=== PATIENT | female | born 1950 | race Two or more races ===

== ENCOUNTER → 2020-07-04 09:41 | Outpatient (BNVA) | payer MEDICARE, SELFPAY | PROVIDERS: PCP Internal Medicine; Referring Provider Internal Medicine; Visit Provider Internal Medicine | DX: J44.9 Chronic obstructive pulmonary disease, unspecified (principal); E66.9 Obesity, unspecified; Z68.41 Body mass index [BMI] 40.0-44.9, adult; Z71.3 Dietary counseling and surveillance; Z79.51 Long term (current) use of inhaled steroids | CPT/HCPCS: 99213 ==

== ENCOUNTER 2020-07-29 08:29 | Outpatient (REF) | payer MEDICARE, SELFPAY ==
--- NOTE | 2020-07-29 08:32 | CT_ITS ---
EXAMINATION: CT CHEST SCREENING CLINICAL INFORMATION: Lung cancer screening COMPARISON: Previous chest CT scans most recent June 2019 TECHNIQUE: Multidetector volumetric CT imaging of the chest is performed without contrast using low dose technique. Additional 2D coronal and sagittal reformatted images and axial 3D maximum intensity projection (MIP) images are generated on the CT workstation. This CT examination was performed using dose optimization techniques as appropriate, variously including the following: *Automated exposure control *Adjustment of mA and/or kV according to patient size (this includes techniques or standardized protocols for targeted exams where dose is matched to indication/reason for exam; i.e. extremities or head) *Use of iterative reconstruction technique DLP: 74 mGy-cm FINDINGS: LUNGS: There is evidence of mild emphysema. There are postsurgical changes to the left upper lobe. There is peripheral linear scarring or chronic subsegmental atelectasis in the posterior segment of the right upper lobe axial image 95 series 5 that is stable. There are increased peripheral interstitial markings seen in the right lung. There is an increasing peripheral parenchymal density seen in the right upper lobe near the minor fissure measuring 1 x 2 cm axial image 191 series 5. There is a stable abnormal parenchymal density in the posterior lateral right lower lobe near the diaphragm measuring 1 cm axial image 405 series 5. Again, on sagittal and coronal reconstructed images this may represent nodular appearance of atelectasis. No endobronchial or endotracheal lesion is seen. MEDIASTINUM: There is mild coronary artery calcification. The mediastinum is otherwise normal. PLEURA: There is no pleural effusion. No pleural mass or thickening. AXILLA: There is skin thickening of the right breast. No chest wall mass or enlarged axillary lymph nodes are seen. UPPER ABDOMEN: Unremarkable OSSEOUS STRUCTURES: There are degenerative changes of the spine. CT/CT lung screening IMPRESSION: Mild emphysema. Stable postsurgical changes to the left upper lobe. Increasing peripheral interstitial disease in the right lung. Increasing peripheral or subpleural density in the right upper lobe near the minor fissure measuring 1 x 2 cm. Stable peripheral or subpleural density in the posterior lateral basal segment of the right lower lobe near the diaphragm . ASSESSMENT: Lung-RADS category 3: Probably Benign RECOMMENDATION: [address] follow-up recommended.
== END 2020-07-29 08:30 | disposition home or self-care (01) ==
LOC: HO.CT 08:29
PROVIDERS: Visit Provider Surgery
DX: Z12.2 Encounter for screening for malignant neoplasm of respiratory organs (principal); F17.210 Nicotine dependence, cigarettes, uncomplicated
CPT/HCPCS: 71250

== ENCOUNTER → 2020-11-19 10:21 | Outpatient (BNVA) | payer MEDICARE, SELFPAY | PROVIDERS: PCP Internal Medicine; Visit Provider Internal Medicine | DX: E66.9 Obesity, unspecified (principal); J44.9 Chronic obstructive pulmonary disease, unspecified; J45.909 Unspecified asthma, uncomplicated; R91.1 Solitary pulmonary nodule; R09.02 Hypoxemia | CPT/HCPCS: 99212 ==

== ENCOUNTER 2020-12-19 14:53 | Outpatient (REF) | payer MEDICARE, SELFPAY ==
--- NOTE | ~2020-12-19 | MM_ITS ---
EXAMINATION: MM DIAGNOSTIC DIGITAL BREAST TOMOSYNTHESIS, BILATERAL CLINICAL INFORMATION: Follow up left breast density which had been biopsied. Status post right lumpectomy. COMPARISON: Mammography: 03/29/2020 and studies dating back to 06/07/2012. TECHNIQUE: Digital breast tomosynthesis is performed in both the craniocaudal and mediolateral oblique views along with computer-aided detection (CAD). Synthesized 2D images are generated from the tomosynthesis. Additional right exaggerated craniocaudal view performed. FINDINGS: There are scattered areas of fibroglandular density (ACR BI-RADS breast composition Category b). Patient is status post right breast lumpectomy with post surgical and post radiation change present. No new abnormal dominant mass or suspicious grouping of calcifications identified. Within the left breast, a clip is noted in the medial density which had been biopsied with benign pathology result. No new abnormal dominant mass identified. No suspicious grouping of microcalcifications. Results are provided to the patient at time of visit by the technologist. MM/MM tomosynthesis diagnostic BI IMPRESSION: There are no significant changes from prior study. ASSESSMENT: BI-RADS 2: Benign. RECOMMENDATION: Routine annual mammography screening due in 12 months. This patient's information was entered into a reminder system with a target due date for their next mammogram.
== END 2020-12-19 14:54 | disposition home or self-care (01) ==
LOC: HO.MAMMO 14:53
PROVIDERS: Visit Provider Surgery
DX: C50.911 Malignant neoplasm of unspecified site of right female breast (principal); R92.8 Other abnormal and inconclusive findings on diagnostic imaging of breast
CPT/HCPCS: 77062; 77066

== ENCOUNTER → 2021-02-19 10:16 | Outpatient (BNVA) | payer MEDICARE, SELFPAY | PROVIDERS: PCP Internal Medicine; Visit Provider Internal Medicine | DX: J44.9 Chronic obstructive pulmonary disease, unspecified (principal); R09.02 Hypoxemia; R91.1 Solitary pulmonary nodule; E66.01 Morbid (severe) obesity due to excess calories; Z68.41 Body mass index [BMI] 40.0-44.9, adult; Z79.899 Other long term (current) drug therapy; Z99.81 Dependence on supplemental oxygen; Z79.51 Long term (current) use of inhaled steroids; Z71.3 Dietary counseling and surveillance | CPT/HCPCS: 99212 ==

== ENCOUNTER 2021-02-20 10:56 | Outpatient (REF) | payer MEDICARE, SELFPAY ==
--- NOTE | ~2021-02-20 | CT_ITS ---
EXAMINATION: CT CHEST SCREENING CLINICAL INFORMATION: Six-month follow-up right upper lobe nodule. Lung cancer screening. COMPARISON: Previous chest CT scans most recent July 2020 TECHNIQUE: Multidetector volumetric CT imaging of the chest is performed without contrast using low dose technique. Additional 2D coronal and sagittal reformatted images and axial 3D maximum intensity projection (MIP) images are generated on the CT workstation. This CT examination was performed using dose optimization techniques as appropriate, variously including the following: *Automated exposure control *Adjustment of mA and/or kV according to patient size (this includes techniques or standardized protocols for targeted exams where dose is matched to indication/reason for exam; i.e. extremities or head) *Use of iterative reconstruction technique DLP: 84 mGy-cm FINDINGS: LUNGS: There is evidence of mild emphysema. There are postsurgical changes to the left upper lobe. There are increased peripheral interstitial markings seen in the right upper lobe. There is a denser more solid-appearing area in the peripheral or subpleural right upper lobe measuring 1 x 2 cm axial image 202 series 6. This is unchanged from July 2020 exam. There is increased peribronchial attenuation seen in the right upper lobe, right middle lobe and right lower lobe and some of bronchial wall thickening suggestive of airways disease. There is a 4 x 7 mm perivascular nodule in the posterior segment of the right upper lobe axial image 170 series 6. This is new from previous exam July and it is uncertain whether this could be related to airways disease. There is a peripheral or subpleural abnormal parenchymal density in the right lower lobe near the diaphragm this is increased in size measuring 1 x 2 cm axial image 389 series 6 compared to approximately 1 cm on July 2020 exam. Again, on sagittal and coronal images this appears to represent an area of subsegmental atelectasis. There is a new peripheral or subpleural nodule in the left lower lobe adjacent to the diaphragmatic pleural surface that measures 9 mm axial image 414 series 6. On sagittal and coronal reconstructed images this may represent an area of atelectasis as well. MEDIASTINUM: Mild coronary artery calcification. The pulmonary arteries are prominent, main pulmonary artery measuring 3.8 cm. PLEURA: There is no pleural effusion. No pleural mass or thickening. AXILLA: No lymphadenopathy. UPPER ABDOMEN: Unremarkable OSSEOUS STRUCTURES: There are degenerative changes of the spine. CT/CT lung screen follow up IMPRESSION: Stable appearance to the peripheral or subpleural parenchymal density in the right upper lobe. Increasing peribronchial attenuation and bronchial wall thickening throughout the right lung probably representing airways disease. New 5 x 7 mm posterior segment right upper lobe nodule. This may be related to airways disease. Stable peripheral or subpleural abnormal parenchymal density in the right lower lobe probably representing atelectasis. New similar-appearing peripheral or subpleural parenchymal density in the left lower lobe adjacent to the diaphragm which may also represent atelectasis. ASSESSMENT: Lung-RADS category 3: Probably Benign RECOMMENDATION: Six-month low-dose chest CT scan recommended.
== END 2021-02-20 10:57 | disposition home or self-care (01) ==
LOC: HO.CT 10:56
PROVIDERS: Visit Provider Surgery
DX: Z12.2 Encounter for screening for malignant neoplasm of respiratory organs (principal); Z87.891 Personal history of nicotine dependence
CPT/HCPCS: 71250

== ENCOUNTER → 2021-03-18 13:20 | Outpatient (BNVA) | payer MEDICARE, SELFPAY | PROVIDERS: PCP Internal Medicine; Visit Provider Internal Medicine | DX: Z13.89 Encounter for screening for other disorder (principal) | CPT/HCPCS: Q3014 ==

== ENCOUNTER 2021-06-11 10:47 | Outpatient (REF) | payer MEDICARE, SELFPAY ==
--- NOTE | ~2021-06-11 | CT_ITS ---
EXAMINATION: CT CHEST SCREENING CLINICAL INFORMATION: Former smoker, quit 5 years ago. 40 year smoking history. COMPARISON: Previous chest CT scans most recent February 2021 TECHNIQUE: Multidetector volumetric CT imaging of the chest is performed without contrast using low dose technique. Additional 2D coronal and sagittal reformatted images and axial 3D maximum intensity projection (MIP) images are generated on the CT workstation. This CT examination was performed using dose optimization techniques as appropriate, variously including the following: *Automated exposure control *Adjustment of mA and/or kV according to patient size (this includes techniques or standardized protocols for targeted exams where dose is matched to indication/reason for exam; i.e. extremities or head) *Use of iterative reconstruction technique DLP: 104 mGy-cm FINDINGS: LUNGS: There is evidence of mild emphysema. There are postsurgical changes following partial left upper lobe lobectomy. There are increased peripheral interstitial markings right greater than left again questionable for interstitial lung disease. There are scattered areas of bronchial wall thickening, increased peribronchial attenuation and bronchial soft tissue opacification suggestive of airways disease. This is greatest greater in the right lung compared to the left. There is focal bronchiectasis seen in the posterior segment of the right upper lobe bronchial wall thickening versus small peribronchial nodules for example axial image 175 series 5 that appears unchanged. There is a peripheral or subpleural parenchymal density measuring approximately 1 cm axial image 199 series 5 in the right upper lobe that appears unchanged. There is a 5 mm right middle lobe nodule adjacent to the major fissure axial image 282 series 5 that is new or increased. Areas of peripheral scarring or atelectasis in the left upper lobe anteriorly axial image 274 series 5 and inferiorly axial image 321 series 5 that are stable. The abnormal peripheral or subpleural parenchymal density in the right lower lobe measuring approximately 1 x 2 cm axial image 377 series 5 is stable. The previously identified 9 mm left lower lobe nodule along the diaphragmatic surface that was new on February 2021 exam is no longer seen. MEDIASTINUM: The heart does not appear enlarged. There is mild coronary artery calcification. There is no pericardial effusion. There are small mediastinal lymph nodes. No enlarged lymph nodes are seen. The pulmonary arteries are upper normal in size. Thoracic aorta is normal in caliber but tortuous. PLEURA: There is no pleural effusion. No pleural mass or thickening. AXILLA: No chest wall mass or enlarged axillary lymph nodes are seen. UPPER ABDOMEN: Unremarkable OSSEOUS STRUCTURES: There are degenerative changes of the spine. CT/CT lung screen follow up IMPRESSION: The previously identified 9 mm left lower lobe nodule adjacent to the diaphragmatic pleural surface that was new on February 2021 exam is no longer seen. There is a new peripheral or subpleural right middle lobe nodule adjacent to the major fissure axial image 278 series 5 that is new. This may represent a subpleural lymph node. Otherwise pulmonary nodules appear stable. There is evidence of mild emphysema, interstitial disease, right greater than left and airways disease also right greater than left. ASSESSMENT: Lung-RADS category 2: Benign RECOMMENDATION: Annual low-dose chest CT follow-up recommended.
== END 2021-06-11 10:48 | disposition home or self-care (01) ==
LOC: HO.CT 10:47
PROVIDERS: PCP Internal Medicine; Visit Provider Physician Assistant Medical
DX: Z12.2 Encounter for screening for malignant neoplasm of respiratory organs (principal); Z87.891 Personal history of nicotine dependence
CPT/HCPCS: 71250

== ENCOUNTER → 2021-06-20 10:42 | Outpatient (BNVA) | payer MEDICARE, SELFPAY | PROVIDERS: PCP Internal Medicine; Visit Provider Surgery | DX: J44.9 Chronic obstructive pulmonary disease, unspecified (principal); R91.8 Other nonspecific abnormal finding of lung field; Z79.899 Other long term (current) drug therapy; Z79.84 Long term (current) use of oral hypoglycemic drugs; Z87.891 Personal history of nicotine dependence | CPT/HCPCS: 99212 ==

== ENCOUNTER → 2021-06-23 10:37 | Outpatient (BNVA) | payer MEDICARE, SELFPAY | PROVIDERS: PCP Internal Medicine; Visit Provider Internal Medicine | DX: J44.9 Chronic obstructive pulmonary disease, unspecified (principal); J45.909 Unspecified asthma, uncomplicated; E66.01 Morbid (severe) obesity due to excess calories; R91.8 Other nonspecific abnormal finding of lung field; R09.02 Hypoxemia | CPT/HCPCS: 99212 ==

== ENCOUNTER 2021-06-26 10:58 | Outpatient (REF) | payer MEDICARE, SELFPAY ==
--- NOTE | ~2021-06-26 | MM_ITS ---
EXAMINATION: BONE DENSITOMETRY CLINICAL INDICATION: Menopause. COMPARISON: Previous BD dated 08/06/2016 and baseline BD dated 07/22/2010. TECHNIQUE: Using a [employer] DXA System (software version: 13.1) manufactured by [employer], dual-energy x-ray absorptiometry was performed of the lumbar spine and left hip. The images are of good technical quality. Summary results are attached. FINDINGS: AP SPINE L1-L4: Current: BMD 1.194 g/cm2, Z-score 0.6, T-score 0.1, normal, 3.1% increase from previous, 3.1% increase from baseline (<5% change is not significant). Prior: BMD 1.158 g/cm2. Baseline: BMD 1.158 g/cm2. LEFT FEMUR, NECK: Current: BMD 0.905 g/cm2, Z-score 0.0, T-score -1.0, normal. Prior: BMD 0.863 g/cm2. Baseline: BMD 0.886 g/cm2. LEFT FEMUR, TOTAL: Current: BMD 1.158 g/cm2, Z-score 1.8, T-score 1.2, normal, 5.9% increase from previous, 5.3% increase from baseline (<5% change is not significant). Prior: BMD 1.094 g/cm2. Baseline: BMD 1.100 g/cm2. IDENTIFIED RISK FACTORS: Low calcium intake, menopause. HISTORY OF FRACTURE: None listed. MEDICATIONS: Calcium supplements or multivitamin, vitamin D. MM/XR DEXA axial skeleton IMPRESSION: 1. DIAGNOSIS: Normal bone density based on the lowest T-score value of -1.0 in the femoral neck applying World Health Organization criteria. 2. 10-YEAR FRACTURE RISK PREDICTION, FRAX: Major osteoporotic fracture (clinical spine, forearm, hip or shoulder) 4.2%. Hip fracture 0.4%. 3. Treatment Recommendations: NOF guidelines recommend consideration for treatment in postmenopausal women and men age 50 and older presenting with the following: -A hip or vertebral (clinical or morphometric) fracture. -T-score less than or equal to -2.5 at the femoral neck or spine after appropriate evaluation to exclude secondary causes. -Low bone mass at the hip or spine and a 10-year fracture probability by FRAX of greater than or equal to 3% for hip fracture or greater than or equal to 20% for major osteoporotic fracture based on the [place] adapted WHO algorithm. 4. Other Recommendations: All treatment decisions require clinical judgment and consideration of individual patient factors, including patient preferences, comorbidities, previous drug use, risk factors not captured in the FRAX model (e.g. frailty, falls, vitamin D deficiency, increased bone turnover, interval significant decline in bone density) and possible under or overestimation of fracture risk by FRAX. FUTURE SCAN RECOMMENDATION: People with diagnosed cases of osteoporosis or at high risk for fracture should have regular bone mineral density tests. For patients eligible for Medicare, routine testing is allowed once every 2 years. The testing frequency can be increased to one year for patients who have rapidly progressing disease, those who are receiving or discontinuing medical therapy to restore bone mass, or have additional risk factors.
== END 2021-06-26 10:59 | disposition home or self-care (01) ==
LOC: HO.MAMMO 10:58
PROVIDERS: Visit Provider Internal Medicine
DX: Z13.820 Encounter for screening for osteoporosis (principal); Z78.0 Asymptomatic menopausal state
CPT/HCPCS: 77080

== ENCOUNTER → 2021-07-01 11:22 | Outpatient (BNVA) | payer OTHER, SELFPAY | PROVIDERS: PCP Internal Medicine; Referring Provider Internal Medicine; Visit Provider Surgery | DX: C50.911 Malignant neoplasm of unspecified site of right female breast (principal) | CPT/HCPCS: 99212 ==

== ENCOUNTER → 2021-12-04 11:14 | Outpatient (BNV) | payer OTHER, SELFPAY | PROVIDERS: Visit Provider Internal Medicine Medical Oncology | DX: Z85.3 Personal history of malignant neoplasm of breast (principal); R91.8 Other nonspecific abnormal finding of lung field; D75.1 Secondary polycythemia | CPT/HCPCS: 99213 ==

== ENCOUNTER 2021-12-15 12:51 | Outpatient (REF) | payer MEDICARE, SELFPAY ==
--- NOTE | ~2021-12-15 | CT_ITS ---
EXAMINATION: CT CHEST SCREENING CLINICAL INFORMATION: History of nicotine dependence COMPARISON: None. TECHNIQUE: Multidetector volumetric CT imaging of the chest is performed without contrast using low dose technique. Additional 2D coronal and sagittal reformatted images and axial 3D maximum intensity projection (MIP) images are generated on the CT workstation. This CT examination was performed using dose optimization techniques as appropriate, variously including the following: *Automated exposure control *Adjustment of mA and/or kV according to patient size (this includes techniques or standardized protocols for targeted exams where dose is matched to indication/reason for exam; i.e. extremities or head) *Use of iterative reconstruction technique DLP: 77 mGy-cm FINDINGS: LUNGS: There is mild emphysema with patchy ground-glass attenuation seen peripherally based in right upper lobe and posterior segments. Postsurgical changes following left upper lobe resection are noted. There is a patchy subpleural ground-glass attenuation changes with atelectasis in the right lower lobe. Mild peribronchial thickening bilateral lower lobe with soft tissue adjacent attenuation is stable. Bilateral lower lobe bronchiectasis is not well appreciated on this exam. Previously seen soft tissue nodule right middle lobe adjacent to fissure is not well appreciated on the present exam. Minimal subpleural basilar atelectasis in the lingula, axial image 290/6, is stable. Subpleural based patchy parenchymal opacity at right CP angle, image 388/6, is stable. There are no new findings. MEDIASTINUM: The thyroid lobes are symmetric and normal. The central trachea and the bronchi are widely patent. There are small shotty lymph nodes in the mediastinum. Heart size and the great vessels are normal caliber. There are coronary artery calcifications present. PLEURA: There is no pleural effusion. No pleural mass or thickening. AXILLA: No lymphadenopathy. UPPER ABDOMEN: Visualized liver, spleen, pancreas and bilateral adrenal glands are unremarkable. OSSEOUS STRUCTURES: No lytic or sclerotic process seen. CT/CT lung screen follow up IMPRESSION: 1. Mild emphysema with postsurgical changes, left upper lobe, following lobectomy. There is patchy parenchymal subpleural opacities, right upper lobe lateral segment, right lower lobe CP angle. Mild atelectatic changes in the lingula. 2. Nodule in the right middle lobe adjacent to confluence of the fissure is not visualized. No change in the peribronchial wall thickening and mild peribronchial attenuation. Bronchiectasis is not well appreciated on this exam. ASSESSMENT: Lung-RADS category 2: Benign RECOMMENDATION: Low-dose annual CT chest exam
== END 2021-12-15 12:52 | disposition home or self-care (01) ==
LOC: HO.CT 12:51
PROVIDERS: Visit Provider Physician Assistant Medical
DX: Z87.891 Personal history of nicotine dependence (principal)
CPT/HCPCS: 71250

== ENCOUNTER 2021-12-22 09:55 | Outpatient (REF) | payer OTHER, SELFPAY ==
--- NOTE | ~2021-12-22 | MM_ITS ---
EXAMINATION: MM SCREENING DIGITAL BREAST TOMOSYNTHESIS, BILATERAL CLINICAL INFORMATION: Screening. Asymptomatic. Prior right lumpectomy for breast cancer, 2009. COMPARISON: Mammography: 12/19/2020, 03/29/2020, 03/21/2020, 09/19/2019; CT chest 12/15/2021, 06/11/2021, 02/20/2021, and 07/29/2020. TECHNIQUE: Digital breast tomosynthesis is performed in both the craniocaudal and mediolateral oblique views along with computer-aided detection (CAD). Synthesized 2D images are generated from the tomosynthesis. Additional exaggerated right CC view is provided. FINDINGS: There are scattered areas of fibroglandular density (ACR BI-RADS breast composition Category b). There are post therapy changes on the right with reduced breast size and smooth skin thickening. There is no interval mass or architectural abnormality or coarsening of the stromal markings. No abnormal calcifications. The axilla is unremarkable. Left breast has biopsy clip marker posterior medial 9:00 position. Adjacent small nodular density is decreased in size. The remainder of the left breast shows no interval mass or architectural abnormality or abnormal calcifications. The axilla is unremarkable. Skin contours are smooth. MM/MM tomosynthesis screening BI IMPRESSION: No mammographic evidence of malignancy. ASSESSMENT: BI-RADS 2: Benign RECOMMENDATION: Routine annual mammography screening. This patient's information was entered into a reminder system with a target due date for their next mammogram.
== END 2021-12-22 09:56 | disposition home or self-care (01) ==
LOC: HO.MAMMO 09:55
PROVIDERS: PCP Internal Medicine; Visit Provider Internal Medicine
DX: Z12.31 Encounter for screening mammogram for malignant neoplasm of breast (principal); Z85.3 Personal history of malignant neoplasm of breast; J44.9 Chronic obstructive pulmonary disease, unspecified; E66.01 Morbid (severe) obesity due to excess calories; Z68.41 Body mass index [BMI] 40.0-44.9, adult; R09.02 Hypoxemia; R91.8 Other nonspecific abnormal finding of lung field; Z79.899 Other long term (current) drug therapy
CPT/HCPCS: 77063; 77067; 99212

== ENCOUNTER → 2021-12-26 10:03 | Outpatient (BNVA) | payer OTHER, SELFPAY | PROVIDERS: PCP Internal Medicine; Visit Provider Surgery | DX: R91.1 Solitary pulmonary nodule (principal); Z87.891 Personal history of nicotine dependence | CPT/HCPCS: 99212 ==

== ENCOUNTER → 2022-07-02 10:52 | Outpatient (BNVA) | payer MEDICARE, SELFPAY | PROVIDERS: PCP Internal Medicine; Visit Provider Surgery | DX: C50.911 Malignant neoplasm of unspecified site of right female breast (principal) | CPT/HCPCS: 99212 ==

== ENCOUNTER → 2022-07-06 10:52 | Outpatient (BNVA) | payer OTHER, SELFPAY | PROVIDERS: PCP Internal Medicine; Visit Provider Internal Medicine | DX: J44.9 Chronic obstructive pulmonary disease, unspecified (principal); R09.02 Hypoxemia; E66.01 Morbid (severe) obesity due to excess calories; R91.8 Other nonspecific abnormal finding of lung field; Z99.81 Dependence on supplemental oxygen | CPT/HCPCS: 99212 ==

== ENCOUNTER → 2022-12-31 10:49 | Outpatient (BNVA) | payer OTHER, SELFPAY | PROVIDERS: PCP General Practice; Visit Provider Internal Medicine | DX: J44.9 Chronic obstructive pulmonary disease, unspecified (principal); R09.02 Hypoxemia; E66.01 Morbid (severe) obesity due to excess calories; R91.1 Solitary pulmonary nodule; Z87.891 Personal history of nicotine dependence; Z68.41 Body mass index [BMI] 40.0-44.9, adult; Z99.81 Dependence on supplemental oxygen | CPT/HCPCS: 94618; 99212 ==

== ENCOUNTER 2023-01-07 11:42 | Outpatient (REF) | payer OTHER, SELFPAY ==
--- NOTE | ~2023-01-07 | MM_ITS ---
EXAMINATION: MM SCREENING DIGITAL BREAST TOMOSYNTHESIS, BILATERAL CLINICAL INFORMATION: Screening. Asymptomatic. Status post right breast lumpectomy and radiation therapy. COMPARISON: Mammography: December 22, 2021 and studies dating back to August 06, 2016 TECHNIQUE: Digital breast tomosynthesis is performed in both the craniocaudal and mediolateral oblique views along with computer-aided detection (CAD). Synthesized 2D images are generated from the tomosynthesis. FINDINGS: There are scattered areas of fibroglandular density (ACR BI-RADS breast composition Category b). There is postsurgical and postradiation change seen involving the right breast. There is a stable appearance of the left breast with no new abnormal dominant mass or suspicious grouping of microcalcifications identified. MM/MM tomosynthesis screening BI IMPRESSION: No significant changes from prior exam. ASSESSMENT: BI-RADS 2: Benign RECOMMENDATION: Routine annual mammography screening. This patient's information was entered into a reminder system with a target due date for their next mammogram.
== END 2023-01-07 11:43 | disposition home or self-care (01) ==
LOC: HO.MAMMO 11:42
PROVIDERS: PCP General Practice; Visit Provider General Practice
DX: Z12.31 Encounter for screening mammogram for malignant neoplasm of breast (principal)
CPT/HCPCS: 77063; 77067

== ENCOUNTER 2023-02-02 12:51 | Outpatient (REF) | payer OTHER, SELFPAY ==
--- NOTE | ~2023-02-02 | CT_ITS ---
EXAMINATION: CT CHEST SCREENING CLINICAL INFORMATION: Personal history of nicotine dependence. COMPARISON: CT chest 12/19/2021 TECHNIQUE: Multidetector volumetric CT imaging of the chest is performed without contrast using low dose technique. Additional 2D coronal and sagittal reformatted images and axial 3D maximum intensity projection (MIP) images are generated on the CT workstation. This CT examination was performed using dose optimization techniques as appropriate, variously including the following: *Automated exposure control *Adjustment of mA and/or kV according to patient size (this includes techniques or standardized protocols for targeted exams where dose is matched to indication/reason for exam; i.e. extremities or head) *Use of iterative reconstruction technique DLP: 75 mGy-cm FINDINGS: LUNGS: There is a left upper lobe scar from previous wedge resection. There is a emphysema with patchy groundglass attenuation in the right upper lobe and right lower lobe similar to previous study. Right lower lobe platelike atelectasis or scarring. No pulmonary nodules seen. No mass or consolidation either. MEDIASTINUM: The thyroid lobes are symmetrical and normal. The central trachea and bronchi are widely patent. No abnormal size mediastinal or hilar lymph nodes seen. No pericardial effusion or thickening. CORONARY ARTERY CALCIFICATION: Trace coronary artery calcification seen. PLEURA: There is no pleural effusion. No pleural mass or thickening. AXILLA: No lymphadenopathy. UPPER ABDOMEN: Julys liver, spleen, pancreas and bilateral adrenal glands are unremarkable. OSSEOUS STRUCTURES: No aggressive lytic or sclerotic process seen. CT/CT lung screening IMPRESSION: 1. Left upper lobe wedge resection. No pulmonary nodules seen. 2. Emphysema with patchy groundglass attenuation in the right upper lobe and right lower lobe, stable. ASSESSMENT: Lung-RADS category 2 RECOMMENDATION: Low-dose annual CT chest.
== END 2023-02-02 12:52 | disposition home or self-care (01) ==
LOC: HO.CT 12:51
PROVIDERS: PCP General Practice; Visit Provider Physician Assistant Medical
DX: Z12.2 Encounter for screening for malignant neoplasm of respiratory organs (principal); Z87.891 Personal history of nicotine dependence
CPT/HCPCS: 71271

== ENCOUNTER → 2023-05-26 08:12 | Day surgery (SDC) | payer OTHER, SELFPAY ==
--- NOTE | 2023-05-25 11:01 | P.CONAN_ITS ---
HPI - Anesthesia Eval Consult details Narrative: 73yo F for Colonoscopy Home O2. 2L @ [facility], PRN during the day [facility] Active Problems Active Problems: All Active Problems (Updated 12/31/22 @ 12:02 by Matt Banda MD) Erythrocytosis (Acute) Pulmonary nodules (Acute) Lung nodule (Acute) On home oxygen therapy (Acute) Hypoxemia (Acute) COPD (chronic obstructive pulmonary disease) (Acute) Asthma (Acute) Personal history of nicotine dependence (Acute) Morbid obesity (Acute) Abnormal mammogram of left breast (Acute) Past Medical History Medical History Asthma COPD (chronic obstructive pulmonary disease) History of invasive ductal carcinoma of breast (~2009) Hypoxemia Left breast mass Lung nodule Morbid obesity On home oxygen therapy Osteopenia Personal history of nicotine dependence Family History Family History Father History of diabetes mellitus Mother Family history of COPD (chronic obstructive pulmonary disease) Family/Other History of melanoma Brother Skin cancer Surgical History Surgical History History of section History of colonoscopy with polypectomy (~03/2010) History of lung surgery (~07/08/16) History of lymph node dissection of right axilla (~05/2010) History of right breast biopsy (~05/2010) Social History Social History Household Members: Friend(s) Housing: Apartment Are you a primary caregivers non medical to a significant other at home: No Do you presently have visiting nurse or other home services: No Patient Tobacco Use Status: Former Tobacco user Advance Directives: No Advance Directives Information Provided: Yes service: No Current occupational status: disabled Meds Allergies Allergy/AdvReac Type Severity Reaction Status Date / Time No Known Allergies Allergy Verified 12/31/22 11:12 [No Known Allergies*] Home Medications Medication Instructions Recorded Confirmed Last Taken Type clonazepam 1 mg tablet 1 mg PO BID PRN anxiety attack 06/17/20 07/02/22 Unknown History ibuprofen 800 mg tablet 800 mg PO Q8H PRN pain 06/17/20 07/02/22 Unknown History metformin 500 mg tablet 500 mg PO BEDTIME 06/17/20 07/02/22 Unknown History mirtazapine 15 mg tablet 15 mg PO BEDTIME 06/17/20 07/02/22 Unknown History venlafaxine 75 mg capsule,extended 75 mg PO DAILY 06/17/20 07/02/22 Unknown History release 24 hr (Effexor XR) ascorbate calcium (vitamin C) 500 500 mg PO DAILY 11/19/20 07/02/22 Unknown His tory mg tablet aspirin 81 mg tablet,delayed 81 mg PO DAILY PRN Bleeding 11/19/20 07/02/22 Unknown History release clotrimazole 1 % topical cream 1 appl topical DAILY 02/19/21 07/02/22 Unknown History tramadol 50 mg tablet 1 tab PO Q12H PRN Pain 12/04/21 07/02/22 Unknown History Exam Exam Date and Time: May 25, 2023 1101 Pertinent Lab Results Pertinent Lab Results: Laboratory Tests 11/30/22 11/30/22 10:06 10:06 WBC 7.7 Hgb 13.2 Hct 42.1 Plt Count 328 Sodium 137 Potassium 4.5 Chloride 100 Carbon Dioxide 29 BUN 24 H Creatinine 0.88 Assessment and Plan Assessment Anesthesia Assessment: Chart Reviewed
[2023-05-26] MEDS: Albuterol Sulfate (0.083%) 2.5 MG/3 ML VIAL.NEB INHALE (08:35)
[2023-05-26 08:39] VITALS: PULSE 81; RESP 16; O2SAT 95
[2023-05-26 09:00] LABS: Glucose, Whole Blood 114 mg/dL (60-115)
--- NOTE | 2023-05-26 09:06 | PC.NURSE ---
pt case cancelled. wheezing noted prior to udn and after udn. continueous o2 2Lnc sat 95%. no iv started or undress. pt in good spiris
== END ==
PROVIDERS: PCP General Practice; Visit Provider Internal Medicine
DX: Z12.11 Encounter for screening for malignant neoplasm of colon (principal); Z53.09 Procedure and treatment not carried out because of other contraindication; J44.9 Chronic obstructive pulmonary disease, unspecified; R06.2 Wheezing; Z87.891 Personal history of nicotine dependence; Z99.81 Dependence on supplemental oxygen
CPT/HCPCS: 82947; 94640

== ENCOUNTER 2023-06-11 11:43 | Outpatient (REF) | payer OTHER, SELFPAY ==
[2023-06-11 14:25] LABS: Alanine Aminotransferase 9 U/L (0-31); Albumin Level 3.8 g/dL (3.5-5.0); Alkaline Phosphatase 83 U/L (39-117); Anion Gap 16 (12-20); Aspartate Amino Transferase 14 U/L (5-31); Bilirubin Total 0.3 mg/dL (0.0-1.0); Blood Urea Nitrogen 23 mg/dL (9-16); Carbon Dioxide 28 mmol/L (22-29); Chloride 101 mmol/L (96-108); Cholesterol 205 mg/dL (<200); Estimated Glomerular Filt Rate 52; Glucose Random 108 mg/dL (60-115); HDL Cholesterol 39 mg/dL (>40); LDL Cholesterol Calculated 129 mg/dL (<100); Potassium 4.5 mmol/L (3.3-5.1); Sodium 140 mmol/L (135-145); TSH reflex Free T4 1.57 uIU/mL (0.32-4.0); Total Protein 8.2 g/dL (6.5-8.0); Triglycerides 185 mg/dL (<150)
== END 2023-06-11 11:44 | disposition home or self-care (01) ==
LOC: HO.HHCL 11:43
PROVIDERS: Visit Provider General Practice
DX: R73.03 Prediabetes (principal); J44.9 Chronic obstructive pulmonary disease, unspecified; I34.0 Nonrheumatic mitral (valve) insufficiency; R73.01 Impaired fasting glucose; E66.01 Morbid (severe) obesity due to excess calories
CPT/HCPCS: 36415; 80053; 80061; 84443

== ENCOUNTER 2023-06-29 12:46 | Outpatient (REF) | payer OTHER, SELFPAY | END 2023-06-29 12:47 | disposition home or self-care (01) | LOC: HO.MAMMO 12:46 | PROVIDERS: PCP General Practice; Visit Provider Internal Medicine Medical Oncology | DX: Z13.820 Encounter for screening for osteoporosis (principal); M85.80 Other specified disorders of bone density and structure, unspecified site; Z78.0 Asymptomatic menopausal state | CPT/HCPCS: 77080 ==

== ENCOUNTER 2023-07-20 09:42 | Outpatient (AMB) | payer OTHER, SELFPAY ==
[2023-07-20 09:57] VITALS: BP 98/60; PULSE 71; O2SAT 92; BMI 43.9
--- NOTE | 2023-07-20 09:57 | MHC.OFFVIS ---
Intake Vital Signs 07/20/23 09:57 Height 5 ft 2 in Weight 240 lb BMI 43.9 BP 98/60 Blood Pressure Location Lt brachial Position Sitting Pulse 71 Pulse Source Pulse Oximeter Pulse Oximetry (%) 92 Oxygen Delivery Method Nasal Cannula Oxygen Flow Rate 4 Intake Visit Reasons: Obstructive sleep apnea : pre op : Colonoscopy Intake Note: pt is here for pre-op clearance, she is coughing and short of breath, no new date yet, they cx day of procedure due to lung congestion. She saw pcp that gave her medication but she still feels phelgm is there. records show it was doxy and prednisone taper. Allergies No Known Allergies [No Known Allergies*] Allergy (Verified 07/20/23 10:22) Medication List - Last Reconciled 07/20/23 by Matt Banda MD albuterol sulfate 2.5 mg (3 mL) inhalation Q4-6H PRN ascorbate calcium (vitamin C) 500 mg PO DAILY aspirin 81 mg PO DAILY PRN clonazepam 1 mg PO BID PRN clotrimazole 1% 1 appl topical DAILY fluticasone propion-salmeterol 250-50 mcg/dose (Wixela Inhub) 1 ea PO BID ibuprofen 800 mg PO Q8H PRN Incruse Ellipta 62.5 mcg/actuation (umeclidinium) 1 inh PO DAILY NS ipratropium-albuterol 20-100 mcg/actuation (Combivent Respimat) 1 puff PO Q4-6H PRN metformin 500 mg PO BEDTIME mirtazapine 15 mg PO BEDTIME tramadol 1 tab PO Q12H PRN venlafaxine ER (Effexor XR) 75 mg PO DAILY Do you need a note to return to daycare/school/sports/work: No HPI Obstructive sleep apnea : pre op : Colonoscopy HPI Details 73 YEARS OLD FEMALE IS HERE FOR FOLLOW-UP. SHE IS A CASE OF MORBID OBESITY,, CLINICAL FEATURES OF OBSTRUCTIVE SLEEP APNEA BUT SHE HAS DECLINED TO CONSIDER USING ANY CPAP OR BIPAP. SHE USES O2 2 L/MINUTE 24 HOURS A DAY INCLUDING AT NIGHT. SHE HAS ADVANCED CASE OF CHRONIC OBSTRUCTIVE PULMONARY DISEASE. ABOUT A MONTH AGO SHE HAD SOME RESPIRATORY INFECTION, WITH INCREASED COUGH AND CHEST CONGESTION. SHE WAS TREATED WITH A COURSE OF Z-JONATHAN AND PREDNISONE BY HER PCP, IN THE 1ST WEEK OF JUNE. CONTINUES TO HAVE MILD BUT USUAL COUGH, WITHOUT MUCH EXPECTORATION. CONTINUES TO BE SHORT OF BREATH ON WALKING AROUND BUT SHE DOES NOT WALK MUCH, AND USES WALKER. DENIES ANY ATTACKS OF WHEEZING. [facility] Medical History On home oxygen therapy History of invasive ductal carcinoma of breast (~2009) Osteopenia Morbid obesity Hypoxemia Lung nodule Left breast mass Personal history of nicotine dependence Asthma COPD (chronic obstructive pulmonary disease) Surgical History History of lung surgery (~07/08/16) History of lymph node dissection of right axilla (~05/2010) History of right breast biopsy (~05/2010) History of colonoscopy with polypectomy (~03/2010) History of section Family History Father History of diabetes mellitus Mother Family history of COPD (chronic obstructive pulmonary disease) Family/Other History of melanoma Brother Skin cancer Social History Household Members: Friend(s) Housing: Apartment Are you a primary team primary care physician to a significant other at home: No Do you presently have visiting nurse or other home services: No Patient Tobacco Use Status: Former Tobacco user service: No Current occupational status: disabled Review of Systems Const All systems reviewed & are unremarkable except as noted in HPI and below Eyes Reports no additional complaints ENT Reports nasal congestion (Mild off and on) Card Denies chest pain, Denies irregular heart rhythm and Denies leg edema Resp Reports as per HPI GI Reports no additional complaints Reports no additional complaints Musc Reports no additional complaints Skin/Breast Reports system reviewed and no additional complaints, except as documented Neuro Reports no additional complaints Psych Reports anxiety (Mild off and) Endo Reports no additional complaints Physical Exam Vital Signs: Last Vital Signs Pulse 71 07/20/23 09:57 BP 98/60 07/20/23 09:57 Pulse Ox 92 07/20/23 09:57 Oxygen Delivery Method Nasal Cannula 07/20/23 09:57 Oxygen Flow Rate 4 07/20/23 09:57 BMI result Body Mass Index 43.9 Const Other: She is grossly obese , as usual. General: comfortable, no acute distress, alert and awake Orientation/consciousness: patient oriented x3 HEENT Head: Yes normal to inspection General nose exam: No nasal polyps present and No nasal discharge present Face and sinus: Yes sinuses nontender Mouth: oropharynx normal Throat: Yes posterior oropharynx normal Eyes General: appearance normal, both eyes and all related structures Neck Neck: Yes normal visual inspection, Yes no lymphadenopathy, Yes trachea midline and Yes no JVD Thyroid: Thyroid normal Chest Chest palpation & inspection: normal inspection of the chest, normal palpation of entire chest wall and no tenderness Resp Other: Percussion note resonant, breath sounds are distant with prolonged expiratory phase. No audible wheezes or rhonchi or Creps. Cardio Palpation: normal PMI Rate: regular rate Rhythm: regular rhythm Heart sounds: no gallops and no murmurs GI Palpation (GI): Soft to palpation, nontender, No hepatosplenomegaly present, no masses and Other GI palpation findings present (Abdominal wall is obese and somewhat protuberant) Auscultation: normal bowel sounds Back/Spine/Pelvis Thoracic/Lumbar Spine: thoracic and lumbar spine normal to inspection and thoraco-lumbar ROM limited Skin General skin exam: no rashes or lesions noted Neuro General: patient oriented x3 and no focal motor deficits Cranial nerves: Yes CN's II-XII intact bilaterally Extrem General: Yes normal to inspection, Yes no clubbing, cyanosis or edema and Yes no calf tenderness Psych Appearance: grossly normal Speech and movement: Normal speech and movement present Office Procedures Spirometry Testing Spirometry Comments: Spirometry done in the office, Dr. Banda has the results results scanned to her chart. 19481- Spirometry Results Reviewed Results Reviewed: SPIROMETRY FVC 81% FEV1 37% FEV1/FVC RATIO 36 [id number] 12% C/W SEVERE OBSTRUCTIVE AIRWAY DISORDER Assessment & Plan Assessment & Plan (1) COPD (chronic obstructive pulmonary disease): Comment: COPD/ACOS - Severe but Stable - RX: CONTINUE WIXELA 250/50 1 INHALATION B.I.D., INCRUSE 1 INHALATION DAILY, ALBUTEROL UPDRAFT Q.4 HOURS P.R.N. WHEN INDOORS AND COMBIVENT RESPIMAT 1 INHALATION Q 4 HOURS P.R.N. WHEN OUTDOORS. Code(s): J44.9 - Chronic obstructive pulmonary disease, unspecified (2) Asthma: Comment: (Asthma/COPD Overlap Syndrome) Management : See under COPD Code(s): J45.909 - Unspecified asthma, uncomplicated (3) On home oxygen therapy: Comment: SHE USES O2 2 L/MINUTE DURING THE WHOLE NIGHT, She also needs O2, with a portable unit, when she goes outdoors of or if she does any physical work at home. 6 minutes walk test, and testing for use of pulse therapy, shows that she needs oxygen 2 L/minute at rest. With continuous mode she can use 2 L/minute even for outdoors. And with POC( Pulse therapy ) she would need at 4 L/minute. Code(s): Z99.81 - Dependence on supplemental oxygen (4) Pulmonary nodules: Comment: The nodule in left upper lobe has resolved. She has a new nodule in the right upper lobe area, Has been seen by Dr. Yoo , and having follow ups with LDCT scans . Code(s): R91.8 - Other nonspecific abnormal finding of lung field (5) Morbid obesity: Comment: DISCUSSED WITH HER ABOUT THE WEIGHT, ADVISED TO REDUCE THE CALORIES ESPECIALLY IN THE FORM OF CARBOHYDRATES, AND ALSO ENCOURAGED TO START WALKING ON A DAILY BASIS. * IT SHOULD BE NOTED THAT SHE HAS TYPICAL FEATURES OF 0 ADELITA/HYPOVENTILATION SYNDROME. BUT DURING DISCUSSIONS IN THE PAST SHE HAS DECLINED TO UNDERGO A SLEEP STUDY, AND ALSO WOULD NOT AGREE TO USE CPAP OR BIPAP AT NIGHT. Code(s): E66.01 - Morbid (severe) obesity due to excess calories Plan: DUE TO COMBINATION OF ALL THE ABOVE PULMONARY/RESPIRATORY PROBLEMS, SHE IS A VERY POOR SURGICAL RISK, WITH HIGH POTENTIAL FOR POST ALL UP RESPIRATORY FAILURE AND DEPENDENCE ON NIVS . A SHORT PROCEDURE LIKE COLONOSCOPY, UNDER CONSCIOUS SEDATION , MAY BE OKAY. I WILL RECOMMEND CLINICAL CORRELATION , FOR NECESSITY OF THE SURGICAL PROCEDURE. Orders: Orders AMB Spirometry Testing Today J44.9 - Chronic obstructive pulmonary disease, unspecified Coding Level of Care Code Est Pt Level 4 (91498) Diagnoses COPD (chronic obstructive pulmonary disease) J44.9 Asthma J45.909 On home oxygen therapy Z99.81 Pulmonary nodules R91.8 Morbid obesity E66.01 CPT Codes Spirometry - CPT: 22862- Spirometry ([id number])
== END 2023-07-20 10:47 | disposition home or self-care (01) ==
PROVIDERS: PCP General Practice; Visit Provider Internal Medicine
DX: J44.9 Chronic obstructive pulmonary disease, unspecified (principal)
CPT/HCPCS: 94010; 99214

== ENCOUNTER → 2023-07-20 09:42 | Outpatient (BNVA) | payer OTHER, SELFPAY | PROVIDERS: PCP General Practice; Visit Provider Internal Medicine | DX: J44.9 Chronic obstructive pulmonary disease, unspecified (principal); J45.909 Unspecified asthma, uncomplicated; R91.8 Other nonspecific abnormal finding of lung field; E66.01 Morbid (severe) obesity due to excess calories; Z99.81 Dependence on supplemental oxygen; Z68.41 Body mass index [BMI] 40.0-44.9, adult | CPT/HCPCS: 94010; 99212 ==

== ENCOUNTER 2023-07-23 10:45 | Outpatient (AMB) | payer OTHER, SELFPAY ==
--- NOTE | 2023-07-23 10:55 | MHC.OFFVIS ---
Intake Vital Signs 07/23/23 10:59 Height 5 ft 2 in Weight 239 lb BMI 43.7 BP 136/84 Blood Pressure Location Lt brachial Position Sitting Pulse 90 Intake Visit Reasons: Yearly breast exam Intake Note: Patient is seen in office for yearly breast exam. Patient c/o: continued right breast pain near the axilla, pain comes and goes mm: 01/07/23 Manager Android Required: Yes Manager Android Language: Precision Lens Generator Name: Kristy BELTRAN Information Interpreted: non-clinical & clinical Senior Maintenance Machinist: Senior Maintenance Machinist Present Accompanied by: Other Relationship Allergies No Known Allergies [No Known Allergies*] Allergy (Verified 07/23/23 11:00) Medication List - Last Reconciled 07/23/23 by Joey Vasquez MD albuterol sulfate 2.5 mg (3 mL) inhalation Q4-6H PRN ascorbate calcium (vitamin C) 500 mg PO DAILY aspirin 81 mg PO DAILY PRN clonazepam 1 mg PO BID PRN clotrimazole 1% 1 appl topical DAILY fluticasone propion-salmeterol 250-50 mcg/dose (Wixela Inhub) 1 ea PO BID ibuprofen 800 mg PO Q8H PRN Incruse Ellipta 62.5 mcg/actuation (umeclidinium) 1 inh PO DAILY NS ipratropium-albuterol 20-100 mcg/actuation (Combivent Respimat) 1 puff PO Q4-6H PRN metformin 500 mg PO BEDTIME mirtazapine 15 mg PO BEDTIME tramadol 1 tab PO Q12H PRN venlafaxine ER (Effexor XR) 75 mg PO DAILY HPI HPI Comments History of Present Illness Details 73-year-old female patient returning for a breast cancer follow-up examination. She has a prior history of right breast infiltrating ductal carcinoma, 2 mm in diameter, grade 1, ER/NH positive, HER2 Goldy negative diagnosed in May 2010. She underwent a right breast lumpectomy with axillary sentinel node biopsy by Dr. Nelson in May 2010. She subsequently underwent radiation therapy. She reports swelling in the right breast and was subsequently determined to have lymphedema noted on MRI dated 06/21/2015. She continues to have swelling in the right breast but no longer wears a bra. Her most recent mammogram dated 01/07/2023 revealed no significant changes from the prior mammogram (BI-RADS 2). PFSH Medical History On home oxygen therapy History of invasive ductal carcinoma of breast (~2009) Osteopenia Morbid obesity Hypoxemia Lung nodule Left breast mass Personal history of nicotine dependence Asthma COPD (chronic obstructive pulmonary disease) Surgical History History of lung surgery (~07/08/16) History of lymph node dissection of right axilla (~05/2010) History of right breast biopsy (~05/2010) History of colonoscopy with polypectomy (~03/2010) History of section Family History Father History of diabetes mellitus Mother Family history of COPD (chronic obstructive pulmonary disease) Family/Other History of melanoma Brother Skin cancer Social History Household Members: Friend(s) Housing: Apartment Are you a primary health care technician to a significant other at home: No Do you presently have visiting nurse or other home services: No Patient Tobacco Use Status: Former Tobacco user service: No Current occupational status: disabled Review of Systems Const All systems reviewed & are unremarkable except as noted in HPI and below Denies chills, Denies fever(s) and Denies night sweats ENT Reports no additional complaints Card Reports no additional complaints Resp Reports no additional complaints Denies nipple discharge Skin/Breast Denies breast swelling, Denies breast skin changes, Denies breast pain, Denies breast mass, Denies change in breast shape and Denies nipple discharge Seth/Lymph Denies lymphadenopathy Physical Exam Vital Signs: Last Vital Signs Pulse 90 07/23/23 10:59 BP 136/84 07/23/23 10:59 BMI result Body Mass Index 43.7 Const General: cooperative and no acute distress Nutritional Appearance: well nourished Orientation/consciousness: patient oriented x3 Limitations: no limitations HEENT Head: Yes normocephalic and Yes atraumatic Ears: hearing grossly normal bilaterally Chest Other: Left breast: No skin change, no nipple retraction, no nipple discharge, no palpable mass, no enlarged lymph nodes. Right breast: Post therapy skin changes consistent with prior radiation therapy with lymphedema involving the entire breast, unchanged. A well-healed incision is noted in the lower outer quadrant with some tenderness to palpation. No new skin changes, nipple discharge or new palpable masses appreciated. No axillary lymph nodes are palpable. Resp Effort & Inspection: normal respiratory effort, no audible wheezes, no cough and no respiratory distress GI Inspection: Yes normal to inspection Palpation (GI): Soft to palpation Neuro General: patient oriented x3 Extrem General: Yes no clubbing, cyanosis or edema Assessment & Plan Assessment & Plan (1) Infiltrating ductal carcinoma of right breast: Code(s): C50.911 - Malignant neoplasm of unspecified site of right female breast Plan Patient is now 13 years status post lumpectomy and sentinel node biopsy for invasive ductal carcinoma of the right breast. Examination today reveals no new suspicious findings. Her most recent mammogram of 01/07/2023 revealed no significant changes from her prior mammogram (BI-RADS 2). Annual mammogram is recommended in 1 year (01/13/2024). I recommended follow-up examination in 1 year, sooner p.r.n.. Coding Level of Care Code Est Pt Level 3 (77065) Diagnoses Infiltrating ductal carcinoma of right breast C50.911
[2023-07-23 10:59] VITALS: BP 136/84; PULSE 90; BMI 43.7
== END 2023-07-23 11:11 | disposition home or self-care (01) ==
PROVIDERS: PCP General Practice; Visit Provider Surgery
DX: Z85.3 Personal history of malignant neoplasm of breast (principal)
CPT/HCPCS: 99213

== ENCOUNTER → 2023-07-23 10:45 | Outpatient (BNVA) | payer OTHER, SELFPAY | PROVIDERS: PCP General Practice; Visit Provider Surgery | DX: C50.911 Malignant neoplasm of unspecified site of right female breast (principal) | CPT/HCPCS: 99212 ==

== ENCOUNTER 2023-10-20 10:41 | Outpatient (AMB) | payer OTHER, SELFPAY ==
[2023-10-20 10:50] VITALS: BP 110/68; PULSE 83; O2SAT 93; BMI 44.8
--- NOTE | 2023-10-20 10:50 | A.OFFVIS_ITS ---
Intake Vital Signs 10/20/23 10:50 Height 5 ft 2 in Weight 244 lb 11.41 oz BMI 44.8 BP 110/68 Blood Pressure Location Lt brachial Position Sitting Pulse 83 Pulse Source Pulse Oximeter Pulse Oximetry (%) 93 Oxygen Delivery Method Nasal Cannula Oxygen Flow Rate 4 Intake Visit Reasons: Obstructive sleep apnea Intake Note: pt is here for follow up and states she is okay, oxygen is 24 hours a day, some coughing with phelgm in the chest. Bellows Tester Required: No Allergies No Known Allergies [No Known Allergies*] Allergy (Verified 10/20/23 11:16) Medication List - Last Reconciled 10/20/23 by Matt Banda MD albuterol sulfate 2.5 mg (3 mL) inhalation Q4-6H PRN ascorbate calcium (vitamin C) 500 mg PO DAILY aspirin 81 mg PO DAILY PRN clonazepam 1 mg PO BID PRN clotrimazole 1% 1 appl topical DAILY fluticasone propion-salmeterol 250-50 mcg/dose (Wixela Inhub) 1 ea PO BID ibuprofen 800 mg PO Q8H PRN Incruse Ellipta 62.5 mcg/actuation (umeclidinium) 1 inh PO DAILY NS ipratropium-albuterol 20-100 mcg/actuation (Combivent Respimat) 1 puff PO Q4-6H PRN metformin 500 mg PO BEDTIME mirtazapine 15 mg PO BEDTIME tramadol 1 tab PO Q12H PRN venlafaxine ER (Effexor XR) 75 mg PO DAILY Do you need a note to return to daycare/school/sports/work: No HPI Obstructive sleep apnea HPI Details 73 YEARS OLD FEMALE GROSSLY OBESE, WITH ADVANCED CHRONIC OBSTRUCTIVE PULMONARY DISEASE/RESPIRATORY FAILURE. COMES AFTER 4 MONTHS FOR REGULAR FOLLOW-UP. SHE HAS BEEN DOING VERY WELL DURING THE PAST FEW MONTHS, WITHOUT ANY ACTIVE. RESPIRATORY INFECTION SHE HAS TO USE O2 24 HOURS A DAY. 2 L/MINUTE AT REST AND DURING THE NIGHT, AND 4 L/MINUTE WHEN SHE IS USING POC FOR OUTDOORS. SHE IS STAYING MOSTLY IN THE HOUSE BECAUSE SHE WALKS VERY LITTLE AND HAS TO USE THE WALKER. DOES SHE HAS PUT ON A FEW LB OF WEIGHT. EVEN THOUGH SHE HAS PHYSICAL FEATURES FOR OBSTRUCTIVE SLEEP APNEA SHE HAS DECLINED TO BE TESTED FOR. SLEEP APNEA ARE USE CPAP SHE WANTS TO CONTINUE USING ONLY OXYGEN AT NIGHT. PFSH Medical History On home oxygen therapy History of invasive ductal carcinoma of breast (~2009) Osteopenia Morbid obesity Hypoxemia Lung nodule Left breast mass Personal history of nicotine dependence Asthma COPD (chronic obstructive pulmonary disease) Surgical History History of lung surgery (~07/08/16) History of lymph node dissection of right axilla (~05/2010) History of right breast biopsy (~05/2010) History of colonoscopy with polypectomy (~03/2010) History of section Family History Father History of diabetes mellitus Mother Family history of COPD (chronic obstructive pulmonary disease) Family/Other History of melanoma Brother Skin cancer Social History Household Members: Friend(s) Housing: Apartment Are you a primary director of home care hospice to a significant other at home: No Do you presently have visiting nurse or other home services: No Patient Tobacco Use Status: Former Tobacco user service: No Current occupational status: disabled Review of Systems Const All systems reviewed & are unremarkable except as noted in HPI and below Eyes Reports no additional complaints ENT Reports nasal congestion (Mild off and on) Card Denies chest pain, Denies irregular heart rhythm and Denies leg edema Resp Reports as per HPI GI Reports no additional complaints Reports no additional complaints Musc Reports no additional complaints Skin/Breast Reports system reviewed and no additional complaints, except as documented Neuro Reports no additional complaints Psych Reports anxiety (Mild off and) Endo Reports no additional complaints Physical Exam Vital Signs: Last Vital Signs Pulse 83 10/20/23 10:50 BP 110/68 10/20/23 10:50 Pulse Ox 93 10/20/23 10:50 Oxygen Delivery Method Nasal Cannula 10/20/23 10:50 Oxygen Flow Rate 4 10/20/23 10:50 BMI result Body Mass Index 44.8 Const Other: She is grossly obese , as usual. General: comfortable, no acute distress, alert and awake Orientation/consciousness: patient oriented x3 HEENT Head: Yes normal to inspection General nose exam: No nasal polyps present and No nasal discharge present Face and sinus: Yes sinuses nontender Mouth: oropharynx normal Throat: Yes posterior oropharynx normal Eyes General: appearance normal, both eyes and all related structures Neck Neck: Yes normal visual inspection, Yes no lymphadenopathy, Yes trachea midline and Yes no JVD Thyroid: Thyroid normal Chest Chest palpation & inspection: normal inspection of the chest, normal palpation of entire chest wall and no tenderness Resp Other: Percussion note resonant, breath sounds are distant with prolonged expiratory phase. No audible wheezes or rhonchi or Creps. Cardio Palpation: normal PMI Rate: regular rate Rhythm: regular rhythm Heart sounds: no gallops and no murmurs GI Palpation (GI): Soft to palpation, nontender, No hepatosplenomegaly present, no masses and Other GI palpation findings present (Abdominal wall is obese and somewhat protuberant) Auscultation: normal bowel sounds Back/Spine/Pelvis Thoracic/Lumbar Spine: thoracic and lumbar spine normal to inspection and thoraco-lumbar ROM limited Skin General skin exam: no rashes or lesions noted Neuro General: patient oriented x3 and no focal motor deficits Cranial nerves: Yes CN's II-XII intact bilaterally Extrem General: Yes normal to inspection, Yes no clubbing, cyanosis or edema and Yes no calf tenderness Psych Appearance: grossly normal Speech and movement: Normal speech and movement present Assessment & Plan Assessment & Plan (1) COPD (chronic obstructive pulmonary disease): Comment: COPD/ACOS - Severe but Stable - Code(s): J44.9 - Chronic obstructive pulmonary disease, unspecified Plan: RX: CONTINUE WIXELA 250/50 1 INHALATION B.I.D., INCRUSE 1 INHALATION DAILY, ALBUTEROL UPDRAFT Q.4 HOURS P.R.N. WHEN INDOORS AND COMBIVENT RESPIMAT 1 INHALATION Q 4 HOURS P.R.N. WHEN OUTDOORS. (2) Asthma: Comment: (Asthma/COPD Overlap Syndrome) Management : See under COPD Code(s): J45.909 - Unspecified asthma, uncomplicated Plan: ABOVE (3) Morbid obesity: Comment: DISCUSSED WITH HER ABOUT THE WEIGHT, ADVISED TO REDUCE THE CALORIES ESPECIALLY IN THE FORM OF CARBOHYDRATES, AND ALSO ENCOURAGED TO START WALKING ON A DAILY BASIS. * IT SHOULD BE NOTED THAT SHE HAS TYPICAL FEATURES OF 0 ADELITA/HYPOVENTILATION SYNDROME. BUT DURING DISCUSSIONS IN THE PAST SHE HAS DECLINED TO UNDERGO A SLEEP STUDY, AND ALSO WOULD NOT AGREE TO USE CPAP OR BIPAP AT NIGHT. Code(s): E66.01 - Morbid (severe) obesity due to excess calories Plan: ABOVE (4) On home oxygen therapy: Comment: SHE USES O2 2 L/MINUTE DURING THE WHOLE NIGHT, She also needs O2, with a portable unit, when she goes outdoors of or if she does any physical work at home. Code(s): Z99.81 - Dependence on supplemental oxygen Plan: SHE WILL CONTINUE TO USE O2 2 L/MINUTE DURING THE DAYTIME AND AT NIGHT. FOR OUTDOORS SHE WILL USE O2 CONSERVING MODE WITH POC. AT 4 L/MINUTE (5) Pulmonary nodules: Comment: The nodule in left upper lobe has resolved. She has a new nodule in the right upper lobe area, Has been followed by Dr. Yoo , and has had LDCT scans . As per lost LDCT , some of the nodules on the left side have resolved, there are some nodules in the right lung, vexing and waning in size. And they are considered to be inflammatory in nature. Thus she does not need any active follow-up CT scans. Code(s): R91.8 - Other nonspecific abnormal finding of lung field Plan: as above Coding Level of Care Code Est Pt Level 4 (52746) Diagnoses COPD (chronic obstructive pulmonary disease) J44.9 Asthma J45.909 Morbid obesity E66.01 On home oxygen therapy Z99.81 Pulmonary nodules R91.8
== END 2023-10-20 11:17 | disposition home or self-care (01) ==
PROVIDERS: PCP General Practice; Visit Provider Internal Medicine
DX: J44.9 Chronic obstructive pulmonary disease, unspecified (principal); J45.909 Unspecified asthma, uncomplicated; E66.01 Morbid (severe) obesity due to excess calories; Z99.81 Dependence on supplemental oxygen; R91.8 Other nonspecific abnormal finding of lung field
CPT/HCPCS: 99214

== ENCOUNTER → 2023-10-20 10:41 | Outpatient (BNVA) | payer OTHER, SELFPAY | PROVIDERS: PCP General Practice; Visit Provider Internal Medicine | DX: J44.9 Chronic obstructive pulmonary disease, unspecified (principal); R91.8 Other nonspecific abnormal finding of lung field; E66.01 Morbid (severe) obesity due to excess calories; Z68.41 Body mass index [BMI] 40.0-44.9, adult; Z99.81 Dependence on supplemental oxygen | CPT/HCPCS: 99212 ==

== ENCOUNTER 2023-11-12 15:27 | Outpatient (REF) | payer OTHER, SELFPAY ==
[2023-11-12 16:07] LABS: MANUAL DIFF FLAG NO
[2023-11-12 16:10] LABS: Basophils Percent Auto 0.3 % (0-2); Eosinophils Absolute Auto 0.3 X10*3/uL (0.0-0.4); Eosinophils Percent Auto 3.4 % (0-4); Hematocrit 41.7 % (37.0-47.0); Hemoglobin 12.8 g/dl (12.0-16.0); Imm Gran Abs Auto 0.02 X10*3/uL (0.00-0.03); Imm Gran Pct Auto 0.2 % (0.0-0.4); Lymphocytes Absolute Auto 1.6 X10*3/uL (1.2-4.9); Lymphocytes Percent Auto 17.5 % (20-40); Mean Corpuscular HGB Conc 30.7 g/dl (31.0-35.0); Mean Corpuscular Hemoglobin 27.9 pg (27.0-33.0); Mean Corpuscular Volume 90.8 fL (80.0-98.0); Mean Platelet Volume 8.7 fL (9.4-12.3); Monocytes Absolute Auto 0.5 X10*3/uL (0.1-1.2); Monocytes Percent Auto 5.7 % (2-11); Neutrophils Absolute Auto 6.5 x10*3/uL (2.0-8.3); Neutrophils Percent Auto 72.9 % (45-73); Platelet Count 339 X10*3/uL (160-400); Red Blood Count 4.59 X10*6/uL (4.20-5.50); Red Cell Distribution Width 13.9 % (11.0-16.0); White Blood Count 8.9 X10*3/uL (4.8-10.8)
[2023-11-12 16:21] LABS: Estimated Average Glucose 120 mg/dL; Hemoglobin A1c % 5.8 % (<6.0)
[2023-11-12 16:48] LABS: Erythrocyte Sedimentation Rate 44 MM/HR (0-20)
[2023-11-12 20:33] LABS: Alanine Aminotransferase 12 U/L (0-31); Albumin Level 3.7 g/dL (3.5-5.0); Alkaline Phosphatase 99 U/L (39-117); Anion Gap 17 (12-20); Aspartate Amino Transferase 19 U/L (5-31); Bilirubin Total 0.2 mg/dL (0.0-1.0); Blood Urea Nitrogen 13 mg/dL (9-16); C Reactive Protein 2.48 mg/dL (< or = 0.50); Calcium 8.9 mg/dL (8.4-10.2); Carbon Dioxide 28 mmol/L (22-29); Chloride 101 mmol/L (96-108); Estimated Glomerular Filt Rate 54; Glucose Random 186 mg/dL (60-115); Potassium 4.7 mmol/L (3.3-5.1); Sodium 141 mmol/L (135-145); Total Protein 8.1 g/dL (6.5-8.0)
[2023-11-12 20:47] LABS: TSH reflex Free T4 1.19 uIU/mL (0.32-4.0)
== END 2023-11-12 15:28 | disposition home or self-care (01) ==
LOC: HO.HHCL 15:27
PROVIDERS: Internal Medicine Medical Oncology; Visit Provider Registered Nurse
DX: R21 Rash and other nonspecific skin eruption (principal); D75.1 Secondary polycythemia
CPT/HCPCS: 36415; 80053; 83036; 84443; 85025; 85652; 86140

== ENCOUNTER 2024-01-31 10:55 | Outpatient (REF) | payer OTHER, SELFPAY | END 2024-01-31 10:56 | disposition home or self-care (01) | LOC: HO.MAMMO 10:55 | PROVIDERS: Visit Provider General Practice | DX: Z13.89 Encounter for screening for other disorder (principal) ==

== ENCOUNTER 2024-02-21 11:02 | Outpatient (AMB) | payer OTHER, SELFPAY ==
--- NOTE | 2024-02-21 11:08 | MHC.OFFVIS ---
Vital Signs 02/21/24 11:09 Height 5 ft 2 in Weight 231 lb 7.766 oz BMI 42.3 BP 102/62 Blood Pressure Location Lt brachial Position Sitting Pulse 80 Pulse Source Pulse Oximeter Pulse Oximetry (%) 94 Oxygen Delivery Method Nasal Cannula Oxygen Flow Rate 4 Intake Visit Reasons: mainor Intake Note: pt is here for follow up and states she feels her regular self Allergies No Known Allergies [No Known Allergies*] Allergy (Verified 02/21/24 11:34) Medication List - Last Reconciled 02/21/24 by Matt Banda MD albuterol sulfate 2.5 mg (3 mL) inhalation Q4-6H PRN ascorbate calcium (vitamin C) 500 mg PO DAILY aspirin 81 mg PO DAILY PRN clonazepam 1 mg PO BID PRN clotrimazole 1% 1 appl topical DAILY fluticasone propion-salmeterol 250-50 mcg/dose (Wixela Inhub) 1 ea PO BID ibuprofen 800 mg PO Q8H PRN Incruse Ellipta 62.5 mcg/actuation (umeclidinium) 1 inh PO DAILY NS ipratropium-albuterol 20-100 mcg/actuation (Combivent Respimat) 1 puff PO Q4-6H PRN metformin 500 mg PO BEDTIME mirtazapine 15 mg PO BEDTIME tramadol 1 tab PO Q12H PRN venlafaxine ER (Effexor XR) 75 mg PO DAILY Do you need a note to return to daycare/school/sports/work: No HPI HPI mainor: Details: MAIA IS 74 YEARS OLD FEMALE IS HERE FOR HER REGULAR FOLLOW-UP. She is being treated for advanced chronic obstructive pulmonary disease, and also obstructive sleep apnea. Does not use the CPAP, but uses O2 2 L/minute at night. Her COPD is quite advanced but remains under control with her current medical regimen. She does have mild intermittent cough which is mostly nonproductive. She does get short of breath if she walks fast or climbs stairs. But at home she is mostly sitting or walking around slowly, so remains fairly comfortable. When she goes outdoors such as for shopping or for appointment then she increases her O2 to 4 L/minute with the POC . [facility] Medical History (Updated 02/21/24 @ 11:42 by Matt Banda MD) Respiratory failure with hypoxia History of invasive ductal carcinoma of breast (~2009) COPD (chronic obstructive pulmonary disease) Asthma Hypoxemia On home oxygen therapy Osteopenia Morbid obesity Left breast mass Personal history of nicotine dependence Surgical History History of lung surgery (~06/2016) History of lymph node dissection of right axilla (~05/2010) History of right breast biopsy (~05/2010) History of colonoscopy with polypectomy (~03/2010) History of section Family History Father History of diabetes mellitus Mother Family history of COPD (chronic obstructive pulmonary disease) Family/Other History of melanoma Brother Skin cancer Social History Household Members: Friend(s) Housing: Apartment Are you a primary insurance healthcare consultant to a significant other at home: No Do you presently have visiting nurse or other home services: No Patient Tobacco Use Status: Former Tobacco user Years Smoked: onset 16yo, 1-2ppd x 52yrs, 70pyh - quit 2017 service: No Current occupational status: disabled Review of Systems Const All systems reviewed & are unremarkable except as noted in HPI and below Eyes Reports no additional complaints ENT Reports nasal congestion (Mild off and on) Card Denies chest pain, Denies irregular heart rhythm and Denies leg edema Resp Reports as per HPI GI Reports no additional complaints Reports no additional complaints Musc Reports no additional complaints Skin/Breast Reports system reviewed and no additional complaints, except as documented Neuro Reports no additional complaints Psych Reports anxiety (Mild off and) Endo Reports no additional complaints Physical Exam Vital Signs: Last Vital Signs Pulse 80 02/21/24 11:09 BP 102/62 02/21/24 11:09 Pulse Ox 94 02/21/24 11:09 Oxygen Delivery Method Nasal Cannula 02/21/24 11:09 Oxygen Flow Rate 4 02/21/24 11:09 BMI result Body Mass Index 42.3 Const Other: She is grossly obese , as usual. General: comfortable, no acute distress, alert and awake Orientation/consciousness: patient oriented x3 HEENT Head: Yes normal to inspection General nose exam: No nasal polyps present and No nasal discharge present Face and sinus: Yes sinuses nontender Mouth: oropharynx normal Throat: Yes posterior oropharynx normal Eyes General: appearance normal, both eyes and all related structures Neck Neck: Yes normal visual inspection, Yes no lymphadenopathy, Yes trachea midline and Yes no JVD Thyroid: Thyroid normal Chest Chest palpation & inspection: normal inspection of the chest, normal palpation of entire chest wall and no tenderness Resp Other: Percussion note resonant, breath sounds are distant with prolonged expiratory phase. No audible wheezes or rhonchi or Creps. Cardio Palpation: normal PMI Rate: regular rate Rhythm: regular rhythm Heart sounds: no gallops and no murmurs GI Palpation (GI): Soft to palpation, nontender, No hepatosplenomegaly present, no masses and Other GI palpation findings present (Abdominal wall is obese and somewhat protuberant) Auscultation: normal bowel sounds Back/Spine/Pelvis Thoracic/Lumbar Spine: thoracic and lumbar spine normal to inspection and thoraco-lumbar ROM limited Skin General skin exam: no rashes or lesions noted Neuro General: patient oriented x3 and no focal motor deficits Cranial nerves: Yes CN's II-XII intact bilaterally Extrem General: Yes normal to inspection, Yes no clubbing, cyanosis or edema and Yes no calf tenderness Psych Appearance: grossly normal Speech and movement: Normal speech and movement present Assessment & Plan Assessment & Plan (1) COPD (chronic obstructive pulmonary disease): Comment: COPD/ACOS - Severe but Stable -seems to be doing well with her current medical regimen. Code(s): J44.9 - Chronic obstructive pulmonary disease, unspecified Category: Medical Plan: Continue Incruse Ellipta 62.5 mg 1 inhalation daily Wixela 250-51 inhalation b.i.d.. Combivent Respimat 1 inhalation Q 4-6 hours p.r.n.. (2) Morbid obesity: Comment: BMI = 42.3 * IT SHOULD BE NOTED THAT SHE HAS TYPICAL FEATURES OF MAINOR/HYPOVENTILATION SYNDROME. BUT DURING DISCUSSIONS IN THE PAST SHE HAS DECLINED TO UNDERGO A SLEEP STUDY, AND ALSO WOULD NOT AGREE TO USE CPAP OR BIPAP AT NIGHT. Code(s): E66.01 - Morbid (severe) obesity due to excess calories Category: Medical Plan: DISCUSSED WITH HER ABOUT THE WEIGHT, ADVISED TO REDUCE THE CALORIES ESPECIALLY IN THE FORM OF CARBOHYDRATES, AND ALSO ENCOURAGED TO START WALKING ON A DAILY BASIS. (3) Respiratory failure with hypoxia: Comment: As a result of advanced COPD and obesity related hypoventilation, she does nocturnal as well as daytime hypoxemia. Code(s): J96.91 - Respiratory failure, unspecified with hypoxia Category: Medical Plan: Advised to use O2 2 L/minute at night and when resting at home during the daytime. Advised to use O2 4 L/minute with POC when going outdoors during the daytime . Coding Level of Care Code Est Pt Level 3 (05043) Diagnoses COPD (chronic obstructive pulmonary disease) J44.9 Morbid obesity E66.01 Respiratory failure with hypoxia J96.91
[2024-02-21 11:09] VITALS: BP 102/62; PULSE 80; O2SAT 94; BMI 42.3
== END 2024-02-21 11:35 | disposition home or self-care (01) ==
PROVIDERS: PCP General Practice; Visit Provider Internal Medicine
DX: J44.9 Chronic obstructive pulmonary disease, unspecified (principal); E66.01 Morbid (severe) obesity due to excess calories; J96.91 Respiratory failure, unspecified with hypoxia
CPT/HCPCS: 99213

== ENCOUNTER → 2024-02-21 11:02 | Outpatient (BNVA) | payer OTHER, SELFPAY | PROVIDERS: PCP General Practice; Visit Provider Internal Medicine | DX: J44.9 Chronic obstructive pulmonary disease, unspecified (principal); J96.91 Respiratory failure, unspecified with hypoxia; G47.33 Obstructive sleep apnea (adult) (pediatric); E66.01 Morbid (severe) obesity due to excess calories; Z68.41 Body mass index [BMI] 40.0-44.9, adult; Z99.81 Dependence on supplemental oxygen | CPT/HCPCS: 99212 ==

== ENCOUNTER 2024-03-20 10:59 | Outpatient (REF) | payer OTHER, SELFPAY ==
--- NOTE | ~2024-03-20 | MM_ITS ---
EXAMINATION: MM SCREENING DIGITAL BREAST TOMOSYNTHESIS, BILATERAL CLINICAL INFORMATION: Screening. Asymptomatic. The patient has a history of conservatively treated right breast cancer in 2010. COMPARISON: Mammography: This study is compared with prior exams dating back to 2019. TECHNIQUE: Digital breast tomosynthesis is performed in both the craniocaudal and mediolateral oblique views along with computer-aided detection (CAD). Synthesized 2D images are generated from the tomosynthesis. FINDINGS: There are scattered areas of fibroglandular density (ACR BI-RADS breast composition Category b). In the deep third of the right breast, in the posterior nipple line, there are faint, grouped calcifications which warrant additional mammographic imaging with magnification. In the deepest portion of the right breast in the posterior nipple line of the MLO view, there is also an asymmetry for which additional mammographic and targeted sonographic imaging is advised. In the left breast, there are no significant masses, abnormal calcifications, or other abnormalities. MM/MM tomosynthesis screening BI IMPRESSION: Calcifications and asymmetry of the right breast warrant additional mammographic and targeted sonographic imaging. No mammographic signs of malignancy left breast. ASSESSMENT: BI-RADS BI-RADS 0 - Incomplete: Needs additional Imaging. RECOMMENDATION: 1. Additional views of the right breast. 2. Targeted ultrasound if warranted after review of the additional views. 3. Radiology department staff will contact the patient for additional imaging. Additional Imaging required This examination should not preclude the clinical evaluation of a suspicious palpable abnormality. This patient's information was entered into a reminder system with a target due date for their next mammogram.
== END 2024-03-20 11:00 | disposition home or self-care (01) ==
LOC: HO.MAMMO 10:59
PROVIDERS: PCP General Practice; Visit Provider General Practice
DX: Z12.31 Encounter for screening mammogram for malignant neoplasm of breast (principal)
CPT/HCPCS: 77063; 77067

== ENCOUNTER → 2024-03-20 11:15 | Outpatient (BNV) | payer OTHER, SELFPAY | PROVIDERS: PCP General Practice; Visit Provider Radiology Diagnostic Radiology | DX: Z12.31 Encounter for screening mammogram for malignant neoplasm of breast (principal) | CPT/HCPCS: 77063; 77067 ==

== ENCOUNTER 2024-04-27 10:55 | Outpatient (REF) | payer OTHER, SELFPAY ==
--- NOTE | ~2024-04-27 | MM_ITS ---
EXAMINATION: MM DIAGNOSTIC DIGITAL MAMMOGRAPHY, RIGHT CLINICAL INFORMATION: Diagnostic right mammography or calcifications far posterior right breast along the nipple line MLO view, and for one view asymmetry just inferior to these calcifications on same projection. Patient has history of conservatively treated right breast cancer in 2009. COMPARISON: Mammography: 03/20/2024, 01/07/2023, 12/22/2021, 12/19/2020, and exams dating back to 2017. TECHNIQUE: Digital mammography is performed in the following views: 2-D spot magnification right ML x2 views, and 3-D spot compression right MLO views x2. Computer-aided diagnosis was used for this study. FINDINGS: There are scattered areas of fibroglandular density (ACR BI-RADS breast composition Category b). The calcifications seen on the screening exam in the posterior right breast along the nipple line are clearly vascular calcifications on spot magnification views. These are benign. There are no suspicious calcifications. In addition, the spot compression views demonstrate complete effacement of the asymmetry seen on the posterior MLO view, consistent with overlapping normal fibroglandular tissues. Redemonstration of post treatment related changes to the right breast. No suspicious findings identified. MM/MM added views RT IMPRESSION: No findings suspicious for malignancy. Benign findings right breast. Recommend the patient resume routine annual screening mammography. ASSESSMENT: BI-RADS BI-RADS 2 - Benign Findings RECOMMENDATION: 1 year F/U This patient's information was entered into a reminder system with a target due date for their next mammogram.
--- NOTE | ~2024-04-27 | CT_ITS ---
EXAMINATION: CT LOW-DOSE SCREENING CHEST WITHOUT CONTRAST CLINICAL INFORMATION: Personal history of nicotine dependence. Former smoker. The patient has a 40 pack-year history of smoking, having quit 7 years ago. COMPARISON: CT chest February 02, 2023. X-ray chest August 23, 2018. TECHNIQUE: Multidetector volumetric CT imaging of the chest is performed on a Siemens SOMATOM Definition scanner without contrast using low dose technique. Additional 2D coronal and sagittal reformatted images and axial 3D maximum intensity projection (MIP) images are generated on the CT workstation. This CT examination was performed using dose optimization techniques as appropriate, variously including the following: *Automated exposure control *Adjustment of mA and/or kV according to patient size (this includes techniques or standardized protocols for targeted exams where dose is matched to indication/reason for exam; i.e. extremities or head) *Use of iterative reconstruction technique TOTAL EXAM DLP: 82 mGy-cm. CTDIvol: 2.26 mGy. FINDINGS: PULMONARY NODULES: No suspicious pulmonary nodules. LUNGS: Lungs bilaterally symmetrically expanded. Again seen is scarring from prior left upper lobe wedge resection. Diffuse emphysematous change is seen along with mild bronchial thickening. Right basilar atelectasis is present. No effusion or pneumothorax. Central airways patent. MEDIASTINUM: No mediastinal, hilar or axillary adenopathy or free fluid collection. CORONARY ARTERY CALCIFICATION: Mild. THYROID GLAND: Unremarkable to the extent seen. CARDIOVASCULAR STRUCTURES: Aortic and heart size normal. No pericardial effusion. CHEST WALL/AXILLA: Unremarkable. UPPER ABDOMEN: Included portions of the solid organs in the upper abdomen unremarkable on noncontrast imaging. OSSEOUS STRUCTURES: No suspicious focal findings. CT/CT lung screening IMPRESSION: No finding seen suspicious for malignancy. ASSESSMENT: 1. Lung-RADS Category 2: Benign appearance or behavior of nodules. N/A 2. Lung-RADS Category S: Negative. There are no clinically significant or potentially clinically significant findings not related to the lungs requiring urgent additional evaluation. RECOMMENDATION: Continued routine annual low-dose CT lung screening in 1 year is recommended. An order for CT CHEST LOW DOSE CANCER SCREENING ([id number]) can be placed. Electronically signed by: Martínez Saez MD 06/05/2024 10:03 PM EDT
== END 2024-04-27 10:56 | disposition home or self-care (01) ==
LOC: HO.MAMMO 10:55
PROVIDERS: PCP General Practice; Visit Provider General Practice
DX: N64.89 Other specified disorders of breast (principal); Z87.891 Personal history of nicotine dependence
CPT/HCPCS: 71271; 77065

== ENCOUNTER → 2024-04-27 11:00 | Outpatient (BNV) | payer OTHER, SELFPAY | PROVIDERS: PCP General Practice; Visit Provider Radiology Diagnostic Radiology | DX: R92.1 Mammographic calcification found on diagnostic imaging of breast (principal) | CPT/HCPCS: 77065 ==

== ENCOUNTER 2024-06-26 10:48 | Outpatient (AMB) | payer OTHER, SELFPAY ==
[2024-06-26 11:21] VITALS: BP 120/52; PULSE 85; O2SAT 89; BMI 44.3
--- NOTE | 2024-06-26 11:21 | A.OFFVIS_ITS ---
Vital Signs 06/26/24 11:21 Height 5 ft 2 in Weight 242 lb BMI 44.3 BP 120/52 L Blood Pressure Location Lt brachial Position Sitting Pulse 85 Pulse Source Pulse Oximeter Pulse Oximetry (%) 89 L Oxygen Delivery Method Nasal Cannula Oxygen Flow Rate 4 Intake Visit Reasons: Obstructive sleep apnea Intake Note: pt is here for follow up and states some coughing, using oxygen 24 hours a day, at home 2 liters and poc is 4 liters. 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: No Allergies No Known Allergies [No Known Allergies*] Allergy (Verified 06/26/24 11:25) Medication List - Last Reconciled 06/26/24 by Matt Banda MD albuterol sulfate 2.5 mg (3 mL) inhalation Q4-6H PRN ascorbate calcium (vitamin C) 500 mg PO DAILY aspirin 81 mg PO DAILY PRN clonazepam 1 mg PO BID PRN clotrimazole 1% 1 appl topical DAILY fluticasone propion-salmeterol 250-50 mcg/dose (Wixela Inhub) 1 ea PO BID ibuprofen 800 mg PO Q8H PRN Incruse Ellipta 62.5 mcg/actuation (umeclidinium) 1 inh PO DAILY NS ipratropium-albuterol 20-100 mcg/actuation (Combivent Respimat) 1 puff PO Q4-6H PRN metformin 500 mg PO BEDTIME mirtazapine 15 mg PO BEDTIME tramadol 1 tab PO Q12H PRN venlafaxine ER (Effexor XR) 75 mg PO DAILY Do you need a note to return to daycare/school/sports/work: No HPI HPI Obstructive sleep apnea: Details: This 74 years old female with morbid obesity, comes for follow-up for her COPD and chronic respiratory failure/obstructive sleep apnea. Overall her condition has remained unchanged, . Without any acute exacerbations But she does need to continue her treatment on a regular basis. She has not been able to use CPAP and that is compensated by using O2 2 L/minute at night. Because of her hypoxemia and dyspnea on minimal exertion she uses oxygen during the daytime as well all the times. When at rest she uses O2 2 L/minute and when she goes outdoors he uses POC and O2 4 L/minute. She continues to have intermittent cough and wheezing especially at night. She is using all her meds regularly. She is not able to lose any weight. [facility] Medical History (Updated 06/26/24 @ 11:46 by Matt Banda MD) ADELITA (obstructive sleep apnea) Respiratory failure with hypoxia History of invasive ductal carcinoma of breast (~2009) COPD (chronic obstructive pulmonary disease) Asthma Hypoxemia On home oxygen therapy Osteopenia Morbid obesity Left breast mass Personal history of nicotine dependence Surgical History History of lung surgery (~06/2016) History of lymph node dissection of right axilla (~05/2010) History of right breast biopsy (~05/2010) History of colonoscopy with polypectomy (~03/2010) History of section Family History Father History of diabetes mellitus Mother Family history of COPD (chronic obstructive pulmonary disease) Family/Other History of melanoma Brother Skin cancer Social History Household Members: Friend(s) Housing: Apartment Are you a primary pet care worker to a significant other at home: No Do you presently have visiting nurse or other home services: No Patient Tobacco Use Status: Former Tobacco user Years Smoked: onset 16yo, 1-2ppd x 52yrs, 70pyh - quit 2017 service: No Current occupational status: disabled Review of Systems Const All systems reviewed & are unremarkable except as noted in HPI and below Eyes Reports no additional complaints ENT Reports nasal congestion (Mild off and on) Card Denies chest pain, Denies irregular heart rhythm and Denies leg edema Resp Reports as per HPI GI Reports no additional complaints Reports no additional complaints Musc Reports no additional complaints Skin/Breast Reports system reviewed and no additional complaints, except as documented Neuro Reports no additional complaints Psych Reports anxiety (Mild off and) Endo Reports no additional complaints Physical Exam Vital Signs: Last Vital Signs Pulse 85 06/26/24 11:21 BP 120/52 L 06/26/24 11:21 Pulse Ox 89 L 06/26/24 11:21 Oxygen Delivery Method Nasal Cannula 06/26/24 11:21 Oxygen Flow Rate 4 06/26/24 11:21 BMI result Body Mass Index 44.3 Const Other: She is grossly obese , as usual. General: comfortable, no acute distress, alert and awake Orientation/consciousness: patient oriented x3 HEENT Head: Yes normal to inspection General nose exam: No nasal polyps present and No nasal discharge present Face and sinus: Yes sinuses nontender Mouth: oropharynx normal Throat: Yes posterior oropharynx normal Eyes General: appearance normal, both eyes and all related structures Neck Neck: Yes normal visual inspection, Yes no lymphadenopathy, Yes trachea midline and Yes no JVD Thyroid: Thyroid normal Chest Chest palpation & inspection: normal inspection of the chest, normal palpation of entire chest wall and no tenderness Resp Other: Percussion note resonant, breath sounds are distant with prolonged expiratory phase. No audible wheezes or rhonchi or Creps. Cardio Palpation: normal PMI Rate: regular rate Rhythm: regular rhythm Heart sounds: no gallops and no murmurs GI Palpation (GI): Soft to palpation, nontender, No hepatosplenomegaly present, no masses and Other GI palpation findings present (Abdominal wall is obese and somewhat protuberant) Auscultation: normal bowel sounds Back/Spine/Pelvis Thoracic/Lumbar Spine: thoracic and lumbar spine normal to inspection and thoraco-lumbar ROM limited Skin General skin exam: no rashes or lesions noted Neuro General: patient oriented x3 and no focal motor deficits Cranial nerves: Yes CN's II-XII intact bilaterally Extrem General: Yes normal to inspection, Yes no clubbing, cyanosis or edema and Yes no calf tenderness Psych Appearance: grossly normal Speech and movement: Normal speech and movement present Assessment & Plan Assessment & Plan (1) Morbid obesity: Comment: BMI = 44.3 * IT SHOULD BE NOTED THAT SHE HAS TYPICAL FEATURES OF ADELITA/HYPOVENTILATION SYNDROME. BUT DURING DISCUSSIONS IN THE PAST SHE HAS DECLINED TO UNDERGO A SLEEP STUDY, AND ALSO WOULD NOT AGREE TO USE CPAP OR BIPAP AT NIGHT. Code(s): E66.01 - Morbid (severe) obesity due to excess calories Category: Medical Plan: He uses O2 2 L/minute at night, and is advised to continue the same. (2) ADELITA (obstructive sleep apnea): Comment: As clinical features of obstructive sleep apnea/hypoventilation. But she has not agreed to undergo sleep study are use CPAP or BiPAP. Code(s): G47.33 - Obstructive sleep apnea (adult) (pediatric) Category: Medical Plan: Continue using O2 2 L/minute at night . (3) COPD (chronic obstructive pulmonary disease): Comment: COPD/ACOS - Severe but Stable -seems to be doing well with her current medical regimen. Code(s): J44.9 - Chronic obstructive pulmonary disease, unspecified Category: Medical Plan: Incruse Ellipta 1 inhalation daily Wixela 250-51 inhalation b.i.d. Albuterol solution in the nebulizer 2.5 mg ( 3 ml ) Q 4-6 hours p.r.n. when at home. Combivent [id number] 1 inhalation Q 6 hours p.r.n. when outdoors. (4) Respiratory failure with hypoxia: Comment: As a result of advanced COPD and obesity related hypoventilation, she does nocturnal as well as daytime hypoxemia. Code(s): J96.91 - Respiratory failure, unspecified with hypoxia Category: Medical Plan: Use O2 2 L/minute at night and also during the daytime when at rest. Use O2 4 L/minute when outdoors and usingPOC. (5) Personal history of nicotine dependence: Comment: (former smoker - onset 16yo, 1-2ppd x 52yrs, 70pyh - QUIT IN YEAR 2018. Code(s): Z87.891 - Personal history of nicotine dependence Category: Medical Plan: COMMENDED FOR NOT GOING BACK TO SMOKING. Coding Level of Care Code Est Pt Level 4 (59615) Diagnoses Morbid obesity E66.01 ADELITA (obstructive sleep apnea) G47.33 COPD (chronic obstructive pulmonary disease) J44.9 Respiratory failure with hypoxia J96.91 Personal history of nicotine dependence Z87.891
== END 2024-06-26 11:42 | disposition home or self-care (01) ==
PROVIDERS: PCP General Practice; Visit Provider Internal Medicine
DX: E66.01 Morbid (severe) obesity due to excess calories (principal); G47.33 Obstructive sleep apnea (adult) (pediatric); J44.9 Chronic obstructive pulmonary disease, unspecified; J96.91 Respiratory failure, unspecified with hypoxia; Z87.891 Personal history of nicotine dependence
CPT/HCPCS: 99214

== ENCOUNTER → 2024-06-26 10:48 | Outpatient (BNVA) | payer OTHER, SELFPAY | PROVIDERS: PCP General Practice; Visit Provider Internal Medicine | DX: J96.11 Chronic respiratory failure with hypoxia (principal); J44.9 Chronic obstructive pulmonary disease, unspecified; G47.33 Obstructive sleep apnea (adult) (pediatric); E66.01 Morbid (severe) obesity due to excess calories; Z87.891 Personal history of nicotine dependence; Z68.41 Body mass index [BMI] 40.0-44.9, adult; Z99.89 Dependence on other enabling machines and devices; Z99.81 Dependence on supplemental oxygen | CPT/HCPCS: 99212 ==

== ENCOUNTER 2024-07-10 13:55 | Inpatient (IN) | payer OTHER, SELFPAY ==
[2024-07-10] VITALS (9 sets, daily range): BP systolic 109–149; BP diastolic 52–75; PULSE 85–108; RESP 16–28; TEMP 36.6–37.8; O2SAT 87–98; BMI 40.2
--- NOTE | ~2024-07-10 | US_ITS ---
EXAMINATION: US DIAGNOSTIC ULTRASOUND BREAST, LEFT CLINICAL INFORMATION: Redness and swelling, evaluate for infection/abscess 5-6:00 axis, 6 cm from the nipple. COMPARISON: None contributory. Correlation made with CT of the chest performed same day. TECHNIQUE: Ultrasound of the left breast is performed with real-time mitchell scale imaging and color Doppler. Attention was given to the 5-6:00 axis, 6 cm from the nipple, in the region of clinical concern. FINDINGS: Examination was performed in the emergency department. With the 6:00 axis, 5 cm from the nipple, there is a 1.1 x 1.5 x 3.0 cm (largest definable pocket) subcutaneous linear fluid collection with low-level internal echoes and swirling motion seen within, consistent with abscess collection. Within the 5:00 axis, 5 cm from the nipple, there is a similar linear complex fluid collection measuring 2.2 x 1.1 x 2.3 cm (largest definable pocket), also with low-level internal echoes and swirling motion seen within, consistent abscess collection. No suspicious masses identified. US/US breast LT limited IMPRESSION: -2 subcutaneous collections of fluid, largest pocket size on image as described above, consistent with linear abscess collections in the subcutaneous regions. Clinical management recommended. ASSESSMENT: BI-RADS 2: Benign RECOMMENDATION: 1. Patient should be managed based on the clinical impression. Decision to proceed with drainage should be decided based on clinical grounds. Electronically signed by: Don Smith MD 07/17/2024 03:13 PM EDT
--- NOTE | ~2024-07-10 | CT_ITS ---
EXAMINATION: CT CHEST WITH CONTRAST CLINICAL INFORMATION: Left breast abscess COMPARISON: CT lung screening in 04/27/2024 TECHNIQUE: Multidetector volumetric CT imaging of the chest was obtained after the administration of 65 mL of Omnipaque Omnipaque 350 intravenous contrast without immediate adverse reactions. Axial MIP volume rendering provided. Sagittal and coronal reformatted images were obtained. This CT examination was performed using dose optimization techniques as appropriate, variously including the following: *Automated exposure control *Adjustment of mA and/or kV according to patient size (this includes techniques or standardized protocols for targeted exams where dose is matched to indication/reason for exam; i.e. extremities or head) *Use of iterative reconstruction technique DLP: 501 mGy-cm FINDINGS: LUNGS: There is been prior left upper lobe lung resection with a scar present. No recurrent or suspicious lung mass is seen. The lungs are clear with no evidence of inflammation or nodules. MEDIASTINUM: The mediastinum is unremarkable. CORONARY ARTERY CALCIUM: Mild VASCULAR: No aortic aneurysm PLEURA: There is no pleural effusion. No pleural mass or thickening. CHEST WALL AND AXILLA: Since the prior study, there has developed significant skin thickening in the region of the left breast. There is subcutaneous air present inferior and medially. A drainable fluid collection is not seen. There is an enlarged 2.4 x 2.0 cm lymph node present in the chest wall/left axilla (5:252) UPPER ABDOMEN: Soft tissue density seen within the gallbladder likely related to gallstones. Ultrasound could be performed for further evaluation. The liver is likely enlarged. The spleen is unremarkable. OSSEOUS STRUCTURES: Unremarkable. CT/CT chest w IV con IMPRESSION: Subcutaneous air and streaky changes in the left breast new since prior exam consistent with cellulitis/infection. Probable gallstones. Gallbladder ultrasound recommended for further evaluation if clinically important to know. Fleischner guidelines were followed. Electronically signed by: Martínez Saez MD 07/10/2024 06:38 PM EDT
--- NOTE | ~2024-07-10 | XR_ITS ---
EXAMINATION: XR CHEST CLINICAL INFORMATION: Shortness of breath. COMPARISON: CT chest 07/10/2024. TECHNIQUE: Frontal view of the chest was obtained. FINDINGS: Limited evaluation secondary to patient rotation and poor inspiratory effort. Question increased interstitial markings predominantly in the left lung without consolidation, pleural effusion or pneumothorax. Limited evaluation of the cardiomediastinal silhouette. No acute osseous findings. XR/XR chest 1V IMPRESSION: Within the limitations, possibly increased interstitial thickening that could be seen with pulmonary edema or small airways disease. No consolidation or pleural effusion. Electronically signed by: Melina Chawla MD 07/12/2024 06:58 PM EDT
--- NOTE | 2024-07-10 13:58 | ED_ITS ---
HPI - General Adult General Chief complaint: Skin/Abscess/Foreign Body Stated complaint: Fluid leaking from breast Time Seen by Provider: 07/10/24 16:01 Source: patient and family Mode of arrival: ambulatory Limitations: no limitations History of Present Illness ED Provider: Dr. Lianne Harden HPI narrative: patient comes to the emergency room complaining of an abscess on the left breast. Patient states that it has been there for a few days. Patient states she estimates about 4 Days. However, the family believes it has been there longer. seems that patient was reluctant to come to the hospital. However, over last day, patient has been draining very malodorous drainage /pus. Patient complaining of localized pain, no fever or chills. Related Data Home Medications ?Medication ?Instructions ?Recorded ?Confirmed clonazepam 1 mg tablet 1 mg PO BID PRN anxiety attack 06/17/20 06/26/24 ibuprofen 800 mg tablet 800 mg PO Q8H PRN pain 06/17/20 06/26/24 metformin 500 mg tablet 500 mg PO BEDTIME 06/17/20 06/26/24 mirtazapine 15 mg tablet 15 mg PO BEDTIME 06/17/20 06/26/24 venlafaxine 75 mg capsule,extended 75 mg PO DAILY 06/17/20 06/26/24 release 24 hr (Effexor XR) ascorbate calcium (vitamin C) 500 500 mg PO DAILY 11/19/20 06/26/24 mg tablet aspirin 81 mg tablet,delayed 81 mg PO DAILY PRN Bleeding 11/19/20 06/26/24 release clotrimazole 1 % topical cream 1 appl topical DAILY 02/19/21 06/26/24 tramadol 50 mg tablet 1 tab PO Q12H PRN Pain 12/04/21 06/26/24 Previous Rx's ?Medication ?Instructions ?Recorded albuterol sulfate 2.5 mg/3 mL 2.5 mg (3 mL) inhalation Q4-6H PRN 11/14/21 (0.083 %) solution for nebulization for dyspnea #150 mL Incruse Ellipta 62.5 mcg/actuation 1 inh PO DAILY #30 ea 03/16/24 powder for inhalation (umeclidinium) ipratropium 20 mcg-albuterol 100 1 puff PO Q4-6H PRN for wheezing 03/16/24 mcg/actuation mist for inhalation #4 mL (Combivent Respimat) fluticasone 250 mcg-salmeterol 50 1 ea PO BID #60 ea 07/04/24 mcg/dose blistr powdr for inhalation (Wixela Inhub) Allergies Allergy/AdvReac Type Severity Reaction Status Date / Time No Known Allergies Allergy Verified 07/10/24 14:08 [No Known Allergies*] Review of Systems 2 Review of Systems: Constitutional : No Weight loss, No Fever, No Chills, No Night Sweats, No Fatigue, No Malaise ENT/Mouth : No Hearing loss, No Ear Pain, No Nasal Congestion, No Sinus Pain, No Hoarseness, No sore throat, No Rhinorrhea, No Swallowing Difficulty Eyes: No Eye Pain, No Swelling, No Redness, No Foreign Body, No Discharge, No Vision Changes Cardiovascular : No Chest Pain, No SOB, No Dyspnea on Exertion, No Orthopnea, No Edema, No Palpitations Respiratory : No Cough, No Sputum, No Wheezing, No Smoke Exposure, No Dyspnea Gastrointestinal : No Nausea, No Vomiting, No Diarrhea, No Constipation, No abdominal Pain, No Hematochezia, No Melena Genitourinary : no irregular bleeding, No Dysuria, No Urinary Frequency, No Hematuria, No Urinary Incontinence, No Urgency, No Flank Pain, No Urinary Flow Changes, No Hesitancy Musculoskeletal : No joint pain, No Myalgias, No Joint Swelling Skin : abscess on the breast the left Neuro : No Weakness, No Numbness, No Paresthesias, No Loss of Consciousness, No Dizziness, No Headache Psych : No Anxiety/Panic, No Depression, No SI/HI/AH/VH, No Social Issues, Heme/Lymph: No Bruising, No Bleeding,No Lymphadenopathy Endocrine : No Polyuria, No Polydipsia, No Temperature Intolerance [facility] Past Medical History Medical History ADELITA (obstructive sleep apnea) Respiratory failure with hypoxia History of invasive ductal carcinoma of breast (~2009) COPD (chronic obstructive pulmonary disease) Asthma Hypoxemia On home oxygen therapy Osteopenia Morbid obesity Left breast mass Personal history of nicotine dependence Surgical History History of lung surgery (~06/2016) History of lymph node dissection of right axilla (~05/2010) History of right breast biopsy (~05/2010) History of colonoscopy with polypectomy (~03/2010) History of section Family History Family History Father History of diabetes mellitus Mother Family history of COPD (chronic obstructive pulmonary disease) Family/Other History of melanoma Brother Skin cancer Social History Social History Household Members: Friend(s) Housing: Apartment Are you a primary palliative care nurse to a significant other at home: No Do you presently have visiting nurse or other home services: No Patient Tobacco Use Status: Former Tobacco user Years Smoked: onset 16yo, 1-2ppd x 52yrs, 70pyh - quit 2018 Smoked in Last 30 Days: No Use of substances other than those prescribed or required for medical reasons: No Advance Directives: No Advance Directives Information Provided: Yes Do you have a plan to hurt others: No Plan service: No Current occupational status: disabled Physical Exam ED Vital Signs: Vital Signs - 24 hr 07/10/24 13:57 07/10/24 16:48 Temperature 98 F 97.8 F Pulse Rate 108 H 88 Respiratory Rate 28 H 16 Blood Pressure 109/57 L 110/52 L Pulse Oximetry 87 L 95 Oxygen Delivery Method Nasal Cannula Nasal Cannula Oxygen Flow Rate 3 BMI result Body Mass Index 40.2 Const Other: Appearance: Alert. Oriented X3. No acute distress. Eyes: Pupils equal, round and reactive to light. ENT: Pharynx normal. Neck: Normal inspection. Neck supple. No lymph nodes noted. No crepitus CVS: Normal heart rate and rhythm. Pulses normal. Normal S1 and S2 Respiratory: No respiratory distress. Breath sounds normal. No Wheezing. No rales Abdomen: Soft and nontender. No rigidity. No distention. Skin: Skin warm and dry. patient has an erythematous left breast, and large abscess with necrotic eschar draining purulent malodorous discharge. The nipple is not inverted Extremities: No lower extremity edema. No Lacerations. No Rash Neuro: Oriented X 3. No motor deficit. No sensory deficit. Moving all extremities. No slurred speech. CN 2 through 12 grossly intact Psych: calm, cooperative, normal affect Course Course Course Narrative: RME performed by Maci Guerra PA-C. Patient is a 74 year old assigned female at presenting to the emergency department with a left breast abscess. Patient states over the last few days she has had a left breast abscess that is draining. Detailed physical exam and review of systems are deferred to the computer typesetter. Labs and imaging ordered. Patient placed back in the waiting room pending room availability and results. Medications Administered Discontinued Medications Generic Name Dose Route Start Last Admin Trade Name Angel PRN Reason Stop Dose Admin Sodium Chloride 1,000 mls @ 999 mls/hr 07/10/24 16:16 07/10/24 16:55 Ns IVCONT 07/10/24 17:16 999 mls/hr .Q1H1M ONE Administration Iohexol 100 ml 07/10/24 16:31 07/10/24 16:31 Iohexol 350 Mg/Ml 100 Ml Infus..Btl IV 07/10/24 16:32 65 ml ONCE ONE Administration Medical Decision Making Medical Decision Making [facility] Narrative: - my interpretation of labs: White blood cell count 12, ESR 87, electrolytes within normal limits, CRP 11 - patient's vitals are stable, no episodes of hypotension, no fever. - My interpretation of CT scan of the chest, there is a large loculated abscess. radiology report will be delayed several hours. - cultures from the breast were taken, results pending. - At this time, 17:00, sepsis is not suspected. Patient receiving IV fluids, Zosyn and vancomycin - I discussed the patient with Dr. Flowers from general surgery. patient was evaluated at bedside, patient will be going to the OR at this time Differential Diagnosis Differential Diagnoses: The differential diagnosis associated with the presentation includes ( abscess, cellulitis, breast cancer) Admission/Observation Consideration of admission/observation: Escalation of care including admission/observation considered Consult Healthcare Provider Management of the patient was discussed with: Vehicle Return Associate Lab Data [facility] Lab Attestation statement: I reviewed the patient's lab results. 07/10/24 14:34 07/10/24 14:34 Labs: Lab Results 07/10/24 Range/Units 14:34 WBC 12.0 H (4.8-10.8) X10*3/uL RBC 3.65 L (4.20-5.50) X10*6/uL Hgb 10.6 L (12.0-16.0) g/dl Hct 34.0 L (37.0-47.0) % MCV 93.2 (80.0-98.0) fL MCH 29.0 (27.0-33.0) pg MCHC 31.2 (31.0-35.0) g/dl RDW 13.1 (11.0-16.0) % Plt Count 309 (160-400) X10*3/uL MPV 8.6 L (9.4-12.3) fL Immature Gran % (Auto) 0.5 H (0.0-0.4) % Neut % (Auto) 74.1 H (45-73) % Lymph % (Auto) 9.4 L (20-40) % Powell % (Auto) 12.6 H (2-11) % Eos % (Auto) 3.2 (0-4) % Baso % (Auto) 0.2 (0-2) % Lymph # (Auto) 1.1 L (1.2-4.9) X10*3/uL Powell # (Auto) 1.5 H (0.1-1.2) X10*3/uL Eos # (Auto) 0.4 (0.0-0.4) X10*3/uL Baso # (Auto) 0.0 (0.0-0.2) X10*3/uL Abs Immat Gran (auto) 0.06 H (0.00-0.03) X10*3/uL Absolute Neuts (auto) 8.9 H (2.0-8.3) x10*3/uL Absolute Nucleated RBC 0.000 (0.0-0.012) X10*3/uL Nucleated RBC % (auto) 0.0 (0.0-0.2) /100WBC Smear Tech's Comments VERIFIED ESR 87 H (0-20) MM/HR Hold Purple Top SEE NOTE Sodium 142 (135-145) mmol/L Potassium 4.0 (3.3-5.1) mmol/L Chloride 101 (96-108) mmol/L Carbon Dioxide 32 H (22-29) mmol/L Anion Gap 13 (12-20) BUN 18 H (9-16) mg/dL Creatinine 0.96 (0.5-1.4) mg/dL Estim Creat Clear Calc 57.6 Estimated GFR 57 Random Glucose 181 H (60-115) mg/dL Calcium 9.2 (8.4-10.2) mg/dL Magnesium 1.8 (1.6-2.6) mg/dL Total Bilirubin 0.3 (0.0-1.0) mg/dL AST 21 (5-31) U/L ALT 7 (0-31) U/L Alkaline Phosphatase 82 (39-117) U/L C-Reactive Protein 10.99 H (< or = 0.50) mg/dL Total Protein 7.7 (6.5-8.0) g/dL Albumin 3.4 L (3.5-5.0) g/dL Independent Interpretation I performed an independent interpretation of an: Ultrasound and CT Scan Critical Care Time Critical Care Time Critical Care Time: Yes Total Critical Care Time: 60 Attestation: I have personally provided critical care time. Time includes review of lab data, radiology results, discussion with consultants, and monitoring for potential decompensation. Intervention performed as documented. Discharge Plan Discharge Clinical Impression: Abscess of breast, left Patient Disposition: Admitted As Inpatient Print Language: Hebrew
[2024-07-10 14:46] LABS: Basophils Percent Auto 0.2 % (0-2); Eosinophils Absolute Auto 0.4 X10*3/uL (0.0-0.4); Eosinophils Percent Auto 3.2 % (0-4); Hemoglobin 10.6 g/dl (12.0-16.0); Imm Gran Abs Auto 0.06 X10*3/uL (0.00-0.03); Imm Gran Pct Auto 0.5 % (0.0-0.4); Lymphocytes Absolute Auto 1.1 X10*3/uL (1.2-4.9); Lymphocytes Percent Auto 9.4 % (20-40); MANUAL DIFF FLAG SCAN; Mean Corpuscular HGB Conc 31.2 g/dl (31.0-35.0); Mean Corpuscular Volume 93.2 fL (80.0-98.0); Mean Platelet Volume 8.6 fL (9.4-12.3); Monocytes Absolute Auto 1.5 X10*3/uL (0.1-1.2); Monocytes Percent Auto 12.6 % (2-11); Neutrophils Absolute Auto 8.9 x10*3/uL (2.0-8.3); Neutrophils Percent Auto 74.1 % (45-73); Platelet Count 309 X10*3/uL (160-400); Red Blood Count 3.65 X10*6/uL (4.20-5.50); Red Cell Distribution Width 13.1 % (11.0-16.0); SCAN SMEAR FLAG 1
[2024-07-10 14:58] LABS: Alanine Aminotransferase 7 U/L (0-31); Albumin Level 3.4 g/dL (3.5-5.0); Alkaline Phosphatase 82 U/L (39-117); Anion Gap 13 (12-20); Aspartate Amino Transferase 21 U/L (5-31); Bilirubin Total 0.3 mg/dL (0.0-1.0); Blood Urea Nitrogen 18 mg/dL (9-16); C Reactive Protein 10.99 mg/dL (< or = 0.50); Calcium 9.2 mg/dL (8.4-10.2); Carbon Dioxide 32 mmol/L (22-29); Chloride 101 mmol/L (96-108); Creatinine Clr Calc Pharmacy 57.6; Estimated Glomerular Filt Rate 57; Glucose Random 181 mg/dL (60-115); Magnesium 1.8 mg/dL (1.6-2.6); Sodium 142 mmol/L (135-145); Total Protein 7.7 g/dL (6.5-8.0)
[2024-07-10 15:06] LABS: SLIDE REVIEW VERIFIED
[2024-07-10 15:22] LABS: Erythrocyte Sedimentation Rate 87 MM/HR (0-20)
--- NOTE | 2024-07-10 15:26 | PC.NURSE ---
Pt presents to ED via family member, Malaysian speaking only. Family member helps translate, reports she was bringing pt to [facility] for check up on left breast abscess that has been ongoing for past 2-3 days worsening. Reports today the abscess burst and leaked large amount of pus and blood, foul odor. No hx of this happening before. Area is red and hot to touch, leaking, covered with gauze. Alert and oriented, breathing even and unlabored, skin warm and dry. On O2 2L NC baseline. Reports pain in area 5/10, was 10/10 prior to abscess bursting.
--- NOTE | 2024-07-10 16:06 | PC.NURSE ---
Daughter asked if we can call with updates, [phone]
[2024-07-10] MEDS: iohexoL 350 MG/ML 100 ML INFUS..BTL IV (16:31)
[2024-07-10] MEDS: 0.9 % Sodium Chloride 1,000 ML 999 ML IVCONT (16:55)
--- NOTE | 2024-07-10 17:24 | P.HPGS_ITS ---
History of Present Illness History of Present Illness Date of Service: 07/12/24 Chief complaint: Necrotizing left breast infection Narrative: Janneth Jenkins is a 74 year old female here in the ER because of pain, swelling and tenderness on the left breast. She says that she has had this for more than 4 days. Her family actually brought her to the ER yesterday but she refused to get out of the car and says that she was ?fine?. Her family brought her back today and she finally agreed to come. They have been noticing foul-smelling drainage on the left breast. She still has some significant redness as well as some pain and tenderness. She denies any fever or chills She has a history of obstructive sleep apnea and respiratory failure with hypoxia. She has had a history of pulmonary nodules and asthma as well. She has a remote history of right breast cancer, invasive ductal, and had lumpectomy and cold biopsy along with radiation in the past. She has a history of smoking as well. The patient is nondiabetic by history but her med rec shows she is on metformin. Review of Systems Constitutional: Constitutional: Denies chills and Denies fever(s) Cardiovascular: Cardiovascular: Denies chest pain, Denies chest pain at rest and Reports dyspnea on exertion Respiratory: Respiratory: Reports dyspnea on exertion Gastrointestinal: Gastrointestinal: Denies abdominal pain Genitourinary: Genitourinary: Denies difficulty voiding Musculoskeletal: Musculoskeletal: Reports abnormal gait, Reports back pain, Reports myalgias and Reports arthralgias Neurologic: Reports abnormal gait PMFSH Past Medical History Medical History (Updated 07/11/24 @ 08:15 by Yazan Lanier MD) Necrotizing subcutaneous infection ADELITA (obstructive sleep apnea) Respiratory failure with hypoxia History of invasive ductal carcinoma of breast (~2009) COPD (chronic obstructive pulmonary disease) Asthma Hypoxemia On home oxygen therapy Osteopenia Morbid obesity Left breast mass Personal history of nicotine dependence Family History Family History Father History of diabetes mellitus Mother Family history of COPD (chronic obstructive pulmonary disease) Family/Other History of melanoma Brother Skin cancer Surgical History Surgical History History of lung surgery (~06/2016) History of lymph node dissection of right axilla (~05/2010) History of right breast biopsy (~05/2010) History of colonoscopy with polypectomy (~03/2010) History of section Social History Social History Household Members: Other Housing: Apartment Are you a primary health care sanitary technician to a significant other at home: No Do you presently have visiting nurse or other home services: Yes Patient Tobacco Use Status: Former Tobacco user Years Smoked: onset 16yo, 1-2ppd x 52yrs, 70pyh - quit 2018 Smoked in Last 30 Days: No Use of substances other than those prescribed or required for medical reasons: No Currently Displaying Signs/Symptoms of Drug Intoxication Withdrawal: No Have you been hit, kicked, punched, or otherwise hurt by someone within the past year? If so, by whom?: No Do you feel safe in your current relationship?: No Current Relationship Is there a partner from a previous relationship who is making you feel unsafe now?: No Are you made to feel afraid or neglected: No [facility] Healthcare Practices: church Advance Directives: No Advance Directives Information Provided: Yes Advance Directives on File: No Do you have a plan to hurt others: No Plan Recently lost weight without trying: No How much weight loss: Not applicable Eating poorly because of decreased appetite: No Nutrition screen score: 0 Nutrition Risks: No Nutritional Risk Patient : No : No Poor oral hygiene: No service: No Current occupational status: disabled Meds Allergies Allergy/AdvReac Type Severity Reaction Status Date / Time No Known Allergies Allergy Verified 07/10/24 14:08 [No Known Allergies*] Active Medications: Current Medications Acetaminophen (Acetaminophen 325 Mg Tablet) 650 mg PO Q6H PRN PRN Reason: Pain, Mild (Pain Scale 1-3), fever or headache Vancomycin HCl (Vancomycin/Ns) 2,000 mg in 500 mls @ 250 mls/hr IV ONCE ONE Stop: 07/10/24 18:15 Piperacillin Sod/Tazobactam (Sod 3.375 gm/ Sodium Chloride) 50 mls @ 100 mls/hr IV Q6H JARROD Melatonin (Melatonin 3 Mg Tablet) 6 mg PO BEDTIME PRN PRN Reason: Insomnia Sodium Chloride (0.9 % Sodium Chloride Flush 3 Ml Syringe) 3 ml IVFLUSH QSHIFT JARROD Home Medications ?Medication ?Instructions ?Recorded ?Confirmed ?Last Taken ?Type clonazepam 1 mg tablet 1 mg PO BID PRN anxiety attack 06/17/20 07/10/24 Unknown History ibuprofen 800 mg tablet 800 mg PO Q8H PRN pain 06/17/20 07/10/24 Unknown History metformin 500 mg tablet 500 mg PO BEDTIME 06/17/20 07/10/24 07/10/24 History mirtazapine 15 mg tablet 15 mg PO BEDTIME 06/17/20 07/10/24 07/10/24 History venlafaxine 75 mg capsule,extended 75 mg PO DAILY 06/17/20 07/10/24 07/10/24 Hi story release 24 hr (Effexor XR) ascorbate calcium (vitamin C) 500 500 mg PO DAILY 11/19/20 07/10/24 07/10/24 History mg tablet aspirin 81 mg tablet,delayed 81 mg PO DAILY 11/19/20 07/10/24 Unknown History release clotrimazole 1 % topical cream 1 appl topical DAILY 02/19/21 07/10/24 07/10/24 History ammonium lactate 12 % lotion 1 appl topical DAILY PRN Dry Skin 07/10/24 07/10/24 Unknown History hydrocortisone 2.5 % topical cream 1 appl topical BID 07/10/24 07/10/24 07/10/24 History nystatin 100,000 unit/gram topical 1 appl topical BID 07/10/24 07/10/24 07/10/24 History powder triamcinolone acetonide 0.025 % 1 appl topical BID 07/10/24 07/10/24 07/10/24 History topical cream Physical Exam Vital Signs: Vital Signs: Last Vital Signs Temp 97.8 F 07/10/24 16:48 Pulse 88 07/10/24 16:48 Resp 16 07/10/24 16:48 BP 110/52 L 07/10/24 16:48 Pulse Ox 95 07/10/24 16:48 O2 Del Method Nasal Cannula 07/10/24 16:48 O2 Flow Rate 3 07/10/24 16:48 Oxygen Flow Rate 4 07/10/24 13:57 BMI result Body Mass Index 40.2 Const: Other: Obese General: comfortable and no acute distress Chest: Other: Severe cellulitic changes of the left breast mostly on the lower half, with areas of drainage, necrotic skin with foul-smelling soupy discharge and significant tenderness Resp: Effort & Inspection: normal respiratory effort Cardio: Rate: regular rate GI: Palpation (GI): Soft to palpation, not firm and nontender Results Results Labs: Short CBC 07/10/24 Range/Units 14:34 WBC 12.0 H (4.8-10.8) X10*3/uL Hgb 10.6 L (12.0-16.0) g/dl Hct 34.0 L (37.0-47.0) % Plt Count 309 (160-400) X10*3/uL BMP 07/10/24 14:34 Sodium 142 Potassium 4.0 Chloride 101 Carbon Dioxide 32 H BUN 18 H Creatinine 0.96 Calcium 9.2 Liver Function 07/10/24 Range/Units 14:34 Total Bilirubin 0.3 (0.0-1.0) mg/dL AST 21 (5-31) U/L ALT 7 (0-31) U/L Alkaline Phosphatase 82 (39-117) U/L Albumin 3.4 L (3.5-5.0) g/dL Assessment and Plan (1) Abscess of breast, left: Status: Acute Plan She has significant cellulitic changes on the left breast along with areas of drainage and skin discoloration suggestive of a necrotizing soft tissue infection of the left breast. She is very tender to touch. Her CAT scan does show here in the subcutaneous area. Cultures have been done in the emergency room. I am therefore going to bring her to the operating room for I and D and debridement of the left breast. I explained to her the technique of this procedure. I reviewed the risks including but not limited to bleeding, further infections, poor healing, open wound, as well as the benefits and alternatives. I have discussed the above with the anesthesiologist. She will be admitted as well for IV antibiotics. We will consult the hospitalist service for co- management in view of her multiple medical problems. She otherwise appears to be hemodynamically stable. She understands the plan well. I have discussed the above with her emergency contact Katie. Quality Stroke Does the patient have a stroke diagnosis?: No VTE Prior VTE?: No VTE Risk Level:: Medical - moderate - high VTE Device Contraindication: N/A - Device Ordered VTE Drug Contraindication: N/A - Med Ordered Procedures Date of Service Date of Service: 07/12/24
--- NOTE | 2024-07-10 17:29 | P.CONAN_ITS ---
HPI - Anesthesia Eval Consult details Narrative: Left breast abscess PMFSH Active Problems Active Problems: All Active Problems Abscess of breast, left (Acute) ADELITA (obstructive sleep apnea) (Acute) Respiratory failure with hypoxia (Acute) Erythrocytosis (Acute) On home oxygen therapy (Acute) Hypoxemia (Acute) COPD (chronic obstructive pulmonary disease) (Acute) Asthma (Acute) Pulmonary nodules (Acute) Personal history of nicotine dependence (Acute) Morbid obesity (Acute) Abnormal mammogram of left breast (Acute) Past Medical History Medical History ADELITA (obstructive sleep apnea) Respiratory failure with hypoxia History of invasive ductal carcinoma of breast (~2009) COPD (chronic obstructive pulmonary disease) Asthma Hypoxemia On home oxygen therapy Osteopenia Morbid obesity Left breast mass Personal history of nicotine dependence Family History Family History Father History of diabetes mellitus Mother Family history of COPD (chronic obstructive pulmonary disease) Family/Other History of melanoma Brother Skin cancer Family history of problems with anesthesia: No Surgical History Surgical History History of lung surgery (~06/2016) History of lymph node dissection of right axilla (~05/2010) History of right breast biopsy (~05/2010) History of colonoscopy with polypectomy (~03/2010) History of section History of Problems with Anesthesia: No Social History Social History Household Members: Friend(s) Housing: Apartment Are you a primary care professional to a significant other at home: No Do you presently have visiting nurse or other home services: No Patient Tobacco Use Status: Former Tobacco user Years Smoked: onset 16yo, 1-2ppd x 52yrs, 70pyh - quit 2018 Smoked in Last 30 Days: No Use of substances other than those prescribed or required for medical reasons: No Advance Directives: No Advance Directives Information Provided: Yes Do you have a plan to hurt others: No Plan service: No Current occupational status: disabled Meds Allergies Allergy/AdvReac Type Severity Reaction Status Date / Time No Known Allergies Allergy Verified 07/10/24 14:08 [No Known Allergies*] Active Medications: Current Medications Acetaminophen (Acetaminophen 325 Mg Tablet) 650 mg PO Q6H PRN PRN Reason: Pain, Mild (Pain Scale 1-3), fever or headache Vancomycin HCl (Vancomycin/Ns) 2,000 mg in 500 mls @ 250 mls/hr IV ONCE ONE Stop: 07/10/24 18:15 Piperacillin Sod/Tazobactam (Sod 3.375 gm/ Sodium Chloride) 50 mls @ 100 mls/hr IV Q6H JARROD Melatonin (Melatonin 3 Mg Tablet) 6 mg PO BEDTIME PRN PRN Reason: Insomnia Sodium Chloride (0.9 % Sodium Chloride Flush 3 Ml Syringe) 3 ml IVFLUSH QSHIFT JARROD Home Medications ?Medication ?Instructions ?Recorded ?Confirmed ?Last Taken ?Type clonazepam 1 mg tablet 1 mg PO BID PRN anxiety attack 06/17/20 06/26/24 Unknown History ibuprofen 800 mg tablet 800 mg PO Q8H PRN pain 06/17/20 06/26/24 Unknown History metformin 500 mg tablet 500 mg PO BEDTIME 06/17/20 06/26/24 Unknown History mirtazapine 15 mg tablet 15 mg PO BEDTIME 06/17/20 06/26/24 Unknown History venlafaxine 75 mg capsule,extended 75 mg PO DAILY 06/17/20 06/26/24 Unknown History release 24 hr (Effexor XR) ascorbate calcium (vitamin C) 500 500 mg PO DAILY 11/19/20 06/26/24 Unknown History mg tablet aspirin 81 mg tablet,delayed 81 mg PO DAILY PRN Bleeding 11/19/20 06/26/24 Unknown History release clotrimazole 1 % topical cream 1 appl topical DAILY 02/19/21 06/26/24 Unknown History tramadol 50 mg tablet 1 tab PO Q12H PRN Pain 12/04/21 06/26/24 Unknown History Exam Height,Weight and Vital Signs: Height 5 ft 2 in Weight 99.79 kg Last Vital Signs Temp 97.8 F 07/10/24 16:48 Pulse 88 07/10/24 16:48 Resp 16 07/10/24 16:48 BP 110/52 L 07/10/24 16:48 Pulse Ox 95 07/10/24 16:48 O2 Del Method Nasal Cannula 07/10/24 16:48 O2 Flow Rate 3 07/10/24 16:48 Oxygen Flow Rate 4 07/10/24 13:57 Pertinent Lab Results Pertinent Lab Results: Laboratory Tests 07/10/24 14:34 WBC 12.0 H RBC 3.65 L Hgb 10.6 L Hct 34.0 L MCV 93.2 MCH 29.0 MCHC 31.2 RDW 13.1 Plt Count 309 MPV 8.6 L Immature Gran % (Auto) 0.5 H Neut % (Auto) 74.1 H Lymph % (Auto) 9.4 L [place] % (Auto) 12.6 H Eos % (Auto) 3.2 Baso % (Auto) 0.2 Lymph # (Auto) 1.1 L [place] # (Auto) 1.5 H Eos # (Auto) 0.4 Baso # (Auto) 0.0 Abs Immat Gran (auto) 0.06 H Absolute Neuts (auto) 8.9 H Absolute Nucleated RBC 0.000 Nucleated RBC % (auto) 0.0 Smear Tech's Comments VERIFIED ESR 87 H Hold Purple Top SEE NOTE Sodium 142 Potassium 4.0 Chloride 101 Carbon Dioxide 32 H Anion Gap 13 BUN 18 H Creatinine 0.96 Estim Creat Clear Calc 57.6 Estimated GFR 57 Random Glucose 181 H Calcium 9.2 Magnesium 1.8 Total Bilirubin 0.3 AST 21 ALT 7 Alkaline Phosphatase 82 C-Reactive Protein 10.99 H Total Protein 7.7 Albumin 3.4 L Airway Mallampati Class: II TM Dist: >3cm Neck ROM: Full Loose/Missing/Broken Teeth: No Heart: RRR Lungs: CTA Assessment and Plan Assessment Anesthesia Assessment: Anesthesia Plan Discussed and Chart Reviewed Final Anesthetic Review Family History of Problems with Anesthesia: No History of Problems with Anesthesia: No NPO: Yes ASA Class: III and Emergency Final Preanesthetic Review: No Changes in Pt Med Stat, Meds/Allgs Chart Reviewed, Consent Obtained/Reviewed and Anes Risks/Benef Reviewed Patient Risk: Intermediate Procedure Risk: Low Anesthetic Plan Anesthetic Plan: GA Disposition: Standard PACU
[2024-07-10] MEDS: Piperacillin Sodium/Tazobactam 3.375 GM in 0.9 % Sodium Chloride 50 ML IV (17:45)
[2024-07-10 17:57] LABS: Lactic Acid 0.6 mmol/L (0.5-2.0)
[2024-07-10] MEDS: vancomycin/NS 2,000 MG/500 ML PLAST..BAG 250 MG IV (18:00)
--- NOTE | 2024-07-10 18:30 | PC.NURSE ---
Report given to SSS. Pt taken by RN and to OR
--- NOTE | 2024-07-10 19:29 | PHA.MEDREC ---
Addendum entered by Kathleen Roman RPh 07/10/24 19:47: Reviewed by [facility] Original Note: Pharmacy Consult ? Medication Reconciliation Pharmacy has completed the medication reconciliation. Spoke with daughter Sheryl over the phone and she was able to confirm her moms medications. She was not sure if her mom was still taking Tramadol or not, and looking in claims we had nothing on file. I called her moms pharmacy where she fills and they state they have no claims for it either, I took it off the med rec.
--- NOTE | 2024-07-10 19:33 | W.PM.OPN ---
Operative Note Operative Note Date of Service: 07/10/24 Narrative: Preop diagnosis: Necrotizing infection of the left breast Postop diagnosis: The same Procedure: Sharp excisional debridement of left breast Surgeon: Yazan Lanier MD The patient is a 74-year-old female who has had left breast redness, drainage and tenderness for the past 4-5 days. Examination in the ED showed areas of the necrosis of the skin, multiple areas of drainage suggestive of necrotizing infection of the left breast. I explained to her it would be best to proceed with aggressive debridement in the OR. She understood the technique of the procedure as well as the risks, benefits, and alternatives. She was brought to the operating room. She was placed supine under general anesthesia via endotracheal tube. The left breast was prepped and draped in usual sterile fashion. A surgical time-out was done. The patient was receiving scheduled vancomycin in the ED. I used a knife to initially make an incision around an area of skin necrosis. We then proceeded to probe the area and there was note of a cavity so we proceeded to unroof this entire area by using curved Franks scissors to excise the overlying skin. Then used the curved Franks scissors to excise nonviable looking tissue until I could clearly see there was note of good vascular supply. I had to cauterize oozing areas to achieve hemostasis. I then copiously irrigated. Once hemostasis was confirmed, I then proceeded to apply wet-to-dry packing into the area using a Kerlix roll. Dry dressings were applied. The area was covered with ABD pads. The procedure was completed. The excised area measured 12 cm x 5 cm and 5 cm deep. The patient tolerated the procedure well. There were no immediate complications. Estimated blood loss about 25 cc The patient was extubated without difficulty and transferred to the recovery room with stable vital signs.
--- OUTSIDE RECORDS SUMMARY | 2024-07-10 19:39 | XMS_ITS ---
Author Organization [facility] Address [address] [place] [address] Care Team Providers Care Kayaking Instructor Name Role Phone Manjula Ross M.D. Primary Care Provider Unava ilable Lawrence Butler Unavailable [phone] Familia Lacy Unavailable Unavailable REASON FOR VISIT R/S colon with pulmonary clearance Encounters Encounter Location Date Provider Diagnosis [facility] [address] [place] [address] 05/31/2023 Lawrence Butler PLAN OF TREATMENT No Information
--- OUTSIDE RECORDS SUMMARY | 2024-07-10 19:40 | XMS_ITS | Patient Health Record ---
Author Organization [facility] Address [address] [place] [address] Care Team Providers Care Antique Clocks Repairer Name Role Phone Manjula Ross M.D. Primary Care Provider Lawrence Jones Unavailable [phone] Familia Lacy Unavailable Unavailable ALLERGIES No Known Allergies REASON FOR REFERRAL No Information MEDICATIONS Medication SIG (Take, Route, Frequency, Duration) Notes Start Date End Date Status Dulcolax (colon prep) 5 MG take at 3:00 p.m and 7:00p.m. Orally two tablets twice a day for one day for 1 day 03/19/2023 Active MiraLax (colon prep) 17 GM/SCOOP 1 238GM bottle mixed with Gatorade or Crystal Light Orally begin at 5:00 p.m. the day before the procedure for 1 day 03/19/2023 Active clonazePAM 1 MG TAKE 1 TABLET BY AGUSTÍN TWICE A DAY NEEDED FOR SEVERE ANXIETY AND PANIC DISORDER. Oral for 30 Active Mirtazapine 15 MG Oral for 90 Active Wixela Inhub 250-50 MCG/ACT INHALE 1 PUF F BY MOUTH TWICE A DAY Inhalation for 30 Active Combivent Respimat 20-100 MCG/ACT INHALE 1 PUFF BY MOUTH EVERY 4 TO 6 HOURS NEEDED FOR WHEEZE Inhalation for 30 Active Cetirizine HCl 10 MG Oral for 90 Active Celecoxib 50 MG Oral for 30 Ac tive metFORMIN HCl 500 MG Oral for 90 Active Incruse Ellipta 62.5 MCG/ACT TAKE 1 PUFF BY MOUTH EVERY DAY Inhalation for 30 Active Albuterol Sulfate (2.5 MG/3ML) 0.083% Inhalation for 5 Active Venlafaxine HCl ER 75 MG TAKE 1 CAPSULE BY MOUTH EVERY DAY Oral for 90 Active Ibuprofen 800 MG TAKE 1 TABLET BY AGUSTÍN TH 3 TIMES DAILY. Oral for 30 Active IMMUNIZATIONS Vaccine Route Administration Date Status Comme nts Influenza Unknown 07/07/2022 Administered SOCIAL HISTORY Tobacco Use: Social History Observation Description Date Details (start date - stop date) Former Smoker NA - NA Sex Assigned At : Social History Observation Description Sex Assigned At Unknown Tobacco Use/Smoking Question Answer Notes Patient is a former smoker Alcohol Screen Question Answer Notes Did you have a drink containing alcohol in the p ast year? No Points 0 Interpretation Negative PROBLEMS Problem Type ICD Code Onset Dates Problem Status W/U Status Risk SNOMED Code Notes Problem Colon cancer screening (Z12.11) Active confirmed 298070820 Problem Preprocedural examination (Z01.818) Active confirmed [id number] PLAN OF TREATMENT Future Test Test Name Order Date COLONOSCOPY 03/11/2023 Insurance Providers Payer Name Payer Address Payer Phone Subscriber Number Group Number Insured Name Patient Relationship to Insured Coverage Start Date Coverage End Date [facility] [address] Attn Claims STEVEN Clark [id number] MAIA CHAN Self - patient is the insured MEDICAL (GENERAL) HISTORY Medical History History ICD Code COPD/Asthma--uses oxygen Arthirits Breast cancer--right side--surgery/XRT-2 011 Denies [place],DM,CVA,renal disease Anxiety/Depression Surgical History Surgery Date(Month/Year) Breast cancer--lumpectomy Lung nodule-Benign C-sections
--- OUTSIDE RECORDS SUMMARY | 2024-07-10 19:40 | XMS_ITS ---
Author Organization [facility] Address [address] [place] [address] Care Team Providers Care Child Care Sitter Name Role Phone Manjula Ross M.D. Primary Care Provider Lawrence Jones Unavailable [phone] Familia Lacy Unavailable Unavailable REASON FOR VISIT bowel prep MEDICATIONS Medication SIG (Take, Route, Frequency, Duration) [...] the procedure for 1 day 03/19/2023 Active Encounters Encounter Location Date Provider Diagnosis [facility] [address] [place] [id number] 03/11/2023 Lawrence Butler PLAN OF TREATMENT Medication Medication Name Sig Start Date Stop Date Notes Dulcolax (colon prep) 5 MG take at 3:00 p.m and 7:00p.m. Orally two tablets twice a day for one day for 1 day 03/19/2023 MiraLax (colon prep) 17 GM/SCOOP 1 238GM bottle mixed with Gatorade or Crystal Light Orally begin at 5:00 p.m. the day before the procedure for 1 day 03/19/2023
--- OUTSIDE RECORDS SUMMARY | 2024-07-10 19:40 | XMS_ITS ---
Author Organization [facility] Address [address] [place] [address] Care Team Providers Care Maritime Pilot Name Role Phone Manjula Ross M.D. Primary Care Provider Unava ilable Lawrence Butler Unavailable [phone] Familia Lacy Unavailable Unavailable REASON FOR VISIT screening Encounters Encounter Location Date Provider Diagnosis [facility] [address] [address] [place], [place] [id number] 05/26/2023 Lawrence Butler PLAN OF TREATMENT No Information
[2024-07-10] MEDS: Lactated Ringers 1,000 ML 60 ML IVCONT (20:00)
[2024-07-10] MEDS: Aspirin Enteric Coated 81 MG TABLET.DR PO (21:04)
[2024-07-10] MEDS: Mirtazapine 15 MG TABLET PO (21:05)
[2024-07-10] MEDS: metFORMIN HCl 500 MG TABLET PO (21:05)
[2024-07-10] MEDS: Nystatin Powder 15 GM BOTTLE 1 APPL TOPICAL (22:45)
[2024-07-11] MEDS: Piperacillin Sodium/Tazobactam 3.375 GM in 0.9 % Sodium Chloride 50 ML IV ×5 (00:43→23:02)
[2024-07-11 03:28] VITALS: BP 113/55; PULSE 78; RESP 14; TEMP 36.9; O2SAT 94
[2024-07-11] MEDS: Morphine Sulfate 2 MG/ML CARTRIDGE IVPUSH ×2 (03:35→08:23)
[2024-07-11] MEDS: Lactated Ringers 1,000 ML 60 ML IVCONT (04:23)
[2024-07-11 07:40] VITALS: BP 101/56; PULSE 84; RESP 16; TEMP 36.8; O2SAT 93
--- NOTE | 2024-07-11 08:09 | PM.PNGS ---
Subjective Subjective Date of Service: 07/11/24 Interval history: She says she had a good night Admits to pain on the debridement site No events reported by nurse Physical Exam Vital Signs: Vital Signs: Last Vital Signs Temp 98.3 F 07/11/24 07:40 Pulse 84 07/11/24 07:40 Resp 16 07/11/24 07:40 BP 101/56 L 07/11/24 07:40 Pulse Ox 93 07/11/24 07:40 O2 Del Method Nasal Cannula 07/11/24 07:40 O2 Flow Rate 2 07/11/24 07:40 Oxygen Flow Rate 4 07/10/24 13:57 BMI result Body Mass Index 40.2 Const: Other: Mildly short of breath General: comfortable Resp: Other: Mildly short of breath Cardio: Rate: regular rate GI: Other: Obese and soft Objective Data Active Medications Acetaminophen (Acetaminophen 325 Mg Tablet) 650 mg PO Q6H PRN PRN Reason: Pain, Mild (Pain Scale 1-3), fever or headache Albuterol Sulfate (Albuterol Sulfate (0.083%) 2.5 Mg/3 Ml Vial.Neb) 2.5 mg INHALE Q4H PRN PRN Reason: for dyspnea Albuterol/Ipratropium (Albuterol/Iprat 2.5/0.5mg 3 Ml Ampul.Neb) 3 ml INHALE Q6H PRN PRN Reason: for wheezing Aspirin (Aspirin Enteric Coated 81 Mg Tablet.) 81 mg PO DAILY [facility] [place] Last Admin: 07/10/24 21:04 Dose: 81 mg Documented By: GENESIS Clonazepam (Clonazepam 1 Mg Tablet) 1 mg PO BID PRN PRN Reason: anxiety attack Piperacillin Sod/Tazobactam (Sod 3.375 gm/ Sodium Chloride) 50 mls @ 100 mls/hr IV Q6H [facility] [place] Last Infusion: 07/11/24 06:42 Dose: Infused Documented By: YONY Lactated Ringer's (Lr) 1,000 mls @ 60 mls/hr IVCONT .[id number] [facility] [place] Last Infusion: 07/11/24 06:42 Dose: 60 mls/hr Documented By: YONY Lactic Acid (Ammonium Lactate 12 % Cream 140 Gm Tube) 1 appl TOPICAL DAILY PRN; Protocol PRN Reason: Dry Skin Melatonin (Melatonin 3 Mg Tablet) 6 mg PO BEDTIME PRN PRN Reason: Insomnia Metformin HCl (Metformin Hcl 500 Mg Tablet) 500 mg PO BEDTIME [facility] [place] Last Admin: 07/10/24 21:05 Dose: 500 mg Documented By: GENESIS Mirtazapine (Mirtazapine 15 Mg Tablet) 15 mg PO BEDTIME [facility] [place] Last Admin: 07/10/24 21:05 Dose: 15 mg Documented By: GENESIS Morphine Sulfate (Morphine Sulfate 2 Mg/Ml Cartridge) 2 mg IVPUSH Q3H PRN; Protocol PRN Reason: Pain, Severe (Pain Scale 7-10) Last Admin: 07/11/24 03:35 Dose: 2 mg Documented By: YONY Naloxone HCl (Naloxone Hcl 0.4 Mg/Ml Vial) 0.04 mg IVPUSH Q5M PRN PRN Reason: Excessive sedation or RR < 8 Nystatin (Nystatin Powder 15 Gm Bottle) 1 appl TOPICAL BID [facility] [place]; Protocol Last Admin: 07/10/24 22:45 Dose: 1 appl Documented By: YONY Oxycodone HCl (Oxycodone Hcl Immed Release 5 Mg Tablet) 10 mg PO Q4H PRN PRN Reason: Pain, Moderate(Pain Scale 4-6) Sodium Chloride (0.9 % Sodium Chloride Flush 3 Ml Syringe) 3 ml IVFLUSH QSHIFT [facility] [place] Last Admin: 07/11/24 00:44 Dose: Not Given Documented By: YONY Non-Admin Reason: IV Running Tiotropium [place] (Tiotropium [place] 2.5 Mcg 1 Puff/2.5 Mcg Mist.Inhal) 2 puff INHALE RDAILY [facility] [place] Venlafaxine HCl (Venlafaxine Hcl Er 75 Mg Cap.Er.24h) 75 mg PO DAILY [facility] [place] Labs 07/10/24 14:34 07/10/24 14:34 Labs: Laboratory Results - last 24 hr 07/10/24 07/10/24 14:34 17:38 MCV 93.2 MCH 29.0 MCHC 31.2 RDW 13.1 Plt Count 309 MPV 8.6 L Immature Gran % (Auto) 0.5 H Neut % (Auto) 74.1 H Lymph % (Auto) 9.4 L [place] % (Auto) 12.6 H Eos % (Auto) 3.2 Baso % (Auto) 0.2 Lymph # (Auto) 1.1 L [place] # (Auto) 1.5 H Eos # (Auto) 0.4 Baso # (Auto) 0.0 Abs Immat Gran (auto) 0.06 H Absolute Neuts (auto) 8.9 H Absolute Nucleated RBC 0.000 Nucleated RBC % (auto) 0.0 Smear Tech's Comments VERIFIED ESR 87 H Hold Purple Top SEE NOTE Anion Gap 13 Estim Creat Clear Calc 57.6 Estimated GFR 57 Random Glucose 181 H Lactic Acid 0.6 Calcium 9.2 Magnesium 1.8 Total Bilirubin 0.3 AST 21 ALT 7 Alkaline Phosphatase 82 C-Reactive Protein 10.99 H Total Protein 7.7 Albumin 3.4 L Microbiology Microbiology Results: Microbiology 07/10/24 16:51 Routine Culture - Preliminary Breast Culture in progress. Procedures Date of Service Date of Service: 07/11/24 Progress Note: A&P Assessment and plan (1) Necrotizing subcutaneous infection: Status: Acute Assessment and Plan: Aggressive excisional debridement done under anesthesia last night Cultures pending Hospitalist following for multiple medical problems dressings changed - good granulation, no ongoing necrotizing process wet to dry w/ Kerlix applied poss wound vac juan daniel dw Hospitalist service Time Spent With Patient Time: Total time managing care of this patient today ____ minutes. Quality Stroke Does the patient have a stroke diagnosis?: No VTE Prior VTE?: No VTE Risk Level:: Medical - moderate - high VTE Device Contraindication: N/A - Device Ordered VTE Drug Contraindication: N/A - Med Ordered
[2024-07-11] MEDS: Venlafaxine HCl ER 75 MG CAP.ER.24H PO (08:23)
[2024-07-11] MEDS: Aspirin Enteric Coated 81 MG TABLET.DR PO (08:23)
[2024-07-11 08:38] LABS: Glucose, Whole Blood 166 mg/dL (60-115)
--- NOTE | 2024-07-11 08:47 | HO.POSTANES ---
Post Anesthesia Evaluation Post Anesthesia Evaluation Date of Service: 07/11/24 Vital Signs: Vital Signs Temp Pulse Resp BP Pulse Ox O2 Del Method O2 Flow Rate 07/11/24 07:40 98.3 F 84 16 101/56 L 93 Nasal Cannula 2 07/11/24 03:28 98.5 F 78 14 113/55 L 94 Nasal Cannula 2 Anesthesia: General Endotracheal-GETA Mental Status: Awake Pain Control: Satisfactory Nausea/Vomiting: None Hydration: Adequate Anesthesia-Related Issues: No Anes. Related Issues
[2024-07-11] MEDS: Nystatin Powder 15 GM BOTTLE 1 APPL TOPICAL ×2 (09:14→19:29)
--- NOTE | 2024-07-11 09:50 | MHC.CM.PN ---
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 PT OPEN TO VNA IF RECOMMENDED AND FOLLOW-UP W/SURGEON. PT COMPLETES A NEW HCP NAMING HER DTR [facility] [phone] OF [place], PT RECEIVIED ORIGINAL DOCUMENT AND INFORMATIONAL IN [facility], PT VERIFIES PCP IS DR. CHAPIN.
--- NOTE | 2024-07-11 11:01 | P.CONHOSP_ITS ---
History of Present Illness Data of Consult Service Date: 07/11/24 Requesting physician: Yazan Lanier Primary Care Provider: Manjula Ross MD HPI Reason for consult: medical consult 74-year-old female with a past medical history significant for COPD, ADELITA, prediabetes, and history of invasive ductal right breast cancer (S/p lumpectomy, colon biopsy, radiation) who presented to the ED with left breast necrotizing infection/abscess. She is status post debridement yesterday. No medical concerns today. She reports that she is going to have someone bring her home inhalers for COPD. Review of Systems 2 Constitutional: Constitutional: Denies body ache(s), Denies chills, Denies fatigue, Denies fever(s) and Denies headache(s) Eyes: Eyes: Denies change in vision ENT: Denies headache(s), Denies nasal congestion, Denies nasal discharge and Denies sore throat Cardiovascular: Cardiovascular: Denies chest pain, Denies leg edema and Denies dyspnea Respiratory: Respiratory: Denies chest congestion, Denies cough and Denies dyspnea Gastrointestinal: Gastrointestinal: Denies constipation, Denies diarrhea, Denies nausea and Denies vomiting Genitourinary: Genitourinary: Denies dysuria Musculoskeletal: Musculoskeletal: Denies myalgias Integumentary/Breasts: Skin/Breast: Reports as per HPI Neurologic: Denies headache(s) Endocrine: Endocrine: Denies fatigue [facility] Medical History (Updated 07/11/24 @ 08:15 by Yazan Lanier MD) Necrotizing subcutaneous infection ADELITA (obstructive sleep apnea) Respiratory failure with hypoxia History of invasive ductal carcinoma of breast (~2009) COPD (chronic obstructive pulmonary disease) Asthma Hypoxemia On home oxygen therapy Osteopenia Morbid obesity Left breast mass Personal history of nicotine dependence Family History Father History of diabetes mellitus Mother Family history of COPD (chronic obstructive pulmonary disease) Family/Other History of melanoma Brother Skin cancer Surgical History History of lung surgery (~06/2016) History of lymph node dissection of right axilla (~05/2010) History of right breast biopsy (~05/2010) History of colonoscopy with polypectomy (~03/2010) History of section Social History Household Members: Other Housing: Apartment Are you a primary career development coordinator to a significant other at home: No Do you presently have visiting nurse or other home services: Yes Patient Tobacco Use Status: Former Tobacco user Years Smoked: onset 16yo, 1-2ppd x 52yrs, 70pyh - quit 2018 Smoked in Last 30 Days: No Use of substances other than those prescribed or required for medical reasons: No Currently Displaying Signs/Symptoms of Drug Intoxication Withdrawal: No Have you been hit, kicked, punched, or otherwise hurt by someone within the past year? If so, by whom?: No Do you feel safe in your current relationship?: No Current Relationship Is there a partner from a previous relationship who is making you feel unsafe now?: No Are you made to feel afraid or neglected: No [facility] Healthcare Practices: cheondoism Advance Directives: No Advance Directives Information Provided: Yes Advance Directives on File: No Do you have a plan to hurt others: No Plan Recently lost weight without trying: No How much weight loss: Not applicable Eating poorly because of decreased appetite: No Nutrition screen score: 0 Nutrition Risks: No Nutritional Risk Patient : No : No Poor oral hygiene: No service: No Current occupational status: disabled Meds Allergies Allergy/AdvReac Type Severity Reaction Status Date / Time No Known Allergies Allergy Verified 07/10/24 14:08 [No Known Allergies*] Active Medications: Current Medications Acetaminophen (Acetaminophen 325 Mg Tablet) 650 mg PO Q6H PRN PRN Reason: Pain, Mild (Pain Scale 1-3), fever or headache Albuterol Sulfate (Albuterol Sulfate (0.083%) 2.5 Mg/3 Ml Vial.Neb) 2.5 mg INHALE Q4H PRN PRN Reason: for dyspnea Albuterol/Ipratropium (Albuterol/Iprat 2.5/0.5mg 3 Ml Ampul.Neb) 3 ml INHALE Q6H PRN PRN Reason: for wheezing Aspirin (Aspirin Enteric Coated 81 Mg Tablet.) 81 mg PO DAILY [facility] Last Admin: 07/11/24 08:23 Dose: 81 mg Clonazepam (Clonazepam 1 Mg Tablet) 1 mg PO BID PRN PRN Reason: anxiety attack Heparin Sodium (Porcine) (Heparin Sodium,Porcine 5,000 Unit/Ml Vial) 5,000 unit SUBCUT Q8H [facility] Piperacillin Sod/Tazobactam (Sod 3.375 gm/ Sodium Chloride) 50 mls @ 100 mls/hr IV Q6H [facility] Last Infusion: 07/11/24 06:42 Dose: Infused Lactated Ringer's (Lr) 1,000 mls @ 60 mls/hr IVCONT .[id number] [facility] Last Infusion: 07/11/24 06:42 Dose: 60 mls/hr Lactic Acid (Ammonium Lactate 12 % Cream 140 Gm Tube) 1 appl TOPICAL DAILY PRN; Protocol PRN Reason: Dry Skin Melatonin (Melatonin 3 Mg Tablet) 6 mg PO BEDTIME PRN PRN Reason: Insomnia Metformin HCl (Metformin Hcl 500 Mg Tablet) 500 mg PO BEDTIME [facility] Last Admin: 07/10/24 21:05 Dose: 500 mg Mirtazapine (Mirtazapine 15 Mg Tablet) 15 mg PO BEDTIME [facility] Last Admin: 07/10/24 21:05 Dose: 15 mg Morphine Sulfate (Morphine Sulfate 2 Mg/Ml Cartridge) 2 mg IVPUSH Q3H PRN; Protocol PRN Reason: Pain, Severe (Pain Scale 7-10) Last Admin: 07/11/24 08:23 Dose: 2 mg Naloxone HCl (Naloxone Hcl 0.4 Mg/Ml Vial) 0.04 mg IVPUSH Q5M PRN PRN Reason: Excessive sedation or RR < 8 Nystatin (Nystatin Powder 15 Gm Bottle) 1 appl TOPICAL BID [facility]; Protocol Last Admin: 07/11/24 09:14 Dose: 1 appl Oxycodone HCl (Oxycodone Hcl Immed Release 5 Mg Tablet) 10 mg PO Q4H PRN PRN Reason: Pain, Moderate(Pain Scale 4-6) Sodium Chloride (0.9 % Sodium Chloride Flush 3 Ml Syringe) 3 ml IVFLUSH QSHIFT [facility] Last Admin: 07/11/24 08:46 Dose: Not Given Tiotropium [place] (Tiotropium [place] 2.5 Mcg 1 Puff/2.5 Mcg Mist.Inhal) 2 puff INHALE RDAILY [facility] Venlafaxine HCl (Venlafaxine Hcl Er 75 Mg Cap.Er.24h) 75 mg PO DAILY [facility] Last Admin: 07/11/24 08:23 Dose: 75 mg Home Medications ?Medication ?Instructions ?Recorded ?Confirmed ?Last Taken ?Type clonazepam 1 mg tablet 1 mg PO BID PRN anxiety attack 06/17/20 07/10/24 Unknown History ibuprofen 800 mg tablet 800 mg PO Q8H PRN pain 06/17/20 07/10/24 Unknown History metformin 500 mg tablet 500 mg PO BEDTIME 06/17/20 07/10/24 07/10/24 History mirtazapine 15 mg tablet 15 mg PO BEDTIME 06/17/20 07/10/24 07/10/24 History venlafaxine 75 mg capsule,extended 75 mg PO DAILY 06/17/20 07/10/24 07/10/24 History release 24 hr (Effexor XR) ascorbate calcium (vitamin C) 500 500 mg PO DAILY 11/19/20 07/10/24 07/10/24 History mg tablet aspirin 81 mg tablet,delayed 81 mg PO DAILY 11/19/20 07/10/24 Unknown History release clotrimazole 1 % topical cream 1 appl topical DAILY 02/19/21 07/10/24 07/10/24 History ammonium lactate 12 % lotion 1 appl topical DAILY PRN Dry Skin 07/10/24 07/10/24 Unknown History hydrocortisone 2.5 % topical cream 1 appl topical BID 07/10/24 07/10/24 07/10/24 History nystatin 100,000 unit/gram topical 1 appl topical BID 07/10/24 07/10/24 07/10/24 History powder triamcinolone acetonide 0.025 % 1 appl topical BID 07/10/24 07/10/24 07/10/24 History topical cream Physical Exam 2 Vital Signs and Narrative: Vital Signs: Last Vital Signs Temp 98.3 F 07/11/24 07:40 Pulse 84 07/11/24 07:40 Resp 16 07/11/24 07:40 BP 101/56 L 07/11/24 07:40 Pulse Ox 93 07/11/24 07:40 O2 Del Method Nasal Cannula 07/11/24 07:40 O2 Flow Rate 2 07/11/24 07:40 Oxygen Flow Rate 4 07/10/24 13:57 BMI result Body Mass Index 40.2 General: AOx3, no acute distress Resp: CTA bilaterally CVS: S1, S2, RRR GI: +BS, NT, no distention Skin: Warm, dry, dressing on R breast not removed Extremities: No edema Psych: Appropriate affect Results Labs 07/10/24 14:34 07/10/24 14:34 Labs: Laboratory Results - last 24 hr 07/10/24 07/10/24 07/11/24 14:34 17:38 08:32 MCV 93.2 MCH 29.0 MCHC 31.2 RDW 13.1 Plt Count 309 MPV 8.6 L Immature Gran % (Auto) 0.5 H Neut % (Auto) 74.1 H Lymph % (Auto) 9.4 L [place] % (Auto) 12.6 H Eos % (Auto) 3.2 Baso % (Auto) 0.2 Lymph # (Auto) 1.1 L [place] # (Auto) 1.5 H Eos # (Auto) 0.4 Baso # (Auto) 0.0 Abs Immat Gran (auto) 0.06 H Absolute Neuts (auto) 8.9 H Absolute Nucleated RBC 0.000 Nucleated RBC % (auto) 0.0 Smear Tech's Comments VERIFIED ESR 87 H Hold Purple Top SEE NOTE Anion Gap 13 Estim Creat Clear Calc 57.6 Estimated GFR 57 POC Glucose 166 H Random Glucose 181 H Hgb A1c Fingerstick Lactic Acid 0.6 Calcium 9.2 Magnesium 1.8 Total Bilirubin 0.3 AST 21 ALT 7 Alkaline Phosphatase 82 C-Reactive Protein 10.99 H Total Protein 7.7 Albumin 3.4 L 07/11/24 10:41 MCV MCH MCHC RDW Plt Count MPV Immature Gran % (Auto) Neut % (Auto) Lymph % (Auto) [place] % (Auto) Eos % (Auto) Baso % (Auto) Lymph # (Auto) [place] # (Auto) Eos # (Auto) Baso # (Auto) Abs Immat Gran (auto) Absolute Neuts (auto) Absolute Nucleated RBC Nucleated RBC % (auto) Smear Tech's Comments ESR Hold Purple Top Anion Gap Estim Creat Clear Calc Estimated GFR POC Glucose Random Glucose Hgb A1c Fingerstick Cancelled Lactic Acid Calcium Magnesium Total Bilirubin AST ALT Alkaline Phosphatase C-Reactive Protein Total Protein Albumin Imaging Radiologist's Impressions: Impressions Chest CT 07/10/24 16:25 IMPRESSION: Subcutaneous air and streaky changes in the left breast new since prior exam consistent with cellulitis/infection. Probable gallstones. Gallbladder ultrasound recommended for further evaluation if clinically important to know. Fleischner guidelines were followed. Electronically signed by: Martínez Saez MD 07/10/2024 06:38 PM EDT RP Assessment and Plan (1) Necrotizing subcutaneous infection: Status: Acute (2) Morbid obesity: Status: Acute Plan 74-year-old female with a past medical history significant for COPD, ADELITA, prediabetes, and history of invasive ductal right breast cancer (S/p lumpectomy, colon biopsy, radiation) who presented to the ED with left breast necrotizing infection/abscess. Left breast necrotizing infection/abscess - plan per surgery COPD, moderare, no exacerbation - continue home inhalers, patient's family members are bringing - continue O2 as needed Prediabetes - check A1c - POCs - continue metformin - add sliding scale if needed Hypotension - blood pressures have been fluctuating on the lower end - continue LR at 60 mls/hr - continue to monitor BPs - bolus if systolic drops to the 90s ADELITA - no CPAP Thank you for allowing me to participate in the pt's care. Sending off for now. Please contact the medical team if any questions or concerns.
[2024-07-11] MEDS: Tiotropium Bromide 2.5 mcg 1 PUFF/2.5 MCG MIST.INHAL 2 PUFF INHALE (11:18)
[2024-07-11 11:20] VITALS: PULSE 78; RESP 16; O2SAT 96
[2024-07-11 11:33] LABS: Hemoglobin 9.8 g/dl (12.0-16.0); Mean Corpuscular HGB Conc 30.6 g/dl (31.0-35.0); Mean Corpuscular Hemoglobin 29.2 pg (27.0-33.0); Mean Corpuscular Volume 95.2 fL (80.0-98.0); Mean Platelet Volume 8.8 fL (9.4-12.3); Platelet Count 297 X10*3/uL (160-400); Red Blood Count 3.36 X10*6/uL (4.20-5.50); Red Cell Distribution Width 13.3 % (11.0-16.0); White Blood Count 10.5 X10*3/uL (4.8-10.8)
[2024-07-11 11:34] LABS: Anion Gap 10 (12-20); Blood Urea Nitrogen 14 mg/dL (9-16); Calcium 8.8 mg/dL (8.4-10.2); Carbon Dioxide 35 mmol/L (22-29); Chloride 101 mmol/L (96-108); Creatinine Clr Calc Pharmacy 67.5; Estimated Glomerular Filt Rate > 60; Glucose Random 134 mg/dL (60-115); Potassium 3.9 mmol/L (3.3-5.1); Sodium 142 mmol/L (135-145)
[2024-07-11 11:36] LABS: Glucose, Whole Blood 105 mg/dL (60-115)
[2024-07-11 12:12] LABS: Estimated Average Glucose 123 mg/dL; Hemoglobin A1C 102.6849 umol/L; Hemoglobin A1c % 5.9 % (<6.0); Total Hemoglobin (HGBA1C) 2486.3326 umol/L
--- NOTE | 2024-07-11 14:07 | HO.WOUND ---
Addendum entered by Amy Crowley RN 07/11/24 14:14: Will reassess 07/12/24 for appropriateness of wound vac placement Original Note: Wound Consult: Initial 74yr old?female admitted to [facility] on 07/10/24 - See progress notes and H&P for detailed history.? Wound consult placed for Left breast assessment for wound vac placement.? Patient agreeable to assessment and photo documentation.? Left Breast Etiology: ??I&D site Wound Bed: full thickness deep wound bed with considerable viable healthy tissue noted - scattered areas of necrosis noted Drainage / Odor: schneider and serosang drainage noted no odor noted Edges: ? well defined Elisa wound: ?red erythema and mild induration Pain: significant pain reported Goals of Treatment: ? Ns moist packing applied - plan to apply wound vac tomorrow - deferred to tomorrow due to erythema around wound bed and tenderness with application and removal - hope is that 24 hours will allow periwound to continue to improve Will reassess 07/11/ Recommendations: 1. Turn and Reposition every 2 hours and as needed for patient comfort.? Use pillows or wedges to support off loading positions. 2. Off Load all bony prominences with use of pillows and heel boots if needed.? Apply Preventative foams where needed. ? 3. Monitor for incontinence and moisture control, use barrier creams when needed for prevention and treatment. 4. Provide adequate and supplemental nutrition.? 5. Order low air loss mattress. 6. When applicable maintain blood glucose levels per Providers order. 7. Left Breast - Cleanse and irrigate with NS, lightly pack with NS moist gauze roll, cover with dry gauze, ABD pad. Change daily. Re-consult wound care Nurse for wound deterioration or wound changes.
[2024-07-11 15:14] VITALS: BP 127/61; PULSE 88; RESP 18; TEMP 36; O2SAT 95
[2024-07-11 16:05] LABS: Glucose, Whole Blood 137 mg/dL (60-115)
[2024-07-11 17:30] VITALS: O2SAT 97
[2024-07-11] MEDS: 0.9 % Sodium Chloride Flush 3 ML SYRINGE IVFLUSH ×2 (17:44→19:30)
[2024-07-11 19:14] VITALS: BP 116/66; PULSE 74; RESP 18; TEMP 36.2; O2SAT 94
[2024-07-11] MEDS: clonazePAM 1 MG TABLET PO (19:28)
[2024-07-11] MEDS: Heparin Sodium,Porcine 5,000 UNIT/ML VIAL 5000 UNIT SUBCUT (19:29)
[2024-07-11] MEDS: Mirtazapine 15 MG TABLET PO (19:29)
[2024-07-11] MEDS: metFORMIN HCl 500 MG TABLET PO (19:34)
[2024-07-11 19:49] LABS: Glucose, Whole Blood 111 mg/dL (60-115)
[2024-07-11 20:33] LABS: Appearance Urine Cloudy; Color Urine Yellow; Glucose Urine UA Negative (Negative); Leukocyte Esterase Urine Negative (Negative); Nitrite Urine Negative (Negative); UMIC TRIGGER UACC YES; Urine Blood Trace (Negative); Urine Ketones Negative (Negative); Urine Protein 30 (1+) mg/dL (Neg-Trace)
[2024-07-11 20:46] LABS: Bacteria Urine Trace (None Seen); Hyaline Casts Urine 0-2 /LPF (0-2); RBC Urine 0-2 /HPF (0-2); WBC Urine 0-5 /HPF (0-5)
[2024-07-12] VITALS (17 sets, daily range): BP systolic 106–173; BP diastolic 60–85; PULSE 80–117; RESP 12–26; TEMP 36.2–37.2; O2SAT 87–98
[2024-07-12] MEDS: Heparin Sodium,Porcine 5,000 UNIT/ML VIAL 5000 UNIT SUBCUT ×3 (05:05→21:42)
[2024-07-12] MEDS: Piperacillin Sodium/Tazobactam 3.375 GM in 0.9 % Sodium Chloride 50 ML IV ×4 (05:07→23:51)
[2024-07-12 07:26] LABS: Glucose, Whole Blood 115 mg/dL (60-115)
[2024-07-12] MEDS: Tiotropium Bromide 2.5 mcg 1 PUFF/2.5 MCG MIST.INHAL 2 PUFF INHALE (08:25)
[2024-07-12] MEDS: Morphine Sulfate 2 MG/ML CARTRIDGE IVPUSH ×2 (08:41→12:15)
[2024-07-12] MEDS: Aspirin Enteric Coated 81 MG TABLET.DR PO (08:44)
[2024-07-12] MEDS: Nystatin Powder 15 GM BOTTLE 1 APPL TOPICAL ×2 (08:44→21:40)
[2024-07-12] MEDS: Venlafaxine HCl ER 75 MG CAP.ER.24H PO (08:44)
[2024-07-12] MEDS: 0.9 % Sodium Chloride Flush 3 ML SYRINGE IVFLUSH ×3 (08:44→21:43)
--- NOTE | 2024-07-12 10:19 | PM.PNGS ---
Subjective Subjective Date of Service: 07/12/24 Interval history: She says she feels well No events overnight Admits to minimal pain Physical Exam Vital Signs: Vital Signs: Last Vital Signs Temp 98.8 F 07/12/24 07:34 Pulse 80 07/12/24 08:27 Resp 18 07/12/24 08:27 BP 125/60 07/12/24 07:34 Pulse Ox 95 07/12/24 07:34 O2 Del Method Nasal Cannula 07/12/24 07:34 O2 Flow Rate 2 07/12/24 07:34 Oxygen Flow Rate 2 07/11/24 17:30 BMI result Body Mass Index 40.2 Const: General: comfortable and no acute distress Resp: Other: Mildly short of breath as baseline Objective Data Active Medications Acetaminophen (Acetaminophen 325 Mg Tablet) 650 mg PO Q6H PRN PRN Reason: Pain, Mild (Pain Scale 1-3), fever or headache Albuterol Sulfate (Albuterol Sulfate (0.083%) 2.5 Mg/3 Ml Vial.Neb) 2.5 mg INHALE Q4H PRN PRN Reason: for dyspnea Albuterol/Ipratropium (Albuterol/Iprat 2.5/0.5mg 3 Ml Ampul.Neb) 3 ml INHALE Q6H PRN PRN Reason: for wheezing Aspirin (Aspirin Enteric Coated 81 Mg Tablet.) 81 mg PO DAILY [facility] Last Admin: 07/12/24 08:44 Dose: 81 mg Documented By: ARIE Clonazepam (Clonazepam 1 Mg Tablet) 1 mg PO BID PRN PRN Reason: anxiety attack Last Admin: 07/11/24 19:28 Dose: 1 mg Documented By: KATY Heparin Sodium (Porcine) (Heparin Sodium,Porcine 5,000 Unit/Ml Vial) 5,000 unit SUBCUT Q8H [facility] Last Admin: 07/12/24 05:05 Dose: 5,000 unit Documented By: KATY Piperacillin Sod/Tazobactam (Sod 3.375 gm/ Sodium Chloride) 50 mls @ 100 mls/hr IV Q6H [facility] Last Infusion: 07/12/24 05:46 Dose: Infused Documented By: KATY Lactic Acid (Ammonium Lactate 12 % Cream 140 Gm Tube) 1 appl TOPICAL DAILY PRN; Protocol PRN Reason: Dry Skin Melatonin (Melatonin 3 Mg Tablet) 6 mg PO BEDTIME PRN PRN Reason: Insomnia Metformin HCl (Metformin Hcl 500 Mg Tablet) 500 mg PO BEDTIME [facility] Last Admin: 07/11/24 19:34 Dose: 500 mg Documented By: KATY Mirtazapine (Mirtazapine 15 Mg Tablet) 15 mg PO BEDTIME [facility] Last Admin: 07/11/24 19:29 Dose: 15 mg Documented By: KATY Morphine Sulfate (Morphine Sulfate 2 Mg/Ml Cartridge) 2 mg IVPUSH Q3H PRN; Protocol PRN Reason: Pain, Severe (Pain Scale 7-10) Last Admin: 07/12/24 08:41 Dose: 2 mg Documented By: ARIE Naloxone HCl (Naloxone Hcl 0.4 Mg/Ml Vial) 0.04 mg IVPUSH Q5M PRN PRN Reason: Excessive sedation or RR < 8 Nystatin (Nystatin Powder 15 Gm Bottle) 1 appl TOPICAL BID [facility]; Protocol Last Admin: 07/12/24 08:44 Dose: 1 appl Documented By: ARIE Oxycodone HCl (Oxycodone Hcl Immed Release 5 Mg Tablet) 10 mg PO Q4H PRN PRN Reason: Pain, Moderate(Pain Scale 4-6) Sodium Chloride (0.9 % Sodium Chloride Flush 3 Ml Syringe) 3 ml IVFLUSH QSHIFT [facility] Last Admin: 07/12/24 08:44 Dose: 3 ml Documented By: ARIE Tiotropium [place] (Tiotropium [place] 2.5 Mcg 1 Puff/2.5 Mcg Mist.Inhal) 2 puff INHALE RDAILY [facility] Last Admin: 07/12/24 08:25 Dose: 2 puff Documented By: ISADORA Venlafaxine HCl (Venlafaxine Hcl Er 75 Mg Cap.Er.24h) 75 mg PO DAILY [facility] Last Admin: 07/12/24 08:44 Dose: 75 mg Documented By: ARIE Labs 07/11/24 10:41 07/11/24 10:41 Labs: Laboratory Results - last 24 hr 07/11/24 07/11/24 07/11/24 10:41 11:33 16:01 MCV 95.2 MCH 29.2 MCHC 30.6 L RDW 13.3 Plt Count 297 MPV 8.8 L Absolute Nucleated RBC 0.000 Nucleated RBC % (auto) 0.0 Anion Gap 10 L Estim Creat Clear Calc 67.5 Estimated GFR > 60 POC Glucose 105 137 H Random Glucose 134 H Estimat Average Glucose 123 Hgb A1c Fingerstick Cancelled Hemoglobin A1c % 5.9 Calcium 8.8 Urine Color Urine Appearance Urine pH Ur Specific [place] Urine Protein Urine Glucose (UA) Urine Ketones Urine Blood Urine Nitrite Ur Leukocyte Esterase Urine RBC Urine WBC Ur Squamous Epith Cells Urine Bacteria Hyaline Casts 07/11/24 07/11/24 07/12/24 19:46 20:26 07:16 MCV MCH MCHC RDW Plt Count MPV Absolute Nucleated RBC Nucleated RBC % (auto) Anion Gap Estim Creat Clear Calc Estimated GFR POC Glucose 111 115 Random Glucose Estimat Average Glucose Hgb A1c Fingerstick Hemoglobin A1c % Calcium Urine Color Yellow Urine Appearance Cloudy Urine pH 6.0 Ur Specific [place] 1.020 Urine Protein 30 (1+) H Urine Glucose (UA) Negative Urine Ketones Negative Urine Blood Trace H Urine Nitrite Negative Ur Leukocyte Esterase Negative Urine RBC 0-2 Urine WBC 0-5 Ur Squamous Epith Cells 6-10 Urine Bacteria Trace Hyaline Casts 0-2 Microbiology Microbiology Results: Microbiology 07/10/24 17:44 Blood Culture - Preliminary Blood - Venous No growth after 24 hours. 07/10/24 17:38 Blood Culture - Preliminary Blood - Venous No growth after 24 hours. 07/10/24 16:51 Gram Stain - Final Breast Routine Culture - Preliminary Culture in progress. Procedures Date of Service Date of Service: 07/12/24 Progress Note: A&P Assessment and plan (1) Necrotizing subcutaneous infection: Status: Acute Assessment and Plan: Status post excisional debridement Wound VAC applied by wound care nurse Amy Still with a little bit of residual cellulitic changes Wound base looks clean, granulating IV antibiotics Cultures show mixed skin Patient comfortable Appreciate hospitalist follow-up Time Spent With Patient Time: Total time managing care of this patient today ____ minutes. Quality Stroke Does the patient have a stroke diagnosis?: No VTE Prior VTE?: No VTE Risk Level:: Medical - moderate - high VTE Device Contraindication: N/A - Device Ordered VTE Drug Contraindication: N/A - Med Ordered
[2024-07-12] MEDS: oxyCODONE HCl Immed Release 5 MG TABLET 10 MG PO (10:39)
[2024-07-12 11:23] LABS: Glucose, Whole Blood 123 mg/dL (60-115)
--- NOTE | 2024-07-12 12:45 | HO.WOUND ---
Wound Consult: Follow up 74yr old female admitted to [facility] [place] on 07/10/24 - See progress notes and H&P for detailed history.? Wound consult placed for Left breast assessment and wound vac readiness. Patient agreeable to assessment and photo documentation.? Patient Personal Aide was at bedside all questions were asked and answered. Left breast s/p I&D with Dr. Lanier Left Breast periwound NPWT Suction Settings: 125mmHg - Setting Type: low and continuous Premedication Provided by direct care nurse. Wound assessment: 5cm x 10cm x 5cm? - no undermining noted Wound bed: Moist red pink tissue. Cleanse and irrigated with NS, pat dry. Periwound remains with warmth, redness and erythema - TT to Dr. Lanier made aware NPWT Dressing Application: 1 black foam cut to size and applied to wound bed, Skin and wound edge protected with barrier skin wipe.?Dressing completed and no leak noted.? Suction set to 125mmHg - patient denies pain and or burning sensation after a period of time. Patient tolerated well.? Inpatient nurse will follow up tomorrow 07/13/24. Future D/C plan - home with VNA and wound vac management? - patient to follow up with outpatient as scheduled. Re-consult wound care Nurse for wound deterioration or wound changes.
[2024-07-12 13:36] LABS: Glucose, Whole Blood 102 mg/dL (60-115)
--- NOTE | 2024-07-12 15:28 | PM.EVENT ---
Event Note Date of Service: 07/12/24 Event Note: Seen on afternoon rounds Seems to be very drowsy and has difficulty answering questions Stable vital signs I have asked the hospitalist for a follow-up as she has severe COPD- concerns for hypercarbic narcosis Blood sugars reported to be okay Has some shortness of breath as baseline oral intake poor today as per nurse will restart LR Time Spent With Patient Time: Total time managing care of this patient today ____ minutes.
[2024-07-12] MEDS: Naloxone HCl 0.4 MG/ML VIAL 0.2 MG IVPUSH (15:37)
[2024-07-12] MEDS: Naloxone HCl 0.4 MG/ML VIAL IVPUSH (15:41)
[2024-07-12 15:52] LABS: ABG HCO3 38 mmol/L (22-26); ABG pCO2 84 mmHg (32-45); ABG pH 7.27 (7.35-7.45); ABG pO2 149 mmHg (83-108)
--- NOTE | 2024-07-12 15:52 | ECG_ITS ---
Test Reason : CP Blood Pressure : / mmHG Vent. Rate : 099 BPM Atrial Rate : 099 BPM P-R Int : 162 ms QRS Dur : 078 ms QT Int : 310 ms P-R-T Axes : 063 069 064 degrees QTc Int : 397 ms Normal sinus rhythm Normal ECG When compared with ECG of 27-MAY-2010 14:32, Premature ventricular complexes are no longer Present Referred By: Rui Avila Electronically Signed By:Chris Jules
[2024-07-12 15:53] LABS: Glucose, Whole Blood 128 mg/dL (60-115)
[2024-07-12 16:35] LABS: Glucose, Whole Blood 144 mg/dL (60-115)
--- NOTE | 2024-07-12 16:37 | P.PNIM_ITS ---
Subjective Subjective Date of Service: 07/12/24 Interval History: Asked by Dr. Lanier to assist in patient who had altered mental status after application of a wound VAC. Unresponsive even to sternal rub Review of Systems Unable to obtain Physical Exam 2 Vital Signs: Vital Signs: Last Vital Signs Temp 98.9 F 07/12/24 15:19 Pulse 93 07/12/24 16:14 Resp 26 H 07/12/24 16:19 BP 146/72 H 07/12/24 15:19 Pulse Ox 94 07/12/24 15:19 O2 Del Method Nasal Cannula 07/12/24 15:19 O2 Flow Rate 2 07/12/24 15:19 Oxygen Flow Rate 2 07/11/24 17:30 BMI result Body Mass Index 40.2 Const: Other: Obtunded; snoring respirations. Sats acceptable HEENT: Other: Pupils pinpoint Resp: Other: Diminished all maier with coarse rhonchi throughout Cardio: Other: No S4; positive S1-S2; no S3 murmurs rubs or gallops GI: Other: Obese positive bowel sounds Extrem: Other: Bilateral edema Objective Data Active Medications Acetaminophen (Acetaminophen 325 Mg Tablet) 650 mg PO Q6H PRN PRN Reason: Pain, Mild (Pain Scale 1-3), fever or headache Albuterol Sulfate (Albuterol Sulfate (0.083%) 2.5 Mg/3 Ml Vial.Neb) 2.5 mg INHALE Q4H PRN PRN Reason: for dyspnea Albuterol/Ipratropium (Albuterol/Iprat 2.5/0.5mg 3 Ml Ampul.Neb) 3 ml INHALE Q6H PRN PRN Reason: for wheezing Aspirin (Aspirin Enteric Coated 81 Mg Tablet.) 81 mg PO DAILY [facility] Last Admin: 07/12/24 08:44 Dose: 81 mg Documented By: ARIE Heparin Sodium (Porcine) (Heparin Sodium,Porcine 5,000 Unit/Ml Vial) 5,000 unit SUBCUT Q8H [facility] Last Admin: 07/12/24 14:43 Dose: 5,000 unit Documented By: VICKY Piperacillin Sod/Tazobactam (Sod 3.375 gm/ Sodium Chloride) 50 mls @ 100 mls/hr IV Q6H [facility] Last Infusion: 07/12/24 13:08 Dose: Infused Documented By: ARIE Insulin Human Lispro (Insulin Lispro 100 Unit/Ml 3 Ml Vial) 0 unit SUBCUT QIDACHS [facility]; Protocol Lactic Acid (Ammonium Lactate 12 % Cream 140 Gm Tube) 1 appl TOPICAL DAILY PRN; Protocol PRN Reason: Dry Skin Naloxone HCl (Naloxone Hcl 0.4 Mg/Ml Vial) 0.04 mg IVPUSH Q5M PRN PRN Reason: Excessive sedation or RR < 8 Nystatin (Nystatin Powder 15 Gm Bottle) 1 appl TOPICAL BID [facility]; Protocol Last Admin: 07/12/24 08:44 Dose: 1 appl Documented By: ARIE Sodium Chloride (0.9 % Sodium Chloride Flush 3 Ml Syringe) 3 ml IVFLUSH QSHIFT [facility] Last Admin: 07/12/24 08:44 Dose: 3 ml Documented By: ARIE Tiotropium [place] (Tiotropium [place] 2.5 Mcg 1 Puff/2.5 Mcg Mist.Inhal) 2 puff INHALE RDAILY [facility] Last Admin: 07/12/24 08:25 Dose: 2 puff Documented By: ISADORA Labs 07/11/24 10:41 07/11/24 10:41 Labs: Laboratory Results - last 24 hr 07/11/24 07/11/24 07/12/24 19:46 20:26 07:16 O2 Saturation ABG pH at Pt Temp ABG pCO2 at Pt Temp ABG pO2 at Pt Temp ABG HCO3 ABG Base Excess (Actual) POC Glucose 111 115 Urine Color Yellow Urine Appearance Cloudy Urine pH 6.0 Ur Specific [place] 1.020 Urine Protein 30 (1+) H Urine Glucose (UA) Negative Urine Ketones Negative Urine Blood Trace H Urine Nitrite Negative Ur Leukocyte Esterase Negative Urine RBC 0-2 Urine WBC 0-5 Ur Squamous Epith Cells 6-10 Urine Bacteria Trace Hyaline Casts 0-2 07/12/24 07/12/24 07/12/24 11:20 13:30 15:41 O2 Saturation ABG pH at Pt Temp ABG pCO2 at Pt Temp ABG pO2 at Pt Temp ABG HCO3 ABG Base Excess (Actual) POC Glucose 123 H 102 128 H Urine Color Urine Appearance Urine pH Ur Specific [place] Urine Protein Urine Glucose (UA) Urine Ketones Urine Blood Urine Nitrite Ur Leukocyte Esterase Urine RBC Urine WBC Ur Squamous Epith Cells Urine Bacteria Hyaline Casts 07/12/24 07/12/24 15:42 16:31 O2 Saturation 100.0 ABG pH at Pt Temp 7.27 L ABG pCO2 at Pt Temp 84 H* ABG pO2 at Pt Temp 149 H ABG HCO3 38 H ABG Base Excess (Actual) 9.0 POC Glucose 144 H Urine Color Urine Appearance Urine pH Ur Specific [place] Urine Protein Urine Glucose (UA) Urine Ketones Urine Blood Urine Nitrite Ur Leukocyte Esterase Urine RBC Urine WBC Ur Squamous Epith Cells Urine Bacteria Hyaline Casts Microbiology Microbiology Results: Microbiology 07/10/24 16:51 Gram Stain - Final Breast Routine Culture - Final 07/10/24 17:44 Blood Culture - Preliminary Blood - Venous No growth after 24 hours. 07/10/24 17:38 Blood Culture - Preliminary Blood - Venous No growth after 24 hours. Assessment and Plan (1) Hypercapnic respiratory failure: Status: Acute Plan 74-year-old female with a past medical history significant for COPD, ADELITA, prediabetes, and history of invasive ductal right breast cancer (S/p lumpectomy, colon biopsy, radiation) who presented to the ED with left breast necrotizing infection/abscess. Underwent excisional debridement and wound VAC application with wound care nurse this morning. Received proximally 2 doses of morphine after oral oxycodone. Continued to be appropriate until this afternoon when Dr. Lanier knows she had a change in her mental status. Pupils pinpoint and given a total of 0.6 of Narcan with minimal effect. Initially oxygen turned off thinking oxygen toxicity however sats plummeted to 60%. Rapid response called and blood gases drawn. Blood gas demonstrates a pCO2 of 7.2 and a pCO2 of 89. BiPAP initiated. Call placed to Dr. Avila.. Accepted to ICU Quality Stroke Does the patient have a stroke diagnosis?: No VTE Prior VTE?: No VTE Risk Level:: Medical - moderate - high VTE Device Contraindication: N/A - Device Ordered VTE Drug Contraindication: N/A - Med Ordered
[2024-07-12 16:49] LABS: MANUAL DIFF FLAG NO
[2024-07-12 16:52] LABS: Basophils Percent Auto 0.1 % (0-2); Eosinophils Absolute Auto 0.3 X10*3/uL (0.0-0.4); Hematocrit 33.3 % (37.0-47.0); Hemoglobin 10.2 g/dl (12.0-16.0); Imm Gran Abs Auto 0.12 X10*3/uL (0.00-0.03); Imm Gran Pct Auto 1.3 % (0.0-0.4); Lymphocytes Absolute Auto 0.8 X10*3/uL (1.2-4.9); Lymphocytes Percent Auto 9.3 % (20-40); Mean Corpuscular HGB Conc 30.6 g/dl (31.0-35.0); Mean Corpuscular Hemoglobin 29.1 pg (27.0-33.0); Mean Corpuscular Volume 95.1 fL (80.0-98.0); Mean Platelet Volume 8.3 fL (9.4-12.3); Monocytes Absolute Auto 0.7 X10*3/uL (0.1-1.2); Monocytes Percent Auto 7.9 % (2-11); Neutrophils Absolute Auto 7.1 x10*3/uL (2.0-8.3); Neutrophils Percent Auto 78.4 % (45-73); Platelet Count 280 X10*3/uL (160-400); Red Cell Distribution Width 13.2 % (11.0-16.0); White Blood Count 9.1 X10*3/uL (4.8-10.8)
[2024-07-12 16:54] LABS: Venous Blood Gas Refer to POC result
[2024-07-12 16:54] LABS: VBG Base Excess 10.8 mmol/L; VBG HCO3 39 mmol/L (22-26); VBG pCO2 71 mmHg; VBG pH 7.35 (7.32-7.43); VBG pO2 66 mmHg
[2024-07-12] MEDS: acetaZOLAMIDE sodium 500 MG VIAL 250 MG IVPUSH (17:02)
[2024-07-12 17:07] LABS: Anion Gap 11 (12-20); Blood Urea Nitrogen 13 mg/dL (9-16); Calcium 8.7 mg/dL (8.4-10.2); Carbon Dioxide 35 mmol/L (22-29); Chloride 97 mmol/L (96-108); Creatinine Clr Calc Pharmacy 68.3; Estimated Glomerular Filt Rate > 60; Glucose Random 153 mg/dL (60-115); Potassium 4.7 mmol/L (3.3-5.1); Sodium 138 mmol/L (135-145)
--- NOTE | 2024-07-12 17:09 | P.EN_ITS ---
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
[2024-07-12 18:39] LABS: ABG Refer to POC result
--- NOTE | 2024-07-12 19:42 | P.CONCC_ITS ---
History of Present Illness Data of Consult Service Date: 07/12/24 Requesting physician: Enrique Linares Primary Care Provider: Manjula Ross MD [facility] Reason for consult: AMS 74-year-old female with a past medical history of COPD (on 2 liters at rest/ 4L at bedtime), ADELITA, morbid obesity, and history of invasive ductal right breast cancer (S/p lumpectomy, colon biopsy, radiation) who presented to the emergency department on? 07/10/2024 with swollen tenderness of the left breast, seen by surgery, Dr Lanier,? who admitted patient for left breast necrotizing infection/abscess.? Underwent excisional debridement on 07/10/24 and today with wound VAC application today.? ?Today patient? noted to be obtunded,? only responding to painful stimuli, rapid response team was called blood gas? showing CO2 retention 7.27/84/146/38? likely from O2 poisoning.? ?Transferred to ICU for acute hypoxic and hypercapnic respiratory failure requiring BiPAP support Review of Systems 2 Review of Systems: Yes Unobtainable due to mental condition PMFSH Past Medical History Medical History (Updated 07/12/24 @ 20:04 by Diony Vergara NP) Necrotizing subcutaneous infection ADELITA (obstructive sleep apnea) Respiratory failure with hypoxia History of invasive ductal carcinoma of breast (~2009) COPD (chronic obstructive pulmonary disease) Asthma Hypoxemia On home oxygen therapy Osteopenia Morbid obesity Left breast mass Personal history of nicotine dependence Family History Family History Father History of diabetes mellitus Mother Family history of COPD (chronic obstructive pulmonary disease) Family/Other History of melanoma Brother Skin cancer Surgical History Surgical History History of lung surgery (~06/2016) History of lymph node dissection of right axilla (~05/2010) History of right breast biopsy (~05/2010) History of colonoscopy with polypectomy (~03/2010) History of section Social History Social History Household Members: Other Housing: Apartment Are you a primary healthcare economics consultant to a significant other at home: No Do you presently have visiting nurse or other home services: Yes Patient Tobacco Use Status: Former Tobacco user Years Smoked: onset 16yo, 1-2ppd x 52yrs, 70pyh - quit 2018 Smoked in Last 30 Days: No Use of substances other than those prescribed or required for medical reasons: No Currently Displaying Signs/Symptoms of Drug Intoxication Withdrawal: No Have you been hit, kicked, punched, or otherwise hurt by someone within the past year? 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 Advance Directives: No Advance Directives Information Provided: Yes Advance Directives on File: No Do you have a plan to hurt others: No Plan Recently lost weight without trying: No How much weight loss: Not applicable Eating poorly because of decreased appetite: No Nutrition screen score: 0 Nutrition Risks: No Nutritional Risk Patient : No : No Poor oral hygiene: No service: No Current occupational status: [employer] Allergies Allergy/AdvReac Type Severity Reaction Status Date / Time No Known Allergies Allergy Verified 07/10/24 14:08 [No Known Allergies*] Active Medications: Current Medications Acetaminophen (Acetaminophen 325 Mg Tablet) 650 mg PO Q6H PRN PRN Reason: Pain, Mild (Pain Scale 1-3), fever or headache Albuterol Sulfate (Albuterol Sulfate (0.083%) 2.5 Mg/3 Ml Vial.Neb) 2.5 mg INHALE Q4H PRN PRN Reason: for dyspnea Albuterol/Ipratropium (Albuterol/Iprat 2.5/0.5mg 3 Ml Ampul.Neb) 3 ml INHALE Q6H PRN PRN Reason: for wheezing Aspirin (Aspirin Enteric Coated 81 Mg Tablet.) 81 mg PO DAILY [facility] [place] Last Admin: 07/12/24 08:44 Dose: 81 mg Heparin Sodium (Porcine) (Heparin Sodium,Porcine 5,000 Unit/Ml Vial) 5,000 unit SUBCUT Q8H [facility] Last Admin: 07/12/24 14:43 Dose: 5,000 unit Piperacillin Sod/Tazobactam (Sod 3.375 gm/ Sodium Chloride) 50 mls @ 100 mls/hr IV Q6H [facility] [place] Last Infusion: 07/12/24 17:54 Dose: Infused Insulin Human Lispro (Insulin Lispro 100 Unit/Ml 3 Ml Vial) 0 unit SUBCUT QIDACHS [facility] [place]; Protocol Last Admin: 07/12/24 16:36 Dose: Not Given Lactic Acid (Ammonium Lactate 12 % Cream 140 Gm Tube) 1 appl TOPICAL DAILY PRN; Protocol PRN Reason: Dry Skin Naloxone HCl (Naloxone Hcl 0.4 Mg/Ml Vial) 0.04 mg IVPUSH Q5M PRN PRN Reason: Excessive sedation or RR < 8 Nystatin (Nystatin Powder 15 Gm Bottle) 1 appl TOPICAL BID [facility] [place]; Protocol Last Admin: 07/12/24 08:44 Dose: 1 appl Sodium Chloride (0.9 % Sodium Chloride Flush 3 Ml Syringe) 3 ml IVFLUSH QSHIFT [facility] [place] Last Admin: 07/12/24 16:41 Dose: 3 ml Tiotropium [place] (Tiotropium [place] 2.5 Mcg 1 Puff/2.5 Mcg Mist.Inhal) 2 puff INHALE RDAILY [facility] [place] Last Admin: 07/12/24 08:25 Dose: 2 puff Home Medications ?Medication ?Instructions ?Recorded ?Confirmed ?Last Taken ?Type clonazepam 1 mg tablet 1 mg PO BID PRN anxiety attack 06/17/20 07/10/24 Unknown History ibuprofen 800 mg tablet 800 mg PO Q8H PRN pain 06/17/20 07/10/24 Unknown History metformin 500 mg tablet 500 mg PO BEDTIME 06/17/20 07/10/24 07/10/24 History mirtazapine 15 mg tablet 15 mg PO BEDTIME 06/17/20 07/10/24 07/10/24 History venlafaxine 75 mg capsule,extended 75 mg PO DAILY 06/17/20 07/10/24 07/10/24 History release 24 hr (Effexor XR) ascorbate calcium (vitamin C) 500 500 mg PO DAILY 11/19/20 07/10/24 07/10/24 History mg tablet aspirin 81 mg tablet,delayed 81 mg PO DAILY 11/19/20 07/10/24 Unknown History release clotrimazole 1 % topical cream 1 appl topical DAILY 02/19/21 07/10/24 07/10/24 History ammonium lactate 12 % lotion 1 appl topical DAILY PRN Dry Skin 07/10/24 07/10/24 Unknown History hydrocortisone 2.5 % topical cream 1 appl topical BID 07/10/24 07/10/24 07/10/24 History nystatin 100,000 unit/gram topical 1 appl topical BID 07/10/24 07/10/24 07/10/24 History powder triamcinolone acetonide 0.025 % 1 appl topical BID 07/10/24 07/10/24 07/10/24 History topical cream Physical Exam 2 Vital Signs: Vital Signs: Last Vital Signs Temp 98.9 F 07/12/24 15:19 Pulse 82 07/12/24 19:00 Resp 12 07/12/24 19:00 BP 136/71 07/12/24 19:00 Pulse Ox 90 L 07/12/24 19:00 O2 Del Method BiPAP 07/12/24 19:00 O2 Flow Rate 2 07/12/24 16:56 FiO2 30 07/12/24 19:36 Oxygen Flow Rate 89 07/12/24 19:36 BMI result Body Mass Index 40.2 ?General:? Patient is lethargic, but able to answer yes and no questions. On BiPAP ?HEENT:? Head is normocephalic, atraumatic, pupils equal round reactive to light accommodation bilaterally.? Buccal mucosa is dry, Neck is supple ?Cardiac:? Clear S1-S2, no murmurs rubs or gallops. ?Pulmonary: On BiPAP,? Clear to auscultation, no wheezes, rales or rhonchi. ?Abdomen:? ?Abdomen soft, non-tender, non-distended. Normal bowel sounds. No pulsatile mass. No hepatosplenomegaly. ?Musculoskeletal:? Moving all 4 extremities upon request a major joints, there is no crepitus or tenderness? Gait not assessed at this point. ?Neurologic:? Lethargic, No other focal deficits noted.Motor strength as above.?? ?Skin:? Redness on left breast, wound VAC present. Dressing intact. Trace edema in bilateral lower extremities Vascular:? 2+ pulses upper and lower extremities distally.? Results Labs 07/13/24 05:25 07/13/24 05:25 Labs: Short CBC 07/12/24 Range/Units 16:42 WBC 9.1 (4.8-10.8) X10*3/uL Hgb 10.2 L (12.0-16.0) g/dl Hct 33.3 L (37.0-47.0) % Plt Count 280 (160-400) X10*3/uL BMP 07/12/24 16:42 Sodium 138 Potassium 4.7 D Chloride 97 Carbon Dioxide 35 H BUN 13 Creatinine 0.81 Calcium 8.7 Urine 07/11/24 Range/Units 20:26 Urine Color Yellow Urine Appearance Cloudy Urine pH 6.0 (5.0-9.0) Ur Specific [place] 1.020 (1.005-1.025) Urine Protein 30 (1+) H (Neg-Trace) mg/dL Urine Glucose (UA) Negative (Negative) mg/dL Microbiology Microbiology Results: Microbiology 07/10/24 17:38 Blood - Venous Blood Culture - Preliminary No growth after 48 hours. 07/10/24 16:51 Breast Gram Stain - Final 07/10/24 16:51 Breast Routine Culture - Final 07/10/24 17:44 Blood - Venous Blood Culture - Preliminary No growth after 24 hours. Assessment and Plan (1) Acute respiratory failure with hypoxia and hypercapnia: Status: Acute (2) Pulmonary edema: Status: Acute (3) Necrotizing subcutaneous infection: Status: Acute (4) Abscess of breast, left: Status: Acute (5) ADELITA (obstructive sleep apnea): Status: Acute (6) COPD (chronic obstructive pulmonary disease): Status: Acute Plan 74-year-old female with a past medical history of COPD (on 2 liters at rest/ 4L at bedtime), ADELITA, morbid obesity, and history of invasive ductal right breast cancer (S/p lumpectomy, colon biopsy, radiation) admitted with left breast necrotizing infection/abscess- status post debridement and wound VAC placement and now acute hypoxic and hypercapnic respiratory failure requiring BiPAP Neuro:? No acute issues. Cardiac:? ?Pulmonary edema-? chest x-ray suggestive of pulmonary edema. ? Fluid overload likely from multiple debridements/? fluid administration.? Does not have a diagnosis of congestive heart failure,? bicarb was noted to be elevated.? We will order a dose of Diamox.? Monitor diuresing.? Echo in the morning Pulmonary:?? acute hypoxic and hypercapnic respiratory failure secondary from O2 poisoning and? pulmonary edema.? Received a dose of Diamox. Keep 02 saturation 88-92%.? Wean off BIPAP as tolerated Renal:? No acute issues.?? Endo:? No acute issues.?? GI:? No acute issues. Integumentary: Left breast necrotizing infection/abscess- status post debridement and wound VAC placement. cont? plan per surgery. Cont Zosyn ID:Left breast necrotizing infection/abscess- ? No evidence of severe sepsis/? /shock. Cont abx. Cultures pending? Heme/Onc:? No acute issues. Psych:? No acute issues. Miscellaneous:? No acute issues. Prophylaxis: ? subQ heparin Diet:? NPO?while on BIPAP Critical care time spent:? 60 minutes CODE: FULL CODE Case discussed with Dr Avila
[2024-07-12 21:20] LABS: Glucose, Whole Blood 106 mg/dL (60-115)
[2024-07-13] VITALS (18 sets, daily range): BP systolic 96–131; BP diastolic 54–73; PULSE 24–111; RESP 14–24; TEMP 36.2–36.9; O2SAT 88–97; BMI 44.6
[2024-07-13] MEDS: Heparin Sodium,Porcine 5,000 UNIT/ML VIAL 5000 UNIT SUBCUT ×3 (05:20→22:40)
[2024-07-13] MEDS: Piperacillin Sodium/Tazobactam 3.375 GM in 0.9 % Sodium Chloride 50 ML IV ×3 (05:20→16:46)
[2024-07-13 05:30] LABS: VBG Base Excess 8.8 mmol/L; VBG HCO3 34 mmol/L (22-26); VBG pCO2 55 mmHg; VBG pO2 79 mmHg
[2024-07-13 05:50] LABS: Venous Blood Gas Refer to POC result
[2024-07-13 06:07] LABS: MANUAL DIFF FLAG NO
[2024-07-13 06:08] LABS: Basophils Percent Auto 0.1 % (0-2); Eosinophils Absolute Auto 0.1 X10*3/uL (0.0-0.4); Eosinophils Percent Auto 1.5 % (0-4); Hematocrit 32.1 % (37.0-47.0); Hemoglobin 9.8 g/dl (12.0-16.0); Imm Gran Abs Auto 0.05 X10*3/uL (0.00-0.03); Imm Gran Pct Auto 0.7 % (0.0-0.4); Lymphocytes Absolute Auto 1.2 X10*3/uL (1.2-4.9); Lymphocytes Percent Auto 17.4 % (20-40); Mean Corpuscular HGB Conc 30.5 g/dl (31.0-35.0); Mean Corpuscular Hemoglobin 28.8 pg (27.0-33.0); Mean Corpuscular Volume 94.4 fL (80.0-98.0); Mean Platelet Volume 8.4 fL (9.4-12.3); Monocytes Absolute Auto 1.1 X10*3/uL (0.1-1.2); Monocytes Percent Auto 16.1 % (2-11); Neutrophils Absolute Auto 4.4 x10*3/uL (2.0-8.3); Neutrophils Percent Auto 64.2 % (45-73); Platelet Count 286 X10*3/uL (160-400); Red Cell Distribution Width 13.1 % (11.0-16.0); White Blood Count 6.9 X10*3/uL (4.8-10.8)
[2024-07-13 06:33] LABS: Alanine Aminotransferase 59 U/L (0-31); Albumin Level 3.2 g/dL (3.5-5.0); Alkaline Phosphatase 131 U/L (39-117); Anion Gap 13 (12-20); Aspartate Amino Transferase 78 U/L (5-31); Bilirubin Total 0.2 mg/dL (0.0-1.0); Blood Urea Nitrogen 15 mg/dL (9-16); Calcium 8.7 mg/dL (8.4-10.2); Carbon Dioxide 30 mmol/L (22-29); Chloride 100 mmol/L (96-108); Creatinine Clr Calc Pharmacy 66.7; Estimated Glomerular Filt Rate > 60; Glucose Random 102 mg/dL (60-115); Magnesium 2.2 mg/dL (1.6-2.6); Phosphorus 2.8 mg/dL (2.7-4.5); Potassium 3.8 mmol/L (3.3-5.1); Sodium 139 mmol/L (135-145); Total Protein 7.4 g/dL (6.5-8.0)
[2024-07-13 07:38] LABS: Glucose, Whole Blood 107 mg/dL (60-115)
--- NOTE | 2024-07-13 08:28 | P.PNGS_ITS ---
Subjective Subjective Date of Service: 07/14/24 Interval history: No events overnight Says she is ?okay? Has been on BiPAP More alert Physical Exam 2 Vital Signs: Vital Signs: Last Vital Signs Temp 97.8 F 07/13/24 08:00 Pulse 101 H 07/13/24 08:00 Resp 20 07/13/24 08:00 BP 109/72 07/13/24 08:00 Pulse Ox 94 07/13/24 08:00 O2 Del Method BiPAP 07/13/24 08:00 O2 Flow Rate 2 07/12/24 16:56 FiO2 30 07/13/24 08:00 Oxygen Flow Rate 92 07/13/24 04:00 BMI result Body Mass Index 44.6 Const: Other: On BiPAP, some shortness of breath as baseline Chest: Other: Wound VAC in place, functioning Resp: Other: On BiPAP Cardio: Rate: tachycardic GI: Palpation (GI): Soft to palpation Objective Data Active Medications Acetaminophen (Acetaminophen 325 Mg Tablet) 650 mg PO Q6H PRN PRN Reason: Pain, Mild (Pain Scale 1-3), fever or headache Albuterol Sulfate (Albuterol Sulfate (0.083%) 2.5 Mg/3 Ml Vial.Neb) 2.5 mg INHALE Q4H PRN PRN Reason: for dyspnea Albuterol/Ipratropium (Albuterol/Iprat 2.5/0.5mg 3 Ml Ampul.Neb) 3 ml INHALE Q6H PRN PRN Reason: for wheezing Aspirin (Aspirin Enteric Coated 81 Mg Tablet.) 81 mg PO DAILY [facility] Last Admin: 07/12/24 08:44 Dose: 81 mg Documented By: ARIE Heparin Sodium (Porcine) (Heparin Sodium,Porcine 5,000 Unit/Ml Vial) 5,000 unit SUBCUT Q8H [facility] Last Admin: 07/13/24 05:20 Dose: 5,000 unit Documented By: MATHIEU Piperacillin Sod/Tazobactam (Sod 3.375 gm/ Sodium Chloride) 50 mls @ 100 mls/hr IV Q6H [facility] Last Infusion: 07/13/24 06:09 Dose: Infused Documented By: MATHIEU Insulin Human Lispro (Insulin Lispro 100 Unit/Ml 3 Ml Vial) 0 unit SUBCUT QIDACHS [facility]; Protocol Last Admin: 07/13/24 07:45 Dose: Not Given Documented By: SANDY Non-Admin Reason: No Insulin Coverage Lactic Acid (Ammonium Lactate 12 % Cream 140 Gm Tube) 1 appl TOPICAL DAILY PRN; Protocol PRN Reason: Dry Skin Naloxone HCl (Naloxone Hcl 0.4 Mg/Ml Vial) 0.04 mg IVPUSH Q5M PRN PRN Reason: Excessive sedation or RR < 8 Nystatin (Nystatin Powder 15 Gm Bottle) 1 appl TOPICAL BID [facility]; Protocol Last Admin: 07/12/24 21:40 Dose: 1 appl Documented By: MATHIEU Sodium Chloride (0.9 % Sodium Chloride Flush 3 Ml Syringe) 3 ml IVFLUSH QSHIFT [facility] Last Admin: 07/12/24 21:43 Dose: 3 ml Documented By: MATHIEU Tiotropium [place] (Tiotropium [place] 2.5 Mcg 1 Puff/2.5 Mcg Mist.Inhal) 2 puff INHALE RDAILY [facility] Last Admin: 07/12/24 08:25 Dose: 2 puff Documented By: ISADORA Labs 07/14/24 06:32 07/14/24 06:44 Labs: Laboratory Results - last 24 hr 07/12/24 07/12/24 07/12/24 11:20 13:30 15:41 MCV MCH MCHC RDW Plt Count MPV Immature Gran % (Auto) Neut % (Auto) Lymph % (Auto) [place] % (Auto) Eos % (Auto) Baso % (Auto) Lymph # (Auto) [place] # (Auto) Eos # (Auto) Baso # (Auto) Abs Immat Gran (auto) Absolute Neuts (auto) Absolute Nucleated RBC Nucleated RBC % (auto) O2 Saturation ABG pH at Pt Temp ABG pCO2 at Pt Temp ABG pO2 at Pt Temp ABG HCO3 ABG Base Excess (Actual) VBG pH VBG pCO2 VBG pO2 VBG HCO3 VBG O2 Saturation VBG Base Excess Anion Gap Estim Creat Clear Calc Estimated GFR POC Glucose 123 H 102 128 H Random Glucose Calcium Phosphorus Magnesium Total Bilirubin AST ALT Alkaline Phosphatase Total Protein Albumin 07/12/24 07/12/24 07/12/24 15:42 16:31 16:42 MCV 95.1 MCH 29.1 MCHC 30.6 L RDW 13.2 Plt Count 280 MPV 8.3 L Immature Gran % (Auto) 1.3 H Neut % (Auto) 78.4 H Lymph % (Auto) 9.[address] % (Auto) 7.9 Eos % (Auto) 3.0 Baso % (Auto) 0.1 Lymph # (Auto) 0.[address] # (Auto) 0.7 Eos # (Auto) 0.3 Baso # (Auto) 0.0 Abs Immat Gran (auto) 0.12 H Absolute Neuts (auto) 7.1 Absolute Nucleated RBC 0.000 Nucleated RBC % (auto) 0.0 O2 Saturation 100.0 ABG pH at Pt Temp 7.27 L ABG pCO2 at Pt Temp 84 H* ABG pO2 at Pt Temp 149 H ABG HCO3 38 H ABG Base Excess (Actual) 9.0 VBG pH VBG pCO2 VBG pO2 VBG HCO3 VBG O2 Saturation VBG Base Excess Anion Gap 11 L Estim Creat Clear Calc 68.3 Estimated GFR > 60 POC Glucose 144 H Random Glucose 153 H Calcium 8.7 Phosphorus Magnesium Total Bilirubin AST ALT Alkaline Phosphatase Total Protein Albumin 07/12/24 07/12/24 07/13/24 16:50 21:13 05:20 MCV MCH MCHC RDW Plt Count MPV Immature Gran % (Auto) Neut % (Auto) Lymph % (Auto) [place] % (Auto) Eos % (Auto) Baso % (Auto) Lymph # (Auto) [facility] # (Auto) Eos # (Auto) Baso # (Auto) Abs Immat Gran (auto) Absolute Neuts (auto) Absolute Nucleated RBC Nucleated RBC % (auto) O2 Saturation ABG pH at Pt Temp ABG pCO2 at Pt Temp ABG pO2 at Pt Temp ABG HCO3 ABG Base Excess (Actual) VBG pH 7.35 7.40 VBG pCO2 71 55 VBG pO2 66 79 VBG HCO3 39 H 34 H VBG O2 Saturation 93.0 98.0 VBG Base Excess 10.8 8.8 Anion Gap Estim Creat Clear Calc Estimated GFR POC Glucose 106 Random Glucose Calcium Phosphorus Magnesium Total Bilirubin AST ALT Alkaline Phosphatase Total Protein Albumin 07/13/24 07/13/24 05:25 07:25 MCV 94.4 MCH 28.8 MCHC 30.5 L RDW 13.1 Plt Count 286 MPV 8.4 L Immature Gran % (Auto) 0.7 H Neut % (Auto) 64.2 Lymph % (Auto) 17.[address] % (Auto) 16.1 H Eos % (Auto) 1.5 Baso % (Auto) 0.1 Lymph # (Auto) 1.2 [place] # (Auto) 1.1 Eos # (Auto) 0.1 Baso # (Auto) 0.0 Abs Immat Gran (auto) 0.05 H Absolute Neuts (auto) 4.4 Absolute Nucleated RBC 0.000 Nucleated RBC % (auto) 0.0 O2 Saturation ABG pH at Pt Temp ABG pCO2 at Pt Temp ABG pO2 at Pt Temp ABG HCO3 ABG Base Excess (Actual) VBG pH VBG pCO2 VBG pO2 VBG HCO3 VBG O2 Saturation VBG Base Excess Anion Gap 13 Estim Creat Clear Calc 66.7 Estimated GFR > 60 POC Glucose 107 Random Glucose 102 Calcium 8.7 Phosphorus 2.8 Magnesium 2.2 Total Bilirubin 0.2 AST 78 H ALT 59 H Alkaline Phosphatase 131 H Total Protein 7.4 Albumin 3.2 L Microbiology Microbiology Results: Microbiology 07/10/24 17:44 Blood Culture - Preliminary Blood - Venous No growth after 48 hours. 07/10/24 17:38 Blood Culture - Preliminary Blood - Venous No growth after 48 hours. 07/10/24 16:51 Gram Stain - Final Breast Routine Culture - Final Procedures Date of Service Date of Service: 07/14/24 Progress Note: A&P Assessment and plan (1) Necrotizing subcutaneous infection: Status: Acute Assessment and Plan: Status post debridement, vac in place Transferred to ICU because of CO2 narcosis last night Much more alert on BiPAP Patient comfortable No fever Care as per the ICU service Time Spent With Patient Time: Total time managing care of this patient today ____ minutes. Quality Stroke Does the patient have a stroke diagnosis?: No VTE Prior VTE?: No VTE Risk Level:: Medical - moderate - high VTE Device Contraindication: N/A - Device Ordered VTE Drug Contraindication: N/A - Med Ordered
[2024-07-13] MEDS: Tiotropium Bromide 2.5 mcg 1 PUFF/2.5 MCG MIST.INHAL 2 PUFF INHALE (09:30)
--- NOTE | 2024-07-13 09:32 | P.PNCC_ITS ---
Subjective Subjective Date of Service: 07/13/24 Interval History: 74-year-old lady with underlying severe COPD 2-4 L with CO2 retention, ADELITA/ohs, obesity, right breast cancer status post lumpectomy admitted on 07/10/2024 with left breast swelling secondary to infection/abscess status post excisional debridement on 07/10/2024 who had wound VAC applied on 07/12/2024 and thereafter developed acute hypercapnic respiratory failure requiring BiPAP support, transferred to intensive care unit. In the intensive care unit patient diuresed with acetazolamide and titrated off BiPAP support. No events overnight. Critical Care Time (minutes): 0 Physical Exam 2 Vital Signs: Vital Signs: Last Vital Signs Temp 97.8 F 07/13/24 08:00 Pulse 101 H 07/13/24 08:00 Resp 20 07/13/24 08:00 BP 109/72 07/13/24 08:00 Pulse Ox 94 07/13/24 08:00 O2 Del Method BiPAP 07/13/24 08:00 O2 Flow Rate 2 07/12/24 16:56 FiO2 30 07/13/24 08:00 Oxygen Flow Rate 92 07/13/24 04:00 BMI result Body Mass Index 44.6 Const: General: no acute distress, alert and awake Nutritional Appearance: obese Eyes: Sclerae: sclerae normal EOM: EOMs intact bilaterally Neck: Neck: Yes no lymphadenopathy, Yes trachea midline and Yes supple Resp: Effort & Inspection: normal respiratory effort and no respiratory distress Auscultation: clear to auscultation bilaterally Cardio: Rate: regular rate Rhythm: regular rhythm Heart sounds: no gallops, no murmurs and no rubs GI: Palpation (GI): Soft to palpation and Other GI palpation findings present ( Nontender) Auscultation: normal bowel sounds Skin: Other: Left breast with wound VAC Extrem: General: No clubbing, No cyanosis and Yes edema (1+ bilateral) Objective Data Labs 07/13/24 05:25 07/13/24 05:25 Labs: Laboratory Results - last 24 hr 07/12/24 07/12/24 07/12/24 11:20 13:30 15:41 WBC RBC Hgb Hct MCV MCH MCHC RDW Plt Count MPV Immature Gran % (Auto) Neut % (Auto) Lymph % (Auto) [place] % (Auto) Eos % (Auto) Baso % (Auto) Lymph # (Auto) [place] # (Auto) Eos # (Auto) Baso # (Auto) Abs Immat Gran (auto) Absolute Neuts (auto) Absolute Nucleated RBC Nucleated RBC % (auto) O2 Saturation ABG pH at Pt Temp ABG pCO2 at Pt Temp ABG pO2 at Pt Temp ABG HCO3 ABG Base Excess (Actual) VBG pH VBG pCO2 VBG pO2 VBG HCO3 VBG O2 Saturation VBG Base Excess Sodium Potassium Chloride Carbon Dioxide Anion Gap BUN Creatinine Estim Creat Clear Calc Estimated GFR POC Glucose 123 H 102 128 H Random Glucose Calcium Phosphorus Magnesium Total Bilirubin AST ALT Alkaline Phosphatase Total Protein Albumin 07/12/24 07/12/24 07/12/24 15:42 16:31 16:42 WBC 9.1 RBC 3.50 L Hgb 10.2 L Hct 33.3 L MCV 95.1 MCH 29.1 MCHC 30.6 L RDW 13.2 Plt Count 280 MPV 8.3 L Immature Gran % (Auto) 1.3 H Neut % (Auto) 78.4 H Lymph % (Auto) 9.3 L [place] % (Auto) 7.9 Eos % (Auto) 3.0 Baso % (Auto) 0.1 Lymph # (Auto) 0.8 L [place] # (Auto) 0.7 Eos # (Auto) 0.3 Baso # (Auto) 0.0 Abs Immat Gran (auto) 0.12 H Absolute Neuts (auto) 7.1 Absolute Nucleated RBC 0.000 Nucleated RBC % (auto) 0.0 O2 Saturation 100.0 ABG pH at Pt Temp 7.27 L ABG pCO2 at Pt Temp 84 H* ABG pO2 at Pt Temp 149 H ABG HCO3 38 H ABG Base Excess (Actual) 9.0 VBG pH VBG pCO2 VBG pO2 VBG HCO3 VBG O2 Saturation VBG Base Excess Sodium 138 Potassium 4.7 D Chloride 97 Carbon Dioxide 35 H Anion Gap 11 L BUN 13 Creatinine 0.81 Estim Creat Clear Calc 68.3 Estimated GFR > 60 POC Glucose 144 H Random Glucose 153 H Calcium 8.7 Phosphorus Magnesium Total Bilirubin AST ALT Alkaline Phosphatase Total Protein Albumin 07/12/24 07/12/24 07/13/24 16:50 21:13 05:20 WBC RBC Hgb Hct MCV MCH MCHC RDW Plt Count MPV Immature Gran % (Auto) Neut % (Auto) Lymph % (Auto) [place] % (Auto) Eos % (Auto) Baso % (Auto) Lymph # (Auto) [place] # (Auto) Eos # (Auto) Baso # (Auto) Abs Immat Gran (auto) Absolute Neuts (auto) Absolute Nucleated RBC Nucleated RBC % (auto) O2 Saturation ABG pH at Pt Temp ABG pCO2 at Pt Temp ABG pO2 at Pt Temp ABG HCO3 ABG Base Excess (Actual) VBG pH 7.35 7.40 VBG pCO2 71 55 VBG pO2 66 79 VBG HCO3 39 H 34 H VBG O2 Saturation 93.0 98.0 VBG Base Excess 10.8 8.8 Sodium Potassium Chloride Carbon Dioxide Anion Gap BUN Creatinine Estim Creat Clear Calc Estimated GFR POC Glucose 106 Random Glucose Calcium Phosphorus Magnesium Total Bilirubin AST ALT Alkaline Phosphatase Total Protein Albumin 07/13/24 07/13/24 05:25 07:25 WBC 6.9 RBC 3.40 L Hgb 9.8 L Hct 32.1 L MCV 94.4 MCH 28.8 MCHC 30.5 L RDW 13.1 Plt Count 286 MPV 8.4 L Immature Gran % (Auto) 0.7 H Neut % (Auto) 64.2 Lymph % (Auto) 17.4 L [place] % (Auto) 16.1 H Eos % (Auto) 1.5 Baso % (Auto) 0.1 Lymph # (Auto) 1.2 [place] # (Auto) 1.1 Eos # (Auto) 0.1 Baso # (Auto) 0.0 Abs Immat Gran (auto) 0.05 H Absolute Neuts (auto) 4.4 Absolute Nucleated RBC 0.000 Nucleated RBC % (auto) 0.0 O2 Saturation ABG pH at Pt Temp ABG pCO2 at Pt Temp ABG pO2 at Pt Temp ABG HCO3 ABG Base Excess (Actual) VBG pH VBG pCO2 VBG pO2 VBG HCO3 VBG O2 Saturation VBG Base Excess Sodium 139 Potassium 3.8 Chloride 100 Carbon Dioxide 30 H Anion Gap 13 BUN 15 Creatinine 0.88 Estim Creat Clear Calc 66.7 Estimated GFR > 60 POC Glucose 107 Random Glucose 102 Calcium 8.7 Phosphorus 2.8 Magnesium 2.2 Total Bilirubin 0.2 AST 78 H ALT 59 H Alkaline Phosphatase 131 H Total Protein 7.4 Albumin 3.2 L Microbiology Microbiology Results: Microbiology 07/10/24 17:44 Blood - Venous Blood Culture - Preliminary No growth after 48 hours. 07/10/24 17:38 Blood - Venous Blood Culture - Preliminary No growth after 48 hours. 07/10/24 16:51 Breast Gram Stain - Final 07/10/24 16:51 Breast Routine Culture - Final Progress Note: A&P Assessment and plan (1) Pulmonary edema: Status: Acute (2) Hypercapnic respiratory failure: Status: Acute (3) Necrotizing subcutaneous infection: Status: Acute (4) Abscess of breast, left: Status: Acute (5) ADELITA (obstructive sleep apnea): Status: Acute (6) On home oxygen therapy: Status: Acute (7) COPD (chronic obstructive pulmonary disease): Status: Acute (8) Morbid obesity: Status: Acute Plan Assessment: 74-year-old lady admitted with left breast infection requiring surgical debridement and wound VAC placement further complicated by acute hypercapnic respiratory failure briefly requiring BiPAP support now titrated off. Plan: Neuro: No acute issues. Cardiac: Likely underlying diastolic congestive heart failure with exacerbation, improved with diuresis. Will obtain 2D echo. Pulmonary: Acute hypercapnic respiratory failure secondary to iatrogenic hypoxia/opioids/congestive heart failure briefly requiring BiPAP support, now titrated off. Underlying severe COPD and ADELITA/ohs. Renal: No acute issues. Endo: No acute issues. Underlying diabetes mellitus, continue subcutaneous insulin protocol. GI: No acute issues. ID: Left breast infection status post surgical debridement and wound VAC placement. General surgery service care appreciated. Continue empiric antibiotics. Heme/Onc: No acute issues. Psych: No acute issues. Miscellaneous: No acute issues. Prophylaxis: Heparin Diet: Diabetic Quality Stroke Does the patient have a stroke diagnosis?: No VTE Prior VTE?: No VTE Risk Level:: Medical - moderate - high VTE Device Contraindication: N/A - Device Ordered VTE Drug Contraindication: N/A - Med Ordered
--- NOTE | 2024-07-13 10:30 | P.CDIM_ITS ---
PROVIDER RESPONSE TEXT: To clarify, the appropriate diagnosis supported by the clinical indicators: Obesity Due to excess calories QUERY TEXT: PHYSICIAN'S DOCUMENTATION REQUEST Date of Query: 07/13/2024 10:21 AM EDT Patient Name: Janneth Jenkins Admit Date: 07/10/2024 Dear Rui Avila MD, A review of the medical record indicates additional documentation may be needed. Please review below and update the documentation accordingly. Clinical Indicators: Height: ( ) 5'2 Weight: ( ) 110.6 kg BMI: ( ) 44.6 Other Clinical Notes Supporting Significance of the BMI: Per Nutritional Risk Assessment 07/11/24: on therapeutic diet If possible, please provide an associated diagnosis related to the abnormal BMI, such as: Overweight Obesity Due to excess calories Obesity Drug induced Obesity Due to other cause Specify the other cause Severe or Morbid Obesity With alveolar hypoventilation Severe or Morbid Obesity Without alveolar hypoventilation BMI is not significant Other (explain) Clinically unable to determine (explain) Thank you, Elidia De Souza RN Use of terms such as suspected, likely, concern for, or probable (associated with a specific diagnosi s that is being evaluated, monitored, or treated as if it exists) are acceptable and can be coded in the inpatient se tting, when documented at the time of discharge. Please use your independent medical judgment in providing your response. THIS QUERY IS PART OF THE PERMANENT MEDICAL RECORD
[2024-07-13 11:40] LABS: Glucose, Whole Blood 179 mg/dL (60-115)
[2024-07-13] MEDS: Aspirin Enteric Coated 81 MG TABLET.DR PO (12:03)
[2024-07-13] MEDS: Insulin Lispro 100 UNIT/ML 3 ML VIAL SUBCUT (12:03)
[2024-07-13] MEDS: Nystatin Powder 15 GM BOTTLE 1 APPL TOPICAL ×2 (12:03→22:41)
--- NOTE | 2024-07-13 13:00 | CA_ITS ---
Transthoracic Echocardiogram Patient (Last, First, Middle): Janneth Jenkins, Gender: Female Date of : 1950 Age: 74 Procedure Date: 07/14/2024 Procedure Type: Transthoracic Echocardiogram Location: S3E Height: 157.48 cm Weight: 110.22 kg BSA: 2.08 m2 Heart Rate: bpm BP: 116 / 73 mmHg Implementation Project Coordinator: Referring MD: Diony Vergara [employer] Symptoms: Pulm edema Study Quality: Technically Difficult ECG Rhythm: Sinus Conclusions: - Very limited study - LV function probably normal but despite using definity LV assessment is very poor. - Valvular assessment is very limited. Findings Procedure Information Contrast agent, definity, is being given per protocol without apparent complications. Left Ventricle The left ventricle was not well visualized. Normal left ventricular cavity size. There is mildly increased left ventricular wall thickness. Regional wall motion abnormalities can not be excluded due to suboptimal endocardial definition. Diastolic function is indeterminate on the basis of available data. Right Ventricle The right ventricle was not well visualized. Atria The left atrium was not well visualized. Aortic Valve The aortic valve was not well visualized. Tricuspid Valve The tricuspid valve was not well visualized. Tricuspid regurgitation envelope is inadequate for calculation of right ventricular systolic pressure. Mildly elevated right atrial pressure. Venous The inferior vena cava is dilated and collapses greater than 50% with inspiration. Pericardium/Pleural Prominent epicardial adipose tissue noted. There is no evidence of pericardial effusion. Measurements 2D Linear Measurements IVSd: 1.28 0.6-0.9/0.6-1.0 cm LVIDd: 4.55 3.9-5.3/4.2-5.9 cm LVIDd Index: 2.19 2.4-3.2/2.2-3.1 cm/m2 LVIDs: 3.18 2.0-3.6 cm LVPWd: 1.26 0.7-1.1 cm LV Mass: 272.69 67-162/88-224 g LV Mass Index: 131.10 43-95/49-115 g/m2 Tricuspid Valve TR Pk Junito: 2.19 TR Pk Grad: 19.00 Updated in Other Vendor System with Status of Final Chris Jules MD electronically signed on 07/14/2024 9:33:13 PM with status of Final
--- NOTE | 2024-07-13 15:20 | HO.WOUND ---
Wound Consult: Follow up 74yr old female admitted to [facility] on 07/10/24 - See progress notes and H&P for detailed history.? Wound consult follow up for Left breast Wound Vac assessment. Patient agreeable to assessment, she denies new pain and reports no burning sensation. Wound vac checked for leaks - history review no leaks or alarms noted since it was initiated yesterday at approximately 12:40.? Left breast s/p I&D with Dr. Lanier . Dr Lanier to perform dressing wound vac changes supplies left at bedside, will be Wednesday or Wednesday. Left Breast periwound remains with pink erythema slight improvement and continues to be indurated. Should would vac loose suction attempt to patch leak with extra drape left at bedside. If unable to obtain suction - notify provider. If unable to obtain suction for two hours wound vac must be removed and replaced with wet to dry packing dressing until assessed by provider. If bright red blood round in container stop wound vac therapy and notify provider immediately. NPWT Suction Settings: 125mmHg - Setting Type: low and continuous From previous visit: Wound assessment: 5cm x 10cm x 5cm? - no undermining noted Wound bed: Moist red pink tissue. Cleanse and irrigated with NS, pat dry. Periwound remains with warmth, redness and erythema - TT to Dr. Lanier made aware NPWT Dressing Application: 1 black foam cut to size and applied to wound bed, Skin and wound edge protected with barrier skin wipe.?Dressing completed and no leak noted.? Suction set to 125mmHg - patient denies pain and or burning sensation after a period of time. Patient tolerated well.? Inpatient nurse will follow up tomorrow 07/13/24. Future D/C plan - home with VNA and wound vac management? - patient to follow up with outpatient as scheduled. Re-consult wound care Nurse for wound deterioration or wound changes.
[2024-07-13 16:27] LABS: Glucose, Whole Blood 89 mg/dL (60-115)
[2024-07-13] MEDS: 0.9 % Sodium Chloride Flush 3 ML SYRINGE IVFLUSH (16:46)
[2024-07-13 20:14] LABS: Glucose, Whole Blood 105 mg/dL (60-115)
[2024-07-13] MEDS: Fluticasone/Vilanterol 200/25 BLST.W.DEV 1 PUFF INHALE (22:40)
[2024-07-14] VITALS (9 sets, daily range): BP systolic 105–127; BP diastolic 56–71; PULSE 62–72; RESP 16–19; TEMP 35.9–36.6; O2SAT 90–98
[2024-07-14] MEDS: Piperacillin Sodium/Tazobactam 3.375 GM in 0.9 % Sodium Chloride 50 ML IV ×5 (00:17→23:46)
[2024-07-14] MEDS: 0.9 % Sodium Chloride Flush 3 ML SYRINGE IVFLUSH ×3 (00:35→23:47)
[2024-07-14] MEDS: Heparin Sodium,Porcine 5,000 UNIT/ML VIAL 5000 UNIT SUBCUT ×3 (05:49→20:44)
[2024-07-14 07:02] LABS: MANUAL DIFF FLAG NO
[2024-07-14 07:20] LABS: Basophils Percent Auto 0.2 % (0-2); Eosinophils Absolute Auto 0.4 X10*3/uL (0.0-0.4); Eosinophils Percent Auto 7.3 % (0-4); Hematocrit 31.8 % (37.0-47.0); Hemoglobin 9.7 g/dl (12.0-16.0); Imm Gran Abs Auto 0.02 X10*3/uL (0.00-0.03); Imm Gran Pct Auto 0.4 % (0.0-0.4); Lymphocytes Absolute Auto 1.7 X10*3/uL (1.2-4.9); Lymphocytes Percent Auto 30.8 % (20-40); Mean Corpuscular HGB Conc 30.5 g/dl (31.0-35.0); Mean Corpuscular Hemoglobin 28.6 pg (27.0-33.0); Mean Corpuscular Volume 93.8 fL (80.0-98.0); Mean Platelet Volume 8.5 fL (9.4-12.3); Monocytes Absolute Auto 0.8 X10*3/uL (0.1-1.2); Monocytes Percent Auto 14.8 % (2-11); Neutrophils Absolute Auto 2.6 x10*3/uL (2.0-8.3); Neutrophils Percent Auto 46.5 % (45-73); Platelet Count 259 X10*3/uL (160-400); Red Blood Count 3.39 X10*6/uL (4.20-5.50); Red Cell Distribution Width 12.9 % (11.0-16.0); White Blood Count 5.5 X10*3/uL (4.8-10.8)
[2024-07-14 07:33] LABS: Anion Gap 11 (12-20); Blood Urea Nitrogen 15 mg/dL (9-16); Calcium 8.5 mg/dL (8.4-10.2); Carbon Dioxide 32 mmol/L (22-29); Chloride 99 mmol/L (96-108); Estimated Glomerular Filt Rate > 60; Glucose Random 95 mg/dL (60-115); Sodium 138 mmol/L (135-145)
[2024-07-14] MEDS: Fluticasone/Vilanterol 200/25 BLST.W.DEV 1 PUFF INHALE (07:33)
[2024-07-14] MEDS: Tiotropium Bromide 2.5 mcg 1 PUFF/2.5 MCG MIST.INHAL 2 PUFF INHALE (07:33)
[2024-07-14 07:42] LABS: VBG Base Excess 11.8 mmol/L; VBG HCO3 37 mmol/L (22-26); VBG pCO2 53 mmHg; VBG pH 7.45 (7.32-7.43); VBG pO2 159 mmHg
[2024-07-14 07:42] LABS: Venous Blood Gas Refer to POC result
[2024-07-14 07:46] LABS: Alanine Aminotransferase 37 U/L (0-31); Alkaline Phosphatase 95 U/L (39-117); Anion Gap 10 (12-20); Aspartate Amino Transferase 48 U/L (5-31); Bilirubin Direct < 0.2 mg/dL (0.0-0.5); Bilirubin Total 0.2 mg/dL (0.0-1.0); Blood Urea Nitrogen 15 mg/dL (9-16); Calcium 8.7 mg/dL (8.4-10.2); Carbon Dioxide 32 mmol/L (22-29); Chloride 100 mmol/L (96-108); Estimated Glomerular Filt Rate > 60; Glucose Random 96 mg/dL (60-115); Magnesium 2.3 mg/dL (1.6-2.6); Phosphorus 1.9 mg/dL (2.7-4.5); Potassium 4.1 mmol/L (3.3-5.1); Sodium 138 mmol/L (135-145); Total Protein 7.1 g/dL (6.5-8.0)
[2024-07-14 07:55] LABS: Glucose, Whole Blood 97 mg/dL (60-115)
[2024-07-14] MEDS: Aspirin Enteric Coated 81 MG TABLET.DR PO (08:35)
[2024-07-14] MEDS: Nystatin Powder 15 GM BOTTLE 1 APPL TOPICAL ×2 (08:37→23:46)
--- NOTE | 2024-07-14 09:03 | P.PNGS_ITS ---
Subjective Subjective Date of Service: 07/15/24 Interval history: No new complaints No events reported overnight Patient [place] [facility] [place] Exam 2 Vital Signs: Vital Signs: Last Vital Signs Temp 97.2 F 07/14/24 07:38 Pulse 67 07/14/24 07:38 Resp 16 07/14/24 07:38 BP 105/56 L 07/14/24 07:38 Pulse Ox 95 07/14/24 07:38 O2 Del Method Nasal Cannula 07/14/24 07:38 O2 Flow Rate 2 07/14/24 07:38 FiO2 30 07/13/24 08:00 Oxygen Flow Rate 2 07/13/24 17:00 BMI result Body Mass Index 44.6 Const: Other: Mild shortness of breath as baseline General: comfortable and no acute distress Chest: Other: Wound VAC in place, less induration on the left breast, cellulitis has improved with regards to surface area Resp: Other: Mild shortness of breath as baseline Cardio: Rate: regular rate GI: Palpation (GI): Soft to palpation Objective Data Active Medications Acetaminophen (Acetaminophen 325 Mg Tablet) 650 mg PO Q6H PRN PRN Reason: Pain, Mild (Pain Scale 1-3), fever or headache Albuterol Sulfate (Albuterol Sulfate (0.083%) 2.5 Mg/3 Ml Vial.Neb) 2.5 mg INHALE Q4H PRN PRN Reason: for dyspnea Albuterol/Ipratropium (Albuterol/Iprat 2.5/0.5mg 3 Ml Ampul.Neb) 3 ml INHALE Q6H PRN PRN Reason: for wheezing Aspirin (Aspirin Enteric Coated 81 Mg Tablet.) 81 mg PO DAILY [facility] Last Admin: 07/14/24 08:35 Dose: 81 mg Documented By: ANNELIESE Fluticasone/Vilanterol (Fluticasone/Vilanterol 200/25 Blst.W.Dev) 1 puff INHALE RDAILY [facility] Last Admin: 07/14/24 07:33 Dose: 1 puff Documented By: MI Heparin Sodium (Porcine) (Heparin Sodium,Porcine 5,000 Unit/Ml Vial) 5,000 unit SUBCUT Q8H [facility] Last Admin: 07/14/24 05:49 Dose: 5,000 unit Documented By: NILO Piperacillin Sod/Tazobactam (Sod 3.375 gm/ Sodium Chloride) 50 mls @ 100 mls/hr IV Q6H [facility] Last Infusion: 07/14/24 06:20 Dose: Infused Documented By: NILO Insulin Human Lispro (Insulin Lispro 100 Unit/Ml 3 Ml Vial) 0 unit SUBCUT QIDACHS [facility]; Protocol Last Admin: 07/14/24 08:06 Dose: Not Given Documented By: ANNELIESE Non-Admin Reason: No Insulin Coverage Lactic Acid (Ammonium Lactate 12 % Cream 140 Gm Tube) 1 appl TOPICAL DAILY PRN; Protocol PRN Reason: Dry Skin Naloxone HCl (Naloxone Hcl 0.4 Mg/Ml Vial) 0.04 mg IVPUSH Q5M PRN PRN Reason: Excessive sedation or RR < 8 Nystatin (Nystatin Powder 15 Gm Bottle) 1 appl TOPICAL BID [facility]; Protocol Last Admin: 07/14/24 08:37 Dose: 1 appl Documented By: ANNELIESE Sodium Chloride (0.9 % Sodium Chloride Flush 3 Ml Syringe) 3 ml IVFLUSH QSHIFT [facility] Last Admin: 07/14/24 08:35 Dose: 3 ml Documented By: ANNELIESE Tiotropium [place] (Tiotropium [place] 2.5 Mcg 1 Puff/2.5 Mcg Mist.Inhal) 2 puff INHALE RDAILY [facility] Last Admin: 07/14/24 07:33 Dose: 2 puff Documented By: MI Labs 07/15/24 06:39 07/15/24 06:39 Labs: Laboratory Results - last 24 hr 07/13/24 07/13/24 07/13/24 11:18 16:20 20:11 MCV MCH MCHC RDW Plt Count MPV Immature Gran % (Auto) Neut % (Auto) Lymph % (Auto) [place] % (Auto) Eos % (Auto) Baso % (Auto) Lymph # (Auto) [place] # (Auto) Eos # (Auto) Baso # (Auto) Abs Immat Gran (auto) Absolute Neuts (auto) Absolute Nucleated RBC Nucleated RBC % (auto) VBG pH VBG pCO2 VBG pO2 VBG HCO3 VBG O2 Saturation VBG Base Excess Anion Gap Estim Creat Clear Calc Estimated GFR POC Glucose 179 H 89 105 Random Glucose Calcium Phosphorus Magnesium Total Bilirubin Direct Bilirubin AST ALT Alkaline Phosphatase Total Protein Albumin 07/14/24 07/14/24 07/14/24 06:32 06:44 07:36 MCV 93.8 MCH 28.6 MCHC 30.5 L RDW 12.9 Plt Count 259 MPV 8.5 L Immature Gran % (Auto) 0.4 Neut % (Auto) 46.5 Lymph % (Auto) 30.8 [place] % (Auto) 14.8 H Eos % (Auto) 7.3 H Baso % (Auto) 0.2 Lymph # (Auto) 1.7 [place] # (Auto) 0.8 Eos # (Auto) 0.4 Baso # (Auto) 0.0 Abs Immat Gran (auto) 0.02 Absolute Neuts (auto) 2.6 Absolute Nucleated RBC 0.000 Nucleated RBC % (auto) 0.0 VBG pH 7.45 H VBG pCO2 53 VBG pO2 159 VBG HCO3 37 H VBG O2 Saturation 99.0 VBG Base Excess 11.8 Anion Gap 11 L 10 L Estim Creat Clear Calc 70.0 70.0 Estimated GFR > 60 > 60 POC Glucose Random Glucose 95 96 Calcium 8.5 8.7 Phosphorus 1.9 L Magnesium 2.3 Total Bilirubin 0.2 Direct Bilirubin < 0.2 AST 48 H ALT 37 H Alkaline Phosphatase 95 Total Protein 7.1 Albumin 3.0 L 07/14/24 07:42 MCV MCH MCHC RDW Plt Count MPV Immature Gran % (Auto) Neut % (Auto) Lymph % (Auto) [place] % (Auto) Eos % (Auto) Baso % (Auto) Lymph # (Auto) [place] # (Auto) Eos # (Auto) Baso # (Auto) Abs Immat Gran (auto) Absolute Neuts (auto) Absolute Nucleated RBC Nucleated RBC % (auto) VBG pH VBG pCO2 VBG pO2 VBG HCO3 VBG O2 Saturation VBG Base Excess Anion Gap Estim Creat Clear Calc Estimated GFR POC Glucose 97 Random Glucose Calcium Phosphorus Magnesium Total Bilirubin Direct Bilirubin AST ALT Alkaline Phosphatase Total Protein Albumin Procedures Date of Service Date of Service: 07/15/24 Progress Note: A&P Assessment and plan (1) Necrotizing subcutaneous infection: Status: Acute Assessment and Plan: Wound VAC in place Plan to change wound VAC tomorrow On IV antibiotics Has hypercapnic respiratory failure Hospitalist to follow Time Spent With Patient Time: Total time managing care of this patient today ____ minutes. Quality Stroke Does the patient have a stroke diagnosis?: No VTE Prior VTE?: No VTE Risk Level:: Medical - moderate - high VTE Device Contraindication: N/A - Device Ordered VTE Drug Contraindication: N/A - Med Ordered
--- NOTE | 2024-07-14 10:23 | MHC.CM.PN ---
Per ROUNDS discussion, Patient is not yet medically cleared for dc to home today (ICU downgrade)PT is recommending home with services (? home with wound vac)and CM will continue to follow.
--- NOTE | 2024-07-14 10:27 | HO.PM.IMPN ---
Subjective Subjective Date of Service: 07/14/24 Interval History: The patient seen and evaluated Feels better overall Decrease O2 supplement to 2-3L Pain under fair control No other events overnight Review of Systems Review of Systems: Yes all other systems are reviewed and are negative Physical Exam Vital Signs: Vital Signs: Last Vital Signs Temp 97.2 F 07/14/24 07:38 Pulse 67 07/14/24 07:38 Resp 16 07/14/24 07:38 BP 105/56 L 07/14/24 07:38 Pulse Ox 95 07/14/24 07:38 O2 Del Method Nasal Cannula 07/14/24 07:38 O2 Flow Rate 2 07/14/24 07:38 FiO2 30 07/13/24 08:00 Oxygen Flow Rate 2 07/13/24 17:00 BMI result Body Mass Index 44.6 Const: Other: Constitutional : Awake, interactive, not in distress Neck : Normal inspection, Supple Cardiovascular : RRR, no JVP, trace lower extremity edema Respiratory : good bilateral air entry, no crackles, wheezes or rhonchi, on 2L O2 Gastrointestinal: soft, lax, Normal bowel sounds, Non tender Skin : Warm, Dry Neurological : Alert & oriented x3, No focal deficit Objective Data Active Medications Acetaminophen (Acetaminophen 325 Mg Tablet) 650 mg PO Q6H PRN PRN Reason: Pain, Mild (Pain Scale 1-3), fever or headache Albuterol Sulfate (Albuterol Sulfate (0.083%) 2.5 Mg/3 Ml Vial.Neb) 2.5 mg INHALE Q4H PRN PRN Reason: for dyspnea Albuterol/Ipratropium (Albuterol/Iprat 2.5/0.5mg 3 Ml Ampul.Neb) 3 ml INHALE Q6H PRN PRN Reason: for wheezing Aspirin (Aspirin Enteric Coated 81 Mg Tablet.) 81 mg PO DAILY [facility] Last Admin: 07/14/24 08:35 Dose: 81 mg Documented By: NANELIESE Fluticasone/Vilanterol (Fluticasone/Vilanterol 200/25 Blst.W.Dev) 1 puff INHALE RDAILY [facility] Last Admin: 07/14/24 07:33 Dose: 1 puff Documented By: MI Heparin Sodium (Porcine) (Heparin Sodium,Porcine 5,000 Unit/Ml Vial) 5,000 unit SUBCUT Q8H [facility] Last Admin: 07/14/24 05:49 Dose: 5,000 unit Documented By: NILO Piperacillin Sod/Tazobactam (Sod 3.375 gm/ Sodium Chloride) 50 mls @ 100 mls/hr IV Q6H [facility] Last Infusion: 07/14/24 06:20 Dose: Infused Documented By: NILO Insulin Human Lispro (Insulin Lispro 100 Unit/Ml 3 Ml Vial) 0 unit SUBCUT QIDACHS [facility]; Protocol Last Admin: 07/14/24 08:06 Dose: Not Given Documented By: ANNELIESE Non-Admin Reason: No Insulin Coverage Lactic Acid (Ammonium Lactate 12 % Cream 140 Gm Tube) 1 appl TOPICAL DAILY PRN; Protocol PRN Reason: Dry Skin Naloxone HCl (Naloxone Hcl 0.4 Mg/Ml Vial) 0.04 mg IVPUSH Q5M PRN PRN Reason: Excessive sedation or RR < 8 Nystatin (Nystatin Powder 15 Gm Bottle) 1 appl TOPICAL BID [facility]; Protocol Last Admin: 07/14/24 08:37 Dose: 1 appl Documented By: ANNELIESE Sodium Chloride (0.9 % Sodium Chloride Flush 3 Ml Syringe) 3 ml IVFLUSH QSHIFT [facility] Last Admin: 07/14/24 08:35 Dose: 3 ml Documented By: ANNELIESE Tiotropium [place] (Tiotropium [place] 2.5 Mcg 1 Puff/2.5 Mcg Mist.Inhal) 2 puff INHALE RDAILY [facility] Last Admin: 07/14/24 07:33 Dose: 2 puff Documented By: MI Labs 07/14/24 06:32 07/14/24 06:44 Labs: Laboratory Results - last 24 hr 07/13/24 07/13/24 07/13/24 11:18 16:20 20:11 MCV MCH MCHC RDW Plt Count MPV Immature Gran % (Auto) Neut % (Auto) Lymph % (Auto) [place] % (Auto) Eos % (Auto) Baso % (Auto) Lymph # (Auto) [place] # (Auto) Eos # (Auto) Baso # (Auto) Abs Immat Gran (auto) Absolute Neuts (auto) Absolute Nucleated RBC Nucleated RBC % (auto) VBG pH VBG pCO2 VBG pO2 VBG HCO3 VBG O2 Saturation VBG Base Excess Anion Gap Estim Creat Clear Calc Estimated GFR POC Glucose 179 H 89 105 Random Glucose Calcium Phosphorus Magnesium Total Bilirubin Direct Bilirubin AST ALT Alkaline Phosphatase Total Protein Albumin 07/14/24 07/14/24 07/14/24 06:32 06:44 07:36 MCV 93.8 MCH 28.6 MCHC 30.5 L RDW 12.9 Plt Count 259 MPV 8.5 L Immature Gran % (Auto) 0.4 Neut % (Auto) 46.5 Lymph % (Auto) 30.8 [place] % (Auto) 14.8 H Eos % (Auto) 7.3 H Baso % (Auto) 0.2 Lymph # (Auto) 1.7 [place] # (Auto) 0.8 Eos # (Auto) 0.4 Baso # (Auto) 0.0 Abs Immat Gran (auto) 0.02 Absolute Neuts (auto) 2.6 Absolute Nucleated RBC 0.000 Nucleated RBC % (auto) 0.0 VBG pH 7.45 H VBG pCO2 53 VBG pO2 159 VBG HCO3 37 H VBG O2 Saturation 99.0 VBG Base Excess 11.8 Anion Gap 11 L 10 L Estim Creat Clear Calc 70.0 70.0 Estimated GFR > 60 > 60 POC Glucose Random Glucose 95 96 Calcium 8.5 8.7 Phosphorus 1.9 L Magnesium 2.3 Total Bilirubin 0.2 Direct Bilirubin < 0.2 AST 48 H ALT 37 H Alkaline Phosphatase 95 Total Protein 7.1 Albumin 3.0 L 07/14/24 07:42 MCV MCH MCHC RDW Plt Count MPV Immature Gran % (Auto) Neut % (Auto) Lymph % (Auto) [place] % (Auto) Eos % (Auto) Baso % (Auto) Lymph # (Auto) [place] # (Auto) Eos # (Auto) Baso # (Auto) Abs Immat Gran (auto) Absolute Neuts (auto) Absolute Nucleated RBC Nucleated RBC % (auto) VBG pH VBG pCO2 VBG pO2 VBG HCO3 VBG O2 Saturation VBG Base Excess Anion Gap Estim Creat Clear Calc Estimated GFR POC Glucose 97 Random Glucose Calcium Phosphorus Magnesium Total Bilirubin Direct Bilirubin AST ALT Alkaline Phosphatase Total Protein Albumin Assessment and Plan (1) Pulmonary edema: Status: Acute (2) Acute respiratory failure with hypoxia and hypercapnia: Status: Acute (3) Hypercapnic respiratory failure: Status: Acute Plan A 74 years old lady with COPD on 2-4L O2 , ADELITA\OHS, Hx Breast CA Rt post Lumpectomy 07/10 and left breast infection post debridement 07/10 on Wound Vac since 07/12 who developed respiratory failure requiring BiPAP support in ICU. doing much better as she is back to her baseline O2 requiriments. Acute hypercapnic respiratory failure secondary to iatrogenic hypoxia/opioids/congestive heart failure requiring BiPAP , resolved 2/2 Fluid overload, O2 toxicity in COPD back to 2-3L O2 Lasix DCd, on Acetzolamide pending Echo Left breast infection Post debridement Wound VAC in place Plan to dc home w wound vac and VNA tomorrow COPD Continue Nebulizers and home inhalors Type II DM SSI, Diabetic diet Mood disorder resume her home meds; Mirtazapine, Clonazpam and Venlafaxine DVT PPx Lovenox Thank you for the consult will continue to follow with you as needed. Quality Stroke Does the patient have a stroke diagnosis?: No VTE Prior VTE?: No VTE Risk Level:: Medical - moderate - high VTE Device Contraindication: N/A - Device Ordered VTE Drug Contraindication: N/A - Med Ordered
--- NOTE | 2024-07-14 12:00 | MHC.CM.PN ---
RN AMIRA assisted this CM by calling [facility]/ (Rodney @ [phone]) to order the wound vac that we anticipate Patient will go home with tomorrow.Requested documentation has been faxed to Rodney @ [phone], who will obtain [employer] auth. CM will follow.
[2024-07-14 12:07] LABS: Glucose, Whole Blood 111 mg/dL (60-115)
--- NOTE | 2024-07-14 14:11 | MHC.CM.PN ---
Per Rodney from [employer]/, wound vac will be delivered here this afternoon.
[2024-07-14 16:16] LABS: Glucose, Whole Blood 129 mg/dL (60-115)
[2024-07-14 20:39] LABS: Glucose, Whole Blood 93 mg/dL (60-115)
[2024-07-15] VITALS: BP 109/59; PULSE 66; RESP 20; TEMP 36.1; O2SAT 95
[2024-07-15] MEDS: Acetaminophen 325 MG TABLET 650 MG PO (01:58)
[2024-07-15 03:53] VITALS: BP 108/63; PULSE 62; RESP 20; TEMP 36.1; O2SAT 95
[2024-07-15 05:07] VITALS: BMI 44.0
[2024-07-15] MEDS: Piperacillin Sodium/Tazobactam 3.375 GM in 0.9 % Sodium Chloride 50 ML IV ×2 (05:15→12:08)
[2024-07-15] MEDS: Heparin Sodium,Porcine 5,000 UNIT/ML VIAL 5000 UNIT SUBCUT (05:16)
[2024-07-15 07:13] LABS: Hematocrit 32.7 % (37.0-47.0); Hemoglobin 10.3 g/dl (12.0-16.0); Mean Corpuscular HGB Conc 31.5 g/dl (31.0-35.0); Mean Corpuscular Hemoglobin 29.1 pg (27.0-33.0); Mean Corpuscular Volume 92.4 fL (80.0-98.0); Mean Platelet Volume 8.6 fL (9.4-12.3); Platelet Count 276 X10*3/uL (160-400); Red Blood Count 3.54 X10*6/uL (4.20-5.50); Red Cell Distribution Width 12.8 % (11.0-16.0); White Blood Count 5.1 X10*3/uL (4.8-10.8)
[2024-07-15 07:19] VITALS: BP 122/60; PULSE 60; RESP 18; TEMP 36.1; O2SAT 96
[2024-07-15 07:20] LABS: Anion Gap 10 (12-20); Blood Urea Nitrogen 16 mg/dL (9-16); Calcium 8.9 mg/dL (8.4-10.2); Carbon Dioxide 33 mmol/L (22-29); Chloride 102 mmol/L (96-108); Estimated Glomerular Filt Rate > 60; Glucose Random 100 mg/dL (60-115); Potassium 3.7 mmol/L (3.3-5.1); Sodium 141 mmol/L (135-145)
[2024-07-15 07:26] LABS: Glucose, Whole Blood 96 mg/dL (60-115)
[2024-07-15] MEDS: 0.9 % Sodium Chloride Flush 3 ML SYRINGE IVFLUSH (07:37)
[2024-07-15] MEDS: Aspirin Enteric Coated 81 MG TABLET.DR PO (07:37)
[2024-07-15] MEDS: Nystatin Powder 15 GM BOTTLE 1 APPL TOPICAL (07:42)
[2024-07-15] MEDS: Fluticasone/Vilanterol 200/25 BLST.W.DEV 1 PUFF INHALE (08:01)
[2024-07-15] MEDS: Tiotropium Bromide 2.5 mcg 1 PUFF/2.5 MCG MIST.INHAL 2 PUFF INHALE (08:01)
[2024-07-15 08:02] VITALS: PULSE 60; RESP 18
--- NOTE | 2024-07-15 09:43 | PM.PNGS ---
Subjective Subjective Date of Service: 07/15/24 Interval history: No new complaints Respiratory status as per baseline No events reported Physical Exam Vital Signs: Vital Signs: Last Vital Signs Temp 97.0 F 07/15/24 07:19 Pulse 60 07/15/24 08:02 Resp 18 07/15/24 08:02 BP 122/60 07/15/24 07:19 Pulse Ox 96 07/15/24 07:19 O2 Del Method Nasal Cannula 07/15/24 07:19 O2 Flow Rate 2 07/15/24 07:19 FiO2 30 07/13/24 08:00 Oxygen Flow Rate 3 07/14/24 15:21 BMI result Body Mass Index 44.0 Const: Other: Some shortness of breath as per baseline General: comfortable Chest: Other: Wound VAC changed - wound bed granulating well, clean, no pus, cellulitis on surrounding skin much improved Resp: Other: Some shortness of breath Cardio: Rate: regular rate GI: Palpation (GI): Soft to palpation Objective Data Active Medications Acetaminophen (Acetaminophen 325 Mg Tablet) 650 mg PO Q6H PRN PRN Reason: Pain, Mild (Pain Scale 1-3), fever or headache Last Admin: 07/15/24 01:58 Dose: 650 mg Documented By: NILO Albuterol Sulfate (Albuterol Sulfate (0.083%) 2.5 Mg/3 Ml Vial.Neb) 2.5 mg INHALE Q4H PRN PRN Reason: for dyspnea Albuterol/Ipratropium (Albuterol/Iprat 2.5/0.5mg 3 Ml Ampul.Neb) 3 ml INHALE Q6H PRN PRN Reason: for wheezing Aspirin (Aspirin Enteric Coated 81 Mg Tablet.) 81 mg PO DAILY [facility] Last Admin: 07/15/24 07:37 Dose: 81 mg Documented By: ANNELIESE Fluticasone/Vilanterol (Fluticasone/Vilanterol 200/25 Blst.W.Dev) 1 puff INHALE RDAILY [facility] Last Admin: 07/15/24 08:01 Dose: 1 puff Documented By: ROSALIE Heparin Sodium (Porcine) (Heparin Sodium,Porcine 5,000 Unit/Ml Vial) 5,000 unit SUBCUT Q8H [facility] Last Admin: 07/15/24 05:16 Dose: 5,000 unit Documented By: NILO Piperacillin Sod/Tazobactam (Sod 3.375 gm/ Sodium Chloride) 50 mls @ 100 mls/hr IV Q6H [facility] Last Infusion: 07/15/24 07:41 Dose: Infused Documented By: ANNELIESE Insulin Human Lispro (Insulin Lispro 100 Unit/Ml 3 Ml Vial) 0 unit SUBCUT QIDACHS [facility]; Protocol Last Admin: 07/15/24 07:28 Dose: Not Given Documented By: ANNELIESE Non-Admin Reason: No Insulin Coverage Lactic Acid (Ammonium Lactate 12 % Cream 140 Gm Tube) 1 appl TOPICAL DAILY PRN; Protocol PRN Reason: Dry Skin Naloxone HCl (Naloxone Hcl 0.4 Mg/Ml Vial) 0.04 mg IVPUSH Q5M PRN PRN Reason: Excessive sedation or RR < 8 Nystatin (Nystatin Powder 15 Gm Bottle) 1 appl TOPICAL BID [facility]; Protocol Last Admin: 07/15/24 07:42 Dose: 1 appl Documented By: ANNELIESE Sodium Chloride (0.9 % Sodium Chloride Flush 3 Ml Syringe) 3 ml IVFLUSH QSHIFT [facility] Last Admin: 07/15/24 07:37 Dose: 3 ml Documented By: ANNELIESE Tiotropium [place] (Tiotropium [place] 2.5 Mcg 1 Puff/2.5 Mcg Mist.Inhal) 2 puff INHALE RDAILY [facility] Last Admin: 07/15/24 08:01 Dose: 2 puff Documented By: ROSALIE Labs 07/15/24 06:39 07/15/24 06:39 Labs: Laboratory Results - last 24 hr 07/14/24 07/14/24 07/14/24 12:01 16:11 20:35 MCV MCH MCHC RDW Plt Count MPV Absolute Nucleated RBC Nucleated RBC % (auto) Anion Gap Estim Creat Clear Calc Estimated GFR POC Glucose 111 129 H 93 Random Glucose Calcium 07/15/24 07/15/24 06:39 07:22 MCV 92.4 MCH 29.1 MCHC 31.5 RDW 12.8 Plt Count 276 MPV 8.6 L Absolute Nucleated RBC 0.000 Nucleated RBC % (auto) 0.0 Anion Gap 10 L Estim Creat Clear Calc 67.0 Estimated GFR > 60 POC Glucose 96 Random Glucose 100 Calcium 8.9 Procedures Date of Service Date of Service: 07/15/24 Progress Note: A&P Assessment and plan (1) Necrotizing subcutaneous infection: Status: Acute Assessment and Plan: Status post excisional debridement Wound clean, granulating well Wound VAC reapplied EDGARD Booker We will discuss with hospitalist - for discharge today able to void on her own VNA services arranged Time Spent With Patient Time: Total time managing care of this patient today ____ minutes. Quality Stroke Does the patient have a stroke diagnosis?: No VTE Prior VTE?: No VTE Risk Level:: Medical - moderate - high VTE Device Contraindication: N/A - Device Ordered VTE Drug Contraindication: N/A - Med Ordered
[2024-07-15] MEDS: Ibuprofen 600 MG TABLET PO (10:28)
[2024-07-15 11:33] VITALS: BP 140/71; PULSE 64; RESP 17; TEMP 36.1; O2SAT 94
[2024-07-15 11:33] LABS: Glucose, Whole Blood 118 mg/dL (60-115)
--- NOTE | 2024-07-15 11:46 | PM.DS ---
DS: Providers Provider Date of Service: 07/15/24 Date of admission: 07/10/24 19:26 Primary care physician: Manjula Ross MD Consults: 07/10/24 20:25 Consult to Hospitalist Routine Comment: Consulting Provider: Hospitalist Reason For Exam: HTN, ADELITA, COPD 07/11/24 05:44 Consult to Wound Care Routine Reason for consultation: s/p I&D to L breast DS: Diagnosis Discharge Diagnosis (1) Necrotizing subcutaneous infection: Status: Acute DS: Summary Hospital Course Hospital Course: 74-year-old female admitted via the emergency room on 07/10/2025 because of a left breast infection. This appeared to be a necrotizing subcutaneous infection. I therefore brought her to the operating room that day for excisional debridement. She had wet-to-dry dressings in place. She tolerated the procedure well. We had done dressing changes with wet-to-dry and on 07/12/2025, this was switched to a wound VAC because of significant improvement of the wound. She developed hypercapnic respiratory failure later that day deemed to be secondary to a combination of her COPD with pain medications. She was transferred to the ICU overnight for BiPAP and closer monitoring. She was transferred back to the adrenal minute on 07/13/2025. She remained stable throughout and was off BiPAP at this point She healing followed closely by the hospitalist service as well. I changed her wound VAC today, 07/15/2025. The wound appears to continue to granulate well and is clean. The cellulitic changes have improved significantly so being discharged home with a visiting nurse. I have discussed the above with the hospitalist service. Time Attestation Discharge Coordination Time (in mins): 30 minutes Quality: Safe Use of Opioids Does Pt have an Active Cancer Diagnosis on the Problem List?: No Quality: Stroke Does the patient have a stroke diagnosis?: No Physical Exam Vital Signs: Vital Signs: Last Vital Signs Temp 97.0 F 07/15/24 11:33 Pulse 64 07/15/24 11:33 Resp 17 07/15/24 11:33 BP 140/71 H 07/15/24 11:33 Pulse Ox 94 07/15/24 11:33 O2 Del Method Nasal Cannula 07/15/24 11:33 O2 Flow Rate 2 07/15/24 11:33 FiO2 30 07/13/24 08:00 Oxygen Flow Rate 3 07/14/24 15:21 BMI result Body Mass Index 44.0 Const: Other: Some shortness of breath as baseline Chest: Other: Debrided wound on the left breast granulating well, clean, with much improved cellulitic changes on the surrounding skin; 12 x 5 cm in diameter Resp: Other: Some shortness of breath as baseline Cardio: Rate: regular rate GI: Palpation (GI): Soft to palpation DS: Data Data Completed and Pending Completed studies during hospitalization [Text1]: Pending at discharge 07/10/24 19:18 Surgical [PTH] Routine Labs on day of discharge: Laboratory Results - last 24 hr 07/14/24 07/14/24 07/14/24 12:01 16:11 20:35 WBC RBC Hgb Hct MCV MCH MCHC RDW Plt Count MPV Absolute Nucleated RBC Nucleated RBC % (auto) Sodium Potassium Chloride Carbon Dioxide Anion Gap BUN Creatinine Estim Creat Clear Calc Estimated GFR POC Glucose 111 129 H 93 Random Glucose Calcium 07/15/24 07/15/24 07/15/24 06:39 07:22 11:29 WBC 5.1 RBC 3.54 L Hgb 10.3 L Hct 32.7 L MCV 92.4 MCH 29.1 MCHC 31.5 RDW 12.8 Plt Count 276 MPV 8.6 L Absolute Nucleated RBC 0.000 Nucleated RBC % (auto) 0.0 Sodium 141 Potassium 3.7 Chloride 102 Carbon Dioxide 33 H Anion Gap 10 L BUN 16 Creatinine 0.87 Estim Creat Clear Calc 67.0 Estimated GFR > 60 POC Glucose 96 118 H Random Glucose 100 Calcium 8.9 Preliminary micro results at discharge 07/10/24 17:44 Blood Culture - Preliminary Blood - Venous No growth after 48 hours. 07/10/24 17:38 Blood Culture - Preliminary Blood - Venous No growth after 48 hours. Discharge Plan Discharge Anticipated Discharge Date/Time: 07/15/24 14:00 Patient Disposition: Home Health Service Discharge Diagnosis: Necrotizing subcutaneous infection of the breast Referrals: Rosmery LONG [Outside] Manjula Ross MD [Primary Care Provider] - 1 Week Yazan Lanier MD [Physician] - 2 Weeks Discharge Medications: New fluticasone furoate-vilanterol [Breo Ellipta] 200-25 mcg/dose Blister With Device 1 inh inhalation RDAILY Qty: 60 0RF Continued albuterol sulfate 2.5 mg /3 mL (0.083 %) solution for nebulization 2.5 mg inhalation Q4-6H PRN (Reason: for dyspnea) Qty: 150 3RF Incruse Ellipta 62.5 mcg/actuation blister with device 1 inh PO DAILY Qty: 30 5RF Combivent Respimat 20-100 mcg/actuation mist 1 puff PO Q4-6H PRN (Reason: for wheezing) Qty: 4 4RF triamcinolone acetonide 0.025 % cream 1 appl TOPICAL BID hydrocortisone 2.5 % cream 1 appl topical BID nystatin 100,000 unit/gram powder 1 appl topical BID ammonium lactate 12 % lotion 1 appl topical DAILY PRN (Reason: Dry Skin) aspirin 81 mg tablet,delayed release (DR/EC) 81 mg PO DAILY ibuprofen 800 mg tablet 800 mg PO Q8H PRN (Reason: pain) metformin 500 mg tablet 500 mg PO BEDTIME mirtazapine 15 mg tablet 15 mg PO BEDTIME clonazepam 1 mg tablet 1 mg PO BID PRN (Reason: anxiety attack) venlafaxine [Effexor XR] 75 mg capsule,extended release 24hr 75 mg PO DAILY ascorbate calcium (vitamin C) 500 mg tablet 500 mg PO DAILY clotrimazole 1 % cream 1 appl topical DAILY Discontinued fluticasone propion-salmeterol [Wixela Inhub] 250-50 mcg/dose blister with device 1 ea PO BID Qty: 60 5RF Discharge Orders: Discharge Order (Routine); Ordered 07/15/24 Ordered By: Yazan Lanier Diet: Advance to usual diet Activity on Discharge: As tolerated Stand Alone Forms: Patient Portal Discharge page Print Language: Georgian Care Plan Goals: Returned to baseline Health Concerns: COPD, hypercapnic respiratory failure Open wound after debridement Plan of Treatment: Wound VAC with VNA Restart all home meds Assessment: Doing well after debridement and episode of acute hypercapnia and hypoxia Discharge Date/Time: 07/15/24 13:33
--- NOTE | 2024-07-15 12:48 | MHC.CM.PN ---
Addendum entered by Sonam Partida 07/15/24 13:13: WOUND VAC IN PLACE PT WILL DC HOME TODAY VIA [facility] WILL PROVIDE SOC ON WEDNESDAY Original Note: PT WILL DC HOME TODAY WITH RESUMPTION OF INSURANCE ADJUSTOR SERVICES AND NEW [facility] SERVICES PER CM NOTES, [employer] REP, S[place], CONFIRMED DELIVERY OF WOUND VAC FOR YESTERDAY
--- NOTE | 2024-07-17 09:02 | P.F2F_ITS ---
Service Date Service Date: 07/17/24 Encounter Date of encounter: 07/15/24 Reasons for Services Signs and symptoms assessed: has open wound from debridement of left breast for necrotizing infection Reason for half-way: wound care Homebound: Leaving the home is medically contraindicated at this time without the asist of a device and/or another person due th the listed conditions above and below. Reason homebound: unsteady gait / fall risk Certification: Based on the above findings, I certify that this patient is confined to the home and needs intermittent half-way care, physical therapy and/or speech therapy, or continues to need occupational therapy. The patient is under my care, and I have initiated the establishment of the plan of care. The patient will be followed by a physician who will periodically review the plan of care. Time Spent With Patient Time: Total time managing care of this patient today ____ minutes.
== END 2024-07-15 13:33 | disposition home health service (06) | DRG 570 ==
LOC: HO.ED 17:03 → HO.SSS 17:31 → HO.EDOVER 19:38 → HO.S3 19:48 → HO.ICU 07-12 15:59 → HO.IMC 07-13 08:45
PROVIDERS: Hospitalist; Internal Medicine Pulmonary Disease; Physician Assistant; Physician Assistant Medical; Student in an Organized Health Care Education/Training Program; Admitting Provider Surgery; Emergency Provider Emergency Medicine; PCP General Practice; Visit Provider Surgery
PROC: 0JB60ZZ Excision of Chest Subcutaneous Tissue and Fascia, Open Approach (ICD-10-PCS; principal; 2024-07-10 17:15)
DX: N61.1 Abscess of the breast and nipple (principal); I50.33 Acute on chronic diastolic (congestive) heart failure; J96.01 Acute respiratory failure with hypoxia; J96.02 Acute respiratory failure with hypercapnia; I96 Gangrene, not elsewhere classified; E66.2 Morbid (severe) obesity with alveolar hypoventilation; Z68.41 Body mass index [BMI] 40.0-44.9, adult; Z87.891 Personal history of nicotine dependence; E11.9 Type 2 diabetes mellitus without complications; I95.9 Hypotension, unspecified; T40.605A Adverse effect of unspecified narcotics, initial encounter; Z85.3 Personal history of malignant neoplasm of breast; Z99.81 Dependence on supplemental oxygen; Z92.3 Personal history of irradiation; Z79.51 Long term (current) use of inhaled steroids; Z79.82 Long term (current) use of aspirin; Z79.84 Long term (current) use of oral hypoglycemic drugs; Z79.899 Other long term (current) drug therapy
CPT/HCPCS: 36415; 36600; 71045; 71260; 76642; 80048; 80053; 80076; 81001; 82803; 82947; 83036; 83605; 83735; 84100; 85025; 85027; 85652; 86140; 87040; 87070; 87205; 88304; 88305; 93005; 93308; 94640; 94660; 97162; 97530; 99284; C1758; J0330; J1120; J1644; J2003; J2270; J2310; J2543; J2704; J2795; J3010; J7120; Q9957; Q9967

== ENCOUNTER → 2024-07-10 14:02 | Outpatient (BNV) | payer OTHER, SELFPAY | PROVIDERS: Admitting Provider Surgery; Emergency Provider Emergency Medicine; PCP General Practice; Visit Provider Radiology Diagnostic Radiology | DX: N61.1 Abscess of the breast and nipple (principal) | CPT/HCPCS: 76642 ==

== ENCOUNTER 2024-07-10 19:26 | Outpatient (BNV) | payer OTHER, SELFPAY | END 2024-07-13 13:00 | PROVIDERS: Admitting Provider Surgery; Emergency Provider Emergency Medicine; PCP General Practice; Visit Provider Internal Medicine Cardiovascular Disease | DX: J81.0 Acute pulmonary edema (principal) | CPT/HCPCS: 93308 ==

== ENCOUNTER 2024-07-10 19:26 | Outpatient (BNV) | payer OTHER, SELFPAY | END 2024-07-12 15:52 | PROVIDERS: Admitting Provider Surgery; Emergency Provider Emergency Medicine; PCP General Practice; Visit Provider Internal Medicine Cardiovascular Disease | DX: R07.9 Chest pain, unspecified (principal) | CPT/HCPCS: 93010 ==

== ENCOUNTER → 2024-07-10 19:26 | Outpatient (BNV) | payer OTHER, SELFPAY | PROVIDERS: Admitting Provider Surgery; Emergency Provider Emergency Medicine; PCP General Practice; Visit Provider Registered Nurse Community Health | DX: J96.01 Acute respiratory failure with hypoxia (principal); J96.02 Acute respiratory failure with hypercapnia; I96 Gangrene, not elsewhere classified; J81.1 Chronic pulmonary edema | CPT/HCPCS: 99291 ==

== ENCOUNTER → 2024-07-10 19:26 | Outpatient (BNV) | payer OTHER, SELFPAY | PROVIDERS: Admitting Provider Surgery; Emergency Provider Emergency Medicine; PCP General Practice; Visit Provider Physician Assistant | DX: J96.02 Acute respiratory failure with hypercapnia (principal) | CPT/HCPCS: 99222; 99232; 99233 ==

== ENCOUNTER → 2024-07-10 19:26 | Outpatient (BNV) | payer OTHER, SELFPAY | PROVIDERS: Admitting Provider Surgery; Emergency Provider Emergency Medicine; PCP General Practice; Visit Provider Surgery | DX: I96 Gangrene, not elsewhere classified (principal) | CPT/HCPCS: 11042; 11045; 97607; 99024; 99222; 99232; 99238; 99499; G0180 ==

== ENCOUNTER → 2024-07-10 19:26 | Outpatient (BNV) | payer OTHER, SELFPAY | PROVIDERS: Admitting Provider Surgery; Emergency Provider Emergency Medicine; PCP General Practice; Visit Provider Internal Medicine Pulmonary Disease | DX: J81.1 Chronic pulmonary edema (principal); J96.92 Respiratory failure, unspecified with hypercapnia; I96 Gangrene, not elsewhere classified; N61.1 Abscess of the breast and nipple; G47.33 Obstructive sleep apnea (adult) (pediatric); Z99.81 Dependence on supplemental oxygen; J44.9 Chronic obstructive pulmonary disease, unspecified; E66.01 Morbid (severe) obesity due to excess calories | CPT/HCPCS: 99232 ==

== ENCOUNTER 2024-07-27 10:59 | Outpatient (AMB) | payer OTHER, SELFPAY ==
--- NOTE | 2024-07-27 11:01 | A.OFFVIS_ITS ---
Vital Signs 07/27/24 11:02 Height 5 ft 2 in Weight 244 lb BMI 44.6 Intake Visit Reasons: follow up appt for wound debridement Intake Note: [place] [facility] for abscess of the left breast. Pt c/o; reports no complaints at this time. 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 She has a wound VAC in place and she is being seen by a wound care nurse twice a week for this She denies any new complaints. She says she feels well overall. She does have multiple medical problems including COPD, diabetes, morbid obesity, and is on home O2 by nasal cannula. [facility] Medical History (Updated 07/27/24 @ 11:29 by Yazan Lanier MD) Necrotizing subcutaneous infection ADELITA (obstructive sleep apnea) Respiratory failure with hypoxia History of invasive ductal carcinoma of breast (~2009) COPD (chronic obstructive pulmonary disease) Asthma Hypoxemia On home oxygen therapy Osteopenia Morbid obesity Left breast mass Personal history of nicotine dependence Surgical History History of lung surgery (~06/2016) History of lymph node dissection of right axilla (~05/2010) History of right breast biopsy (~05/2010) History of colonoscopy with polypectomy (~03/2010) History of section Family History Father History of diabetes mellitus Mother Family history of COPD (chronic obstructive pulmonary disease) Family/Other History of melanoma Brother Skin cancer Social History Household Members: Other Housing: Apartment Are you a primary day care provider to a significant other at home: No Do you presently have visiting nurse or other home services: Yes Patient Tobacco Use Status: Former Tobacco user Years Smoked: onset 16yo, 1-2ppd x 52yrs, 70pyh - quit 2017 service: No Current occupational status: disabled Review of Systems Const Denies chills and Denies fever(s) Card Denies chest pain, Reports dyspnea and Reports dyspnea on exertion Resp Reports dyspnea and Reports dyspnea on exertion GI Denies abdominal pain Physical Exam Vital Signs: BMI result Body Mass Index 44.6 Const Other: Appears short of breath as baseline Chest Other: Open wound on the debridement site of the left breast about 8.5 x 5 cm, now very superficial, with good healthy granulation, no pus, no surrounding cellulitis Resp Other: On O2 by nasal cannula Cardio Rate: regular rate Assessment & Plan Assessment & Plan (1) Necrotizing subcutaneous infection: Code(s): I96 - Gangrene, not elsewhere classified Category: Medical Plan: Status post debridement for necrotizing soft tissue infection of the left breast. I took down her wound VAC. The remaining open wound is healing well with good granulation tissue. This is now very superficial. I temporarily covered the wound with gauze and she will have the visiting nurse come by later on to reapply the wound VAC. I will see her again in about a month for another wound check. Coding Level of Care Code Global (08143) Diagnoses Necrotizing subcutaneous infection I96
[2024-07-27 11:02] VITALS: BMI 44.6
== END 2024-07-27 11:27 | disposition home or self-care (01) ==
LOC: HO.HGS 11:00
PROVIDERS: PCP General Practice; Visit Provider Surgery
DX: I96 Gangrene, not elsewhere classified (principal)
CPT/HCPCS: 99024

== ENCOUNTER → 2024-07-27 10:59 | Outpatient (BNVA) | payer OTHER, SELFPAY | PROVIDERS: PCP General Practice; Visit Provider Surgery | DX: E11.52 Type 2 diabetes mellitus with diabetic peripheral angiopathy with gangrene (principal); J44.9 Chronic obstructive pulmonary disease, unspecified; E66.01 Morbid (severe) obesity due to excess calories; Z48.817 Encounter for surgical aftercare following surgery on the skin and subcutaneous tissue; Z68.41 Body mass index [BMI] 40.0-44.9, adult; Z99.81 Dependence on supplemental oxygen; Z98.890 Other specified postprocedural states | CPT/HCPCS: 99212 ==

== ENCOUNTER 2024-08-30 11:09 | Outpatient (AMB) | payer OTHER, SELFPAY ==
[2024-08-30 11:24] VITALS: BP 130/65; PULSE 89; BMI 43.9
--- NOTE | 2024-08-30 11:24 | A.OFFVIS_ITS ---
Vital Signs 08/30/24 11:24 Height 5 ft 2 in Weight 240 lb BMI 43.9 BP 130/65 Blood Pressure Location Rt brachial Position Sitting Pulse 89 Intake Visit Reasons: 1 month follow up appt for wound debridement Intake Note: This patient presents for one month follow up assessment for wound check, left breast abscess. Pt c/o; reports no complaints at this time. 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 Services: Hairpiece Stylist Offered & Declined Accompanied by: Other Relationship Allergies No Known Allergies [No Known Allergies*] Allergy (Verified 08/30/24 11:25) Medication List - Last Reconciled 08/30/24 by Yazan Lanier MD albuterol sulfate 2.5 mg (3 mL) inhalation Q4-6H PRN ammonium lactate 12% 1 appl topical DAILY PRN ascorbate calcium (vitamin C) 500 mg PO DAILY aspirin 81 mg PO DAILY clonazepam 1 mg PO BID PRN clotrimazole 1% 1 appl topical DAILY fluticasone furoate-vilanterol 200-25 mcg/dose (Breo Ellipta) 1 inh inhalation RDAILY hydrocortisone 2.5% 1 appl topical BID ibuprofen 800 mg PO Q8H PRN Incruse Ellipta 62.5 mcg/actuation (umeclidinium) 1 inh PO DAILY NS ipratropium-albuterol 20-100 mcg/actuation (Combivent Respimat) 1 puff PO Q4-6H PRN metformin 500 mg PO BEDTIME mirtazapine 15 mg PO BEDTIME nystatin 1 appl topical BID triamcinolone acetonide 0.025% 1 appl topical BID venlafaxine ER (Effexor XR) 75 mg PO DAILY HPI HPI 1 month follow up appt for wound debridement: Details: She is here for follow-up for her left breast after debridement for necrotizing soft tissue infection She denies any new complaints. She says she is feeling well overall. She sta hodan that the wound has significantly decreased in size. She still has a wound VAC in place. [facility] Medical History (Updated 08/30/24 @ 12:01 by Yazan Lanier MD) Open wound Necrotizing subcutaneous infection ADELITA (obstructive sleep apnea) Respiratory failure with hypoxia History of invasive ductal carcinoma of breast (~2009) COPD (chronic obstructive pulmonary disease) Asthma Hypoxemia On home oxygen therapy Osteopenia Morbid obesity Left breast mass Personal history of nicotine dependence Surgical History History of lung surgery (~06/2016) History of lymph node dissection of right axilla (~05/2010) History of right breast biopsy (~05/2010) History of colonoscopy with polypectomy (~03/2010) History of section Family History Father History of diabetes mellitus Mother Family history of COPD (chronic obstructive pulmonary disease) Family/Other History of melanoma Brother Skin cancer Social History Household Members: Other Housing: Apartment Are you a primary childbirth and infant care teacher to a significant other at home: No Do you presently have visiting nurse or other home services: Yes Patient Tobacco Use Status: Former Tobacco user Years Smoked: onset 16yo, 1-2ppd x 52yrs, 70pyh - quit 2017 service: No Current occupational status: disabled Review of Systems Const Reports body aches, Denies chills and Denies fever(s) Card Reports dyspnea on exertion and Reports orthopnea Resp Reports dyspnea on exertion GI Denies abdominal pain Denies difficulty voiding Physical Exam Vital Signs: Last Vital Signs Pulse 89 08/30/24 11:24 BP 130/65 08/30/24 11:24 BMI result Body Mass Index 43.9 Const Other: Appears mildly short of breath as baseline, using O2 by nasal cannula, morbidly obese General: comfortable Chest Other: Wound VAC still in place but the wound is much smaller now, probably about 4 cm in length Resp Other: Appears a little short of breath as baseline Cardio Rate: regular rate GI Palpation (GI): Soft to palpation Assessment & Plan Assessment & Plan (1) Open wound: Code(s): T14.8XXA - Other injury of unspecified body region, initial encounter Category: Medical Plan: She has an open wound after debridement for necrotizing soft tissue infection of the left breast last June,. She has had a wound VAC in place The wound surface area is much smaller now. I feel that we can now switch to regular dressings with gauze. I explained to her that she may have to change the dressings once or twice a day herself. The nurse may not be able to come to do her dressings daily She feels that she will be able to do this own now. The visiting nurse will come by tomorrow. The patient will discuss this with a visiting nurse. I will otherwise see her again in the office in about a month. Coding Level of Care Code Complex EM visit Add On G2211 Diagnoses Open wound T14.8XXA
--- OUTSIDE RECORDS SUMMARY | 2024-08-31 01:32 | XMS_ITS ---
Author Organization [facility] Address [address] [place] [address] Care Team Providers Care Bobtailer Name Role Phone Manjula Ross M.D. Primary Care Provider Unava ilable Lawrence Butler Unavailable [phone] Familia Lacy Unavailable Unavailable REASON FOR VISIT screening Encounters Encounter Location Date Provider Diagnosis [facility] [address] [place], [place] [id number] 05/26/2023 Lawrence Butler PLAN OF TREATMENT No Information
--- OUTSIDE RECORDS SUMMARY | 2024-08-31 01:32 | XMS_ITS ---
Author Organization [facility] Address [address] [place] [address] Care Team Providers Care Curtain Cleaner Name Role Phone Manjula Ross M.D. Primary Care Provider Unava ilable Lawrence Butler Unavailable [phone] Familia Lacy Unavailable Unavailable REASON FOR VISIT R/S colon with pulmonary clearance Encounters Encounter Location Date Provider Diagnosis [facility] [address] [place] [address] 05/31/2023 Lawrence Butler PLAN OF TREATMENT No Information
--- OUTSIDE RECORDS SUMMARY | 2024-08-31 01:33 | XMS_ITS | Patient Health Record ---
Author Organization [facility] Address [address] [place] [address] Care Team Providers Care Proprietary Trader Name Role Phone Manjula Ross M.D. Primary Care Provider Lawrence Jones Unavailable [phone] Familia Lacy Unavailable Unavailable ALLERGIES No Known [...] Problem Colon cancer screening (Z12.11) Active confirmed [id number] Problem Preprocedural examination (Z01.818) Active confirmed [id number] PLAN OF TREATMENT Future Test Test Name Order Date COLONOSCOPY 03/11/2023 Insurance Providers Payer Name Payer Address Payer Phone Subscriber Number Group Number Insured Name Patient Relationship to Insured Coverage Start Date Coverage End Date [facility] [address] Attn Claims STEVEN Clark [id number] MAIA CHAN Self - patient is the insured MEDICAL (GENERAL) HISTORY Medical History History ICD Code COPD/Asthma--uses oxygen Arthirits Breast cancer--right side--surgery/XRT-2 011 Denies FL,DM,CVA,renal disease Anxiety/Depression Surgical History Surgery Date(Month/Year) Breast cancer--lumpectomy Lung nodule-Benign C-sections
--- OUTSIDE RECORDS SUMMARY | 2024-08-31 01:33 | XMS_ITS ---
Author Organization [facility] Address [address] [place] [address] Care Team Providers Care Fisher Trammel Net Name Role Phone Manjula Ross M.D. Primary Care Provider Lawrence Jones Unavailable [phone] Familia Lacy Unavailable Unavailable REASON FOR VISIT [...] Active Encounters Encounter Location Date Provider [facility] [address] [place] [id number] 03/11/2023 Lawrence Butler PLAN OF TREATMENT Medication [...]
== END 2024-08-30 11:53 | disposition home or self-care (01) ==
PROVIDERS: PCP General Practice; Visit Provider Surgery
DX: T14.8XXA Other injury of unspecified body region, initial encounter (principal)
CPT/HCPCS: 99213

== ENCOUNTER → 2024-08-30 11:09 | Outpatient (BNVA) | payer OTHER, SELFPAY | PROVIDERS: PCP General Practice; Visit Provider Surgery | DX: S21.002A Unspecified open wound of left breast, initial encounter (principal); T81.89XA Other complications of procedures, not elsewhere classified, initial encounter; X58.XXXA Exposure to other specified factors, initial encounter; Y93.9 Activity, unspecified; Y92.9 Unspecified place or not applicable; Y99.9 Unspecified external cause status; Z98.890 Other specified postprocedural states | CPT/HCPCS: 99212 ==

== ENCOUNTER → 2024-10-04 13:49 | Outpatient (BNVA) | payer OTHER, SELFPAY | PROVIDERS: PCP General Practice; Visit Provider Surgery ==

== ENCOUNTER 2024-10-09 14:39 | Outpatient (AMB) | payer OTHER, SELFPAY ==
--- NOTE | 2024-10-09 14:43 | A.OFFVIS_ITS ---
Vital Signs 10/09/24 14:47 Height 5 ft 2 in Weight 248 lb BMI 45.4 Intake Visit Reasons: one month wound check, wound debridement Intake Note: This patient presents for one month wound check, left breast. Pt c/o; no concerns. Sort Line Required: No Accompanied by: Other Relationship Allergies No Known Allergies [No Known Allergies*] Allergy (Verified 10/09/24 14:48) HPI HPI one month wound check, wound debridement: Details: She is here for follow-up for her left breast after debridement for necrotizing soft tissue infection. She denies any new complaints. She no longer has the wound VAC. She has multiple other medical issues including COPD. She is on O2 at home. [facility] Medical History Open wound Necrotizing subcutaneous infection ADELITA (obstructive sleep apnea) Respiratory failure with hypoxia History of invasive ductal carcinoma of breast (~2009) COPD (chronic obstructive pulmonary disease) Asthma Hypoxemia On home oxygen therapy Osteopenia Morbid obesity Left breast mass Personal history of nicotine dependence Surgical History History of lung surgery (~06/2016) History of lymph node dissection of right axilla (~05/2010) History of right breast biopsy (~05/2010) History of colonoscopy with polypectomy (~03/2010) History of section Family History Father History of diabetes mellitus Mother Family history of COPD (chronic obstructive pulmonary disease) Family/Other History of melanoma Brother Skin cancer Social History Household Members: Other Housing: Apartment Are you a primary health care analyst to a significant other at home: No Do you presently have visiting nurse or other home services: Yes Patient Tobacco Use Status: Former Tobacco user Years Smoked: onset 16yo, 1-2ppd x 52yrs, 70pyh - quit 2017 service: No Current occupational status: disabled Review of Systems Const Denies chills and Denies fever(s) Card Denies chest pain, Reports dyspnea and Reports dyspnea on exertion Resp Reports dyspnea and Reports dyspnea on exertion GI Denies abdominal pain Physical Exam Const Other: Appears short of breath as baseline, using a walker, on O2 Nutritional Appearance: obese Chest Other: Debridement site on the left breast is now healed, no induration, no residual open wound Resp Effort & Inspection: normal respiratory effort Cardio Rate: regular rate GI Palpation (GI): Soft to palpation and nontender Assessment & Plan Assessment & Plan (1) Necrotizing subcutaneous infection: Code(s): I96 - Gangrene, not elsewhere classified Category: Medical Plan: The large open wound from the debridement he has now healed. She does not require any further surgical intervention I told her that it was important to make sure her blood sugars are well controlled. She can follow up with me on a p.r.n. basis. She does have other multiple medical issues and she should continue to follow up with her primary care physician. Coding Level of Care Code Est Pt Level 2 (18536) Diagnoses Necrotizing subcutaneous infection I96
[2024-10-09 14:47] VITALS: BMI 45.4
== END 2024-10-09 14:51 | disposition home or self-care (01) ==
PROVIDERS: PCP General Practice; Visit Provider Surgery
DX: I96 Gangrene, not elsewhere classified (principal)
CPT/HCPCS: 99212

== ENCOUNTER → 2024-10-09 14:39 | Outpatient (BNVA) | payer OTHER, SELFPAY | PROVIDERS: PCP General Practice; Visit Provider Surgery | DX: Z09 Encounter for follow-up examination after completed treatment for conditions other than malignant neoplasm (principal); J44.9 Chronic obstructive pulmonary disease, unspecified; Z99.81 Dependence on supplemental oxygen; Z87.2 Personal history of diseases of the skin and subcutaneous tissue | CPT/HCPCS: 99212 ==

== ENCOUNTER 2024-10-30 15:10 | Outpatient (AMB) | payer OTHER, SELFPAY ==
[2024-10-30 15:20] VITALS: BP 120/60; PULSE 99; O2SAT 90; BMI 45.4
--- NOTE | 2024-10-30 15:20 | MHC.OFFVIS ---
Vital Signs 10/30/24 15:20 Height 5 ft 2 in Weight 248 lb 0.321 oz BMI 45.4 BP 120/60 Blood Pressure Location Lt brachial Position Sitting Pulse 99 Pulse Source Pulse Oximeter Pulse Oximetry (%) 90 L Oxygen Delivery Method Nasal Cannula Oxygen Flow Rate 4 Intake Visit Reasons: mainor Intake Note: pt is here for follow up and states nothing new going on. Finisher Fine Diamond Dies Required: No Allergies No Known Allergies [No Known Allergies*] Allergy (Verified 10/30/24 15:38) Medication List - Last Reconciled 10/30/24 by Matt Banda MD albuterol sulfate 2.5 mg (3 mL) inhalation Q4-6H PRN ammonium lactate 12% 1 appl topical DAILY PRN ascorbate calcium (vitamin C) 500 mg PO DAILY aspirin 81 mg PO DAILY clonazepam 1 mg PO BID PRN clotrimazole 1% 1 appl topical DAILY fluticasone furoate-vilanterol 200-25 mcg/dose (Breo Ellipta) 1 inh inhalation RDAILY hydrocortisone 2.5% 1 appl topical BID ibuprofen 800 mg PO Q8H PRN Incruse Ellipta 62.5 mcg/actuation (umeclidinium) 1 inh PO DAILY NS ipratropium-albuterol 20-100 mcg/actuation (Combivent Respimat) 1 puff PO Q4-6H PRN metformin 500 mg PO BEDTIME mirtazapine 15 mg PO BEDTIME nystatin 1 appl topical BID triamcinolone acetonide 0.025% 1 appl topical BID venlafaxine ER (Effexor XR) 75 mg PO DAILY Do you need a note to return to daycare/school/sports/work: No HPI HPI mainor: Details: THIS 74 YEARS OLD FEMALE WITH MORBID OBESITY AND CHRONIC RESPIRATORY FAILURE, WELL MAINOR. IS HERE FOR ROUTINE. FOLLOW-UP AFTER 4 MONTHS SHE ALSO HAS FEATURES OF COPD, TREATED WITH BREO ELLIPTA, INCRUSE ELLIPTA, AND ALBUTEROL P.R.N.. FOR MANY YEARS SHE HAS SUFFERED FROM OBSTRUCTIVE SLEEP APNEA WITH RESPIRATORY FAILURE. SHE WAS NOT ABLE TO TOLERATE CPAP OR BIPAP. SO SHE HAS BEEN USING O2 2 L/MINUTE AT NIGHT. AND ALSO NEEDS CONTINUOUS OXYGEN DURING THE DAYTIME. SHE HAS A O2 CONCENTRATOR AT HOME WITH WHICH. SHE USES OXYGEN AT 2 L/MINUTE BUT FOR OUTDOORS SHE HAS THE POC AND SHE USES O2 4 L/MINUTE WHEN SHE GOES OUTDOORS. SHE COMES BACK FOR ROUTINE FOLLOW-UP. DURING THE LAST 4 MONTHS HAS HAD NO RESPIRATORY INFECTION, HE HAS HAD NO CHANGE IN MENTAL STATUS. SHE HAS REMAINED FAIRLY COMFORTABLE OUR. SHE REMAINS SEDENTARY SHE HAS NOT BEEN ABLE TO LOSE ANY WEIGHT. REPLACED BY [facility] Medical History (Updated 10/30/24 @ 15:48 by Matt Banda MD) Respiratory failure with hypoxia and hypercapnia Open wound Necrotizing subcutaneous infection MAINOR (obstructive sleep apnea) Respiratory failure with hypoxia History of invasive ductal carcinoma of breast (~2009) COPD (chronic obstructive pulmonary disease) Asthma Hypoxemia On home oxygen therapy Osteopenia Morbid obesity Left breast mass Personal history of nicotine dependence Surgical History History of lung surgery (~06/2016) History of lymph node dissection of right axilla (~05/2010) History of right breast biopsy (~05/2010) History of colonoscopy with polypectomy (~03/2010) History of section Family History Father History of diabetes mellitus Mother Family history of COPD (chronic obstructive pulmonary disease) Family/Other History of melanoma Brother Skin cancer Social History Household Members: Other Housing: Apartment Are you a primary day care director to a significant other at home: No Do you presently have visiting nurse or other home services: Yes Patient Tobacco Use Status: Former Tobacco user Years Smoked: onset 16yo, 1-2ppd x 52yrs, 70pyh - quit 2017 service: No Current occupational status: disabled Review of Systems Const All systems reviewed & are unremarkable except as noted in HPI and below Eyes Reports no additional complaints ENT Reports nasal congestion (Mild off and on) Card Denies chest pain, Denies irregular heart rhythm and Denies leg edema Resp Reports as per HPI GI Reports no additional complaints Reports no additional complaints Musc Reports no additional complaints Skin/Breast Reports system reviewed and no additional complaints, except as documented Neuro Reports no additional complaints Psych Reports anxiety (Mild off and) Endo Reports no additional complaints Physical Exam Vital Signs: Last Vital Signs Pulse 99 10/30/24 15:20 BP 120/60 10/30/24 15:20 Pulse Ox 90 L 10/30/24 15:20 Oxygen Delivery Method Nasal Cannula 10/30/24 15:20 Oxygen Flow Rate 4 10/30/24 15:20 BMI result Body Mass Index 45.4 Const Other: She is grossly obese , as usual. General: comfortable, no acute distress, alert and awake Orientation/consciousness: patient oriented x3 HEENT Head: Yes normal to inspection General nose exam: No nasal polyps present and No nasal discharge present Face and sinus: Yes sinuses nontender Mouth: oropharynx normal Throat: Yes posterior oropharynx normal Eyes General: appearance normal, both eyes and all related structures Neck Neck: Yes normal visual inspection, Yes no lymphadenopathy, Yes trachea midline and Yes no JVD Thyroid: Thyroid normal Chest Chest palpation & inspection: normal inspection of the chest, normal palpation of entire chest wall and no tenderness Resp Other: Percussion note resonant, breath sounds are distant with prolonged expiratory phase. No audible wheezes or rhonchi or Creps. Cardio Palpation: normal PMI Rate: regular rate Rhythm: regular rhythm Heart sounds: no gallops and no murmurs GI Palpation (GI): Soft to palpation, nontender, No hepatosplenomegaly present, no masses and Other GI palpation findings present (Abdominal wall is obese and somewhat protuberant) Auscultation: normal bowel sounds Back/Spine/Pelvis Thoracic/Lumbar Spine: thoracic and lumbar spine normal to inspection and thoraco-lumbar ROM limited Skin General skin exam: no rashes or lesions noted Neuro General: patient oriented x3 and no focal motor deficits Cranial nerves: Yes CN's II-XII intact bilaterally Extrem General: Yes normal to inspection, Yes no clubbing, cyanosis or edema and Yes no calf tenderness Psych Appearance: grossly normal Speech and movement: Normal speech and movement present Assessment & Plan Assessment & Plan (1) Morbid obesity: Comment: BMI = 45.4 * IT SHOULD BE NOTED THAT SHE HAS TYPICAL FEATURES OF MAINOR/HYPOVENTILATION SYNDROME. BUT DURING DISCUSSIONS IN THE PAST SHE HAS DECLINED TO UNDERGO A SLEEP STUDY, AND ALSO WOULD NOT AGREE TO USE CPAP OR BIPAP AT NIGHT. Code(s): E66.01 - Morbid (severe) obesity due to excess calories Category: Medical Plan: USE O2 2 L/MINUTE AT NIGHT DURING SLEEP PRACTICALLY IMPOSSIBLE FOR HER TO LOSE WEIGHT. (2) COPD (chronic obstructive pulmonary disease): Comment: COPD/ACOS - Severe but Stable -seems to be doing well with her current medical regimen. NO ACTIVE ISSUES. NO RECENT DECLINE IN HER RESPIRATORY STATUS. Code(s): J44.9 - Chronic obstructive pulmonary disease, unspecified Category: Medical Plan: BREO 200-251 INHALATION DAILY. INCRUSE ELLIPTA 1 INHALATION DAILY ALBUTEROL SOLUTION 2.5 MG IN THE NEBULIZER Q 4-6 HOURS P.R.N. (3) Pulmonary nodules: Comment: The nodule in left upper lobe has resolved. She has a new nodule in the right upper lobe area, Has been followed by Dr. Yoo , and has had LDCT scans . As per lost LDCT , some of the nodules on the left side have resolved, there are some nodules in the right lung, vexing and waning in size. And they are considered to be inflammatory in nature. Thus she does not need any active follow-up CT scans. Code(s): R91.8 - Other nonspecific abnormal finding of lung field Category: Medical Plan: ABOVE (4) Respiratory failure with hypoxia and hypercapnia: Comment: PATIENT IS KNOWN TO HAVE CHRONIC RESPIRATORY FAILURE WITH HYPOXEMIA AND HYPERCAPNIA. RECENTLY WAS ADMITTED TO THE HOSPITAL WITH ACUTE ON CHRONIC RESPIRATORY FAILURE. WITH AGGRESSIVE TREATMENT SHE IMPROVES, AND GOES BACK TO HER BASELINE. Code(s): J96.91 - Respiratory failure, unspecified with hypoxia; J96.92 - Respiratory failure, unspecified with hypercapnia Category: Medical Plan: SHE IS ENCOURAGED TO DO DEEP BREATHING EXERCISES. USE O2 2 L/MINUTE AT NIGHT. USE O2 2 L/MINUTE AT HOME P.R.N. DURING THE DAYTIME. USE O2 4 L/MINUTE WITH THE POC WHEN SHE GOES OUTDOORS. Coding Level of Care Code Est Pt Level 4 (91007) Diagnoses Morbid obesity E66.01 COPD (chronic obstructive pulmonary disease) J44.9 Pulmonary nodules R91.8 Respiratory failure with hypoxia and hypercapnia J96.91; J96.92
== END 2024-10-30 15:59 | disposition home or self-care (01) ==
PROVIDERS: PCP General Practice; Visit Provider Internal Medicine
DX: E66.01 Morbid (severe) obesity due to excess calories (principal); J44.9 Chronic obstructive pulmonary disease, unspecified; R91.8 Other nonspecific abnormal finding of lung field; J96.91 Respiratory failure, unspecified with hypoxia; J96.92 Respiratory failure, unspecified with hypercapnia
CPT/HCPCS: 99214

== ENCOUNTER → 2024-10-30 15:10 | Outpatient (BNVA) | payer OTHER, SELFPAY | PROVIDERS: PCP General Practice; Visit Provider Internal Medicine | DX: J44.9 Chronic obstructive pulmonary disease, unspecified (principal); J96.91 Respiratory failure, unspecified with hypoxia; J96.92 Respiratory failure, unspecified with hypercapnia; R91.8 Other nonspecific abnormal finding of lung field; E66.01 Morbid (severe) obesity due to excess calories; Z68.42 Body mass index [BMI] 45.0-49.9, adult | CPT/HCPCS: 99212 ==

== ENCOUNTER 2025-02-26 11:08 | Outpatient (AMB) | payer OTHER, SELFPAY ==
[2025-02-26 11:26] VITALS: BP 130/60; PULSE 93; TEMP 31.1; O2SAT 88; BMI 45.2
--- NOTE | 2025-02-26 11:26 | A.OFFVIS_ITS ---
Vital Signs 02/26/25 11:26 Height 5 ft 2 in Weight 246 lb 14.684 oz BMI 45.2 BP 130/60 Blood Pressure Location Lt brachial Position Sitting Pulse 93 Pulse Source Pulse Oximeter Temp 88 F L Pulse Oximetry (%) 88 L Oxygen Delivery Method Nasal Cannula Oxygen Flow Rate 4 Intake Visit Reasons: Obstructive sleep apnea Intake Note: ptis here for follow up and states she is feeling pretty good, using 4 liters with poc and 2 liters at home, and sleeps with 2 liters Super[facility] Required: No Allergies No Known Allergies [No Known Allergies*] Allergy (Verified 02/26/25 11:51) Medication List - Last Reconciled 02/26/25 by Matt Banda MD albuterol sulfate 2.5 mg (3 mL) inhalation Q4-6H PRN ammonium lactate 12% 1 appl topical DAILY PRN ascorbate calcium (vitamin C) 500 mg PO DAILY aspirin 81 mg PO DAILY clonazepam 1 mg PO BID PRN clotrimazole 1% 1 appl topical DAILY fluticasone propion-salmeterol 250-50 mcg/dose (Wixela Inhub) 1 ea inhalation BID hydrocortisone 2.5% 1 appl topical BID ibuprofen 800 mg PO Q8H PRN Incruse Ellipta 62.5 mcg/actuation (umeclidinium) 1 inh PO DAILY NS ipratropium-albuterol 20-100 mcg/actuation (Combivent Respimat) 1 puff PO Q4-6H PRN metformin 500 mg PO BEDTIME mirtazapine 15 mg PO BEDTIME nystatin 1 appl topical BID triamcinolone acetonide 0.025% 1 appl topical BID venlafaxine ER (Effexor XR) 75 mg PO DAILY Do you need a note to return to daycare/school/sports/work: No HPI HPI Obstructive sleep apnea: Details: This 75 years old female, well known case of advanced chronic obstructive pulmonary disease and chronic respiratory failure, is here for her routine follow-up after 4 months. Her breathing status has remained stable and luckily she has had no acute infection in the last 4 months. She uses oxygen 24 hours a day, when at home she uses her stationary respirator with 2 L/minute. For outdoors she has POC and has to increase O2 flow to 4 L/minute. She continues to be short of breath on minimal exertion. And uses the wheeled walker to walk As documented in previous notes she does not want to be tested for sleep apnea for use of any CPAP/BiPAP mechanism. [facility] Medical History Respiratory failure with hypoxia and hypercapnia Open wound Necrotizing subcutaneous infection ADELITA (obstructive sleep apnea) Respiratory failure with hypoxia History of invasive ductal carcinoma of breast (~2009) COPD (chronic obstructive pulmonary disease) Asthma Hypoxemia On home oxygen therapy Osteopenia Morbid obesity Left breast mass Personal history of nicotine dependence Surgical History History of lung surgery (~06/2016) History of lymph node dissection of right axilla (~05/2010) History of right breast biopsy (~05/2010) History of colonoscopy with polypectomy (~03/2010) History of section Family History Father History of diabetes mellitus Mother Family history of COPD (chronic obstructive pulmonary disease) Family/Other History of melanoma Brother Skin cancer Social History Household Members: Other Housing: Apartment Are you a primary child care associate teacher to a significant other at home: No Do you presently have visiting nurse or other home services: Yes Patient Tobacco Use Status: Former Tobacco user Years Smoked: onset 16yo, 1-2ppd x 52yrs, 70pyh - quit 2017 service: No Current occupational status: disabled Review of Systems Const All systems reviewed & are unremarkable except as noted in HPI and below Eyes Reports no additional complaints ENT Reports nasal congestion (Mild off and on) Card Denies chest pain, Denies irregular heart rhythm and Denies leg edema Resp Reports as per HPI GI Reports no additional complaints Reports no additional complaints Musc Reports no additional complaints Skin/Breast Reports system reviewed and no additional complaints, except as documented Neuro Reports no additional complaints Psych Reports anxiety (Mild off and) Endo Reports no additional complaints Physical Exam Vital Signs: Last Vital Signs Temp 88 F L 02/26/25 11:26 Pulse 93 02/26/25 11:26 BP 130/60 02/26/25 11:26 Pulse Ox 88 L 02/26/25 11:26 Oxygen Delivery Method Nasal Cannula 02/26/25 11:26 Oxygen Flow Rate 4 02/26/25 11:26 BMI result Body Mass Index 45.2 Const Other: She is grossly obese , as usual. General: comfortable, no acute distress, alert and awake Orientation/consciousness: patient oriented x3 HEENT Head: Yes normal to inspection General nose exam: No nasal polyps present and No nasal discharge present Face and sinus: Yes sinuses nontender Mouth: oropharynx normal Throat: Yes posterior oropharynx normal Eyes General: appearance normal, both eyes and all related structures Neck Neck: Yes normal visual inspection, Yes no lymphadenopathy, Yes trachea midline and Yes no JVD Thyroid: Thyroid normal Chest Chest palpation & inspection: normal inspection of the chest, normal palpation of entire chest wall and no tenderness Resp Other: Percussion note resonant, breath sounds are distant with prolonged expiratory phase. No audible wheezes or rhonchi or Creps. Cardio Palpation: normal PMI Rate: regular rate Rhythm: regular rhythm Heart sounds: no gallops and no murmurs GI Palpation (GI): Soft to palpation, nontender, No hepatosplenomegaly present, no masses and Other GI palpation findings present (Abdominal wall is obese and somewhat protuberant) Auscultation: normal bowel sounds Back/Spine/Pelvis Thoracic/Lumbar Spine: thoracic and lumbar spine normal to inspection and thoraco-lumbar ROM limited Skin General skin exam: no rashes or lesions noted Neuro General: patient oriented x3 and no focal motor deficits Cranial nerves: Yes CN's II-XII intact bilaterally Extrem General: Yes normal to inspection, Yes no clubbing, cyanosis or edema and Yes no calf tenderness Psych Appearance: grossly normal Speech and movement: Normal speech and movement present Assessment & Plan Assessment & Plan (1) COPD (chronic obstructive pulmonary disease): Comment: COPD/ACOS - Severe but Stable -seems to be doing well with her current medical regimen. NO ACTIVE ISSUES. NO RECENT DECLINE IN HER RESPIRATORY STATUS. Code(s): J44.9 - Chronic obstructive pulmonary disease, unspecified Category: Medical Plan: Advised to continue using Wixela 250-51 inhalation b.i.d., Incruse use Ellipta 1 inhalation daily Combivent Respimat 1 inhalation Q 4-6 hours p.r.n. Albuterol solution in the nebulizer q.4-6 hours p.r.n. (2) Personal history of nicotine dependence: Comment: (former smoker - onset 16yo, 1-2ppd x 52yrs, 70pyh - QUIT IN YEAR 2018. Code(s): Z87.891 - Personal history of nicotine dependence Category: Medical Plan: Commended for not going back to smoking (3) Respiratory failure with hypoxia and hypercapnia: Comment: PATIENT IS KNOWN TO HAVE CHRONIC RESPIRATORY FAILURE WITH HYPOXEMIA AND HYPERCAPNIA. Since her last visit she has had no acute exacerbation and did not need to go back to the hospital. Code(s): J96.91 - Respiratory failure, unspecified with hypoxia; J96.92 - Respiratory failure, unspecified with hypercapnia Category: Medical Plan: Continue to use O2 2 L/minute at home. 4 L/minute with POC when going outdoors. Also encouraged to do deep breathing exercises at least 3 times a day. (4) ADELITA (obstructive sleep apnea): Comment: Has clinical features of obstructive sleep apnea/hypoventilation. But she has not agreed to undergo sleep study are use CPAP or BiPAP. Code(s): G47.33 - Obstructive sleep apnea (adult) (pediatric) Category: Medical Plan: As above Coding Level of Care Code Est Pt Level 4 (18947) Diagnoses COPD (chronic obstructive pulmonary disease) J44.9 Personal history of nicotine dependence Z87.891 Respiratory failure with hypoxia and hypercapnia J96.91; J96.92 ADELITA (obstructive sleep apnea) G47.33
--- OUTSIDE RECORDS SUMMARY | 2025-02-26 12:46 | XMS_ITS | Encounter Summary ---
Author Organization [employer] Address [address] [place] [address] Care Team Providers Care Gas Golf Cart Repairer Name Role Phone Manjula Ross MD Primary Care Provider [phone] Reason for Visit * Reason Onset Date Comments Hospital Follow-up 03/09/2024 Encounter Details Date Type Department Care Team ([facility] st Contact Info) Description 03/09/2024 Telephone [facility] MEDICINE [address] [place], [place] [phone] Manjula Ross MD [address] [place], [place] [phone] Hospital Follow-up Social History Tobacco Use Types Packs/Day Years Used Date Smoking Tobacco: Former Cigarettes Passive Smoke Exposure: Past Smokeless Tobacco: Never Alcohol Use Standard Drinks/Week Comments Never 0 (1 standard drink = 0.6 oz pur e alcohol) Depression Answer Date Recorded Patient Health Questionnaire-9 Score 0 01/17/2024 Patient Health Questionnaire-9 Score 0 01/17/2024 Last PHQ-9: Questionnaire Data Not on file 0 01/17/2024 Housing Stability Answer Date Recorded What is your housing situation today? I have donnell oshea 01/17/[address] you li ve. Do you have problems with any of the following? None of the above 01/17/2024 Food Insecurity Answer Date Recorded Within the past 12 months, y ou worried that your food would run out before you got money to buy more: Never True 01/17/2024 Within the past 12 months,th e food you bought just didn't last and you didn't have enough money to get more: Never True Transportation Answer Date Recorded In the past 12 months, has l ack of transportation kept you from medical appts, meetings, work or from getting things needed for daily living? No 01/17/2024 Utilities Answer Date Recorded In the past 12 months, has t he electric, gas, oil or water company threatened to shut off services in your home? Yes 01/17/2024 Depression Answer Date Recorded Patient Health Questionnaire-2 Score 0 01/17/2024 Comments Unknown Sex and Gender Information Value Date Recorded Sex Assigned at Female 07/20/2022 10:14 AM EDT Legal Sex Female 10:14 AM EDT Gender Identity Female 07/20/2022 10:14 AM EDT Sexual Orientation Straight 07/20/2022 10 :14 AM EDT documented as of this encounter Miscellaneous Notes * Telephone Encounter - Alicia Potter - 03/09/2024 1:59 PM EDT Tc from Jennifer requesting a HDF appt. [place] [facility] [place] Date of admission: 03/05 Discharge date: 03/09 Diagnosed: UTI/High Fever documented in this encounter Plan of Treatment Not on file documented as of this encounter Visit Diagnoses Not on filedocumented in this encounter Additional Health Concerns Assessment Noted Time PHQ-9 Depression Total Score: 0 01/17/20 24 10:17 AM EDT documented as of this encounter Care Teams Gas Golf Cart Repairer Relationship Specialty Start Date End Date Manjula Ross MD [address] [place] [id number] PCP - General Family Medicine [facility] documented as of this encounter
== END 2025-02-26 11:51 | disposition home or self-care (01) ==
LOC: HO.HPS 11:09
PROVIDERS: PCP General Practice; Visit Provider Internal Medicine
DX: J44.9 Chronic obstructive pulmonary disease, unspecified (principal); Z87.891 Personal history of nicotine dependence; J96.91 Respiratory failure, unspecified with hypoxia; J96.92 Respiratory failure, unspecified with hypercapnia; G47.33 Obstructive sleep apnea (adult) (pediatric)
CPT/HCPCS: 99214

== ENCOUNTER → 2025-02-26 11:08 | Outpatient (BNVA) | payer OTHER, SELFPAY | PROVIDERS: PCP General Practice; Visit Provider Internal Medicine | DX: G47.33 Obstructive sleep apnea (adult) (pediatric) (principal); J44.9 Chronic obstructive pulmonary disease, unspecified; Z87.891 Personal history of nicotine dependence; J96.91 Respiratory failure, unspecified with hypoxia; J96.92 Respiratory failure, unspecified with hypercapnia | CPT/HCPCS: 99212 ==

== ENCOUNTER 2025-03-26 11:28 | Outpatient (REF) | payer OTHER, MEDICAID, SELFPAY ==
--- OUTSIDE RECORDS SUMMARY | 2025-03-26 12:22 | XMS_ITS | Encounter Summary ---
Author Organization [employer] Address [address] [facility] [address] [place] [address] Care Team Providers Care Gearcase Assembler Name Role Phone Manjula Ross MD Primary Care Provider [phone] Reason for Visit * Reason Onset Date Comments Hospital Follow-up 03/09/2024 Encounter Details Date Type Department Care Team ([facility] st Contact Info) Description 03/09/2024 Telephone [facility] MEDICINE [address] [place], [place] [phone] Manjula Ross MD [address] [place], [place] [phone] Hospital Follow-up Social History Tobacco Use Types [...] from Jennifer requesting a HDF appt. Hospital: [facility] [place] Date of admission: 03/05 Discharge date: 03/09 Diagnosed: UTI/High Fever documented in this encounter Plan of Treatment Not on file documented as of this encounter Visit Diagnoses Not on filedocumented in this encounter Additional Health Concerns Assessment Noted Time PHQ-9 Depression Total Score: 0 01/17/20 24 10:17 AM EDT documented as of this encounter Care Teams Gearcase Assembler Relationship Specialty Start Date End Date Manjula Ross MD [address] [place] [id number] PCP - General Family Medicine [facility] documented as of this encounter
--- OUTSIDE RECORDS SUMMARY | 2025-03-26 12:22 | XMS_ITS | Patient Health Record ---
Author Organization [facility] Address [address] [place] [address] Care Team Providers Care Filter Press Tender Head Name Role Phone Manjula Ross M.D. Primary Care Provider Lawrence Jones Unavailable [phone] Familia Lacy Unavailable Unavailable Allergies No Known Allergies Reason For Referral No Information Medications Medication SIG (Take, Route, Frequency, Duration) Notes [...] 3 TIMES DAILY. Oral for 30 Active Immunizations Vaccine Route Administration Date Status Comme nts Influenza Unknown 07/07/2022 Administered Social History Tobacco Use: Social History Observation Description Date Details (start date - stop date) Former Smoker NA - NA Tobacco Use/Smoking Question Answer Notes Patient is a former smoker Alcohol Screen Question Answer Notes Did you have a drink containing alcohol in the p ast year? No Points 0 Interpretation Negative Problems Problem Type SNOMED Code ICD Code Onset Dates Problem Status W/U Status Risk Notes Problem [id number] Colon cancer screening (Z12.11) Active confirmed Problem [id number] Preprocedural examination (Z01.818) Active confirmed Plan Of Treatment Future Test Test Name Order Date COLONOSCOPY 03/11/2023 Insurance Providers Payer Name Payer Address Payer Phone Subscriber Number Group Number Insured Name Patient Relationship to Insured Coverage Start Date Coverage End Date [facility] [address] Attn Claims STEVEN Clark [id number] MAIA CHAN Self - patient is the insured Medical (General) History Medical History History ICD Code COPD/Asthma--uses oxygen Arthirits Breast cancer--right side--surgery/XRT-2 011 Denies UT,DM,CVA,renal disease Anxiety/Depression Surgical History Surgery Date(Month/Year) Breast cancer--lumpectomy Lung nodule-Benign C-sections
== END 2025-03-26 11:29 | disposition home or self-care (01) ==
LOC: HO.MAMMO 11:28
PROVIDERS: PCP General Practice; Visit Provider General Practice
DX: Z12.31 Encounter for screening mammogram for malignant neoplasm of breast (principal)
CPT/HCPCS: 77063; 77067

== ENCOUNTER → 2025-03-26 11:30 | Outpatient (BNV) | payer OTHER, MEDICAID, SELFPAY | PROVIDERS: PCP General Practice; Visit Provider Radiology Body Imaging | DX: Z12.31 Encounter for screening mammogram for malignant neoplasm of breast (principal) | CPT/HCPCS: 77063; 77067 ==

== ENCOUNTER 2025-05-03 11:22 | Outpatient (REF) | payer OTHER, SELFPAY ==
--- NOTE | ~2025-05-03 | US_ITS ---
EXAMINATION: MM DIAGNOSTIC DIGITAL BREAST TOMOSYNTHESIS, LEFT Limited left breast ultrasound. CLINICAL INFORMATION: Call back from screening for focal asymmetry adjacent tissue marker clip from previous benign needle core biopsy in the left breast. COMPARISON: Mammography: [facility] on PACS. TECHNIQUE: Digital breast tomosynthesis is performed in both the craniocaudal and mediolateral oblique views along with computer-aided detection (CAD). Synthesized 2D images are generated from the tomosynthesis. FINDINGS: There are scattered areas of fibroglandular density (ACR BI-RADS breast composition Category b). Post excisional biopsy and debridement changes are stable. Circumscribed oval mass persists on additional imaging projections adjacent to marker clip from previous benign needle core biopsy and 2020. No suspicious calcifications or other abnormal findings. Targeted color Doppler ultrasound scanning in the left breast demonstrates a probable minimally complicated cyst at 9:00 10 cm from nipple measuring 5 x 4 x 2 mm this correlates with the circumscribed oval mass on mammography. Otherwise scanning in the lower inner quadrant demonstrates normal fibronodular breast tissue. US/US breast LT limited mamm only IMPRESSION: Left: Probable minimally complicated cyst at 9:00 10 cm from the nipple correlating with the circumscribed oval mass seen on mammography. Probably benign. Recommend 6 month follow-up ultrasound for further evaluation of stability. ASSESSMENT: BI-RADS BI-RADS 3 - Probably benign finding(s) - 6 month follow-up suggested RECOMMENDATION: 6 Month F/U Results were provided to the patient at time of visit by the technologist. This patient's information was entered into a reminder system with a target due date for their next mammogram. Electronically signed by: Aracelis Kincaid DO 05/03/2025 02:05 PM EDT
--- OUTSIDE RECORDS SUMMARY | 2025-05-03 12:29 | XMS_ITS | Encounter Summary ---
Author Organization [employer] Address [address] [facility] [address] [place] [address] Care Team Providers Care Commercial Horticulture Instructor Name Role Phone Manjula Ross MD Primary Care Provider [phone] Reason for Visit * Reason Onset Date Comments Hospital Follow-up 03/09/2024 Encounter Details Date Type Department Care Team ([facility] st Contact Info) Description 03/09/[address] [facility] MEDICINE [address] [place], [place] [phone] Manjula Ross MD [address] [place], [place] [phone] Hospital Follow-up Social History Tobacco Use Types [...] from Jennifer requesting a HDF appt. Hospital: [facility] [place] Date of admission: 03/05 Discharge date: 03/09 Diagnosed: UTI/High Fever documented in this encounter Plan of Treatment Not on file documented as of this encounter Visit Diagnoses Not on filedocumented in this encounter Additional Health Concerns Assessment Noted Time PHQ-9 Depression Total Score: 0 01/17/20 24 10:17 AM EDT documented as of this encounter Care Teams Commercial Horticulture Instructor Relationship Specialty Start Date End Date Manjula Ross MD [address] [place] [id number] PCP - General Family Medicine [facility] documented as of this encounter
== END 2025-05-03 11:23 | disposition home or self-care (01) ==
LOC: HO.MAMMO 11:22
PROVIDERS: PCP General Practice; Visit Provider General Practice
DX: Z12.31 Encounter for screening mammogram for malignant neoplasm of breast (principal); N64.89 Other specified disorders of breast
CPT/HCPCS: 76642; 77061; 77065

== ENCOUNTER → 2025-05-03 11:30 | Outpatient (BNV) | payer OTHER, SELFPAY | PROVIDERS: PCP General Practice; Visit Provider Internal Medicine | DX: R91.8 Other nonspecific abnormal finding of lung field (principal) | CPT/HCPCS: 76642; 77065; G0279 ==

== ENCOUNTER 2025-07-03 11:23 | Outpatient (REF) | payer OTHER, SELFPAY ==
[2025-07-03 13:17] LABS: MANUAL DIFF FLAG NO
[2025-07-03 13:39] LABS: Hematocrit 36.6 % (37.0-47.0); Hemoglobin 10.8 g/dl (12.0-16.0); Imm Gran Abs Auto 0.05 X10*3/uL (0.00-0.03); Imm Gran Pct Auto 0.5 % (0.0-0.4); Lymphocytes Absolute Auto 1.4 X10*3/uL (1.2-4.9); Mean Corpuscular HGB Conc 29.5 g/dl (31.0-35.0); Mean Corpuscular Hemoglobin 26.0 pg (27.0-33.0); Mean Corpuscular Volume 88.2 fL (80.0-98.0); NRBC Abs Auto 0.000 X10*3/uL (0.0-0.012); NRBC Pct Auto 0.0 /100WBC (0.0-0.2); Platelet Count 321 X10*3/uL (160-400); Red Blood Count 4.15 X10*6/uL (4.20-5.50); White Blood Count 10.8 X10*3/uL (4.8-10.8)
[2025-07-03 14:11] LABS: Alanine Aminotransferase 14 U/L (0-31); Albumin Level 4.1 g/dL (3.5-5.0); Alkaline Phosphatase 84 U/L (39-117); Anion Gap 14 (12-20); Aspartate Amino Transferase 23 U/L (5-31); Blood Urea Nitrogen 18 mg/dL (9-16); Calcium 9.1 mg/dL (8.4-10.2); Carbon Dioxide 31 mmol/L (22-29); Chloride 101 mmol/L (96-108); Cholesterol 238 mg/dL (<200); Estimated Glomerular Filt Rate 53; HDL Cholesterol 41 mg/dL (>40); Potassium 4.2 mmol/L (3.3-5.1); Sodium 142 mmol/L (135-145); Total Protein 8.3 g/dL (6.5-8.0); Triglycerides 176 mg/dL (<150)
== END 2025-07-03 11:24 | disposition home or self-care (01) ==
LOC: HO.HHCL 11:23
PROVIDERS: PCP General Practice; Referring Provider General Practice; Visit Provider Internal Medicine
DX: G47.33 Obstructive sleep apnea (adult) (pediatric) (principal); J44.9 Chronic obstructive pulmonary disease, unspecified; J96.11 Chronic respiratory failure with hypoxia; J96.12 Chronic respiratory failure with hypercapnia; R73.03 Prediabetes; E66.01 Morbid (severe) obesity due to excess calories; Z68.42 Body mass index [BMI] 45.0-49.9, adult; Z87.891 Personal history of nicotine dependence; Z99.81 Dependence on supplemental oxygen; Z79.899 Other long term (current) drug therapy
CPT/HCPCS: 36415; 80053; 80061; 85025; 99212

== ENCOUNTER 2025-07-03 11:23 | Outpatient (AMB) | payer OTHER, SELFPAY ==
[2025-07-03 11:29] VITALS: BP 142/80; PULSE 111; O2SAT 91; BMI 45.6
--- NOTE | 2025-07-03 11:29 | A.OFFVIS_ITS ---
Vital Signs 07/03/25 11:29 Height 5 ft 2 in Weight 249 lb 1.957 oz BMI 45.6 BP 142/80 H Blood Pressure Location Lt brachial Position Sitting Pulse 111 H Pulse Source Pulse Oximeter Pulse Oximetry (%) 91 L Oxygen Delivery Method Nasal Cannula Oxygen Flow Rate 4 Intake Visit Reasons: Obstructive sleep apnea Intake Note: pt is here for follow up and states she is okay, her usual cough. Environmental Monitoring Technician Required: No Environmental Monitoring Technician Services: Environmental Monitoring Technician Offered & Declined Ring Cutter Lathe Operator: Ring Cutter Lathe Operator offered & declined Allergies No Known Allergies (No Known Allergies*) Allergy (Verified 07/03/25 11:44) Medication List - Last Reconciled 07/03/25 by Matt Banda MD albuterol sulfate 2.5 mg (3 mL) inhalation Q4-6H PRN ammonium lactate 12% 1 appl topical DAILY PRN ascorbate calcium (vitamin C) 500 mg PO DAILY aspirin 81 mg PO DAILY clonazepam 1 mg PO BID PRN clotrimazole 1% 1 appl topical DAILY fluticasone propion-salmeterol 250-50 mcg/dose (Wixela Inhub) 1 ea inhalation BID hydrocortisone 2.5% 1 appl topical BID ibuprofen 800 mg PO Q8H PRN Incruse Ellipta 62.5 mcg/actuation (umeclidinium) 1 inh PO DAILY NS ipratropium-albuterol 20-100 mcg/actuation (Combivent Respimat) 1 puff PO Q4-6H PRN metformin 500 mg PO BEDTIME mirtazapine 15 mg PO BEDTIME nystatin 1 appl topical BID triamcinolone acetonide 0.025% 1 appl topical BID venlafaxine ER (Effexor XR) 75 mg PO DAILY Do you need a note to return to daycare/school/sports/work: No HPI HPI Obstructive sleep apnea: Details: MAIA IS 75 YEARS OLD FEMALE WITH MORBID OBESITY. SHE HAS ADVANCED CHRONIC OBSTRUCTIVE PULMONARY DISEASE, MORBID OBESITY AND OBSTRUCTIVE SLEEP APNEA, WITH NOCTURNAL HYPOXEMIA. SHE HAS NOT BEEN ABLE TO USE THE CPAP SO JUST USES O2 2 L/MINUTE AT NIGHT. SHE USES O2 DURING THE DAYTIME 2 L/MINUTE AT HOME WITH STATIONARY CONCENTRATOR, AND ALSO HAS PORTABLE OXYGEN CONCENTRATOR WITH WHICH SHE USES 3-4 L/MINUTE. SHE SLEEPS FAIRLY. GOOD WHILE HER OXYGEN IS ON DURING. THE DAYTIME SHE STAYS MOSTLY IN THE HOUSE SHE DOES HAVE CHRONIC INTERMITTENT COUGH BUT IS MOSTLY DRY. LUCKILY THERE HAS BEEN NO RESPIRATORY INFECTION LATELY. [facility] Medical History Respiratory failure with hypoxia and hypercapnia Open wound Necrotizing subcutaneous infection ADELITA (obstructive sleep apnea) Respiratory failure with hypoxia History of invasive ductal carcinoma of breast (~2009) COPD (chronic obstructive pulmonary disease) Asthma Hypoxemia On home oxygen therapy Osteopenia Morbid obesity Left breast mass Personal history of nicotine dependence Surgical History History of lung surgery (~06/2016) History of lymph node dissection of right axilla (~05/2010) History of right breast biopsy (~05/2010) History of colonoscopy with polypectomy (~03/2010) History of section Family History Father History of diabetes mellitus Mother Family history of COPD (chronic obstructive pulmonary disease) Family/Other History of melanoma Brother Skin cancer Social History Household Members: Other Housing: Apartment Are you a primary career and guidance counselor to a significant other at home: No Do you presently have visiting nurse or other home services: Yes Patient Tobacco Use Status: Former Tobacco user Years Smoked: onset 16yo, 1-2ppd x 52yrs, 70pyh - quit 2017 service: No Current occupational status: disabled Review of Systems Const All systems reviewed & are unremarkable except as noted in HPI and below Eyes Reports no additional complaints ENT Reports nasal congestion (Mild off and on) Card Denies chest pain, Denies irregular heart rhythm and Denies leg edema Resp Reports as per HPI GI Reports no additional complaints Reports no additional complaints Musc Reports no additional complaints Skin/Breast Reports system reviewed and no additional complaints, except as documented Neuro Reports no additional complaints Psych Reports anxiety (Mild off and) Endo Reports no additional complaints Physical Exam Vital Signs: Last Vital Signs Pulse 111 H 07/03/25 11:29 BP 142/80 H 07/03/25 11:29 Pulse Ox 91 L 07/03/25 11:29 Oxygen Delivery Method Nasal Cannula 07/03/25 11:29 Oxygen Flow Rate 4 10/14/25 11:29 BMI result Body Mass Index 45.6 Const Other: She is grossly obese , as usual. General: comfortable, no acute distress, alert and awake Orientation/consciousness: patient oriented x3 HEENT Head: Yes normal to inspection General nose exam: No nasal polyps present and No nasal discharge present Face and sinus: Yes sinuses nontender Mouth: oropharynx normal Throat: Yes posterior oropharynx normal Eyes General: appearance normal, both eyes and all related structures Neck Neck: Yes normal visual inspection, Yes no lymphadenopathy, Yes trachea midline and Yes no JVD Thyroid: Thyroid normal Chest Chest palpation & inspection: normal inspection of the chest, normal palpation of entire chest wall and no tenderness Resp Other: Percussion note resonant, breath sounds are distant with prolonged expiratory phase. No audible wheezes or rhonchi or Creps. Cardio Palpation: normal PMI Rate: regular rate Rhythm: regular rhythm Heart sounds: no gallops and no murmurs GI Palpation (GI): Soft to palpation, nontender, No hepatosplenomegaly present, no masses and Other GI palpation findings present (Abdominal wall is obese and somewhat protuberant) Auscultation: normal bowel sounds Back/Spine/Pelvis Thoracic/Lumbar Spine: thoracic and lumbar spine normal to inspection and thoraco-lumbar ROM limited Skin General skin exam: no rashes or lesions noted Neuro General: patient oriented x3 and no focal motor deficits Cranial nerves: Yes CN's II-XII intact bilaterally Extrem General: Yes normal to inspection, Yes no clubbing, cyanosis or edema and Yes no calf tenderness Psych Appearance: grossly normal Speech and movement: Normal speech and movement present Assessment & Plan Assessment & Plan (1) COPD (chronic obstructive pulmonary disease): Comment: COPD/ACOS - Severe but Stable -seems to be doing well with her current medical regimen. NO ACTIVE ISSUES. NO RECENT DECLINE IN HER RESPIRATORY STATUS. Code(s): J44.9 - Chronic obstructive pulmonary disease, unspecified Category: Medical Plan: CONTINUE WIXELA 250-51 INHALATION B.I.D. , INCRUSE ELLIPTA 1 INHALATION DAILY, COMBIVENT RESPIMAT 1 INHALATION Q 4-6 HOURS P.R.N. FOR OUTDOORS. ALBUTEROL SOLUTION IN THE NEBULIZER Q 4-6 HOURS P.R.N. AT HOME (2) Personal history of nicotine dependence: Comment: (former smoker - onset 16yo, 1-2ppd x 52yrs, 70pyh - QUIT IN YEAR 2018. Code(s): Z87.891 - Personal history of nicotine dependence Category: Medical Plan: IS GOOD THAT SHE STOPPED SMOKING SINCE 2018 SHE HAS BEEN IN ANNUAL LUNG SCREENING PROGRAM (3) ADELITA (obstructive sleep apnea): Comment: Has clinical features of obstructive sleep apnea/hypoventilation. But she has not agreed to undergo sleep study are use CPAP or BiPAP. SHE ONLY USES O2 AT NIGHT Code(s): G47.33 - Obstructive sleep apnea (adult) (pediatric) Category: Medical Plan: Continue to use O2 2 L/minute at night (4) Respiratory failure with hypoxia and hypercapnia: Comment: PATIENT IS KNOWN TO HAVE CHRONIC RESPIRATORY FAILURE WITH HYPOXEMIA AND HYPERCAPNIA. SHE SEEMS TO BE DOING FAIRLY WELL JUST WITH THE OXYGEN SUPPLEMENTATION, 2 L/MINUTE. SHE HAD DECLINED TO USE BIPAP OR CPAP. Code(s): J96.91 - Respiratory failure, unspecified with hypoxia; J96.92 - Respiratory failure, unspecified with hypercapnia Category: Medical Plan: CONTINUE O2 2 L/MINUTE AT NIGHT AND DURING THE DAYTIME AT REST . AND 3-4 L/MINUTE WITH POC FOR OUTDOORS (5) Morbid obesity: Comment: BMI = 45.6 * IT SHOULD BE NOTED THAT SHE HAS TYPICAL FEATURES OF ADELITA/HYPOVENTILATION SYNDROME. BUT DURING DISCUSSIONS IN THE PAST SHE HAS DECLINED TO UNDERGO A SLEEP STUDY, AND ALSO WOULD NOT AGREE TO USE CPAP OR BIPAP AT NIGHT. Code(s): E66.01 - Morbid (severe) obesity due to excess calories Category: Medical Plan: SHE IS NOT VERY SERIOUS ABOUT LOSING WEIGHT. WE WILL HAVE TO KEEP ON WATCHING . Coding Level of Care Code Est Pt Level 4 (60407) Diagnoses COPD (chronic obstructive pulmonary disease) J44.9 Personal history of nicotine dependence Z87.891 ADELITA (obstructive sleep apnea) G47.33 Respiratory failure with hypoxia and hypercapnia J96.91; J96.92 Morbid obesity E66.01
--- OUTSIDE RECORDS SUMMARY | 2025-07-03 13:52 | XMS_ITS | Encounter Summary ---
Author Organization [employer] Address [address] [facility] 7[address] [place] [address] Care Team Providers Care Service Representative Name Role Phone Manjula Ross MD Primary Care Provider [phone] Encounter Details Date Type Department Care Team (Late st Contact Info) Description 02/05/2025 Orders Only [facility] [address] [place], [place] [phone] Manjula Ross MD [address] [place], [place] [phone] Social History Tobacco Use Types Packs/Day Years Used Date Smoking Tobacco: Former Cigarettes Q uit: 01/05/2022 Passive Smoke Exposure: Past Smokeless Tobacco: Never Alcohol Use Standard Drinks/Week Comments Never 0 (1 standard drink = 0.6 oz pur e alcohol) Alcohol Answer Date Recorded How often do you have a drink containing alcohol ? 1 01/08/2025 How many drinks containing a lcohol do you have on a typical day when you are drinking? 0 01/08/2025 How often do you have six or more drinks on one occasion? 0 01/08/2025 Depression Answer Date Recorded Patient Health Questionnaire-9 [...] things needed for daily living? No 01/17/2024 Intimate Partner Violence Answer Date R ecorded Within the last year, have y ou been afraid of your partner or ex-partner? 2 01/08/2025 Within the last year, have y ou been humiliated or emotionally abused in other ways by your partner or ex-partner? 2 Within the last year, have y ou been kicked, hit, slapped, or otherwise physically hurt by your partner or ex-partner? 2 01/08/2025 Within the last year, have y ou been raped or forced to have any kind of sexual activity by your partner or ex-partner? 2 01/08/2025 Utilities Answer Date Recorded In the past 12 months, has t he Ranker, gas, oil or water company threatened to shut off services in your home? No 12/28/2024 Depression Answer Date Recorded Patient Health Questionnaire-2 Score 0 01/17/2024 Internet Access Answer Date Recorded Internet Access Q1 Yes 12/28/2024 Internet Access Q2 Not on file 12/28/2024 Comments Unknown Sex and Gender Information Value Date Recorded Sex Assigned at Female 07/20/2022 10:14 AM EDT Legal Sex Female 10:14 AM EDT Gender Identity Female 07/20/2022 10:14 AM EDT Sexual Orientation Straight 07/20/2022 10 :14 AM EDT documented as of this encounter Plan of Treatment Not on file documented as of this encounter Procedures Procedure Name Priority Date/Time Associated Diagnosis Comments COLOGUARD COLON CANCER SCREENING (EXTERNAL RESULTS ONLY) Routine 06/20/2023 9:31 AM EDT documented in this encounter Results * Cologuard Cancer Screening (External Result Only) (06/20/2023 9:31 AM EDT) Cologuard Cancer Screen Negative Stool (Rectum) 06/20/2023 9: 31 AM EDT us Historical Provider POINT OF CARE TEST ENTER/ EDIT ORDERABLES Final Result documented in this encounter Visit Diagnoses Not on filedocumented in this encounter Additional Health Concerns Assessment Noted Time PHQ-9 Depression Total Score: 0 01/17/20 10:17 AM EDT documented as of this encounter Care Teams Service Representative Relationship Specialty Start Date End Date Manjula Ross MD [address] [place] [address] PCP - General Family Medicine 08/10/22 [facility] LONG 07/17/24 documented as of this encounter
--- OUTSIDE RECORDS SUMMARY | 2025-07-03 13:52 | XMS_ITS | Encounter Summary ---
Author Organization [employer] Address [address] [facility] [address] [place] [address] Care Team Providers Care Creative Services Director Name Role Phone Manjula Ross MD Primary Care Provider [phone] Reason for Visit * Reason Onset Date Comments Hospital Follow-up 03/09/2024 Encounter Details Date Type Department Care Team ([facility] st Contact Info) Description 03/09/2024 Telephone [facility] [address] [place], [place] [phone] Manjula Ross MD [address] [place], [place] [phone] Hospital Follow-up Social History Tobacco Use Types [...] requesting [place] HDF appt. [place] [facility] [place] of admission: 03/05 Discharge date: 03/09 Diagnosed: UTI/High Fever documented in this encounter Plan of Treatment Not on file documented as of this encounter Visit Diagnoses Not on filedocumented in this encounter Additional Health Concerns Assessment Noted Time PHQ-9 Depression Total Score: 0 01/17/20 24 10:17 AM EDT documented as of this encounter Care Teams Creative Services Director Relationship Specialty Start Date End Date Manjula Ross MD [address] [place] [id number] PCP - General Family Medicine [facility] documented as of this encounter
--- OUTSIDE RECORDS SUMMARY | 2025-07-03 13:52 | XMS_ITS | Encounter Summary ---
Author Organization [employer] Address [address] [facility] [address] [place] [address] Care Team Providers Care Enterprise Cloud Architect Name Role Phone Manjula Ross MD Primary Care Provider [phone] Reason for Visit * Reason Comments Med Refill Encounter Details Date Type Department Care Team ([facility] st Contact Info) Description 04/19/2024 Refill [facility]INE [address] [place], [place] [phone] Valentine Junior DO [address] [place], [place] [phone] Seborrheic dermatitis Social History Tobacco Use Types Packs/Day Years [...] documented as of this encounter Visit Diagnoses Diagnosis Seborrheic dermatitis Unspecified seborrheic dermatitis documented in this encounter Additional Health Concerns Assessment Noted Time PHQ-9 Depression Total Score: 0 01/17/20 24 10:17 AM EDT documented as of this encounter Care Teams Enterprise Cloud Architect Relationship Specialty Start Date End Date Manjula Ross MD [address] [place] [id number] PCP - General Family Medicine 08/10/22 [facility] Phillip 07/17/24 documented as of this encounter
--- OUTSIDE RECORDS SUMMARY | 2025-07-03 13:52 | XMS_ITS | Encounter Summary ---
Author Organization [employer] Address [address] [facility] 7[address] [place] [address] Care Team Providers Care Electric Stove Installer Name Role Phone Manjula Ross MD Primary Care Provider [phone] Reason for Visit * Reason Comments Med Refill Encounter Details Date Type Department Care Team ([facility] st Contact Info) Description 02/15/2024 Refill [facility] MEDICINE 230 [place], [place] [phone] [facility] 230 [place], [place] [phone] Rash and nonspecific skin eruption Social History Tobacco Use Types Packs/Day Years [...] as of this encounter Visit Diagnoses Diagnosis Rash and nonspecific skin eruption Rash and other nonspecific skin eruption documented in this encounter Additional Health Concerns Assessment Noted Time PHQ-9 Depression Total Score: 0 01/17/20 10:17 AM EDT documented as of this encounter Care Teams Electric Stove Installer Relationship Specialty Start Date End Date Manjula Ross MD [address] [place] [id number] PCP - General Family Medicine 08/10/22 [facility] LONG 07/17/24 documented as of this encounter
--- OUTSIDE RECORDS SUMMARY | 2025-07-03 13:53 | XMS_ITS | Encounter Summary ---
Author Organization [employer] Address [address] [facility] [address] [place] [address] Care Team Providers Care Assembler Truck Trailer Name Role Phone Manjula Ross MD Primary Care Provider [phone] Reason for Visit * Reason Comments Med Refill Encounter Details Date Type Department Care Team ([facility] st Contact Info) Description 04/19/2024 Refill [facility] MED[facility]INE 230 [place], [place] [phone] Manjula Ross MD 230 [place], [place] [phone] Social History Tobacco Use Types Packs/Day Years [...] documented as of this encounter Care Teams Assembler Truck Trailer Relationship Specialty Start Date End Date Manjula Ross MD [address] [place] [id number] PCP - General Family Medicine 08/10/22 [facility] Phillip 07/17/24 documented as of this encounter
--- OUTSIDE RECORDS SUMMARY | 2025-07-03 13:53 | XMS_ITS | Encounter Summary ---
Author Organization [employer] Address [address] [facility] 7t [place] [address] Care Team Providers Care Field Artillery Targeting Technician Name Role Phone Manjula Ross MD Primary Care Provider [phone] Encounter Details Date Type Department Care Team (Late st Contact Info) Description 04/04/2025 Orders Only [facility] [address] [place], [place] [phone] Manjula Ross MD [address] [place], [place] [phone] Social History Tobacco Use Types Packs/Day Years [...] the past 12 months, has t he [employer] gas, oil or water company threatened to [...] Procedure Name Priority Date/Time Associated Diagnosis Comments BI MAMMOGRAM DIAGNOSTIC TOMOSYNTHESIS ADDED VIEW LEFT Routine 05/03/2025 12:00 PM EDT BI US BREAST LIMITED LEFT Routine 05/03/2025 11:26 AM EDT documented in this encounter Results * BI Mammogram Diagnostic Tomosynthesis added left (05/03/2025 12:00 PM EDT) Anatomical Region Laterality Modality Breast Left Mammography 05/03/2025 12:0 0 PM EDT Narrative 05/03/2025 2:08 PM EDT [place] [facility] [address] [place], [place] [address] Mammography Report Signed Patient: Janneth Jenkins MR#: [id number] : 1950 Acct:[id number] Age/Sex: 75 / F ADM Date: 05/03/25 Loc: HO.MAMMO Attending Dr: Manjula Ross MD Ordering Physician: Manjula Ross Results: 3.6MProba justa Benign Finding - Short 6 M F/U Suggested Date of Service: 05/03/25 Follow Up: 6 Month F/U Procedure(s): MM tomosynthesis added views L Accession Number(s): [id number] cc: Manjula Ross EXAMINATION: MM DIAGNOSTIC DIGITAL BREAST TOMOSYNTHESIS, LEFT Limited left breast ultrasound. CLINICAL INFORMATION: Call back from screening for focal asymmetry adjacent tissue marker clip from previous benign needle core biopsy in the left breast. COMPARISON: Mammography: Priors on PACS. TECHNIQUE: Digital breast tomosynthesis is performed in both the craniocaudal and mediolateral oblique views along with computer-aided detection (CAD). Synthesized 2D images are generated from the tomosynthesis. FINDINGS: There are scattered areas of fibroglandular density (ACR BI-RADS breast composition Category b). Post excisional biopsy and debridement changes are stable. Circumscribed oval mass persists on additional imaging projections adjacent to marker clip from previous benign needle core biopsy and 2020. No suspicious calcifications or other abnormal findings. Targeted color Doppler ultrasound scanning in the left breast demonstrates a probable minimally complicated cyst at 9:00 10 cm from nipple measuring 5 x 4 x 2 mm this correlates with the circumscribed oval mass on mammography. Otherwise scanning in the lower inner quadrant demonstrates normal fibronodular breast tissue. MM/MM tomosynthesis added views L IMPRESSION: Left: Probable minimally complicated cyst at 9:00 10 cm from the nipple correlating with the circumscribed oval mass seen on mammography. Probably benign. Recommend 6 month follow-up ultrasound for further evaluation of stability. ASSESSMENT: BI-RADS BI-RADS 3 - Probably benign finding(s) - 6 month follow-up suggested RECOMMENDATION: 6 Month F/U Results were provided to the patient at time of visit by the technologist. This patient's information was entered into a reminder system with a target due date for their next mammogram. Electronically signed by: Aracelis Kincaid DO 05/03/2025 02:05 PM EDT RP Dictated By: Aracelis Kincaid DO Signed By: <Electronically signed by Aracelis Kincaid DO in OV> 05/03/25 1405 DD/ 1200 TD/TT: 05/03/25 1230 Etl [employer] Developer: Procedure Note Donotuseinterpreter, Image - 05/03/2025 [facility]'s [address] [place] [address] Mammography Report Signed Patient: Sheela Jenkins#: [id number] : 1950cct:[id number] Age/Sex: 75 / FADM Date: 05/03/25 Loc: HO.MAMMO Attending Dr: Manjula Ross MD Ordering Physician: Sajan Rossults: 3.6MProba justa Benign Finding - Short 6 M F/U Suggested Date of Service: 05/03/25Follow Up: 6 Month F/U Procedure(s): MM tomosynthesis added views L Accession Number(s): [id number] cc: Manjula Ross EXAMINATION: MM DIAGNOSTIC DIGITAL BREAST TOMOSYNTHESIS, LEFT Limited left breast ultrasound. CLINICAL INFORMATION: Call back from screening for focal asymmetry adjacent tissue marker clip from previous benign needle core biopsy in the left breast. COMPARISON: Mammography: Priors on PACS. TECHNIQUE: Digital breast tomosynthesis is performed in both the craniocaudal and mediolateral oblique views along with computer-aided detection (CAD). Synthesized 2D images are generated from the tomosynthesis. FINDINGS: There are scattered areas of fibroglandular density (ACR BI-RADS breast composition Category b). Post excisional biopsy and debridement changes are stable. Circumscribed oval mass persists on additional imaging projections adjacent to marker clip from previous benign needle core biopsy and 2020. No suspicious calcifications or other abnormal findings. Targeted color Doppler ultrasound scanning in the left breast demonstrates a probable minimally complicated cyst at 9:00 10 cm from nipple measuring 5 x 4 x 2 mm this correlates with the circumscribed oval mass on mammography. Otherwise scanning in the lower inner quadrant demonstrates normal fibronodular breast tissue. MM/MM tomosynthesis added views L IMPRESSION: Left: Probable minimally complicated cyst at 9:00 10 cm from the nipple correlating with the circumscribed oval mass seen on mammography. Probably benign. Recommend 6 month follow-up ultrasound for further evaluation of stability. ASSESSMENT: BI-RADS BI-RADS 3 - Probably benign finding(s) - 6 month follow-up suggested RECOMMENDATION: 6 Month F/U Results were provided to the patient at time of visit by the technologist. This patient's information was entered into a reminder system with a target due date for their next mammogram. Electronically signed by: Aracelis Kincaid DO 05/03/2025 02:05 PM EDT Dictated By: Aracelis Kincaid DO Signed By: <Electronically signed by Aracelis Kincaid DO in OV> 05/03/25 1405 DD/ 1200 TD/TT: 05/03/25 1230 Etl [employer] Developer: us Manjula Ross MD IMG BI PROCEDURES Final Result * BI US Breast Limited Left (05/03/2025 11:26 AM EDT) Anatomical Region Laterality Modality Breast Left Ultrasound 05/03/2025 11:2 6 AM EDT Narrative 05/03/2025 2:08 PM EDT [facility] [address] [place] [address] Ultrasound Report Signed Patient: Janneth Jenkins MR#: [id number] : 1950 Acct:[id number] Age/Sex: 75 / F ADM Date: 05/03/25 Loc: HO.MAMMO Attending Dr: Manjula Ross MD Ordering Physician: Manjula Ross Date of Service: 05/03/25 Procedure(s): US breast LT limited mamm only Accession Number(s): [id number] cc: Manjula Ross EXAMINATION: MM DIAGNOSTIC DIGITAL BREAST TOMOSYNTHESIS, LEFT Limited left breast ultrasound. CLINICAL INFORMATION: Call back from screening for focal asymmetry adjacent tissue marker clip from previous benign needle core biopsy in the left breast. COMPARISON: Mammography: [facility] on PACS. TECHNIQUE: Digital breast tomosynthesis is performed in both the craniocaudal and mediolateral oblique views along with computer-aided detection (CAD). Synthesized 2D images are generated from the tomosynthesis. FINDINGS: There are scattered areas of fibroglandular density (ACR BI-RADS breast composition Category b). Post excisional biopsy and debridement changes are stable. Circumscribed oval mass persists on additional imaging projections adjacent to marker clip from previous benign needle core biopsy and 2020. No suspicious calcifications or other abnormal findings. Targeted color Doppler ultrasound scanning in the left breast demonstrates a probable minimally complicated cyst at 9:00 10 cm from nipple measuring 5 x 4 x 2 mm this correlates with the circumscribed oval mass on mammography. Otherwise scanning in the lower inner quadrant demonstrates normal fibronodular breast tissue. US/US breast LT limited mamm only IMPRESSION: Left: Probable minimally complicated cyst at 9:00 10 cm from the nipple correlating with the circumscribed oval mass seen on mammography. Probably benign. Recommend 6 month follow-up ultrasound for further evaluation of stability. ASSESSMENT: BI-RADS BI-RADS 3 - Probably benign finding(s) - 6 month follow-up suggested RECOMMENDATION: 6 Month F/U Results were provided to the patient at time of visit by the technologist. This patient's information was entered into a reminder system with a target due date for their next mammogram. Electronically signed by: Aracelis Kincaid DO 05/03/2025 02:05 PM EDT Dictated By: Aracelis Kincaid DO Signed By: <Electronically signed by Aracelis Kincaid DO in OV> 05/03/25 1405 DD/ 1126 TD/TT: 05/03/25 1248 Etl [employer] Developer: Procedure Note Donotuseinterpreter, Image - 05/03/2025 [facility] [address] [place], [place] [address] Ultrasound Report Signed Patient: Janneth Jenkins#: [id number] : 1950cct:[id number] Age/Sex: 75 / FADM Date: 05/03/25 Loc: HO.MAMMO Attending Dr: Manjula Ross MD Ordering Physician: Manjula Ross Date of Service: 05/03/25 Procedure(s): US breast LT limited mamm only Accession Number(s): [id number] cc: Manjula Ross EXAMINATION: MM DIAGNOSTIC DIGITAL BREAST TOMOSYNTHESIS, LEFT Limited left breast ultrasound. CLINICAL INFORMATION: Call back from screening for focal asymmetry adjacent tissue marker clip from previous benign needle core biopsy in the left breast. COMPARISON: Mammography: Priors on PACS. TECHNIQUE: Digital breast tomosynthesis is performed in both the craniocaudal and mediolateral oblique views along with computer-aided detection (CAD). Synthesized 2D images are generated from the tomosynthesis. FINDINGS: There are scattered areas of fibroglandular density (ACR BI-RADS breast composition Category b). Post excisional biopsy and debridement changes are stable. Circumscribed oval mass persists on additional imaging projections adjacent to marker clip from previous benign needle core biopsy and 2019. No suspicious calcifications or other abnormal findings. Targeted color Doppler ultrasound scanning in the left breast demonstrates a probable minimally complicated cyst at 9:00 10 cm from nipple measuring 5 x 4 x 2 mm this correlates with the circumscribed oval mass on mammography. Otherwise scanning in the lower inner quadrant demonstrates normal fibronodular breast tissue. US/US breast LT limited mamm only IMPRESSION: Left: Probable minimally complicated cyst at 9:00 10 cm from the nipple correlating with the circumscribed oval mass seen on mammography. Probably benign. Recommend 6 month follow-up ultrasound for further evaluation of stability. ASSESSMENT: BI-RADS BI-RADS 3 - Probably benign finding(s) - 6 month follow-up suggested RECOMMENDATION: 6 Month F/U Results were provided to the patient at time of visit by the technologist. This patient's information was entered into a reminder system with a target due date for their next mammogram. Electronically signed by: Aracelis Kincaid DO 05/03/2025 02:05 PM EDT Dictated By: Aracelis Kincaid DO Signed By: <Electronically signed by Aracelis Kincaid DO in OV> 08/14/25 1405 DD/ 1126 TD/TT: 05/03/25 1248 Etl [employer] Developer: us Manjula Ross MD [facility] PROCEDURES Final Result documented in this encounter Visit Diagnoses Not on filedocumented in this encounter Additional Health Concerns Assessment Noted Time PHQ-9 Depression Total Score: 0 01/17/20 10:17 AM EDT documented as of this encounter Care Teams Field Artillery Targeting Technician Relationship Specialty Start Date End Date Manjula Ross MD [address] [place] [address] [place] [address] PCP - General Family Medicine 08/10/22 [place] LONG 07/17/24 documented as of this encounter
--- OUTSIDE RECORDS SUMMARY | 2025-07-03 13:53 | XMS_ITS | Encounter Summary ---
Author Organization [employer] Address [address] [facility] 7[address] [place] [address] Care Team Providers Care Handyperson Name Role Phone Manjula Ross MD Primary Care Provider [phone] Reason for Visit * Reason Comments Med Refill Encounter Details Date Type Department Care Team ([facility] st Contact Info) Description 03/21/2024 Refill [facility] [address] [place], [place] [phone] Manjula Ross MD [address] [place], [place] [phone] Social History Tobacco Use Types Packs/Day Years [...] documented as of this encounter Care Teams Handyperson Relationship Specialty Start Date End Date Manjula Ross MD [address] [place] [id number] PCP - General Family Medicine 08/10/22 [place] Phillip 07/17/24 documented as of this encounter
--- OUTSIDE RECORDS SUMMARY | 2025-07-03 13:53 | XMS_ITS | Encounter Summary ---
Author Organization [employer] Address [address] [facility] 7t [place] [address] Care Team Providers Care Warehouse Driver Name Role Phone Manjula Ross MD Primary Care Provider [phone] Reason for Visit * Reason Onset Date Comments Hospital Follow-up 07/17/2024 Encounter Details Date Type Department Care Team ([facility] st Contact Info) Description 07/17/2024 Telephone [facility] MED[facility]INE [address] [place], [place] [phone] Manjula Ross MD [address] [place], [place] [phone] Hospital Follow-up Social History Tobacco Use Types [...] encounter Miscellaneous Notes * Telephone Encounter - Genesis Garcia - 07/17/2024 11:59 AM EDT Tc from Katie yoder requesting a HDF appt. [place] [facility] [place] Date of admission: 07/10/24 Discharge date: 07/15/24 Diagnosed: cyst underneath breast and had surgery documented in this encounter Plan of Treatment Not on file documented as of this encounter Visit Diagnoses Not on filedocumented in this encounter Additional Health Concerns Assessment Noted Time PHQ-9 Depression Total Score: 0 01/17/20 10:17 AM EDT documented as of this encounter Care Teams Warehouse Driver Relationship Specialty Start Date End Date Manjula Ross MD [address] [place] [id number] PCP - General Family Medicine 08/10/22 [place] [facility] 07/17/24 documented as of this encounter
--- OUTSIDE RECORDS SUMMARY | 2025-07-03 13:53 | XMS_ITS | Encounter Summary ---
Author Organization [employer] Address [address] [facility] 7t [place] [address] Care Team Providers Care Emg Technician Name Role Phone Manjula Ross MD Primary Care Provider [phone] Reason for Visit * Reason Comments Med Refill Encounter Details Date Type Department Care Team ([facility] st Contact Info) Description 04/19/[address] [facility] [address] [place], [place] [phone] Manjula Ross MD [address] [place], [place] [phone] [employer] Social History Tobacco Use Types Packs/Day Years [...] as of this encounter Visit Diagnoses Diagnosis [employer] Other specified erythematous condition documented in this encounter Additional Health Concerns Assessment Noted Time PHQ-9 Depression Total Score: 0 01/17/20 24 10:17 AM EDT documented as of this encounter Care Teams Emg Technician Relationship Specialty Start Date End Date Manjula Ross MD [address] [place] [address] PCP - General Family Medicine 08/10/22 [place] [facility] 07/17/24 documented as of this encounter
--- OUTSIDE RECORDS SUMMARY | 2025-07-03 13:53 | XMS_ITS | Clinical Summary ---
Author Organization [employer] Address [address] [place] [address] Care Team Providers Care Sole Ruffer Name Role Phone Manjula Ross MD Primary Care Provider [phone] Allergies No known active allergies Medications clonazePAM (KlonoPIN) 1 MG tablet Take 1 tablet by mouth in the morning and 1 tablet in the evening. Active mirtazapine (Remeron) 15 MG tablet Take 15 mg by mouth at bedtime. 022 Active Incruse Ellipta 62.5 MCG/ACT aerosol powder 023 Active venlafaxine XR (Effexor XR) 75 MG 24 hr capsule Take 75 mg by mouth in the morning. 022 Active Menthol-Methyl Salicylate (Muscle Rub) 10-15 % creamIndication s:Low back pain of over 3 months duration Apply 2 g topically if needed in the morning, at noon, and at bedtime (pain). 85 g 3 023 Active Combivent Respimat 20-100 MCG/ACT inhaler INHALE 1 PUFF BY MOUTH EVERY 4 TO 6 HOURS NEEDED FOR WHEEZE 4 g 11 023 Active cetirizine (ZyrTEC) 10 MG tablet TAKE 1 TABLET BY MOUTH EVERY DAY IN THE MORNING 90 tablet 3 024 Active metFORMIN (Glucophage) 500 MG tablet TAKE 1 TABLET BY MOUTH EVERY DAY WITH EVENING MEAL 90 tablet 3 024 Active hydrocortisone 2.5 % cream MIX WITH ECONAZOLE CREAM AND APPLY TO AREA UNDER BREASTS TWICE DAILY. 28 g 024 Active albuterol (2.5 MG/3ML) 0.083% nebulizer solutionIndicat ions:Mild persistent asthma without complication USE 1 VIAL BY NEBULIZATION IF NEEDED IN THE MORNING, AT NOON, IN THE EVENING, AND AT BEDTIME FOR WHEEZING OR SHORTNESS OF BREATH. 75 mL 11 024 Active Fluticasone Furoate-Vilante rol 200-25 MCG/ACT aerosol powder Take 1 puff by mouth Once daily. 024 Active ammonium lactate (Lac-Hydrin) 12 % lotion APPLY TOPICALLY IF NEEDED FOR DRY SKIN. 225 mL 025 Active tacrolimus (Protopic) 0.03 % ointment APPLY TOPICALLY TO THE FACE TWICE A DAY 60 g 025 Active Wixela Inhub 250-50 MCG/ACT aerosol powder take 1 puff by mouth twice a day Active triamcinolone (Kenalog) 0.025 % cream APPLY TO AFFECTED AREA TWICE A DAY 80 g 3 025 Active Aspirin Low Dose 81 MG EC tablet TAKE 1 TABLET (81 MG) BY MOUTH IN THE MORNING 90 tablet 3 025 Active econazole nitrate 1 % cream APPLY TOPICALLY 2 TIMES DAILY. MIX WITH HYDROCORTISONE CREAM+APPLY TO AREA UNDER BREASTS TWICE DAILY 30 g 2 025 Active ketoconazole (NIZOral) 2 % shampooIndicati ons:Seborrheic dermatitis WASH SCALP THREE TIMES PER WEEK 120 mL 1 025 Active Fluocinolone Acetonide Scalp 0.01 % oilIndications: Seborrheic dermatitis MASSAGE INTO DAMP SCALP DAILY. COVER HAIR AND LEAVE ON FOR AT LEAST 4 HOURS 118.28 mL 025 Active hydrocortisone 2.5 % cream APPLY TO AREAS WHERE TAPE/ADHESIVE HAS BEEN 56 g 025 Active ibuprofen 800 MG tablet TAKE 1 TABLET BY MOUTH THREE TIMES A DAY 90 tablet 3 025 Active nystatin (Mycostatin) 805223 UNIT/GM powder APPLY TOPICALLY 2 TIMES DAILY. APPLY DAILY AFTER SHOWER 60 g 025 Active Tirzepatide (Mounjaro) 2.5 MG/0.5ML solution auto-injectorIn dications:Type 2 diabetes mellitus with diabetic dermatitis, without long-term current use of insulin (HCC) Inject 2.5 mg under the skin 1 (one) time per week. 2 mL 3 025 Active predniSONE (Deltasone) 10 MG tabletIndicatio ns:Centrilobula r emphysema (HCC) Take 2 tablets (20 mg) by mouth Once per day. 30 tablet 025 Active predniSONE (Deltasone) 10 MG tablet TAKE 1 TABLET BY MOUTH EVERY DAY 30 tablet 025 2024 Discontinued(R eorder (will not trigger notification to Pharmacy)) Active Problems Problem Noted Date Diagnosed Date Type 2 diabetes mellitus wit h diabetic dermatitis, without long-term current use of insulin 06/27/2025 Stress incontinence 03/07/2025 Urge incontinence 03/07/2025 Seborrheic dermatitis 01/17/2024 Assessment & Plan (01/08/2025 1:10 PM EDT): Periodic pulsed prednisone (10mg x 3-5 days0 Steroid creams Assessment & Plan (03/22/2024 10:48 AM EDT): Prednisone 10mg reserved for severe flares Continue steroid-sparing creams to lesions Stable, controlled today Assessment & Plan (02/14/2024 11:00 AM EDT): Prednisone 10mg x 5-10 days Continue steroid-sparing creams to lesions Assessment & Plan (01/17/2024 10:59 AM EDT): Continue ketoconazole shampoo Switch to picrolimus cream for steroid sparing 5-10 days of low dose oral prednisone Fungal infection of skin 01/17/2024 Assessment & Plan (01/08/2025 1:10 PM EDT): Keep skin clear and dry under breasts and intertriginous areas Assessment & Plan (03/22/2024 10:48 AM EDT): Completed course of terbinafine 250mg x 14 days Continuing to use topical antifungal creams daily Stable, improved and able to tolerate mammogram Assessment & Plan (02/14/2024 11:01 AM EDT): Terbinafine 250mg x 14 days for under breast candidiasis, mammogram scheduled for February 2024 Assessment & Plan (03/07/2024 3:45 PM EDT): Under her breasts bilaterally, order InterDry cloths to keep skin dry and wick moisture away Fungal cream and powder BID to fight infection DCIS (ductal carcinoma in situ) 12/22/2023 Assessment & Plan (01/08/2025 1:11 PM EDT): Q 6 months followups with onc Assessment & Plan (02/14/2024 10:59 AM EDT): Due for repeat mammogram and needs clearer skin in order for mammogram to be performed Assessment & Plan (01/17/2024 10:59 AM EDT): With radiation to R breast, has has problems with infections under breast ever since then Visit for review of DEXA scan 07/02/2023 Overview (07/02/2023): 06/2023 DIAGNOSIS: Normal bone density based on the lowest T-score value of -0.6 in the femoral neck applying World Health Organization criteria. 2. 10-YEAR FRACTURE RISK PREDICTION, FRAX: According to the guidelines, FRAX calculation should only be performed on patients in the osteopenia bone density category. Therefore, FRAX was not performed on this patient. Preprocedural examination 06/09/2023 Colon cancer screening 06/09/2023 Assessment & Plan (01/08/2025 1:11 PM EDT): Cologuard 06/2023 NEG Assessment & Plan (06/11/2023 12:57 PM EDT): Will attempt again in 1-2 months Low back pain of over 3 months duration 10/29/19 Assessment & Plan (01/08/2025 1:11 PM EDT): Ambulate with walker NSAIDs prn Assessment & Plan (10/11/2023 9:22 AM EST): Recommend against Tramadol use with COPD and thrice daily benzo Continue Ibuprofen 800mg, resent Not able to attend PT out of house, ordered in home Not interested in injections or surgeries, even if they were offered to her Declines chronic pain group visits, will consider when it is warmer Assessment & Plan (02/08/2023 9:16 AM EDT): Recommend against Tramadol use with COPD and thrice daily benzo Trial Celebrex along with muscle rub, not helpful, prefers Ibuprofen 800mg, resent Not able to attend PT out of house, ordered in home Not interested in injections or surgeries, even if they were offered to her Assessment & Plan (10/29/2022 11:58 AM EST): Recommend against Tramadol use with COPD and thrice daily benzo Trial Celebrex along with muscle rub Not able to attend Out of house, ordered in home Not interested in injections or surgeries, even if they were offered to her Mitral valve regurgitation 09/26/2018 Cyst of breast 08/23/2018 Plantar fasciitis 08/23/2018 Prediabetes 08/23/2018 Assessment & Plan (04/19/2024 2:09 PM EDT): On Metformin 500mg XR daily Lab Results Component Value Date HGBA1C 5.8 11/12/2023 HGBA1C 6.6 (A) 06/11/2023 The 10-year ASCVD risk score (Ann FLORES, et al., 2019) is: 9.1% Values used to calculate the score: Age: 74 years Sex: Female Is Non- : No Diabetic: No Tobacco smoker: No Systolic Blood Pressure: 104 mmHg Is BP treated: No HDL Cholesterol: 39 mg/dL Total Cholesterol: 205 mg/dL Morbid obesity (CMS/HCC) 03/02/2018 Assessment & Plan (01/08/2025 1:09 PM EDT): See impaired fasting glucose Consider GLP1 agonists Assessment & Plan (10/29/2022 11:52 AM EST): Manage as best as possible with diet Little possibility to exercise Polycythemia vera 01/21/2015 Assessment & Plan (06/11/2023 12:57 PM EDT): Check CBC for recent hemoglobin Impaired fasting glucose 02/21/2013 Assessment & Plan (01/08/2025 1:09 PM EDT): Continue to manage with diet and metformin Mixed anxiety and depressive disorder 08/16/2012 Assessment & Plan (10/29/2022 11:52 AM EST): Sees Rayas Padron for med mgmt Taking Klonipin 1mg three times daily Lymphedema 03/16/2012 Chronic obstructive lung disease 03/08/2012 Assessment & Plan (01/08/2025 1:09 PM EDT): Continue current regimen F/u with pulm every 4-6 months Continue to stay away from cigarettes Weight loss would help with her ease of breathing Assessment & Plan (06/16/2024 3:17 PM EDT): With current exacerbation Prednisone 40mg daily x 5 days Warning signs/symptoms for ED Assessment & Plan (02/14/2024 11:01 AM EDT): At baseline for now Declines sleep study Using 2-4L O2 at night Continue Wixela Assessment & Plan (10/11/2023 9:21 AM EST): At baseline for now Declines sleep study Using 2L O2 at night Continue Wixela Assessment & Plan (06/11/2023 12:57 PM EDT): With increased cough, sputum production, and dyspnea Doxy x 7 days, prednisone x 5 days Assessment & Plan (02/08/2023 9:15 AM EDT): On Wixela, Combivent, Incrusa Managed by pulm Quit smoking years ago Nighttime O2 at 2L, would like to try mask Has not started home PT for deconditioning and severe COPD Add allergy medication, Zyrtec for potential exacerbation by allergens Assessment & Plan (10/29/2022 11:51 AM EST): On Wixhoney, Regina Cotto Managed by pulm Quit smoking years ago Nighttime O2 at 2L, would like to try mask Will order home PT for deconditioning and severe COPD Encounters Date Type Department Care Team Description 06/27/2025 3:00 PM EDT Office Visit [facility] [address] [place] [address] Manjula Ross MD Type 2 diabetes mellitus with diabetic dermatitis, without long-term current use of insulin (HCC) (Primary Dx); Stress incontinence; Morbid obesity (CMS/HCC) (HCC); Mixed anxiety and depressive disorder; Low back pain of over 3 months duration; Seborrheic dermatitis; Ductal carcinoma in situ (DCIS) of right breast; Centrilobular emphysema ([facility]); Nonrheumatic mitral valve regurgitation; Encounter for immunization 06/27/2025 Travel 06/26/2025 Telephone [facility] [address] [place] [address] Manjula Ross MD chart prep 06/01/2025 Refill [facility] [address] [place] [address] Manjula Ross MD 05/30/2025 Refill [facility] [address] [place] [address] Manjula Ross MD 05/02/2025 Refill [facility] [address] [place] [address] Manjula Ross MD Seborrheic dermatitis 04/20/2025 Refill [facility] [address] [place] [address] Manjula Ross MD 04/04/2025 Orders Only [facility] [address] [place] [address] Manjula Ross MD 04/04/2025 Refill [facility] [address] [place] [address] Manjula Ross MD from Last 3 Months Immunizations Immunization Administration Dates Next Due Influenza High-dose Quadriva lent Preservative Free 06/11/2022,07/30/2021 Influenza injectable quadriv alent IIV4 with preservative 09/01/2017 Influenza injectable quadriv alent preservative free 06/29/2019,08/15/2018,06/15/2017,11/25 Influenza, High Dose Seasona l, Preservative Free 06/27/2025 Influenza, IIV3, injectable 07/07/2022,1 10/10/2013,07/21/2011,05/20,07/28/2002,07/26/2000 Influenza, Split (incl. prakash fied surface antigen) 07/13/2013,08/16/2012 Influenza, seasonal, injecta ble, preservative free 07/09/2016 Moderna Covid-19 Vaccine 12+ 12/01/2021,03/31/20 21,03/03/2021 Pneumococcal Conjugate PCV 13 05/13/2021 Pneumococcal Conjugate PCV 20 06/11/2022 Pneumococcal Polysaccharide PPSV23 04/16/2000 TD (adult), 2 Lf tetanus tox oid, preservative free, adsorbed 04/16/2000 Tdap 03/16/2012 Zoster, live 08/10/2014 Social History Tobacco Use Types Packs/Day Years Used Date Smoking Tobacco: Former Cigarettes Q uit: 01/05/2022 Passive Smoke Exposure: Past Smokeless Tobacco: Never Tobacco Cessation:Counseling Given: Not Answered Alcohol Use Standard Drinks/Week Comments Never 0 [...] Answer Date Recorded Patient Health Questionnaire-9 Score 3 06/27/2025 Patient Health Questionnaire-9 Score 3 06/27/2025 Last PHQ-9: Questionnaire Data Not on file 1 Housing Stability Answer Date Recorded What is [...] the past 12 months, has t he [employer], gas, oil or water [employer] threatened to shut off services in your home? No 12/28/2024 Depression Answer Date Recorded Patient Health Questionnaire-2 Score 1 06/27/2025 Internet Access Answer Date Recorded Internet Access Q1 Yes 12/28/2024 Internet Access Q2 Not on file 12/28/2024 Comments Unknown Sex and Gender Information Value Date Recorded Sex Assigned at Female 07/20/2022 10:14 AM EDT Legal Sex Female 10:14 AM EDT Gender Identity Female 07/20/2022 10:14 AM EDT Sexual Orientation Straight 07/20/2022 10 :14 AM EDT Last Filed Vital Signs Vital Sign Reading Time Taken Comments Blood Pressure 150/80 06/27/2025 3:08 PM EDT Pulse 62 06/27/2025 3:08 PM EDT Temperature 36.6 C (97.9 F) 06/27/2025 3:08 PM EDT Respiratory Rate 18 06/27/2025 3:08 PM EDT Oxygen Saturation 94% 01/05/2025 3:29 PM EDT Inhaled Oxygen Concentration - - Weight 113 kg (249 lb 9.6 oz) 06/27/2025 3:08 PM EDT Height 157.5 cm (5' 2 ) 06/27/2025 3:08 PM EDT Body Mass Index 45.65 06/27/2025 3:08 PM EDT Plan of Treatment Health Maintenance Due Date Last Done Comments CT Colonography 1950 Colonoscopy 1950 FIT 1950 FOBT 1950 Sigmoidoscopy 1950 Diabetes: Foot Exam 1961 Eye Exam 1961 Hepatitis C Screening 1969 Diabetes: Urine Protein Screening 1970 RSV Patients and Patients Aged 60 years or older (1 - Risk 60-74 years 1-dose series) 2011 Zoster Vaccines (2 of 3) 10/05/2014 08/10/2014 DTaP/Tdap/Td Vaccines (2 - Td or Tdap) 03/16/2022 03/16/2012, 04/16/2000 Lipid Panel 06/11/2024 06/11/2023 COVID-19 Vaccine ( season) 2025 12/01/2021, 03/31/2021, 03/03/2021 Diagnostic Breast Imaging 11/03/20252024, 07/10/2024, 04/27/2024, Additional history exists Mammogram 11/03/2025 05/03/2025, 0703/2025, 07/10/2024, Additional history exists Diabetes: Hemoglobin A1C 12/26/2025 025, 11/12/2023, 06/11/2023 SDOH Screening 12/28/2025 12/28/2024 Alcohol/Substance Use Screening 01/05/2026 01/05/2025 Colorectal Cancer Screening 06/20/2026 FIT DNA/Cologuard 06/20/2026 06/20/2023 Depression Screening 06/27/2026 06/27/2025, 06/27/20 25 Tobacco Screening 06/27/2026 06/27/2025 Pneumococcal Vaccine: 50+ Years Completed 06/11/2022, 05/13/2021, 04/16/2000 Influenza Vaccine Completed 06/27/2025, , 06/11/2022, Additional history exists HIB Vaccines Aged Out No longer eligi ble based on patient's age to complete this topic HPV Vaccines Aged Out No longer eligi ble based on patient's age to complete this topic Hepatitis A Vaccines Aged Out No long er eligible based on patient's age to complete this topic Hepatitis B Vaccines Aged Out No long er eligible based on patient's age to complete this topic IPV Vaccines Aged Out No longer eligi ble based on patient's age to complete this topic Meningococcal B Vaccine Aged Out No l onger eligible based on patient's age to complete this topic Meningococcal Vaccine Aged Out No kishore rony eligible based on patient's age to complete this topic RSV under 20 months Aged Out No longe r eligible based on patient's age to complete this topic Rotavirus Vaccines Aged Out No longer eligible based on patient's age to complete this topic Procedures Procedure Name Priority Date/Time Associated Diagnosis Comments CBC WITH AUTO DIFFERENTIAL Routine 07/03/2025 12:12 PM EDT Morbid obesity (CMS/HCC) (HCC) Type 2 diabetes mellitus with diabetic dermatitis, without long-term current use of insulin (HCC) POCT GLYCATED HEMOGLOBIN, TOTAL Routine 06/27/2025 3:26 PM EDT Type 2 diabetes mellitus with diabetic dermatitis, without long-term current use of insulin (HCC) POCT GLUCOSE Routine 06/27/2025 3:09 PM EDT Type 2 diabetes mellitus with diabetic dermatitis, without long-term current use of insulin (HCC) BI MAMMOGRAM DIAGNOSTIC TOMOSYNTHESIS ADDED VIEW LEFT Routine 05/03/2025 12:00 PM EDT BI US BREAST LIMITED LEFT Routine 05/03/2025 11:26 AM EDT COLOGUARD COLON CANCER SCREENING (EXTERNAL RESULTS ONLY) Routine 06/20/2023 9:31 AM EDT LIPID PANEL, STANDARD Routine 06/11/2023 11:46 AM EDT Prediabetes from Last 3 Months or Most Recently Relevant to Health Maintenance Results * (ABNORMAL) CBC auto differential (07/03/2025 12:12 PM EDT) White Blood Count 10.8 4.8 - 10.8 X10*3/uL [facility] Red Blood Count 4.15(L) 4.20 - 5.50 X10*6/uL [facility] Hemoglobin 10.8(L) 12.0 - 16.0 g/dl [facility] Hematocrit 36.6(L) 37.0 - 47.0 % [facility] Mean Corpuscular Volume 88.2 80.0 - 98.0 fL [facility] Mean Corpuscular Hemoglobin 26.0(L) 27.0 - 33.0 pg [facility] Mean Corpuscular HGB Conc 29.5(L) 31.0 - 35.0 g/dl [facility] Red Cell Distribution Width 14.4 11.0 - 16.0 % [facility] Platelet Count 321 160 - 400 X10*3/uL [facility] Mean Platelet Volume 8.9(L) 9.4 - 12.3 fL [facility] Neutrophils Percent Auto 81.8(H) 45 - 73 % [facility] Imm Gran Pct Auto 0.5(H) 0.0 - 0.4 % [facility] Lymphocytes Percent Auto 12.6(L) 20 - 40 % [facility] Monocytes Percent Auto 3.8 2 - 11 % [facility] Eosinophils Percent Auto 1.0 0 - 4 % [facility] Basophils Percent Auto 0.3 0 - 2 % [facility] NRBC Pct Auto 0.0 0.0 - 0.2 /100WBC [facility] Neutrophils Absolute Auto 8.9(H) 2.0 - 8.3 x10*3/uL [facility] Imm Gran Abs Auto 0.05(H) 0.00 - 0.03 X10*3/uL [facility] Lymphocytes Absolute Auto 1.4 1.2 - 4.9 X10*3/uL [facility] Monocytes Absolute Auto 0.4 0.1 - 1.2 X10*3/uL [facility] Eosinophils Absolute Auto 0.1 0.0 - 0.4 X10*3/uL [facility] Basophils Absolute Auto 0.0 0.0 - 0.2 X10*3/uL [facility] NRBC Abs Auto 0.000 0.0 - 0.012 X10*3/uL [facility] Blood Venous blood specimen / Unknown 07/03/2025 12:12 PM EDT 07/03/2025 1:14 PM EDT us Manjula Ross MD LAB BLOOD ORDERABLES Final Res ult [facility] [address] [place] [phone] * (ABNORMAL) POCT Hgb A1c (06/27/2025 3:26 PM EDT) Hemoglobin A1C 6.6(A) 4.0 - 5.7 % QC Media Lot # [id number] Lot# Expiration Date Blood 06/27/2025 3:26 PM EDT us Manjula Ross MD POINT OF CARE TEST ENTER/EDIT ORDERABLES Final Result * POCT Glucose (06/27/2025 3:09 PM EDT) Glucose Blood, POC 178 60 - 200 mg/dL QC Media Lot # [id number] Lot# Expiration Date Blood Capillary blood specimen / Unknown 06/27/2025 3:09 PM EDT us Manjula Ross MD POINT OF CARE TEST ENTER/EDIT ORDERABLES Final Result * BI Mammogram Diagnostic Tomosynthesis added left (05/03/2025 12:00 PM EDT) Anatomical Region Laterality Modality Breast Left Mammography 05/03/2025 12:0 0 PM EDT Narrative 05/03/2025 2:08 PM EDT [facility] [address] [place] [address] Mammography Report Signed Patient: Janneth Jenkins MR#: [id number] : 1950 Acct:[id number] Age/Sex: 75 / F ADM Date: 05/03/25 Loc: HO.MAMMO Attending Dr: Manjula Ross MD Ordering Physician: Manjula Ross Results: 3.6MProba justa Benign Finding - Short 6 M F/U Suggested Date of Service: 05/03/25 Follow Up: 6 Month F/U Procedure(s): MM tomosynthesis added views L Accession Number(s): [id number] cc: Manjula Ross EXAMINATION: MM DIAGNOSTIC DIGITAL [...] 05/03/25 1405 DD/ 1200 TD/TT: 05/03/25 1230 Business Analytics Specialist: Procedure Note Donotuseinterpreter, Image - 05/03/2025 [facility] [address] [place] [address] Mammography Report Signed Patient: Sheela Jenkins#: [id number] : 1950cct:[id number] Age/Sex: 75 / FADM Date: 05/03/25 Loc: HO.MAMMO Attending Dr: Manjula Ross MD Ordering Physician: Sajan Rossults: 3.6MProba justa Benign Finding - Short 6 M F/U Suggested Date of Service: 05/03/25Follow Up: 6 Month F/U Procedure(s): MM tomosynthesis added views L Accession Number(s): [id number] cc: Manjula Ross EXAMINATION: MM DIAGNOSTIC DIGITAL [...] 05/03/25 1405 DD/ 1200 TD/TT: 05/03/25 1230 Business Analytics Specialist: us Manjula Ross MD IMG BI PROCEDURES Final Result * BI US Breast Limited Left (05/03/2025 11:26 AM EDT) Anatomical Region Laterality Modality Breast Left Ultrasound 05/03/2025 11:2 6 AM EDT Narrative 05/03/2025 2:08 PM EDT [facility] [place] [address] Ultrasound Report Signed Patient: Janneth Jenkins MR#: [id number] : 1950 Acct:[id number] Age/Sex: 75 / F ADM Date: 05/03/25 Loc: HO.MAMMO Attending Dr: Manjula Ross MD Ordering Physician: Manjula Ross Date of Service: 05/03/25 Procedure(s): US breast LT limited mamm only Accession Number(s): [id number] cc: Manjula Ross EXAMINATION: MM DIAGNOSTIC DIGITAL [...] 05/03/25 1405 DD/ 1126 TD/TT: 05/03/25 1248 Business Analytics Specialist: Procedure Note Donotuseinterpreter, Image - 05/03/2025 [facility] [address] [place] [address] [place] [address] Ultrasound Report Signed Patient: Janneth JenkinsMR#: [id number] : 1Acct:[id number] Age/Sex: 75 / FADM Date: 05/03/25 Loc: HO.MAMMO Attending Dr: Manjula Ross MD Ordering Physician: Manjula Ross Date of Service: 05/03/25 Procedure(s): US breast LT limited mamm only Accession Number(s): [id number] cc: Manjula Ross EXAMINATION: MM DIAGNOSTIC DIGITAL [...] by Aracelis Kincaid DO in OV> 05/03/25 140 DD/ 1126 TD/TT: 05/03/25 1248 Business Analytics Specialist: Manjula Ross MD G US PROCEDURES Final Result * Cologuard Cancer Screening (External Result Only) (06/20/2023 9:31 AM EDT) Cologuard Cancer Screen Negative Stool (Rectum) 06/20/2023 9: 31 AM EDT Historical Provider POINT OF CARE TEST ENTER/ EDIT ORDERABLES Final Result * (ABNORMAL) Lipid Panel, Standard (06/11/2023 11:46 AM EDT) Triglycerides 185(H) <150 mg/dL [facility] Comment:Desirable Triglyceri de: less than 150 mg/dLBorderline High Triglyceride 150-199 mg/dLHigh Triglyceride: 200-499 mg/dLVery High Triglyceride: greater than or equal to 5OO mg/dL Cholesterol 205(H) <200 mg/dL [facility] Comment:Desirable Cholestero l: less than 200 mg/dLBorderline High Cholesterol: 200-239 mg/dLHigh Cholesterol: greater than 239 mg/dL LDL Cholesterol Calculated 129(H) <100 mg/dL [facility] Comment:Desirable LDL: less than 100 mg/dLNear Optimal/Above Optimal LDL: 110- 129 mg/dLBorderline High LDL: 130-159 mg/dLHigh LDL: 160-189 mg/dLVery High LDL: greater than or equal to 190 mg/dL HDL Cholesterol 39(L) >40 mg/dL [facility] Comment:Desirable HDL: great er than 40 mg/dL Note: This HDL assay may give artificially low results in patients with liver disease. Blood Venous blood specimen / Unknown 06/11/2023 11:46 AM EDT 06/11/2023 1:06 PM EDT Manjula Ross MD LAB BLOOD ORDERABLES Final Res ult [facility] [address] [place] [phone] from Last 3 Months or Most Recently Relevant to Health Maintenance [facility] USP OPTIONS (HMO D-SNP) Care Teams Sole Ruffer Relationship Specialty Start Date End Date Manjula Ross MD [address] [place] [phone] PCP - General Family Medicine 08/10/22 [facility] 07/17/24
--- OUTSIDE RECORDS SUMMARY | 2025-07-03 13:53 | XMS_ITS | Patient Health Record ---
Author Organization [facility] Address [address] [place] [address] Care Team Providers Care Interstate Planner Name Role Phone Manjula Ross M.D. Primary Care Provider Lawrence Jones Unavailable [phone] Familia Lacy Unavailable Unavailable Allergies No Known Allergies Reason For Referral No Information Medications Medication SIG (Take, Route, Frequency, Duration) Notes Start Date End Date Status Dulcolax (colon prep) 5 MG take at 3:00 p.m and 7:00p.m. Orally two tablets twice a day for one day; Duration: 1 day 03/19/2023 Active MiraLax (colon prep) 17 GM/SCOOP 1 238GM bottle mixed with Gatorade or Crystal Light Orally begin at 5:00 p.m. the day before the procedure; Duration: 1 day 03/19/2023 Active clonazePAM 1 MG TAKE 1 TABLET BY TWICE A DAY NEEDED FOR SEVERE ANXIETY AND PANIC DISORDER. Oral; Duration: 30 Active Mirtazapine 15 MG Oral; Duration: 90 Active Wixela Inhub 250-50 MCG/ACT INHALE 1 PUF F BY MOUTH TWICE A DAY Inhalation; Duration: 30 Active Combivent Respimat 20-100 MCG/ACT INHALE 1 PUFF BY MOUTH EVERY 4 TO 6 HOURS NEEDED FOR WHEEZE Inhalation; Duration: 30 Active Cetirizine HCl 10 MG Oral; Duration: 90 Active Celecoxib 50 MG Oral; Duration: 30 Active metFORMIN HCl 500 MG Oral; Duration: 90 Active Incruse Ellipta 62.5 MCG/ACT TAKE 1 PUFF BY MOUTH EVERY DAY Inhalation; Duration: 30 Active Albuterol Sulfate (2.5 MG/3ML) 0.083% Inhalation; Duration: 5 Ac tive Venlafaxine HCl ER 75 MG TAKE 1 CAPSULE BY MOUTH EVERY DAY Oral; Duration: 90 Active Ibuprofen 800 MG TAKE 1 TABLET BY AGUSTÍN TH 3 TIMES DAILY. Oral; Duration: 30 Active Immunizations Vaccine Route Administration Date [...] Problem Status W/U Status Risk Notes Problem Colon cancer screening (480353944) Colon cancer screening (Z12.11) Active confirmed Problem Preprocedural examination (760937086467117) Preprocedural examination (Z01.818) Active confirmed Plan Of Treatment Future Test Test Name Order Date COLONOSCOPY 03/11/2023 Insurance Providers Payer Name Payer Address Payer Phone Subscriber Number Group Number Insured Name Patient Relationship to Insured Coverage Start Date Coverage End Date [facility] [address] [place] [address] [id number] MAIA CHAN Self - patient is the insured Medical (General) History Medical History History ICD Code COPD/Asthma--uses oxygen Arthirits Breast cancer--right side--surgery/XRT-2 011 Denies NC,DM,CVA,renal disease Anxiety/Depression Surgical History Surgery Date(Month/Year) Breast cancer--lumpectomy Lung nodule-Benign C-sections
== END 2025-07-03 11:45 | disposition home or self-care (01) ==
LOC: HO.HPS 11:23
PROVIDERS: PCP General Practice; Visit Provider Internal Medicine
DX: J44.9 Chronic obstructive pulmonary disease, unspecified (principal); Z87.891 Personal history of nicotine dependence; G47.33 Obstructive sleep apnea (adult) (pediatric); J96.91 Respiratory failure, unspecified with hypoxia; J96.92 Respiratory failure, unspecified with hypercapnia; E66.01 Morbid (severe) obesity due to excess calories
CPT/HCPCS: 99214

== ENCOUNTER 2025-08-11 09:50 | Outpatient (REF) | payer OTHER, SELFPAY ==
--- NOTE | ~2025-08-11 | CT_ITS ---
CLINICAL HISTORY: Z87.891 - Personal history of nicotine dependence CT lung cancer screening (LDCT) Comparison: CT/MA/SR - CT LUNG SCREENING - 04/27/24 15:10 EDT Technique: Axial CT images of the chest using low-dose technique. Referring provider counseled the patient on shared decision-making for LDCT screening. Additional counseling was provided on smoking cessation. Effective radiation dose total: DLP 151.6 mGycm, CTDIvol 4.1 mGy. Findings: Lung: Stable mild centrilobular emphysema. Stable scattered pulmonary parenchymal scar bilaterally. No suspicious pleural disease. Likely status post partial lobectomy left upper lobe. No pulmonary nodule. Coronary artery calcifications: Stable mild Limited upper abdomen: Unremarkable Other: None IMPRESSION: LungRADS 1: Negative exam. Continue annual screening with low dose Chest CT in 12 months. This document has been electronically signed by: Hollie Crandall MD on 08/13/2025 16:55:21
--- OUTSIDE RECORDS SUMMARY | 2025-08-11 09:53 | XMS_ITS | Encounter Summary ---
Author Organization [email or web address] Address [address] [facility] 7t [place] [address] Care Team Providers Care Meter Tester Name Role Phone Manjula Ross MD Primary Care Provider [phone] Reason for Visit * Reason Comments Med Refill Encounter Details Date Type Department Care Team ([facility] st Contact Info) Description 02/15/2024 Refill [facility] [address] [place], [place] [phone] [facility] 230 [place], [place] [phone] Rash and nonspecific skin eruption Social History [...] as of this encounter Plan of Treatment Upcoming Encounters Date Type Department Care Team (Late st Contact Info) Description 11/12/2025 2:15 PM EST Office Visit [facility] [address] [place] [phone] Manjula Ross MD [address] [place] [address] documented as of this encounter Visit Diagnoses Diagnosis Rash and nonspecific skin eruption Rash and other nonspecific skin eruption documented in this encounter Additional Health Concerns Assessment Noted Time PHQ-9 Depression Total Score: 0 01/17/20 24 10:17 AM EDT documented as of this encounter Care Teams Meter Tester Relationship Specialty Start Date End Date Manjula Ross MD [address] [place] [address] PCP - General Family Medicine 08/10/22 Ros[facility] A 07/17/24 documented as of this encounter
--- OUTSIDE RECORDS SUMMARY | 2025-08-11 09:53 | XMS_ITS | Encounter Summary ---
Author Organization [employer] Address [address] [facility] 7t [place] [address] Care Team Providers Care Fabrics And Material Cutter Name Role Phone Manjula Ross MD Primary Care Provider [phone] Encounter Details Date Type Department Care Team (Late st Contact Info) Description 02/05/2025 Orders Only [facility] [address] [place], [place] [phone] Manjula Ross MD [address] [place], [place] [phone] Social History Tobacco Use Types Packs/Day Years [...] the past 12 months, has t he [employer], gas, oil or water company threatened to [...] Description 11/12/2025 2:15 PM EST Office Visit [facility] [address] [place] [address] Manjula Ross MD [address] [place] [address] documented as of this encounter Procedures Procedure [...] documented as of this encounter Care Teams Fabrics And Material Cutter Relationship Specialty Start Date End Date Manjula Ross MD [address] [place] [address] PCP - General Family Medicine 08/10/22 Rosmery [facility] 07/17/24 documented as of this encounter
--- OUTSIDE RECORDS SUMMARY | 2025-08-11 09:53 | XMS_ITS | Encounter Summary ---
Author Organization [employer] Address [address] [facility] 7t [place] [address] Care Team Providers Care Paper Processing Machine Helper Name Role Phone Manjula Ross MD Primary Care Provider [phone] Reason for Visit * Reason Onset Date Comments Hospital Follow-up 03/09/2024 Encounter Details Date Type Department Care Team ([facility] st Contact Info) Description 03/09/2024 Telephone [facility] 230 [place], [place] [phone] Manjula Ross MD 230 [place], [place] [phone] Hospital Follow-up Social History Tobacco Use Types [...] from Jennifer requesting a HDF appt. Hospital: [facility] Date of admission: 03/05 Discharge date: 03/09 Diagnosed: UTI/High Fever documented in this encounter Plan of Treatment Upcoming Encounters Date Type Department Care Team (Late st Contact Info) Description 11/12/2025 2:15 PM EST Office Visit [facility] [address] [place] [address] Manjula Ross MD [address] [place] [address] documented as of this encounter Visit Diagnoses Not on filedocumented in this encounter Additional Health Concerns Assessment Noted Time PHQ-9 Depression Total Score: 0 01/17/20 10:17 AM EDT documented as of this encounter Care Teams Paper Processing Machine Helper Relationship Specialty Start Date End Date Manjula Ross MD [address] [place] [address] PCP - General Family Medicine 08/10/22 [facility] 07/17/24 documented as of this encounter
--- OUTSIDE RECORDS SUMMARY | 2025-08-11 09:53 | XMS_ITS | Encounter Summary ---
Author Organization [employer] Address [address] [facility] 7t [place] [address] Care Team Providers Care Blindstitch Hemmer Name Role Phone Manjula Ross MD Primary Care Provider [phone] Reason for Visit * Reason Comments Med Refill Encounter Details Date Type Department Care Team ([facility] st Contact Info) Description 04/19/2024 Refill [facility] 230 [place], [place] [phone] Valentine Junior DO 230 [place], [place] [phone] Seborrheic dermatitis Social History Tobacco Use Types [...] Description 11/12/2025 2:15 PM EST Office Visit [facility] [address] [place] [phone] Manjula Ross MD [address] [place] [address] documented as of this encounter Visit Diagnoses Diagnosis Seborrheic dermatitis Unspecified seborrheic dermatitis documented in this encounter Additional Health Concerns Assessment Noted Time PHQ-9 Depression Total Score: 0 01/17/20 24 10:17 AM EDT documented as of this encounter Care Teams Blindstitch Hemmer Relationship Specialty Start Date End Date Manjula Ross MD [address] [place] [phone] PCP - General Family Medicine 08/10/22 Ros[facility]y A 07/17/24 documented as of this encounter
--- OUTSIDE RECORDS SUMMARY | 2025-08-11 09:53 | XMS_ITS | Encounter Summary ---
Author Organization [employer] Address [address] [facility] 7t [place] [address] Care Team Providers Care Hotel Supplies Salesperson Name Role Phone Manjula Ross MD Primary Care Provider Reason for Visit * Reason Comments Med Refill Encounter Details Date Type Department Care Team ([facility] st Contact Info) Description 03/21/2024 Refill [facility] 230 [place], [place] [phone] Manjula Ross MD 230 [place], [place] [phone] Social History Tobacco Use Types Packs/Day Years [...] Description 11/12/2025 2:15 PM EST Office Visit [facility] [address] [place] [address] Manjula Ross MD 230 [place] [address] documented as of this encounter Visit Diagnoses Not on filedocumented in this encounter Additional Health Concerns Assessment Noted Time PHQ-9 Depression Total Score: 0 01/17/20 24 10:17 AM EDT documented as of this encounter Care Teams Hotel Supplies Salesperson Relationship Specialty Start Date End Date Manjula Ross MD [address] [place] [phone] PCP - General Family Medicine 08/10/22 [facility] 07/17/24 documented as of this encounter
--- OUTSIDE RECORDS SUMMARY | 2025-08-11 09:54 | XMS_ITS | Clinical Summary ---
Author Organization [employer] Address [address] [facility] 7t [place] [address] Care Team Providers Care New Accounts Clerk Name Role Phone Manjula Ross MD Primary Care Provider [phone] Allergies No known active allergies Medications clonazePAM [...] Active Menthol-Methyl Salicylate (Muscle Rub) 10-15 % creamIndications: Low back pain of over 3 months duration Apply 2 g topically if needed in the morning, at noon, and at bedtime (pain). 85 g 3 023 Active Combivent Respimat 20-100 MCG/ACT inhaler INHALE 1 PUFF BY MOUTH EVERY 4 TO 6 HOURS NEEDED FOR WHEEZE 4 g 11 023 Active hydrocortisone 2.5 % cream MIX WITH ECONAZOLE CREAM AND APPLY TO AREA UNDER BREASTS TWICE DAILY. 28 g 024 Active Fluticasone Furoate-Vilantero l 200-25 MCG/ACT aerosol powder Take 1 puff by mouth Once daily. 024 Active ammonium lactate (Lac-Hydrin) 12 % lotion APPLY TOPICALLY IF NEEDED FOR DRY SKIN. 225 mL 025 Active tacrolimus (Protopic) 0.03 % ointment APPLY TOPICALLY TO THE FACE TWICE A DAY 60 g Active Wixela Inhub 250-50 MCG/ACT aerosol powder take 1 puff by mouth twice a day Active Aspirin Low Dose 81 MG EC tablet TAKE 1 TABLET (81 MG) BY MOUTH IN THE MORNING 90 tablet 3 Active econazole nitrate 1 % cream APPLY TOPICALLY 2 TIMES DAILY. MIX WITH HYDROCORTISONE CREAM+APPLY TO AREA UNDER BREASTS TWICE DAILY 30 g 2 Active ibuprofen 800 MG tablet TAKE 1 TABLET BY MOUTH THREE TIMES A DAY 90 tablet 3 Active Tirzepatide (Mounjaro) 2.5 MG/0.5ML solution auto-injectorIndi cations:Type 2 diabetes mellitus with diabetic dermatitis, without long-term current use of insulin (HCC) Inject 2.5 mg under the skin 1 (one) time per week. 2 mL 3 025 Active predniSONE (Deltasone) 10 MG tabletIndications :Centrilobular emphysema (HCC) Take 2 tablets (20 mg) by mouth Once per day. 30 tablet 025 Active atorvastatin (Lipitor) 20 MG tabletIndications :Hyperlipidemia, unspecified hyperlipidemia type Take 1 tablet (20 mg) by mouth Once per day. 90 tablet 3 025 2025 Active albuterol (2.5 MG/3ML) 0.083% nebulizer solutionIndicatio ns:Mild persistent asthma without complication USE 1 VIAL BY NEBULIZATION IF NEEDED IN THE MORNING, AT NOON, IN THE EVENING, AND AT BEDTIME FOR WHEEZING OR SHORTNESS OF BREATH. 75 mL 11 025 Active cetirizine (ZyrTEC) 10 MG tablet TAKE 1 TABLET BY MOUTH EVERY DAY IN THE MORNING 90 tablet 3 Active metFORMIN (Glucophage) 500 MG tablet TAKE 1 TABLET BY MOUTH EVERY DAY WITH EVENING MEAL 90 tablet 3 025 Active hydrocortisone 2.5 % cream APPLY TO AREAS WHERE TAPE/ADHESIVE HAS BEEN 56 g 1 025 Active nystatin (Mycostatin) 316971 UNIT/GM powder APPLY TOPICALLY 2 TIMES DAILY. APPLY DAILY AFTER SHOWER 60 g 1 025 Active triamcinolone (Kenalog) 0.025 % cream APPLY TO AFFECTED AREA TWICE A DAY 80 g 3 025 Active ketoconazole (NIZOral) 2 % shampooIndication s:Seborrheic dermatitis WASH SCALP THREE TIMES PER WEEK 120 mL 1 025 Active Fluocinolone Acetonide Scalp 0.01 % oilIndications:Se borrheic dermatitis MASSAGE INTO DAMP SCALP DAILY. COVER HAIR AND LEAVE ON FOR AT LEAST 4 HOURS 118.28 mL 1 Active cetirizine (ZyrTEC) 10 MG tablet TAKE 1 TABLET BY MOUTH EVERY DAY IN THE MORNING 90 tablet 3 024 2024 Discontinued metFORMIN (Glucophage) 500 MG tablet TAKE 1 TABLET BY MOUTH EVERY DAY WITH EVENING MEAL 90 tablet 3 024 2024 Discontinued albuterol (2.5 MG/3ML) 0.083% nebulizer solutionIndicatio ns:Mild persistent asthma without complication USE 1 VIAL BY NEBULIZATION IF NEEDED IN THE MORNING, AT NOON, IN THE EVENING, AND AT BEDTIME FOR WHEEZING OR SHORTNESS OF BREATH. 75 mL 11 024 2024 Discontinued triamcinolone (Kenalog) 0.025 % cream APPLY TO AFFECTED AREA TWICE A DAY 80 g 3 025 2024 Discontinued ketoconazole (NIZOral) 2 % shampooIndication s:Seborrheic dermatitis WASH SCALP THREE TIMES PER WEEK 120 mL 1 025 2024 Discontinued Fluocinolone Acetonide Scalp 0.01 % oilIndications:Se borrheic dermatitis MASSAGE INTO DAMP SCALP DAILY. COVER HAIR AND LEAVE ON FOR AT LEAST 4 HOURS 118.28 mL 1 025 2024 Discontinued hydrocortisone 2.5 % cream APPLY TO AREAS WHERE TAPE/ADHESIVE HAS BEEN 56 g 025 2024 Discontinued nystatin (Mycostatin) 069152 UNIT/GM powder APPLY TOPICALLY 2 TIMES DAILY. APPLY DAILY AFTER SHOWER 60 g 1 025 2024 Discontinued Active Problems Problem Noted Date Diagnosed Date [...] & Plan (10/29/2022 11:52 AM EST): Sees Raysa Padron for med mgmt Taking Klonipin 1mg [...] & Plan (02/08/2023 9:15 AM EDT): On Elenitaxhoney Comblucíat, Incrusa Managed by pulm Quit smoking years ago Nighttime O2 at 2L, would like to try mask Has not started home PT for deconditioning and severe COPD Add allergy medication, Zyrtec for potential exacerbation by allergens Assessment & Plan (10/29/2022 11:51 AM EST): On Elenitaxhoney, Combivent, Incrusa Managed by pulm Quit smoking years ago Nighttime O2 at 2L, would like to try mask Will order home PT for deconditioning and severe COPD Encounters Date Type Department Care Team Description 07/31/2025 Refill [facility] MEDICINE [address] [place] [address] Manjula Ross MD Seborrheic dermatitis 07/26/2025 Refill [facility] MEDICINE [address] [place] [address] Manjula Ross MD 07/22/2025 Refill [facility]IC[facility] [address] [place] [address] Manjula Ross MD 07/19/2025 Refill [facility] MEDICINE [address] [place] [address] Manjula Ross MD Mild persistent asthma without complication 07/03/2025 Results Follow-Up [facility] MEDICINE [address] [place] [address] Manjula Ross MD POCT Glucose, POCT Hgb A1c, Comprehensive Metabolic Panel, Additional followed-up results: 2 06/27/2025 3:00 PM EDT Office Visit [facility] MEDICINE [address] [place] [address] Manjula Ross MD Type 2 diabetes mellitus with diabetic dermatitis, without long-term current use of insulin (HCC) (Primary Dx); Stress incontinence; Morbid obesity (CMS/HCC) (HCC); Mixed anxiety and depressive disorder; Low back pain of over 3 months duration; Seborrheic dermatitis; Ductal carcinoma in situ (DCIS) of right breast; Centrilobular emphysema (HCC); Nonrheumatic mitral valve regurgitation; Encounter for immunization 06/27/2025 Travel 06/26/2025 Telephone [facility] MEDICINE [address] [place] [address] Manjula Ross MD chart prep 06/01/2025 Refill [facility] MEDICINE [address] [place] [phone] Manjula Ross MD 05/30/2025 Refill [facility] MEDICINE [address] [place] [phone] Manjula Ross MD from Last 3 Months [...] 06/27/2025 3:08 PM EDT Plan of Treatment Upcoming Encounters Date Type Department Care Team (Late st Contact Info) Description 11/12/2025 2:15 PM EST Office Visit [facility] MEDICINE [address] [place] [address] Manjula Ross MD [address] [place] [address] Health Maintenance Due Date Last Done Comments CT Colonography 1950 Colonoscopy 1950 FIT 1950 FOBT 1950 Sigmoidoscopy 1950 Diabetes: Foot Exam 1961 Eye Exam 1961 Hepatitis C Screening 1969 Diabetes: Urine Protein Screening 1970 RSV Patients and Patients Aged 60 years or older (1 - Risk 50-74 years 1-dose series) 2001 Zoster Vaccines (2 of 3) 10/05/2014 08/10/2014 DTaP/Tdap/Td Vaccines (2 - Td or Tdap) 03/16/2022 03/16/2012, 04/16/2000 COVID-19 Vaccine ( season) 2025 12/01/2021, 03/31/2021, 03/03/2021 Diagnostic Breast Imaging 11/03/20252024, 07/10/2024, 04/27/2024, Additional history exists Mammogram 11/03/2025 05/03/2025, 0703/2025, 07/10/2024, Additional history exists Diabetes: Hemoglobin A1C 12/26/2025 025, 11/12/2023, 06/11/2023 SDOH Screening 12/28/2025 12/28/2024 Alcohol/Substance Use Screening 01/05/2026 01/05/2025 Colorectal Cancer Screening 06/20/2026 FIT DNA/Cologuard 06/20/2026 06/20/2023 Depression Screening 06/27/2026 06/27/2025, 06/27/20 25 Tobacco Screening 06/27/2026 06/27/2025 Lipid Panel 07/03/2026 07/03/2025, 06/11/2023 Pneumococcal Vaccine: 50+ Years Completed 06/11/2022, 05/13/2021, [...] Procedure Name Priority Date/Time Associated Diagnosis Comments LIPID PANEL, STANDARD Routine 07/03/2025 12:12 PM EDT Morbid obesity (CMS/HCC) (HCC) Type 2 diabetes mellitus with diabetic dermatitis, without long-term current use of insulin (HCC) CBC WITH AUTO DIFFERENTIAL Routine 07/03/2025 12:12 PM EDT Morbid obesity (CMS/HCC) (HCC) Type 2 diabetes mellitus with diabetic dermatitis, without long-term current use of insulin (HCC) COMPREHENSIVE METABOLIC PANEL Routine 07/03/2025 12:12 PM EDT Morbid obesity [...] long-term current use of insulin (HCC) BI US BREAST LIMITED LEFT Routine 05/03/2025 11:26 AM EDT COLOGUARD COLON CANCER SCREENING (EXTERNAL RESULTS ONLY) Routine 06/20/2023 9:31 AM EDT from Last 3 Months or Most Recently Relevant to Health Maintenance Results * (ABNORMAL) CBC auto differential (07/03/2025 12:12 PM EDT) White Blood Count 10.8 4.8 - 10.8 X10*3/uL [facility] Red Blood Count 4.15(L) 4.20 - 5.50 X10*6/uL [facility] Hemoglobin 10.8(L) 12.0 - 16.0 g/dl [facility] Hematocrit 36.6(L) 37.0 - 47.0 % [facility] Mean Corpuscular Volume 88.2 80.0 - 98.0 fL [facility] Mean Corpuscular Hemoglobin 26.0(L) 27.0 - 33.0 pg [facility] Mean Corpuscular HGB Conc 29.5(L) 31.0 - 35.0 g/dl [facility] Red Cell Distribution Width 14.4 11.0 - 16.0 % [facility] Platelet Count 321 160 - 400 X10*3/uL [facility] Mean Platelet Volume 8.9(L) 9.4 - 12.3 fL [facility] Neutrophils Percent Auto 81.8(H) 45 - 73 % [facility] Imm Gran Pct Auto 0.5(H) 0.0 - 0.4 % [facility] Lymphocytes Percent Auto 12.6(L) 20 - 40 % [facility] Monocytes Percent Auto 3.8 2 - 11 % [facility] Eosinophils Percent Auto 1.0 0 - 4 % [facility] Basophils Percent Auto 0.3 0 - 2 % [facility] NRBC Pct Auto 0.0 0.0 - 0.2 /100WBC [facility] Neutrophils Absolute Auto 8.9(H) 2.0 - 8.3 x10*3/uL [facility] Imm Gran Abs Auto 0.05(H) 0.00 - 0.03 X10*3/uL [facility] Lymphocytes Absolute Auto 1.4 1.2 - 4.9 X10*3/uL [facility] Monocytes Absolute Auto 0.4 0.1 - 1.2 X10*3/uL [facility] Eosinophils Absolute Auto 0.1 0.0 - 0.4 X10*3/uL [facility] Basophils Absolute Auto 0.0 0.0 - 0.2 X10*3/uL [facility] NRBC Abs Auto 0.000 0.0 - 0.012 X10*3/uL [facility] Blood Venous blood specimen / Unknown 07/03/2025 12:12 PM EDT 07/03/2025 1:14 PM EDT us Manjula Ross MD LAB BLOOD ORDERABLES Final Res ult [facility] [address] [place], [place] [phone] * (ABNORMAL) Lipid Panel, Standard (07/03/2025 12:12 PM EDT) Triglycerides 176(H) <150 mg/dL [facility] Comment:Desirable Triglyceri de: less than 150 mg/dLBorderline High Triglyceride 150-199 mg/dLHigh Triglyceride: 200-499 mg/dLVery High Triglyceride: greater than or equal to 5OO mg/dL Cholesterol 238(H) <200 mg/dL [facility] Comment:Desirable Cholestero l: less than 200 mg/dLBorderline High Cholesterol: 200-239 mg/dLHigh Cholesterol: greater than 239 mg/dL LDL Cholesterol Calculated 162(H) <100 mg/dL [facility] Comment:Desirable LDL: less than 100 mg/dLNear Optimal/Above Optimal LDL: 110- 129 mg/dLBorderline High LDL: 130-159 mg/dLHigh LDL: 160-189 mg/dLVery High LDL: greater than or equal to 190 mg/dL HDL Cholesterol 41 >40 mg/dL [facility] Comment:Desirable HDL: great er than 40 mg/dL Note: This HDL assay may give artificially low results in patients with liver disease. Blood Venous blood specimen / Unknown 07/03/2025 12:12 PM EDT 07/03/2025 1:14 PM EDT us Manjula Ross MD LAB BLOOD ORDERABLES Final Res ult [facility] [address] [place] [address] [phone] * (ABNORMAL) Comprehensive Metabolic Panel (07/03/2025 12:12 PM EDT) Sodium 142 135 - 145 mmol/L [facility] Potassium 4.2 3.3 - 5.1 mmol/L [facility] Chloride 101 96 - 108 mmol/L [facility] Carbon Dioxide 31(H) 22 - 29 mmol/L [facility] Anion Gap 14 12 - 20 [facility] Urea Nitrogen (BUN) 18(H) 9 - 16 mg/dL [facility] Creatinine, Serum 1.02 0.5 - 1.4 mg/dL [facility] Estimated Glomerular Filt Rate 53 [facility] Comment:Chronic Kidney Disea se: Estimated GFR < 60 mL/min/1.26y2Cnuxla Kidney Disease: Estimated GFR < 15 mL/min/1.73m2 Glucose 124(H) 60 - 115 mg/dL [facility] Calcium 9.1 8.4 - 10.2 mg/dL [facility] Bilirubin, Total 0.2 0.0 - 1.0 mg/dL [facility] Aspartate Amino Transferase 23 5 - 31 U/L [facility] Alanine Aminotransferase 14 0 - 31 U/L [facility] Total Protein 8.3(H) 6.5 - 8.0 g/dL [facility] Albumin Level 4.1 3.5 - 5.0 g/dL [facility] Alkaline Phosphatase 84 39 - 117 U/L [facility] Blood Venous blood specimen / Unknown 07/03/2025 12:12 PM EDT 07/03/2025 1:14 PM EDT Manjula Ross MD LAB BLOOD ORDERABLES Final Res ult [facility] [address] [place] [address] [phone] * (ABNORMAL) POCT Hgb A1c (06/27/2025 3:26 PM EDT) Hemoglobin A1C 6.6(A) 4.0 - 5.7 % QC Media Lot # [id number] Lot# Expiration Date Blood 06/27/2025 3:26 PM EDT Manjula Ross MD POINT OF CARE TEST ENTER/EDIT ORDERABLES Final Result * POCT Glucose (06/27/2025 3:09 PM EDT) Glucose Blood, POC 178 60 - 200 mg/dL QC Media Lot # [id number] Lot# Expiration Date ,726 Blood Capillary blood specimen / Unknown 06/27/2025 3:09 PM EDT Manjula Ross MD POINT OF CARE TEST ENTER/EDIT ORDERABLES Final Result * BI US Breast Limited Left (05/03/2025 11:26 AM EDT) Anatomical Region Laterality Modality Breast Left Ultrasound 05/03/2025 11:2 6 AM EDT Narrative 05/03/2025 2:08 PM EDT [facility] [address] [place] [address] Ultrasound Report Signed Patient: Janneth Jenkisn MR#: [id number] : 1950 Acct:[id number] Age/Sex: 75 / F ADM Date: 05/03/25 Loc: HO.MAMMO Attending Dr: Manjula Ross MD Ordering Physician: Manjula Ross Date of Service: 05/03/25 Procedure(s): US breast LT limited mamm only Accession Number(s): [id number] cc: CodyManjula EXAMINATION: MM DIAGNOSTIC DIGITAL BREAST TOMOSYNTHESIS, LEFT [...] 05/03/25 1405 DD/ 1126 TD/TT: 05/03/25 1248 Senior Manufacturing Technician: Procedure Note Donotuseinterpreter, Image - 05/03/2025 [facility] [address] [place] [address] Ultrasound Report Signed Patient: Janneth JenkinsMR#: [id number] : 1950cct:[id number] Age/Sex: 75 / FADM Date: 05/03/25 Loc: HO.MAMMO Attending Dr: Manjula Ross MD Ordering Physician: Manjula Ross Date of Service: 05/03/25 Procedure(s): US breast LT limited mamm only Accession Number(s): [id number] cc: Manjula Ross EXAMINATION: MM DIAGNOSTIC DIGITAL [...] 05/03/25 1405 DD/ 1126 TD/TT: 05/03/25 1248 Senior Manufacturing Technician: Manjula Ross MD [facility] PROCED[facility] Final Result * Cologuard Cancer Screening (External Result Only) (06/20/2023 9:31 AM EDT) Cologuard Cancer Screen Negative Stool (Rectum) 06/20/2023 9: 31 AM EDT us Historical Provider POINT OF CARE TEST ENTER/ EDIT ORDERABLES Final Result from Last 3 Months or Most Recently Relevant to Health Maintenance Insurance [facility] STAND[facility] [employer] OPTIONS (O D-SNP) Care Teams New Accounts Clerk Relationship Specialty Start Date End Date Manjula Ross MD [address] [place] [address] PCP - General Family Medicine 08/10/22 [facility] 07/17/24
--- OUTSIDE RECORDS SUMMARY | 2025-08-11 09:54 | XMS_ITS | Encounter Summary ---
Author Organization [employer] Address [address] [facility] 7t [place] [address] Care Team Providers Care Hospital Medical Assistant Name Role Phone Manjula Ross MD Primary Care Provider [phone] Reason for Visit * Reason Comments Med Refill Encounter Details Date Type Department Care Team ([facility] st Contact Info) Description 04/19/2024 Refill [facility] MEDICINE [address] [place], [place] [phone] Manjula Ross MD [address] [place], [place] [phone] Social History Tobacco Use Types Packs/Day Years [...] 11/12/2025 2:15 PM EST Office Visit [facility] MEDICINE [address] [place] [phone] Manjula Ross MD [address] [place] [address] documented as of this encounter Visit Diagnoses Not on filedocumented in this encounter Additional Health Concerns Assessment Noted Time PHQ-9 Depression Total Score: 0 01/17/20 24 10:17 AM EDT documented as of this encounter Care Teams Hospital Medical Assistant Relationship Specialty Start Date End Date Manjula Ross MD [address] [place] [phone] PCP - General Family Medicine 08/10/22 [place] [facility] 07/17/24 documented as of this encounter
--- OUTSIDE RECORDS SUMMARY | 2025-08-11 09:54 | XMS_ITS | Encounter Summary ---
Author Organization [employer] Address [address] [facility] 7t [place] [address] Care Team Providers Care Brick Yard Hand Name Role Phone Manjula Ross MD Primary Care Provider [phone] Reason for Visit * Reason Comments Med Refill Encounter Details Date Type Department Care Team ([facility] st Contact Info) Description 04/19/2024 Refill [facility] MEDICINE [address] [place], [place] [phone] Manjula Ross MD [address] [place], [place] [phone] [employer] Social History Tobacco Use Types Packs/Day [...] Description 11/12/2025 2:15 PM EST Office Visit [facility] MEDICINE [address] [place] [phone] Manjula Ross MD [address] [place] [phone] documented as of this encounter Visit Diagnoses Diagnosis Intertrigo Other specified erythematous condition documented in this encounter Additional Health Concerns Assessment Noted Time PHQ-9 Depression Total Score: 0 01/17/20 10:17 AM EDT documented as of this encounter Care Teams Brick Yard Hand Relationship Specialty Start Date End Date Manjula Ross MD [address] [place] [phone] PCP - General Family Medicine 08/10/22 [place] [facility] 07/17/24 documented as of this encounter
--- OUTSIDE RECORDS SUMMARY | 2025-08-11 09:54 | XMS_ITS | Encounter Summary ---
Author Organization [employer] Address [address] [facility] 7t [place] [address] Care Team Providers Care Yarn Bleaching Machine Operator Name Role Phone Manjula Ross MD Primary Care Provider [phone] Reason for Visit * Reason Onset Date Comments Hospital Follow-up 07/17/2024 Encounter Details Date Type Department Care Team ([facility] st Contact Info) Description 07/17/2024 Telephone [facility] MEDICINE [address] [place], [place] [phone] Manjula Ross MD [address] [place], [place] [phone] Hospital Follow-up Social History Tobacco Use Types [...] Katie yoder requesting a HDF appt. Hospital: [facility] Date of admission: 07/10/24 Discharge date: 07/15/24 Diagnosed: cyst underneath breast and had surgery documented in this encounter Plan of Treatment Upcoming Encounters Date Type Department Care Team (Late st Contact Info) Description 11/12/2025 2:15 PM EST Office Visit [facility] MEDICINE [address] [place] [phone] Manjula Ross MD [address] [place] [address] documented as of this encounter Visit Diagnoses Not on filedocumented in this encounter Additional Health Concerns Assessment Noted Time PHQ-9 Depression Total Score: 0 01/17/20 10:17 AM EDT documented as of this encounter Care Teams Yarn Bleaching Machine Operator Relationship Specialty Start Date End Date Manjula Ross MD [address] [place] [phone] PCP - General Family Medicine 08/10/22 [facility] 07/17/24 documented as of this encounter
--- OUTSIDE RECORDS SUMMARY | 2025-08-11 09:54 | XMS_ITS | Encounter Summary ---
Author Organization [employer] Address 75 [facility] 7t [place] [address] Care Team Providers Care Spring Coiler Name Role Phone Manjula Ross MD Primary Care Provider [phone] Encounter Details Date Type Department Care Team (Late st Contact Info) Description 04/04/2025 Orders Only [facility] MEDICINE [address] [place], [place] [phone] Manjula Ross MD [address] [place], [place] [phone] Social History Tobacco Use Types Packs/Day Years [...] the past 12 months, has t he [employer], gas, oil or water company threatened to [...] Description 11/12/2025 2:15 PM EST Office Visit [facility] MEDICINE [address] [place] [address] Manjula Ross MD [address] [place] [address] documented as of this encounter Procedures Procedure [...] PM EDT Narrative 05/03/2025 2:08 PM EDT [facility] [address] [place] [address] Mammography Report Signed Patient: Janneth Jenkins MR#: [id number] : 1950 Acct:[id number] Age/Sex: 75 / F ADM Date: 05/03/25 Loc: .MAMMO Attending Dr: Manjula Ross MD Ordering Physician: Manjula Ross Results: 3.6MProba justa Benign Finding - Short 6 M F/U Suggested Date of Service: 05/03/25 Follow Up: 6 Month F/U Procedure(s): MM tomosynthesis added views L Accession Number(s): [id number] cc: Manjula Ross EXAMINATION: MM DIAGNOSTIC DIGITAL [...] 05/03/25 1405 DD/ 1200 TD/TT: 05/03/25 1230 Community Midwife: Procedure Note Donotuseinterpreter, Image - 05/03/2025 [facility] [address] [place] [address] Mammography Report Signed Patient: Sheela Jenkins#: [id number] : 1950cct:[id number] Age/Sex: 75 / FADM Date: 05/03/25 Loc: .MAMMO Attending Dr: Manjula Ross MD Ordering Physician: Sajan Rossults: 3.6MProba justa Benign Finding - Short 6 M F/U Suggested Date of Service: 05/03/25Follow Up: 6 Month F/U Procedure(s): MM tomosynthesis added views L Accession Number(s): [id number] cc: Manjula Ross EXAMINATION: MM DIAGNOSTIC DIGITAL [...] 05/03/25 1405 DD/ 1200 TD/TT: 05/03/25 1230 Community Midwife: us Manjula Ross MD IMG BI PROCEDURES Final Result * BI US Breast Limited Left (05/03/2025 11:26 AM EDT) Anatomical Region Laterality Modality Breast Left Ultrasound 05/03/2025 11:2 6 AM EDT Narrative 05/03/2025 2:08 PM EDT [facility] [address] [place], [place] [address] Ultrasound Report Signed Patient: Janneth Jenkins MR#: [id number] : 1950 Acct:[id number] Age/Sex: 75 / F ADM Date: 05/03/25 Loc: HO.MAMMO Attending Dr: Manjula Ross MD Ordering Physician: Manjula Ross Date of Service: 05/03/25 Procedure(s): US breast LT limited mamm only Accession Number(s): [id number] cc: Manjula Ross EXAMINATION: MM DIAGNOSTIC DIGITAL [...] 05/03/25 1405 DD/ 1126 TD/TT: 05/03/25 1248 Community Midwife: Procedure Note Donotuseinterpreter, Image - 05/03/2025 [facility] [address] [place] [address] Ultrasound Report Signed Patient: Sheela Jenkins#: [id number] : 1Acct:[id number] Age/Sex: 75 / FADM Date: 05/03/25 Loc: HO.MAMMO Attending Dr: Manjula Ross MD Ordering Physician: Manjula Ross Date of Service: 05/03/25 Procedure(s): US breast LT limited mamm only Accession Number(s): [id number] cc: Manjula Ross EXAMINATION: MM DIAGNOSTIC DIGITAL [...] 05/03/25 1405 DD/ 1126 TD/TT: 05/03/25 1248 Community Midwife: us Manjula Ross MD IM US PROCEDURES Final Result documented in this encounter Visit Diagnoses Not on filedocumented in this encounter Additional Health Concerns Assessment Noted Time PHQ-9 Depression Total Score: 0 01/17/20 24 10:17 AM EDT documented as of this encounter Care Teams Spring Coiler Relationship Specialty Start Date End Date Manjula Ross MD [address] [place] [phone] PCP - General Family Medicine 08/10/22 [place] [facility] 07/17/24 documented as of this encounter
--- OUTSIDE RECORDS SUMMARY | 2025-08-11 09:54 | XMS_ITS | Patient Health Record ---
Author Organization [facility] Address [address] [place] [address] Care Team Providers Care Railway Track Plant Operator Name Role Phone Manjula Ross M.D. Primary Care Provider Lawrence Jones Unavailable [phone] Familia Lacy Unavailable Unavailable Allergies No Known Allergies Reason For Referral No Information Medications Medication SIG (Take, Route, Frequency, Duration) Notes Start Date End Date Status Dulcolax (colon prep) 5 MG Tablet Delayed Release take at 3:00 p.m and 7:00p.m. Orally two tablets twice a day for one day; Duration: 1 day 03/19/2023 Active MiraLax (colon prep) 17 GM/SCOOP Powder 1 238GM bottle mixed with Gatorade or Crystal Light Orally begin at 5:00 p.m. the day before the procedure; Duration: 1 day 03/19/2023 Active clonazePAM 1 MG Tablet TAKE 1 TABLET BY MOUTH TWICE A DAY NEEDED FOR SEVERE ANXIETY AND PANIC DISORDER. Oral; Duration: 30 Active Mirtazapine 15 MG Tablet Oral; Duration: 90 Active Wixela Inhub 250-50 MCG/ACT Aerosol Powder Breath Activated INHALE 1 PUFF BY MOUTH TWICE A DAY Inhalation; Duration: 30 Active Combivent Respimat 20-100 MCG/ACT Aerosol Solution INHALE 1 PUFF BY MOUTH EVERY 4 TO 6 HOURS NEEDED FOR WHEEZE Inhalation; Duration: 30 Active Cetirizine HCl 10 MG Tablet Oral; Duration: 90 Active Celecoxib 50 MG Capsule Oral; Duration: 30 Active metFORMIN HCl 500 MG Tablet Oral; Duration: 90 Active Incruse Ellipta 62.5 MCG/ACT Aerosol Powder Breath Activated TAKE 1 PUFF BY MOUTH EVERY DAY Inhalation; Duration: 30 Active Albuterol Sulfate (2.5 MG/3ML) 0.083% Nebulization Solution Inhalation; Duration: 5 Acti ve Venlafaxine HCl ER 75 MG Capsule Extended Release 24 Hour TAKE 1 CAPSULE BY MOUTH EVERY DAY Oral; Duration: 90 Active Ibuprofen 800 MG Tablet TAKE 1 TABLET BY MOUTH 3 TIMES DAILY. Oral; Duration: 30 Active Immunizations Vaccine Route Administration Date Status Comme nts Influenza Unknown 07/07/2022 Administered Social History Tobacco Use: Social History Observation Description Date Details (start date - stop date) Former Smoker NA - NA Social History Drugs/Alcohol: Social Info Question Answer Notes Alcohol Screen Did you have a drink containing alcohol in the past year? No Points 0 Interpretation Negative Tobacco Use: Social Info Question Answer Notes Tobacco Use/Smoking Patient is a former smoker Additional Details Category Social Info Options Details Miscellaneous: Marital status: single Occupation: retired Problems Problem Type SNOMED Code ICD Code Onset Dates Problem Status W/U Status Risk Notes Problem Colon cancer screening (614726733) Colon cancer screening (Z12.11) Active confirmed Problem Preprocedural examination (974235590234978) Preprocedural examination (Z01.818) Active confirmed Plan Of Treatment Future Test Test Name Order Date COLONOSCOPY 03/11/2023 Insurance Providers Payer Name Payer Address Payer Phone Subscriber Number Group Number Insured Name Patient Relationship to Insured Coverage Start Date Coverage End Date [facility] [address] Attn Claims STEVEN Clark [id number] MAIA CHAN Self - patient is the insured Medical (General) History Medical History History ICD Code COPD/Asthma--uses oxygen Arthirits Breast cancer--right side--surgery/XRT-2 011 Denies AR,DM,CVA,renal disease Anxiety/Depression Surgical History Surgery Date(Month/Year) Breast cancer--lumpectomy Lung nodule-Benign C-sections
== END 2025-08-11 09:51 | disposition home or self-care (01) ==
LOC: HO.CT 09:50
PROVIDERS: PCP General Practice; Visit Provider Physician Assistant Medical
DX: Z87.891 Personal history of nicotine dependence (principal)
CPT/HCPCS: 71271

== ENCOUNTER → 2025-08-11 09:54 | Outpatient (BNV) | payer OTHER, SELFPAY | PROVIDERS: PCP General Practice; Visit Provider Radiology Diagnostic Radiology | DX: Z12.2 Encounter for screening for malignant neoplasm of respiratory organs (principal); Z87.891 Personal history of nicotine dependence | CPT/HCPCS: 71271 ==

== ENCOUNTER 2025-08-20 21:37 | Inpatient (IN) | payer OTHER, SELFPAY ==
--- NOTE | ~2025-08-20 | US_ITS ---
EXAMINATION: US RETROPERITONEAL LIMITED (RENAL ONLY) CLINICAL INFORMATION: UTI. COMPARISON: None available. TECHNIQUE: Real-time ultrasound kidneys using grayscale technique. FINDINGS: Limited examination. RIGHT KIDNEY: 11 x 4 x 5 cm (SAG x AP x TRV). Normal echotexture. Renal cortical thickness is normal. No hydronephrosis. No gross solid or cystic lesion. LEFT KIDNEY: 11 x 5 x 4 cm (SAG x AP x TRV). Normal echotexture Renal cortical thickness is normal. No hydronephrosis. No solid or cystic lesion. US/US renal BI IMPRESSION: No hydronephrosis or gross nephrolithiasis.. Electronically signed by: Jayce Hyman MD 08/21/2025 09:36 AM KVNG
--- NOTE | ~2025-08-20 | XR_ITS ---
CLINICAL HISTORY: sob, fever 1 view chest x-ray Comparison: CR/AK/SR - XR CHEST 1 VIEW - 07/12/2024 03:54 PM EDT Findings: No consolidation or effusion. Heart size is normal. No acute fracture. IMPRESSION: 1. No acute findings. This document has been electronically signed by: Padmaja Lezama MD on 08/20/2025 23:02:26
--- NOTE | ~2025-08-20 | XR_ITS ---
EXAMINATION: XR CHEST CLINICAL INFORMATION: worsening sob COMPARISON: August 20, 2025. TECHNIQUE: Portable AP upright view of the chest was obtained. FINDINGS: Limited due to rotation to the right with cardiomediastinal silhouette overlapping the right hemithorax. Cardiomediastinal silhouette is enlarged. No gross consolidation, pleural effusion or pneumothorax. Multilevel thoracic spondylosis. Calcified plaque thoracic aorta. XR/XR chest 1V IMPRESSION: No acute airspace disease. Limited exam. Cardiomegaly, mild. Electronically signed by: Jayce Hyman MD 08/23/2025 12:19 PM EST
--- NOTE | 2025-08-20 21:49 | ECG_ITS ---
Test Reason : SOB Blood Pressure : */* mmHG Vent. Rate : 122 BPM Atrial Rate : 122 BPM P-R Int : 152 ms QRS Dur : 76 ms QT Int : 300 ms P-R-T Axes : 44 71 29 degrees QTcB Int : 427 ms Sinus tachycardia with occasional Premature ventricular complexes Otherwise normal ECG When compared with ECG of 12-Jul-2024 15:52, Premature ventricular complexes are now Present Referred By: Lianne Harden Electronically Signed By: SHANEKA BAUGH
[2025-08-20 21:50] VITALS: BP 97/52; PULSE 116; PULSE 120; RESP 16; TEMP 40.9; O2SAT 86; O2SAT 93; BMI 43.1
--- NOTE | 2025-08-20 21:58 | ED.AMS ---
HPI - Altered Mental Status General Chief Complaint: Altered Mental Status Stated Complaint: ams, fever Time Seen by Provider: 08/20/25 21:44 Source: patient and EMS Mode of arrival: EMS Limitations: altered mental status History of Present Illness ED Provider: Dr. Lianne Harden HPI narrative: patient comes to the emergency room via ambulance. According to EMS, the family said that patient had fever of 105 at home, they called the ambulance and brought her to the emergency room. Patient is known to have chronic lung disease on 2-4 L. According to EMS, when they arrived her oxygen saturation was 86% on 2 L. However, they noted that the patient has air compressor was pretty far away from where the patient was under is a lot of tubing. According to the patient's family, they noted that the patient is more confused than usual. Patient is awake, alert, states that there is nothing wrong with her . However, this may be because she is altered? Patient states that she has no chest pain or shortness of breath. Related Data Home Medications ?Medication ?Instructions ?Recorded ?Confirmed clonazepam 1 mg tablet 1 mg PO BID PRN anxiety attack 06/17/20 07/19/25 ibuprofen 800 mg tablet 800 mg PO Q8H PRN pain 06/17/20 07/19/25 metformin 500 mg tablet 500 mg PO BEDTIME 06/17/20 07/19/25 mirtazapine 15 mg tablet 15 mg PO BEDTIME 06/17/20 07/19/25 venlafaxine 75 mg capsule,extended 75 mg PO DAILY 06/17/20 07/19/25 release 24 hr (Effexor XR) ascorbate calcium (vitamin C) 500 500 mg PO DAILY 11/19/20 07/19/25 mg tablet aspirin 81 mg tablet,delayed 81 mg PO DAILY 11/19/20 07/19/25 release clotrimazole 1 % topical cream 1 appl topical DAILY 02/19/21 07/19/25 ammonium lactate 12 % lotion 1 appl topical DAILY PRN Dry Skin 07/10/24 07/19/25 hydrocortisone 2.5 % topical cream 1 appl topical BID 07/10/24 07/19/25 nystatin 100,000 unit/gram topical 1 appl topical BID 07/10/24 07/19/25 powder triamcinolone acetonide 0.025 % 1 appl topical BID 07/10/24 07/19/25 topical cream fluticasone 250 mcg-salmeterol 50 1 ea inhalation BID 02/26/25 07/19/25 mcg/dose blistr powdr for inhalation (Wixela Inhub) atorvastatin 20 mg tablet 20 mg PO DAILY 07/19/25 07/19/25 tirzepatide 2.5 mg/0.5 mL 2.5 mg subcut QWEEK 07/19/25 07/19/25 subcutaneous pen injector (Wendie) Previous Rx's ?Medication ?Instructions ?Recorded albuterol sulfate 2.5 mg/3 mL 2.5 mg (3 mL) inhalation Q4-6H PRN 11/14/21 (0.083 %) solution for nebulization for dyspnea #150 mL Incruse Ellipta 62.5 mcg/actuation 1 inh PO DAILY #30 ea 07/26/25 powder for inhalation (umeclidinium) ipratropium 20 mcg-albuterol 100 1 puff PO Q4-6H PRN for wheezing 07/26/25 mcg/actuation mist for inhalation #4 mL (Combivent Respimat) Allergies Allergy/AdvReac Type Severity Reaction Status Date / Time No Known Allergies (No Known Allergy Verified 08/20/25 21:53 Allergies*) Review of Systems Review of Systems: Patient reports no symptoms and feeling well otherwise. However, patient may be altered. Known to be using more oxygen than her baseline. Yes Unobtainable due to mental status PMFSH Past Medical History Medical History Respiratory failure with hypoxia and hypercapnia Open wound Necrotizing subcutaneous infection ADELITA (obstructive sleep apnea) Respiratory failure with hypoxia History of invasive ductal carcinoma of breast (~2009) COPD (chronic obstructive pulmonary disease) Asthma Hypoxemia On home oxygen therapy Osteopenia Morbid obesity Left breast mass Personal history of nicotine dependence Surgical History History of lung surgery (~06/2016) History of lymph node dissection of right axilla (~05/2010) History of right breast biopsy (~05/2010) History of colonoscopy with polypectomy (~03/2010) History of section Family History Family History Father History of diabetes mellitus Mother Family history of COPD (chronic obstructive pulmonary disease) Family/Other History of melanoma Brother Skin cancer Social History Social History Household Members: Other Housing: Apartment Are you a primary livestock caretaker to a significant other at home: No Do you presently have visiting nurse or other home services: Yes Patient Tobacco Use Status: Former Tobacco user Years Smoked: onset 16yo, 1-2ppd x 52yrs, 70pyh - quit 2017 Advance Directives: No Advance Directives Information Provided: Yes Do you have a plan to hurt others: No Plan service: No Current occupational status: disabled Physical Exam ED Exam Exam: Appearance: Alert. seems to be a bit confused, but is trying to answer questions Eyes: Pupils equal, round and reactive to light. ENT: Pharynx normal. Neck: Normal inspection. Neck supple. No lymph nodes noted. No crepitus CVS: Normal heart rate and rhythm. Pulses normal. Normal S1 and S2 Respiratory: No respiratory distress. Breath sounds normal. No Wheezing. No rales Abdomen: Soft and nontender. No rigidity. No distention. Skin: Skin warm and dry. Normal skin color. Normal skin turgor. Extremities: No lower extremity edema. No Lacerations. No Rash Neuro: slightly confused,No motor deficit. No sensory deficit. Moving all extremities. No slurred speech. CN 2 through 12 grossly intact Psych: calm, cooperative, normal affect Vital Signs: Vital Signs - 24 hr 08/20/25 21:50 08/20/25 22:00 08/20/25 23:25 Temperature 105.6 F H 105.3 F H 103.1 F H Pulse Rate 116 H 115 H Respiratory Rate 16 22 H Blood Pressure 97/52 L Pulse Oximetry 93 94 Oxygen Delivery Method Nasal Cannula Nasal Cannula Oxygen Flow Rate 3 08/20/25 23:25 08/21/25 00:00 08/21/25 00:12 Temperature 103.1 F H 101.8 F H Pulse Rate 92 96 Respiratory Rate 22 H 22 H Blood Pressure 101/42 L 102/48 L Pulse Oximetry 94 93 Oxygen Delivery Method Nasal Cannula Nasal Cannula Oxygen Flow Rate 2 2 08/21/25 00:16 Temperature 101.7 F H Pulse Rate 91 Respiratory Rate 20 Blood Pressure 101/50 L Pulse Oximetry 92 Oxygen Delivery Method Nasal Cannula Oxygen Flow Rate 2 BMI result Body Mass Index 43.1 Course Course Course Narrative: Patient known to have chronic lung disease, patient is using nasal cannula oxygen more than her baseline. patient reports a bit of dysuria. Patient has a fever of 105.6 Empirically, patient is being treated with IV antibiotics and IV fluids based on ideal weight of 50 kg, patient is obese. Medications Administered Discontinued Medications Generic Name Dose Route Start Last Admin Trade Name Angel PRN Reason Stop Dose Admin Acetaminophen 975 mg 08/20/25 21:57 08/20/25 22:25 Acetaminophen 325 Mg Tablet PO 08/20/25 21:58 975 mg ONCE ONE Administration Ceftriaxone Sodium 1 gm/ 50 mls @ 100 mls/hr 08/20/25 21:53 08/20/25 23:14 Sodium Chloride IV 08/20/25 22:22 Infused ONCE ONE Infusion Azithromycin 500 mg/ Sodium 250 mls @ 125 mls/hr 08/20/25 21:53 08/20/25 22:13 Chloride IV 08/20/25 23:52 125 mls/hr ONCE ONE Administration Sodium Chloride 1,500 mls @ 999 mls/hr 08/20/25 21:55 08/21/25 00:00 Ns IVCONT 08/20/25 23:25 Infused .Q1H31M ONE Infusion Ibuprofen 600 mg 08/20/25 21:57 08/20/25 22:25 Ibuprofen 600 Mg Tablet PO 08/20/25 21:58 600 mg ONCE ONE Administration Methylprednisolone Sodium Succinate 125 mg 08/20/25 22:01 08/20/25 22:25 Methylprednisolone Sod Succ 125 Mg/2 Ml Vial IVPUSH 08/20/25 22:02 125 mg ONCE ONE Administration Medical Decision Making Medical Decision Making [facility] Narrative: my interpretation of labs: Patient has a white blood cell count of 15.1, hemoglobin 9.8 which is patient's baseline, hematocrit 32.5, platelets 333. Blood gases at baseline, bicarb chronically elevated for the chronically elevated pCO2. No significant abnormality in patient's chemistry, troponin slightly bumped, likely demand ischemia. Urinalysis positive for UTI. Per patient's nurse it was foul smelling 2. Serology negative for influenza RSV and COVID chest x-ray does not show any acute abnormality. As mentioned above, patient was initially treated with IV fluids and antibiotics. Patient is awake, alert and oriented x3 now. Patient states that she did not experience any respiratory issues today including shortness of breath or wheezing. Patient states that her problem today is dysuria. Patient does have a UTI. Patient was already treated with antibiotics as mentioned above. Patient states that she does not have any flank pain or abdominal pain. patient's temperature 101.7 degrees at this time, patient already received IV fluids, antibiotics, acetaminophen and ibuprofen I discussed the patient with Dr. Fields from the Medicine team, patient being admitted. Differential Diagnosis Differential Diagnoses: The differential diagnosis associated with the presentation includes ( UTI, pyelonephritis, chronic lung disease, RSV, COVID, influenza) Admission/Observation Consideration of admission/observation: Escalation of care including admission/observation considered Consult Healthcare Provider Management of the patient was discussed with: Hospitalist Lab Data MDM Lab Attestation statement: I reviewed the patient's lab results. 08/20/25 22:03 08/20/25 22:03 Labs: Lab Results 08/20/25 08/20/25 08/20/25 Range/Units 22:03 22:12 23:28 WBC 15.1 H (4.8-10.8) X10*3/uL RBC 3.80 L (4.20-5.50) X10*6/uL Hgb 9.8 L (12.0-16.0) g/dl Hct 32.5 L (37.0-47.0) % MCV 85.5 (80.0-98.0) fL MCH 25.8 L (27.0-33.0) pg MCHC 30.2 L (31.0-35.0) g/dl RDW 14.1 (11.0-16.0) % Plt Count 333 (160-400) X10*3/uL MPV 8.3 L (9.4-12.3) fL Immature Gran % (Auto) 0.6 H (0.0-0.4) % Neut % (Auto) 87.1 H (45-73) % Lymph % (Auto) 6.6 L (20-40) % [place] % (Auto) 4.7 (2-11) % Eos % (Auto) 0.7 (0-4) % Baso % (Auto) 0.3 (0-2) % Lymph # (Auto) 1.0 L (1.2-4.9) X10*3/uL [place] # (Auto) 0.7 (0.1-1.2) X10*3/uL Eos # (Auto) 0.1 (0.0-0.4) X10*3/uL Baso # (Auto) 0.0 (0.0-0.2) X10*3/uL Abs Immat Gran (auto) 0.09 H (0.00-0.03) X10*3/uL Absolute Neuts (auto) 13.2 H (2.0-8.3) x10*3/uL Absolute Nucleated RBC 0.000 (0.0-0.012) X10*3/uL Nucleated RBC % (auto) 0.0 (0.0-0.2) /100WBC VBG pH 7.42 (7.32-7.43) VBG pCO2 53 mmHg VBG pO2 62 mmHg VBG HCO3 34 H (22-26) mmol/L VBG O2 Saturation 89.0 % VBG Base Excess 8.9 mmol/L Sodium 136 (135-145) mmol/L Potassium 4.7 (3.3-5.1) mmol/L Chloride 99 (96-108) mmol/L Carbon Dioxide 31 H (22-29) mmol/L Anion Gap 11 L (12-20) BUN 13 (9-16) mg/dL Creatinine 1.06 (0.5-1.4) mg/dL Estim Creat Clear Calc 55.5 Estimated GFR 51 Random Glucose 156 H (60-115) mg/dL Lactic Acid 1.4 (0.5-2.0) mmol/L Calcium 8.9 (8.4-10.2) mg/dL Magnesium 1.9 (1.6-2.6) mg/dL Total Bilirubin 0.3 (0.0-1.0) mg/dL Direct Bilirubin 0.1 (0.0-0.5) mg/dL AST 24 (5-31) U/L ALT 7 (0-31) U/L Alkaline Phosphatase 112 (39-117) U/L Troponin I High Sens 27.2 H (<3.5-17.0) ng/L Total Protein 8.0 (6.5-8.0) g/dL Albumin 3.6 (3.5-5.0) g/dL TSH 1.51 (0.32-4.0) uIU/mL Urine Color Yellow Urine Appearance Clear Urine pH 5.5 (5.0-9.0) Ur Specific [place] 1.015 (1.005-1.025) Urine Protein 30 (1+) H (Neg-Trace) mg/dL Urine Glucose (UA) Negative (Negative) mg/dL Urine Ketones Negative (Negative) mg/dL Urine Blood Trace H (Negative) Urine Nitrite Positive H (Negative) Ur Leukocyte Esterase Moderate (2+) H (Negative) Urine RBC 0-2 (0-2) /HPF Urine WBC 21-50 H (0-5) /HPF Ur Squamous Epith Cells 0-2 (0-2) /HPF Urine Bacteria 4+ (None Seen) Hyaline Casts 0-2 (0-2) /LPF Influenza Type A (PCR) NEGATIVE (Negative) Influenza Type B (PCR) NEGATIVE (Negative) RSV RNA Qual (PCR) NEGATIVE (Negative) SARS-CoV-2 RNA (RT-PCR) NEGATIVE (Negative) Independent Interpretation I performed an independent interpretation of an: EKG ( my interpretation of EKG: Sinus tachycardia, heart rate 122, no ST segment depression or elevation, no T-wave inversion, QTC 437, occasional PVCs) and Plain X-Ray Radiology Impression Discussion of test interpretation with radiology: I have reviewed the radiologist's reading. Radiologist Impression: No consolidation or effusion. Heart size is normal. No acute fracture. Critical Care Time Critical Care Time Critical Care Time: Yes Total Critical Care Time: 60 Attestation: I have personally provided critical care time. Time includes review of lab data, radiology results, discussion with consultants, and monitoring for potential decompensation. Intervention performed as documented. Discharge Plan Discharge Clinical Impression: Acute UTI (urinary tract infection) Patient Disposition: Admitted As Inpatient
[2025-08-20 22:00] VITALS: PULSE 115; RESP 22; TEMP 40.7; O2SAT 94
[2025-08-20 22:12] LABS: MANUAL DIFF FLAG NO
[2025-08-20 22:14] LABS: Hematocrit 32.5 % (37.0-47.0); Hemoglobin 9.8 g/dl (12.0-16.0); Imm Gran Abs Auto 0.09 X10*3/uL (0.00-0.03); Imm Gran Pct Auto 0.6 % (0.0-0.4); Lymphocytes Absolute Auto 1.0 X10*3/uL (1.2-4.9); Mean Corpuscular HGB Conc 30.2 g/dl (31.0-35.0); Mean Corpuscular Hemoglobin 25.8 pg (27.0-33.0); Mean Corpuscular Volume 85.5 fL (80.0-98.0); NRBC Abs Auto 0.000 X10*3/uL (0.0-0.012); NRBC Pct Auto 0.0 /100WBC (0.0-0.2); Platelet Count 333 X10*3/uL (160-400); Red Blood Count 3.80 X10*6/uL (4.20-5.50); White Blood Count 15.1 X10*3/uL (4.8-10.8)
[2025-08-20 22:17] LABS: Venous Blood Gas Refer to POC result
[2025-08-20 22:18] LABS: VBG HCO3 34 mmol/L (22-26); VBG O2 % Saturation 89.0 %
--- OUTSIDE RECORDS SUMMARY | 2025-08-20 22:22 | XMS_ITS | Encounter Summary ---
Author Organization [employer] Address [address] [place] [address] Care Team Providers Care Dramatic Arts Historian Name Role Phone Manjula Ross MD Primary Care Provider [phone] Reason for Visit * Reason Onset Date Comments Nurse Triage 08/20/2025 Encounter Details Date Type Department Care Team ([facility] st Contact Info) Description 08/20/2025 Telephone [facility] MEDICINE [address] [place], [place] [phone] Manjula Ross MD [address] [place], [place] [phone] Nurse Triage Social History Tobacco Use Types Packs/Day Years [...] the past 12 months, has t he [employer], gas, oil or water [employer] threatened to shut off services in your [...] encounter Miscellaneous Notes * Telephone Encounter - Sherrie Valentin RN - 08/20/2025 1:30 PM EST TC placed to pt via [employer] job titles (ID#[id number]) for triage. Pt reports they had a fever last night but has since resolved. Pt denies fever at time of call. Iv Rn asked about vaginal symptoms. Ptdenies vaginal symptoms. Pt reports they had a fever last night that resolved and they are feeling better today. Advised pt to call office if fever returns, new symptoms arise, or with any questions or concerns. Pt denied further questions or concerns at time of call. Protocol Used: No Protocol Available (Adult) Protocol-Based Disposition: Home Care Positive Triage Question: * Patient's symptoms are safe to treat at home per nursing judgment * All higher-acuity triage questions were negative. Care Advice Discussed: * Reasons To Call Back - New symptoms develop - You become worse * Telephone Encounter - Sherrie Valentin RN - 08/20/2025 12:19 PM EST TC x 2 placed to pt via [employer] job [employer] (Ismael ID#[id number]) for triage. No answer, unable to LVM as voicemail box is full. pearl peller to re-attempt in 1-2 hours. * Telephone Encounter - Jos Alba - 08/20/2025 10:41 AM EST Symptom: Vaginal Symptoms - Not Bleeding Outcome: Schedule an urgent appointment (within 4 hours) or talk to a nurse or provider soon Reason: Fever The caller accepted this outcome. Contact [phone] documented in this encounter Plan of Treatment Upcoming Encounters Date Type Department Care Team (Late st Contact Info) Description 11/12/2025 2:15 PM EST Office Visit [facility] [address] [place] [address] Manjula Ross MD [address] [place] [address] documented as of this encounter Goals Goal Patient Goal Type Associated Problems Recent Progress Patient-Stated? Author Help patients manage their type 2 diabetes Care Plan Help patients manage their type 2 diabetes Jos Lainez Patient has chronic kidney disease Care Plan Patient has chronic kidney disease Jos Lainez documented as of this encounter Visit Diagnoses Not on filedocumented in this encounter Additional Health Concerns Active Problems Noted Date Diagnosed Date Help patients manage their type 2 diabetes 08/20 Patient has chronic kidney disease 08/20/2025 Assessment Noted Time PHQ-9 Depression Total Score: 3 06/27/20 25 7:13 PM EDT documented as of this encounter Care Teams Dramatic Arts Historian Relationship Specialty Start Date End Date Manjula Ross MD [address] [place] [id number] PCP - General Family Medicine 08/10/22 Rosmery LONG 07/17/24 documented as of this encounter
--- OUTSIDE RECORDS SUMMARY | 2025-08-20 22:22 | XMS_ITS | Encounter Summary ---
Author Organization [employer] Address [address] [facility] [address] [place] [address] Care Team Providers Care Open Pit Quarry Supervisor Name Role Phone Manjula Ross MD Primary Care Provider [phone] Reason for Visit * Reason Comments Med Refill Encounter Details Date Type Department Care Team ([facility] st Contact Info) Description 04/19/2024 Refill [facility] MEDICINE [address] [place], [place] [phone] Valentine Junior DO [address] [place], [place] [phone] Seborrheic dermatitis Social History Tobacco Use Types [...] Description 11/12/2025 2:15 PM EST Office Visit [facility] MEDICINE [address] [place] [phone] Manjula Ross MD [address] [place] [phone] documented as of this encounter Visit Diagnoses Diagnosis Seborrheic dermatitis Unspecified seborrheic dermatitis documented in this encounter Additional Health Concerns Assessment Noted Time PHQ-9 Depression Total Score: 0 01/17/20 24 10:17 AM EDT documented as of this encounter Care Teams Open Pit Quarry Supervisor Relationship Specialty Start Date End Date Manjula Ross MD [address] [place] [id number] PCP - General Family Medicine 08/10/22 Rosmery A 07/17/24 documented as of this encounter
--- OUTSIDE RECORDS SUMMARY | 2025-08-20 22:22 | XMS_ITS | Encounter Summary ---
Author Organization [employer] Address 75 [facility] 7t [place] [address] Care Team Providers Care Protective Services Officer Name Role Phone Manjula Ross MD Primary Care Provider [phone] Encounter Details Date Type Department Care Team (Late st Contact Info) Description 04/04/2025 Orders Only [facility] [address] [place], [place] [phone] Manjula Ross MD [address] [place], [place] [phone] Social History Tobacco Use Types Packs/Day Years [...] the past 12 months, has t he [employer], gas, oil or water company threatened to [...] Description 11/12/2025 2:15 PM EST Office Visit [facility] [address] [place] [address] Manjula Ross MD [address] [place] [address] documented as of this encounter Procedures Procedure [...] PM EDT Narrative 05/03/2025 2:08 PM EDT [facility] [address] [place] [address] Mammography Report Signed Patient: Janneth Jenkins MR#: [id number] : 1950 Acct:[id number] Age/Sex: 75 / F ADM Date: 05/03/25 Loc: .MAMMO Attending Dr: Manjula Ross MD Ordering Physician: Manjula Ross Results: 3.6MProba justa Benign Finding - Short 6 M F/U Suggested Date of Service: 05/03/25 Follow Up: 6 Month F/U Procedure(s): MM tomosynthesis added views L Accession Number(s): [id number] cc: Manjula Ross EXAMINATION: MM DIAGNOSTIC DIGITAL [...] 05/03/25 1405 DD/ 1200 TD/TT: 05/03/25 1230 Systems Trainer: Procedure Note Donotuseinterpreter, Image - 05/03/2025 [facility] [address] [place] [address] Mammography Report Signed Patient: Sheela Jenkins#: [id number] : 1950cct:[id number] Age/Sex: 75 / FADM Date: 05/03/25 Loc: .MAMMO Attending Dr: Manjula Ross MD Ordering Physician: Sajan Rossults: 3.6MProba justa Benign Finding - Short 6 M F/U Suggested Date of Service: 05/03/25Follow Up: 6 Month F/U Procedure(s): MM tomosynthesis added views L Accession Number(s): [id number] cc: Manjula Ross EXAMINATION: MM DIAGNOSTIC DIGITAL [...] 05/03/25 1405 DD/ 1200 TD/TT: 05/03/25 1230 Systems Trainer: us Manjula Ross MD IMG BI PROCEDURES Final Result * BI US Breast Limited Left (05/03/2025 11:26 AM EDT) Anatomical Region Laterality Modality Breast Left Ultrasound 05/03/2025 11:2 6 AM EDT Narrative 05/03/2025 2:08 PM EDT [facility]'s [address] [place], [place] [address] Ultrasound Report Signed Patient: Janneth Jenkins MR#: [id number] : 1950 Acct:[id number] Age/Sex: 75 / F ADM Date: 05/03/25 Loc: HO.MAMMO Attending Dr: Manjula Ross MD Ordering Physician: Manjula Ross Date of Service: 05/03/25 Procedure(s): US breast LT limited mamm only Accession Number(s): [id number] cc: Manjula Ross EXAMINATION: MM DIAGNOSTIC DIGITAL [...] 05/03/25 1405 DD/ 1126 TD/TT: 05/03/25 1248 Systems Trainer: Procedure Note Donotuseinterpreter, Image - 05/03/2025 [facility] [address] [place] [address] Ultrasound Report Signed Patient: Sheela Jenkins#: [id number] : 1Acct:[id number] Age/Sex: 75 / FADM Date: 05/03/25 Loc: HO.MAMMO Attending Dr: Manjula Ross MD Ordering Physician: Manjula Ross Date of Service: 05/03/25 Procedure(s): US breast LT limited mamm only Accession Number(s): [id number] cc: Manjula Ross EXAMINATION: MM DIAGNOSTIC DIGITAL [...] 05/03/25 1405 DD/ 1126 TD/TT: 05/03/25 1248 Systems Trainer: us Manjula Ross MD IM US PROCEDURES Final Result documented in this encounter Visit Diagnoses Not on filedocumented in this encounter Additional Health Concerns Assessment Noted Time PHQ-9 Depression Total Score: 0 01/17/20 24 10:17 AM EDT documented as of this encounter Care Teams Protective Services Officer Relationship Specialty Start Date End Date Manjula Ross MD [address] [place] [address] PCP - General Family Medicine 08/10/22 [place] [facility] 07/17/24 documented as of this encounter
--- OUTSIDE RECORDS SUMMARY | 2025-08-20 22:22 | XMS_ITS | Encounter Summary ---
Author Organization [employer] Address 75 [facility] 7t [place] [address] Care Team Providers Care Cook Fish And Chips Name Role Phone Manjula Ross MD Primary Care Provider [phone] Reason for Visit * Reason Comments Med Refill Encounter Details Date Type Department Care Team ([facility] st Contact Info) Description 02/15/2024 Refill [facility] 230 [place], [place] [phone] [facility] 230 [place], [place] [phone] Rash and nonspecific skin eruption Social History [...] Description 11/12/2025 2:15 PM EST Office Visit [facility] [address] [place] [address] Manjula Ross MD [address] [place] [address] documented as of this encounter Visit Diagnoses Diagnosis Rash and nonspecific skin eruption Rash and other nonspecific skin eruption documented in this encounter Additional Health Concerns Assessment Noted Time PHQ-9 Depression Total Score: 0 01/17/20 24 10:17 AM EDT documented as of this encounter Care Teams Cook Fish And Chips Relationship Specialty Start Date End Date Manjula Ross MD [address] [place] [address] PCP - General Family Medicine 08/10/22 [place] [facility] 07/17/24 documented as of this encounter
--- OUTSIDE RECORDS SUMMARY | 2025-08-20 22:22 | XMS_ITS | Encounter Summary ---
Author Organization [employer] Address 75 [facility] 7t [place] [address] Care Team Providers Care Manager Environmental Health And Safety Name Role Phone Manjula Ross MD Primary Care Provider [phone] Reason for Visit * Reason Onset Date Comments Hospital Follow-up 07/17/2024 Encounter Details Date Type Department Care Team ([facility] st Contact Info) Description 07/17/2024 Telephone [facility]INE 230 [place], [place] [phone] Manjula Ross MD 230 [place], [place] [phone] Hospital Follow-up Social History Tobacco Use Types [...] Katie yoder requesting a HDF appt. Hospital: [facility] Date of admission: 07/10/24 Discharge date: 07/15/24 Diagnosed: cyst underneath breast and had surgery documented in this encounter Plan of Treatment Upcoming Encounters Date Type Department Care Team (Late st Contact Info) Description 11/12/2025 2:15 PM EST Office Visit [facility] [address] [place] [address] Manjula Ross MD 230 [place] [address] documented as of this encounter Visit Diagnoses Not on filedocumented in this encounter Additional Health Concerns Assessment Noted Time PHQ-9 Depression Total Score: 0 01/17/20 10:17 AM EDT documented as of this encounter Care Teams Manager Environmental Health And Safety Relationship Specialty Start Date End Date Manjula Ross MD [address] [place] [address] PCP - General Family Medicine 08/10/22 [facility] 07/17/24 documented as of this encounter
--- OUTSIDE RECORDS SUMMARY | 2025-08-20 22:22 | XMS_ITS | Encounter Summary ---
Author Organization [employer] Address 75 [facility] 7t [place] [address] Care Team Providers Care Medical Services Coordinator Name Role Phone Manjula Ross MD Primary Care Provider Reason for Visit * Reason Onset Date Comments Hospital Follow-up 03/09/2024 Encounter Details Date Type Department Care Team ([facility] st Contact Info) Description 03/09/2024 Telephone [facility] MED[facility]INE 230 [place], [place] [phone] Manjula Ross MD 230 [place], [place] [phone] Hospital Follow-up Social History Tobacco Use Types [...] 2:15 PM EST Office Visit [facility] [address] [place] [address] Manjula Ross MD [address] [place] [address] documented as of this encounter Visit Diagnoses Not on filedocumented in this encounter Additional Health Concerns Assessment Noted Time PHQ-9 Depression Total Score: 0 01/17/20 10:17 AM EDT documented as of this encounter Care Teams Medical Services Coordinator Relationship Specialty Start Date End Date Manjula Ross MD [address] [place] [address] PCP - General Family Medicine 08/10/22 [facility] 07/17/24 documented as of this encounter
--- OUTSIDE RECORDS SUMMARY | 2025-08-20 22:22 | XMS_ITS | Encounter Summary ---
Author Organization [employer] Address 75 [facility] 7t [place] [address] Care Team Providers Care Shield Runner Name Role Phone Manjula Ross MD Primary Care Provider [phone] Reason for Visit * Reason Comments Med Refill Encounter Details Date Type Department Care Team ([facility] st Contact Info) Description 03/21/2024 Refill [facility] 230 [place], [place] [phone] Manjula Ross MD 230 [place], [place] [phone] Social History Tobacco Use Types Packs/Day Years [...] PM EST Office Visit [facility] [address] [place] [address] Manjula Ross MD 230 [place] [address] documented as of this encounter Visit Diagnoses Not on filedocumented in this encounter Additional Health Concerns Assessment Noted Time PHQ-9 Depression Total Score: 0 01/17/20 24 10:17 AM EDT documented as of this encounter Care Teams Shield Runner Relationship Specialty Start Date End Date Manjula Ross MD [address] [place] [address] PCP - General Family Medicine 08/10/22 [place] [facility] 07/17/24 documented as of this encounter
--- OUTSIDE RECORDS SUMMARY | 2025-08-20 22:22 | XMS_ITS | Encounter Summary ---
Author Organization [employer] Address 75 [facility] 7t [place] [address] Care Team Providers Care Information Systems Security Manager Name Role Phone Manjula Ross MD Primary Care Provider [phone] Encounter Details Date Type Department Care Team (Late st Contact Info) Description 02/05/2025 Orders Only [facility] MEDICINE 230 [place], [place] [phone] Manjula Ross MD 230 [place], [place] [phone] Social History Tobacco Use Types Packs/Day Years [...] the past 12 months, has t he [employer], gas, oil or water company threatened to [...] Description 11/12/2025 2:15 PM EST Office Visit [facility] [address] [place] [address] Manjula Ross MD 230 [place] [address] documented as of this encounter Procedures Procedure [...] documented as of this encounter Care Teams Information Systems Security Manager Relationship Specialty Start Date End Date Manjula Ross MD [address] [place] [address] PCP - General Family Medicine 08/10/22 [place] [facility] 07/17/24 documented as of this encounter
--- OUTSIDE RECORDS SUMMARY | 2025-08-20 22:22 | XMS_ITS | Continuity of Care Document ---
Author Organization [employer] [facility], [facility] Address [address] [place] [address] Care Team Providers Care Physical Chemist Name Role Phone HIM CCA OTHER Unavailable Primary Care Provider Assessment Encounter Date Assessment Date Assessment LastModified by Organization Details LastModified Time 08/13/2025 08/13/2025 I provided real -time medical direction via phone for this encounter and was available for additional phone-based assistance as needed. I have reviewed and agree with the Assessment and Plan as documented by the Finished Garment Inspector. Patient given the opportunity to ask questions. Our service contacted for an assessment of: fever As per above, patient with a fever this am. Took Tylenol and felt better. Has no symptoms of a UTI, URI or PNA. ? confusion earlier but no longer. Per station gateman on the scene, VSS< AF Please read the station gateman note for their exam findings. COVID and flu are negative. Impression: Fever NOS, resolved currently Plan: Observation for now. Too early and only one data point to assess etiology and trajectory. Advised patient keep a close observation of symptoms and temps. Red flags discussed as to when to seek a higher level of care or recall this service. Allergies: Reviewed We discussed the diagnostic uncertainty of home visits and the risk associated with this. In this case, the patient and I felt this to be an acceptable and reasonable amount of risk given the benefit of avoiding an ED visit. We discussed the need to seek care urgently/emergentl y in the setting of any new or worsening serious symptoms, particularly fever chills lightheadedness altered mental status [email or web address] Not available 08/13/2025 17:48:58 Plan of Treatment Reminders Order Date Submit Date Provider Last Modified By Organization Details Last Modified Time Details Appointments None recorded. Lab rapid flu (A+B) 2024 025 [facility] [address] [place] [address], [id number] 5 17:55:09 rapid SARS CoV 2 Ag, QL IA, respiratory specimen 2024 025 [facility], [address] [place] [address], [id number] 5 17:55:10 Referral None recorded. Procedures None recorded. Surgeries None recorded. Imaging None recorded. Medication Orders None recorded. Patient TargetsNo targets recorded. Patient InstructionsNo instructions recorded. Reason for Referral None Reported. Results Created Date Observation Date Name Description Value Unit Range Abnormal Flag Note LastModifiedBy Organization Detail LastModifiedTime Result Notes None recorded. Medical Equipment None Reported. Allergies No known drug allergies Medications Name Sig Start Date Stop Date Status Note LastModified by Organization Details LastModified Time metformin 500 mg tablet TAKE 1 TABLET BY MOUTH EVERY DAY WITH EVENING MEAL active Not Available Not Available No t Available prednisone 10 mg tablet TAKE 2 TABLETS (20 MG) BY MOUTH ONCE PER DAY. active Not Available Not Available No t Available venlafaxine ER 75 mg capsule,exte nded release 24 hr TAKE 1 CAPSULE BY MOUTH EVERY DAY active Not Available Not Available No t Available atorvastatin 20 mg tablet TAKE 1 TABLET BY MOUTH EVERY DAY active Not Available Not Available No t Available ketoconazole 2 % shampoo WASH SCALP THREE TIMES PER WEEK active Not Available Not Available No t Available albuterol sulfate 2.5 mg/3 mL (0.083 %) solution for nebulization PLEASE SEE ATTACHED FOR DETAILED DIRECTIONS active Not Available Not Available N ot Available ammonium lactate 12 % lotion APPLY TOPICALLY IF NEEDED FOR DRY SKIN. active Not Available Not Available No t Available cetirizine 10 mg tablet TAKE 1 TABLET BY MOUTH EVERY DAY IN THE MORNING active Not Available Not Available No t Available ibuprofen 800 mg tablet TAKE 1 TABLET BY MOUTH THREE TIMES A DAY active Not Available Not Available Not Available clonazepam 1 mg tablet TAKE 1 TABLET BY MOUTH TWICE A DAY NEEDED FOR SEVERE ANXIETY AND PANIC DISORDER. active Not Available Not Available No t Available aspirin 81 mg tablet,delay ed release TAKE 1 TABLET (81 MG) BY MOUTH IN THE MORNING active Not Available Not Available Not Available triamcinolon e acetonide 0.025 % topical cream APPLY TO AFFECTED AREA TWICE A DAY active Not Available Not Available No t Available econazole nitrate 1 % topical cream APPLY TOPICALLY 2 TIMES DAILY. MIX WITH HYDROCORTIS ONE CREAM+APPLY TO AREA UNDER BREASTS TWICE DAILY active Not Available Not Available Not Available tacrolimus 0.03 % topical ointment APPLY TOPICALLY TO THE FACE TWICE A DAY active Not Available Not Available Not Available hydrocortiso ne 2.5 % topical cream APPLY TO AREAS WHERE TAPE/ADHESI VE HAS BEEN active Not Available Not Available Not Available mirtazapine 15 mg tablet TAKE 1 TABLET BY MOUTH EVERYDAY AT BEDTIME active Not Available Not Available No t Available nystatin 100,000 unit/gram topical powder APPLY TOPICALLY 2 TIMES DAILY. APPLY DAILY AFTER SHOWER active Not Available Not Available No t Available fluocinolone 0.01 % scalp oil and shower cap MASSAGE INTO DAMP SCALP DAILY. COVER HAIR AND LEAVE ON FOR AT LEAST 4 HOURS active Not Available Not Available No t Available Combivent Respimat 20 mcg-100 mcg/actuatio n solution for inhalation TAKE 1 PUFF ORALLY EVERY 4 TO 6 HOURS NEEDED FOR FOR WHEEZING active Not Available Not Available No t Available Incruse Ellipta 62.5 mcg/actuatio n powder for inhalation INHALE 1 PUFF BY MOUTH EVERY DAY active Not Available Not Available No t Available Wixela Inhub 250 mcg-50 mcg/dose powder for inhalation TAKE 1 PUFF BY MOUTH TWICE A DAY active Not Available Not Available Not Available Mounjaro 2.5 mg/0.5 mL subcutaneous pen injector INJECT 1 PEN SUBCUTANEOU SLY ONCE A WEEK FOR 4 WEEKS active Not Available Not Available No t Available Vitals Date Recorded Respiratory rate Heart rate Body temperature Oxygen saturation Inhaled oxygen flow rate Systolic And Diastolic Provider Name and Address Organization Details Last Updated DateTime 5 18 /min 102 /min 98.4 [degF] 94 % 3 L/min 124/60 mm[Hg] Not Available [employer] - production 5 16:32:36 Social History None recorded. Functional Status None recorded. Mental Status None recorded. Family History Nothing Reported. Medical History No medical history recorded. Gynecological HistoryNo gynecological history recorded. Obstetrics History GPAL:G 0 P 0 0 0 0 Past Encounters Encounter ID Performer Location Encounter Start Date Encounter Closed Date Diagnosis/Indication Diagnosis SNOMED-CT Code Diagnosis ICD10 Code Diagnosis IMO Codes Diagnosis Note [id number] Leena Molina MD [facility] ED Medical [address] [phone] 08/13/2025 16:32:32 08/13/2025 21:30:01 Fever 073820332 R50.9 [id number] Health Concerns Section Related Observation LastModified by Organization Detai ls LastModified Time None Recorded Concern Status LastModified by Organization Details LastModified Time None Recorded Payers Encounter Date Sequence Insurance Name Policy Number Policy Charles Covered Member ID Charles Member ID Guarantor Name 08/13/2025 1 [facility] - DOS ON OR AFTER 2022 - DUAL ELIGIBLE - [employer]PC OPTIONS AND ONE CARE (MEDICARE REPLACEMENT/ADV ANTAGE - HMO) Janneth Jenkins [id number] Janneth Jenkins Notes Date Note Type Note Provider Name and Address Organization Details Recorded Time 08/13/2025 text/html CRC Nurse Triage Notes (Brittany Fox): Reason For Request: fever/chills/forget ful Denies: Increased work of breathing/labored with or without fever Unable to speak in full sentences without distress Discoloration of skin -cyanosis Needs to sleep sitting up, can t catch breath Shortness of breath in setting of confusion Chief Complaints: Fever, Confusion PMH: Cancer, Asthma, COPD/Asthma PMH Reviewed at 08/13/2025 - 12:59 (ET) Allergies Reviewed at 08/13/2025 - 12:59 (ET) Comments: 75 y.o female complains of Fever, Confusion DELIVERY REPRESENTATIVE referring patient. Fever 102F, fatigue and chills starting today. DELIVERY REPRESENTATIVE reports the symptoms came out of nowhere this morning - was in full health yesterday. Hx of asthma, a little congested. On home O2, 2L at all times. Using inhalers and nebulizers, little more SOB. Denies coughing/sneezing. Denies dysuria, foul smelling urine, frequency/urgency. Denies pain. Remote history of breast cancer, not in active treatment. Not on anticoagulation. Denies kidney issues. Denies recent falls/injuries. DELIVERY REPRESENTATIVE unable to confirm allergies. I provided information on the mobile health provider response time and advised the patient and/or caregiver to monitor reported signs and symptoms. I discussed the warning signs of when to seek emergency care. Finished Garment Inspector Organization Information for [facility]val[facility] [email or web address] Name: [email or web address] Address: [address] [place] [address], [place] Pulling Machine Operator: Jean Marie BECKHAM No.: [id number] Finished Garment Inspector POC Test Results from [facility] - ALS Rapid COVID antigen (16:22:26) COVID: - Rapid influenza antigen (16:22:27) Flu: - ................... ................... ................... ................... ................... ................... ................... ........ Finished Garment Inspector Note From [facility]: Barriers To Care: None GEN: Well appearing, in no distress or discomfort, alert and cooperative. HEENT: No abnormalities noted CV: RRR LUNGS: CEB ABD: Soft, NT/ND, no masses. : N/A SKIN: Warm, well perfused. No skin rashes or abnormal lesions reported. MSK: No deformities. EXT: No clubbing, cyanosis, edema NEURO: No focal deficits. Pt alert oriented seated on 3lpm home o2. Family reports pt had a fever and mild confusion this morning and pt states that she remembers the event and took some aspirin and is now symptom free. Pt has no complaint at time of assessment. POC flu/covid performed and [facility] consulted and care plan developed of watchful waiting and education on when to initiate another insted visit or when to seek urgent/emergent care. [facility] Lab Orders: rapid flu (A+B): Performed rapid SARS CoV 2 Ag, QL IA, respiratory specimen: Performed ................... ................... ................... ................... ................... ................... ................... ........ [facility] Consulted: Leena Molina ................... ................... ................... ................... ................... ................... ................... ........ Disposition: Fulfilled Leena Molina MD [address] [facility] [facility], [place], [address], [email or web address] 08/13/2025 17:49:07 OBGyn Episode No OBEpisode recorded.
--- OUTSIDE RECORDS SUMMARY | 2025-08-20 22:22 | XMS_ITS | Encounter Summary ---
Author Organization [employer] Address 75 [facility] 7t [place] [address] Care Team Providers Care Set And Exhibit Designer Name Role Phone Manjula Ross MD Primary Care Provider [phone] Reason for Visit * Reason Comments Med Refill Encounter Details Date Type Department Care Team ([facility] st Contact Info) Description 04/19/2024 Refill [facility]INE [address] [place], [place] [phone] Manjula Ross MD 230 [place], [place] [phone] [employer] Social History Tobacco Use Types Packs/Day [...] 11/12/2025 2:15 PM EST Office Visit [facility] MED[facility]INE [address] [place] [address] Manjula Ross MD [address] [place] [address] documented as of this encounter Visit Diagnoses Diagnosis Inter[employer]igo Other specified erythematous condition documented in this encounter Additional Health Concerns Assessment Noted Time PHQ-9 Depression Total Score: 0 01/17/20 10:17 AM EDT documented as of this encounter Care Teams Set And Exhibit Designer Relationship Specialty Start Date End Date Manjula Ross MD [address] [place] [address] PCP - General Family Medicine 08/10/22 [place] [facility] 07/17/24 documented as of this encounter
--- OUTSIDE RECORDS SUMMARY | 2025-08-20 22:22 | XMS_ITS | Data Portability ---
Author Organization [facility], [facility] Address [address] [place] [address] Care Team Providers Care Political Science Chair Name Role Phone HIM CCA OTHER Unavailable Primary Care Provider Assessment Encounter Date Assessment Date Assessment LastModified by Organization Details LastModified Time 08/13/2025 08/13/2025 I provided real -time medical direction via phone for this encounter and was available for additional phone-based assistance as needed. I have reviewed and agree with the Assessment and Plan as documented by the International Logistics Analyst. Patient given the opportunity to ask questions. Our service contacted for an assessment of: fever As per above, patient with a fever this am. Took Tylenol and felt better. Has no symptoms of a UTI, URI or PNA. ? confusion earlier but no longer. Per corporate executive on the scene, VSS< AF Please read the corporate executive note for their exam findings. COVID and [...] recorded. Lab rapid flu (A+B) 2024 025 [facility], [address] [place] [address], [id number] 5 17:55:09 rapid SARS CoV 2 Ag, QL IA, respiratory specimen 2024 025 [facility], [address] [place], [phone] 5 17:55:10 Referral None recorded. Procedures None [...] ICD10 Code Diagnosis IMO Codes Diagnosis Note [id number] Leena Molina MD [facility] ED Medical [address] [phone] 08/13/2025 16:32:32 08/13/2025 21:30:01 Fever [id number] R50.9 [id number] Health Concerns Section Related Observation LastModified by Organization Detai ls LastModified Time None Recorded Concern Status LastModified by Organization Details LastModified Time None Recorded Advance Directives Directive None Recorded Payers Insurance Date Sequence Insurance Name Policy Number Policy Charles Covered Member ID Charles Member ID Guarantor Name 08/13/2025 1 [facility] - DOS ON OR AFTER 2022 - DUAL ELIGIBLE - JAIL OPTIONS AND ONE CARE (MEDICARE REPLACEMENT/ADV ANTAGE - HMO) Janneth Jenkins [id number] Janneth Jenkins Notes Date Note Type Note [...] 75 y.o female complains of Fever, Confusion LOCKSTITCH TUNNEL ELASTIC OPERATOR referring patient. Fever 102F, fatigue and chills starting today. LOCKSTITCH TUNNEL ELASTIC OPERATOR reports the symptoms came out of nowhere this morning - was in full health yesterday. Hx of asthma, a little congested. On home O2, 2L at all times. Using inhalers and nebulizers, little more SOB. Denies coughing/sneezing. Denies dysuria, foul smelling urine, frequency/urgency. Denies pain. Remote history of breast cancer, not in active treatment. Not on anticoagulation. Denies kidney issues. Denies recent falls/injuries. LOCKSTITCH TUNNEL ELASTIC OPERATOR unable to confirm allergies. I provided information on the mobile health provider response time and advised the patient and/or caregiver to monitor reported signs and symptoms. I discussed the warning signs of when to seek emergency care. International Logistics Analyst Organization Information for [facility] [employer] Legal Name: [employer]. Address: [address] [place] [address] [place] [address], Integrated Logistics Programs Director: Jean Marie Cespedes MD [facility] No.: [id number] International Logistics Analyst POC Test Results from [facility] - ALS Rapid COVID antigen (16:22:26) COVID: - Rapid influenza antigen (16:22:27) Flu: - ................... ................... ................... ................... ................... ................... ................... ........ International Logistics Analyst Note From [facility]: Barriers To Care: [...] time of assessment. POC flu/covid performed and [facility] consulted and care plan developed of watchful waiting and education on when to initiate another insted visit or when to seek urgent/emergent care. [facility] Lab Orders: rapid flu (A+B): Performed rapid SARS CoV 2 Ag, QL IA, respiratory specimen: Performed ................... ................... ................... ................... ................... ................... ................... ........ [facility] Consulted: Leena Molina ................... ................... ................... ................... ................... ................... ................... ........ Disposition: Fulfilled Leena Molina MD [address] [facility],[address] [facility], [place], [address], [employer] 08/13/2025 17:49:07 OBGyn Episode No OBEpisode recorded.
--- OUTSIDE RECORDS SUMMARY | 2025-08-20 22:22 | XMS_ITS | Clinical Summary ---
Author Organization [employer] Address [address] [facility] [address] [place] [address] Care Team Providers Care K9 Handler Name Role Phone Manjula Ross MD Primary Care Provider [phone] Allergies No known active allergies Medications clonazePAM [...] 56 g 1 025 Active nystatin (Mycostatin) 594447 UNIT/GM powder APPLY TOPICALLY 2 TIMES DAILY. [...] MEAL 90 tablet 3 024 2024 Discontinued triamcinolone (Kenalog) 0.025 % [...] TAPE/ADHESIVE HAS BEEN 56 g 1 025 2024 Discontinued nystatin (Mycostatin) 801891 UNIT/GM powder APPLY TOPICALLY 2 TIMES DAILY. [...] Plan (02/08/2023 9:15 AM EDT): On Elenitaxhoney Comblucíat Incrusa Managed by pulm Quit smoking years [...] Encounters Date Type Department Care Team Description 08/20/2025 Telephone [facility] MEDICINE [address] [place] [address] Manjula Ross MD Nurse Triage 08/11/2025 Orders Only [facility] External Provider, [facility] 07/31/2025 Refill [facility]INE [address] [place] [address] Manjula Ross MD Seborrheic dermatitis 07/26/2025 Refill [facility] MEDICINE [address] [place] [address] Manjula Ross MD 07/22/2025 Refill [facility] MED[facility]INE [address] [place] [address] Manjula Ross MD 07/19/2025 Refill [facility]INE [address] [place] [address] Manjula Ross MD Mild persistent asthma without complication 07/03/2025 Results Follow-Up [facility]INE [address] [place] [address] Manjula Ross MD POCT Glucose, POCT Hgb A1c, Comprehensive Metabolic Panel, Additional followed-up results: 2 06/27/2025 3:00 PM EDT Office Visit [facility]ICINE [address] [place] [address] Manjula Ross MD Type 2 diabetes mellitus with diabetic dermatitis, without long-term current use of insulin (HCC) (Primary Dx); Stress incontinence; Morbid obesity (CMS/HCC) (HCC); Mixed anxiety and depressive disorder; Low back pain of over 3 months duration; Seborrheic dermatitis; Ductal carcinoma in situ (DCIS) of right breast; Centrilobular emphysema (HCC); Nonrheumatic mitral valve regurgitation; Encounter for immunization 06/27/2025 Travel 06/26/2025 Telephone [facility] MEDICINE [address] [place] [address] Manjula Ross MD chart prep 06/01/2025 Refill [facility] MEDICINE [address] [place] [address] Manjula Ross MD 05/30/2025 Refill [facility] MEDICINE [address] [place] [address] Manjula Ross MD from Last 3 Months [...] [facility] [address] [place] [address] Manjula Ross MD [address] [place] [address] Health Maintenance Due Date Last Done Comments [...] Tdap) 03/16/2022 03/16/2012, 04/16/2000 COVID-19 Vaccine ( - season) 2025 12/01/2021, 03/31/2021, 03/03/2021 Diagnostic Breast [...] on patient's age to complete this topic Goals Goal Patient Goal Type Associated Problems Recent Progress Patient-Stated? Author Help patients manage their type 2 diabetes Care Plan Help patients manage their type 2 diabetes Jos Lainez Patient has chronic kidney disease Care Plan Patient has chronic kidney disease Jos Lainez Procedures Procedure Name Priority Date/Time Associated Diagnosis Comments LDCT LUNG SCREENING Routine 08/13/2025 4 :55 PM EST LIPID PANEL, STANDARD Routine 07/03/2025 12:12 PM [...] Recently Relevant to Health Maintenance Results * CT Lung Screening Low dose (08/13/2025 4:55 PM EST) Anatomical Region Laterality Modality Lung Computed Tomogra phy 08/13/2025 4:55 PM EST Narrative 08/13/2025 4:56 PM EST [place] [address] CT Scan Report Signed Patient: Janneth Jenkins MR#: [id number] : 1950 Acct:[id number] Age/Sex: 75 / F ADM Date: 08/11/25 Loc: HO.CT Attending Dr: Susi Johnson PA-C Ordering Physician: Susi Johnson PA-C Date of Service: 08/11/25 Procedure(s): CT lung screening Accession Number(s): [id number] cc: Manjula Ross; Susi Johnson PA-C Report Number: [id number]: Total DLP = 157.00 mGy-cm Reason for Exam: Z87.891 - Personal history of nicotine dependence CLINICAL HISTORY: Z87.891 - Personal history of nicotine dependence CT lung cancer screening (LDCT) Comparison: CT/AK/SR - CT LUNG SCREENING - 04/27/24 15:10 EDT Technique: Axial CT images of the chest using low-dose technique. Referring provider counseled the patient on shared decision-making for LDCT screening. Additional counseling was provided on smoking cessation. Effective radiation dose total: DLP 151.6 mGycm, CTDIvol 4.1 mGy. Findings: Lung: Stable mild centrilobular emphysema. Stable scattered pulmonary parenchymal scar bilaterally. No suspicious pleural disease. Likely status post partial lobectomy left upper lobe. No pulmonary nodule. Coronary artery calcifications: Stable mild Limited upper abdomen: Unremarkable Other: None IMPRESSION: LungRADS 1: Negative exam. Continue annual screening with low dose Chest CT in 12 months. This document has been electronically signed by: Hollie Crandall MD on 08/13/2025 16:55:21 Dictated By: Hollie Crandall MD Signed By: <Electronically signed by Hollie Crandall MD in OV> 08/13/251655 DD/ 54 TD/TT: 08/13/251654 Director Of Acquisitions: Procedure Note Donotuseinterpreter, Image - 08/13/[address] [place] [address] [address] Scan Report Signed Patient: Sheela Jenkins#: [id number] : 1950cct:[id number] Age/Sex: 75 / FADM Date: 08/11/25 Loc: HO.CT Attending Dr: Susi Johnson PA-C Ordering Physician: Susi Johnson PA-C Date of Service: 08/11/25 Procedure(s): CT lung screening Accession Number(s): [id number] cc: Manjula Ross; Susi Johnson PA-C Report Number: [id number]: Total DLP = 157.00 mGy-cm Reason for Exam: Z87.891 - Personal history of nicotine dependence CLINICAL HISTORY: Z87.891 - Personal history of nicotine dependence CT lung cancer screening (LDCT) Comparison: CT/AK/SR - CT LUNG SCREENING - 04/27/24 15:10 EDT Technique: Axial CT images of the chest using low-dose technique. Referring provider counseled the patient on shared decision-making for LDCT screening. Additional counseling was provided on smoking cessation. Effective radiation dose total: DLP 151.6 mGycm, CTDIvol 4.1 mGy. Findings: Lung: Stable mild centrilobular emphysema. Stable scattered pulmonary parenchymal scar bilaterally. No suspicious pleural disease. Likely status post partial lobectomy left upper lobe. No pulmonary nodule. Coronary artery calcifications: Stable mild Limited upper abdomen: Unremarkable Other: None IMPRESSION: LungRADS 1: Negative exam. Continue annual screening with low dose Chest CT in 12 months. This document has been electronically signed by: Hollie Crandall MD on 08/13/2025 16:55:21 Dictated By: Hollie Crandall MD Signed By: <Electronically signed by Hollie Crandall MD in OV> 08/13/251655 DD/ 54 TD/TT: 08/13/251654 Director Of Acquisitions: [facility] External Provider IMG CT PROCEDURES Final Result * (ABNORMAL) CBC auto differential (07/03/2025 12:12 PM EDT) White Blood Count 10.8 4.8 - 10.8 X10*3/uL [facility] Red Blood Count 4.15(L) 4.20 - 5.50 X10*6/uL [facility] Hemoglobin 10.8(L) 12.0 - 16.0 g/dl [facility] Hematocrit 36.6(L) 37.0 - 47.0 % [facility] Mean Corpuscular Volume 88.2 80.0 - 98.0 fL [facility] Mean Corpuscular Hemoglobin 26.0(L) 27.0 - 33.0 pg [facility] Mean Corpuscular HGB Conc 29.5(L) 31.0 - 35.0 g/dl [facility] Red Cell Distribution Width 14.4 11.0 - 16.0 % [facility] Platelet Count 321 160 - 400 X10*3/uL [facility] Mean Platelet Volume 8.9(L) 9.4 - 12.3 fL [facility] Neutrophils Percent Auto 81.8(H) 45 - 73 % [facility] Imm Gran Pct Auto 0.5(H) 0.0 - 0.4 % [facility] Lymphocytes Percent Auto 12.6(L) 20 - 40 % [facility] Monocytes Percent Auto 3.8 2 - 11 % [facility] Eosinophils Percent Auto 1.0 0 - 4 % [facility] Basophils Percent Auto 0.3 0 - 2 % [facility] NRBC Pct Auto 0.0 0.0 - 0.2 /100WBC [facility] Neutrophils Absolute Auto 8.9(H) 2.0 - 8.3 x10*3/uL [facility] Imm Gran Abs Auto 0.05(H) 0.00 - 0.03 X10*3/uL [facility] Lymphocytes Absolute Auto 1.4 1.2 - 4.9 X10*3/uL [facility] Monocytes Absolute Auto 0.4 0.1 - 1.2 X10*3/uL [facility] Eosinophils Absolute Auto 0.1 0.0 - 0.4 X10*3/uL [facility] Basophils Absolute Auto 0.0 0.0 - 0.2 X10*3/uL [facility] NRBC Abs Auto 0.000 0.0 - 0.012 X10*3/uL [facility] Blood Venous blood specimen / Unknown 07/03/2025 12:12 PM EDT 07/03/2025 1:14 PM EDT us Manjula Ross MD LAB BLOOD ORDERABLES Final Res ult [facility] [address] [place], [place] [phone] * (ABNORMAL) Lipid Panel, Standard (07/03/2025 12:12 PM EDT) Triglycerides 176(H) <150 mg/dL [facility] Comment:Desirable Triglyceri de: less than 150 mg/dLBorderline High Triglyceride 150-199 mg/dLHigh Triglyceride: 200-499 mg/dLVery High Triglyceride: greater than or equal to 5OO mg/dL Cholesterol 238(H) <200 mg/dL [facility] Comment:Desirable Cholestero l: less than 200 mg/dLBorderline High Cholesterol: 200-239 mg/dLHigh Cholesterol: greater than 239 mg/dL LDL Cholesterol Calculated 162(H) <100 mg/dL [facility] Comment:Desirable LDL: less than 100 mg/dLNear Optimal/Above Optimal LDL: 110- 129 mg/dLBorderline High LDL: 130-159 mg/dLHigh LDL: 160-189 mg/dLVery High LDL: greater than or equal to 190 mg/dL HDL Cholesterol 41 >40 mg/dL [facility] Comment:Desirable HDL: great er than 40 mg/dL Note: This HDL assay may give artificially low results in patients with liver disease. Blood Venous blood specimen / Unknown 07/03/2025 12:12 PM EDT 07/03/2025 1:14 PM EDT us Manjula Ross MD LAB BLOOD ORDERABLES Final Res ult [facility] [address] [place] [phone] * (ABNORMAL) Comprehensive Metabolic Panel (07/03/2025 12:12 PM EDT) Sodium 142 135 - 145 mmol/L [facility] Potassium 4.2 3.3 - 5.1 mmol/L [facility] Chloride 101 96 - 108 mmol/L [facility] Carbon Dioxide 31(H) 22 - 29 mmol/L [facility] Anion Gap 14 12 - 20 [facility] Urea Nitrogen (BUN) 18(H) 9 - 16 mg/dL [facility] Creatinine, Serum 1.02 0.5 - 1.4 mg/dL [facility] Estimated Glomerular Filt Rate 53 [facility] Comment:Chronic Kidney Disea se: Estimated GFR < 60 mL/min/1.47e6Ttqkcg Kidney Disease: Estimated GFR < 15 mL/min/1.73m2 Glucose 124(H) 60 - 115 mg/dL [facility] Calcium 9.1 8.4 - 10.2 mg/dL [facility] Bilirubin, Total 0.2 0.0 - 1.0 mg/dL [facility] Aspartate Amino Transferase 23 5 - 31 U/L [facility] Alanine Aminotransferase 14 0 - 31 U/L [facility] Total Protein 8.3(H) 6.5 - 8.0 g/dL [facility] Albumin Level 4.1 3.5 - 5.0 g/dL [facility] Alkaline Phosphatase 84 39 - 117 U/L [facility] Blood Venous blood specimen / Unknown 07/03/2025 12:12 PM EDT 07/03/2025 1:14 PM EDT Manjula Ross MD LAB BLOOD ORDERABLES Final Res ult [facility] [address] [place] [phone] [phone] * (ABNORMAL) POCT Hgb A1c (06/27/2025 [...] Media Lot # [id number] Lot# Expiration Date 72 Blood Capillary blood specimen / Unknown 06/27/2025 3:09 PM EDT Manjula Ross MD POINT OF CARE TEST ENTER/EDIT ORDERABLES Final Result * BI US Breast Limited Left (05/03/2025 11:26 AM EDT) Anatomical Region Laterality Modality Breast Left Ultrasound 05/03/2025 11:2 6 AM EDT Narrative 05/03/2025 2:08 PM EDT [facility] [address] [place] [address] Ultrasound Report Signed Patient: Janneth Jenkins MR#: [id number] : 1950 Acct:[id number] Age/Sex: 75 / F ADM Date: 05/03/25 Loc: HO.MAMMO Attending Dr: Manjula Ross MD Ordering Physician: Manjula Ross Date of Service: 05/03/25 Procedure(s): US breast LT limited mamm only Accession Number(s): [id number] cc: Manjula Ross EXAMINATION: MM DIAGNOSTIC DIGITAL [...] 05/03/25 1405 DD/ 1126 TD/TT: 05/03/25 1248 Director Of Acquisitions: Procedure Note Donotuseinterpreter, Image - 05/03/2025 [place] [facility] [address] [place], [place] [address] Ultrasound Report Signed Patient: Sheela Jenkins#: [id number] : 1Acct:[id number] Age/Sex: 75 / FADM Date: 05/03/25 Loc: HO.MAMMO Attending Dr: Manjula Ross MD Ordering Physician: Manjula Ross Date of Service: 05/03/25 Procedure(s): US breast LT limited mamm only Accession Number(s): [id number] cc: Manjula Ross EXAMINATION: MM DIAGNOSTIC DIGITAL [...] 05/03/25 1405 DD/ 1126 TD/TT: 05/03/25 1248 Director Of Acquisitions: Manjula Ross MD [facility] PROCEDURES Final Result * Cologuard Cancer Screening (External Result Only) (06/20/2023 9:31 AM EDT) Cologuard Cancer Screen Negative Stool (Rectum) 06/20/2023 9: 31 AM EDT Historical Provider POINT OF CARE TEST ENTER/ EDIT ORDERABLES Final Result from Last 3 Months or Most Recently Relevant to Health Maintenance Additional Health Concerns Active Problems Noted Date Diagnosed Date Help patients manage their type 2 diabetes 08/20 Patient has chronic kidney disease 08/20/2025 Insurance [facility] STANDARD [facility] PENITENTIARY OPTIONS (HMO D-SNP) Care Teams K9 Handler Relationship Specialty Start Date End Date Manjula Ross MD [address] [place] [address] PCP - General Family Medicine 08/10/22 [facility] 07/17/24
--- OUTSIDE RECORDS SUMMARY | 2025-08-20 22:22 | XMS_ITS | Encounter Summary ---
Author Organization [employer] Address [address] [facility] [address] [place] [address] Care Team Providers Care Photocopier Technician Name Role Phone Manjula Ross MD Primary Care Provider [phone] Reason for Visit * Reason Comments Med Refill Encounter Details Date Type Department Care Team ([facility] st Contact Info) Description 04/19/2024 Refill [facility] MEDICINE [address] [place], [place] [phone] Manjula Ross MD [address] [place], [place] [phone] Social History Tobacco Use Types Packs/Day Years [...] Description 11/12/2025 2:15 PM EST Office Visit [facility] MEDICINE [address] [place] [phone] Manjula Ross MD [address] [place] [address] documented as of this encounter Visit Diagnoses Not on filedocumented in this encounter Additional Health Concerns Assessment Noted Time PHQ-9 Depression Total Score: 0 01/17/20 24 10:17 AM EDT documented as of this encounter Care Teams Photocopier Technician Relationship Specialty Start Date End Date Manjula Ross MD [address] [place] [address] PCP - General Family Medicine 08/10/22 [place] [facility] 07/17/24 documented as of this encounter
[2025-08-20 22:39] LABS: Alanine Aminotransferase 7 U/L (0-31); Albumin Level 3.6 g/dL (3.5-5.0); Alkaline Phosphatase 112 U/L (39-117); Anion Gap 11 (12-20); Aspartate Amino Transferase 24 U/L (5-31); Blood Urea Nitrogen 13 mg/dL (9-16); Calcium 8.9 mg/dL (8.4-10.2); Carbon Dioxide 31 mmol/L (22-29); Chloride 99 mmol/L (96-108); Creatinine Clr Calc Pharmacy 55.5; Estimated Glomerular Filt Rate 51; Magnesium 1.9 mg/dL (1.6-2.6); Potassium 4.7 mmol/L (3.3-5.1); Sodium 136 mmol/L (135-145); Total Protein 8.0 g/dL (6.5-8.0); Troponin-I High Sensitivity 27.2 ng/L (<3.5-17.0)
[2025-08-20 22:59] LABS: Resp Syncy Virus RNA Qual PCR NEGATIVE (Negative); SARS COV2 PCR INHOUSE NEGATIVE (Negative)
--- NOTE | 2025-08-20 23:15 | PC.NURSE ---
@approximately this time this RN performed straight catheterization to obtain urine sample pt tolerated the procedure well, denied any pain or discomfort, approximately 500mL of dark yellow, foul smelling urine drained into drainage back sample collected and sent to the lab for testing
[2025-08-20 23:25] VITALS: TEMP 39.5
[2025-08-21] VITALS (12 sets, daily range): BP systolic 97–131; BP diastolic 42–63; PULSE 62–101; RESP 15–22; TEMP 36.4–38.8; O2SAT 88–98; BMI 42.8
[2025-08-21 00:07] LABS: Appearance Urine Clear; Glucose Urine UA Negative (Negative); PH 5.5 (5.0-9.0); Specific Gravity - Urine 1.015 (1.005-1.025); UMIC TRIGGER UACC YES
[2025-08-21 00:16] LABS: UACC Culture Trigger YES
--- NOTE | 2025-08-21 00:27 | PM.IMHP ---
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 Patient's family reported that patient has been noted to be slightly confused than her baseline; concern for possible UTI has similar episode happened in the past. Brought to the hospital for further evaluation. Patient is alert and awake; denies any chest pain palpitations. Denies any abdominal pain. Review of all other systems is limited. ER course: Per ER team, patient appears to have perked up; answering questions fairly appropriately; exam grossly nonfocal; urinalysis abnormal consistent with UTI. Given ceftriaxone. EMS also noted that patient was hypoxic at home but noted to have long tubing from her air compressor and not receiving enough oxygen. Patient has no significant wheezing. Chest x-ray showed no acute findings. Patient was placed back on her 2 L of home oxygen with improvement in oxygenation and does not appear to be in any respiratory distress. [facility] Medical History Respiratory failure with hypoxia and hypercapnia Open wound Necrotizing subcutaneous infection ADELITA (obstructive sleep apnea) Respiratory failure with hypoxia History of invasive ductal carcinoma of breast (~2009) COPD (chronic obstructive pulmonary disease) Asthma Hypoxemia On home oxygen therapy Osteopenia Morbid obesity Left breast mass Personal history of nicotine dependence Family History Father History of diabetes mellitus Mother Family history of COPD (chronic obstructive pulmonary disease) Family/Other History of melanoma Brother Skin cancer Surgical History History of lung surgery (~06/2016) History of lymph node dissection of right axilla (~05/2010) History of right breast biopsy (~05/2010) History of colonoscopy with polypectomy (~03/2010) History of section Social History Household Members: Other Housing: Apartment Are you a primary dog daycare provider to a significant other at home: No Do you presently have visiting nurse or other home services: Yes Patient Tobacco Use Status: Former Tobacco user Years Smoked: onset 16yo, 1-2ppd x 52yrs, 70pyh - quit 2017 Advance Directives: No Advance Directives Information Provided: Yes Do you have a plan to hurt others: No Plan service: No Current occupational status: disabled Meds Allergies Allergy/AdvReac Type Severity Reaction Status Date / Time No Known Allergies (No Known Allergy Verified 08/20/25 21:53 Allergies*) Home Medications ?Medication ?Instructions ?Recorded ?Confirmed ?Last Taken ?Type clonazepam 1 mg tablet 1 mg PO BID PRN anxiety attack 06/17/20 07/19/25 Unknown History ibuprofen 800 mg tablet 800 mg PO Q8H PRN pain 06/17/20 07/19/25 Unknown History metformin 500 mg tablet 500 mg PO BEDTIME 06/17/20 07/19/25 07/10/24 History mirtazapine 15 mg tablet 15 mg PO BEDTIME 06/17/20 07/19/25 07/10/24 History venlafaxine 75 mg capsule,extended 75 mg PO DAILY 06/17/20 07/19/25 07/10/24 History release 24 hr (Effexor XR) ascorbate calcium (vitamin C) 500 500 mg PO DAILY 11/19/20 07/19/25 07/10/24 History mg tablet aspirin 81 mg tablet,delayed 81 mg PO DAILY 11/19/20 07/19/25 Unknown History release clotrimazole 1 % topical cream 1 appl topical DAILY 02/19/21 07/19/25 07/10/24 History ammonium lactate 12 % lotion 1 appl topical DAILY PRN Dry Skin 07/10/24 07/19/25 Unknown History hydrocortisone 2.5 % topical cream 1 appl topical BID 07/10/24 07/19/25 07/10/24 History nystatin 100,000 unit/gram topical 1 appl topical BID 07/10/24 07/19/25 07/10/24 History powder triamcinolone acetonide 0.025 % 1 appl topical BID 07/10/24 07/19/25 07/10/24 History topical cream fluticasone 250 mcg-salmeterol 50 1 ea inhalation BID 02/26/25 07/19/25 Unknown History mcg/dose blistr powdr for inhalation (Wixela Inhub) atorvastatin 20 mg tablet 20 mg PO DAILY 07/19/25 07/19/25 Unknown History tirzepatide 2.5 mg/0.5 mL 2.5 mg subcut QWEEK 07/19/25 07/19/25 Unknown History subcutaneous pen injector (Wendie) Physical Exam Vital Signs and Narrative: Vital Signs: Last Vital Signs Temp 101.7 F H 08/21/25 00:16 Pulse 91 08/21/25 00:16 Resp 20 08/21/25 00:16 BP 101/50 L 08/21/25 00:16 Pulse Ox 92 08/21/25 00:16 O2 Del Method Nasal Cannula 08/21/25 00:16 O2 Flow Rate 2 08/21/25 00:16 Oxygen Flow Rate 6 08/20/25 21:50 BMI result Body Mass Index 43.1 Gen: Appears be in no acute distress HEENT: NCAT, Moist mucosa. Pulmonary: Vesicular breath sounds, fair air entry CVS: Normal S1-S2 Abdomen: BS+, Soft, Nontender Extremities: Warm well perfused Neuro: Alert and awake. Results Labs 08/20/25 22:03 08/20/25 22:03 Labs: Laboratory Results - last 24 hr 08/20/25 08/20/25 08/20/25 22:03 22:12 23:28 MCV 85.5 MCH 25.8 L MCHC 30.2 L RDW 14.1 Plt Count 333 MPV 8.3 L Immature Gran % (Auto) 0.6 H Neut % (Auto) 87.1 H Lymph % (Auto) 6.6 L [place] % (Auto) 4.7 Eos % (Auto) 0.7 Baso % (Auto) 0.3 Lymph # (Auto) 1.0 L [place] # (Auto) 0.7 Eos # (Auto) 0.1 Baso # (Auto) 0.0 Abs Immat Gran (auto) 0.09 H Absolute Neuts (auto) 13.2 H Absolute Nucleated RBC 0.000 Nucleated RBC % (auto) 0.0 VBG pH 7.42 VBG pCO2 53 VBG pO2 62 VBG HCO3 34 H VBG O2 Saturation 89.0 VBG Base Excess 8.9 Anion Gap 11 L Estim Creat Clear Calc 55.5 Estimated GFR 51 Random Glucose 156 H Lactic Acid 1.4 Calcium 8.9 Magnesium 1.9 Total Bilirubin 0.3 Direct Bilirubin 0.1 AST 24 ALT 7 Alkaline Phosphatase 112 Troponin I High Sens 27.2 H Total Protein 8.0 Albumin 3.6 TSH 1.51 Urine Color Yellow Urine Appearance Clear Urine pH 5.5 Ur Specific [place] 1.015 Urine Protein 30 (1+) H Urine Glucose (UA) Negative Urine Ketones Negative Urine Blood Trace H Urine Nitrite Positive H Ur Leukocyte Esterase Moderate (2+) H Urine RBC 0-2 Urine WBC 21-50 H Ur Squamous Epith Cells 0-2 Urine Bacteria 4+ Hyaline Casts 0-2 Influenza Type A (PCR) NEGATIVE Influenza Type B (PCR) NEGATIVE RSV RNA Qual (PCR) NEGATIVE SARS-CoV-2 RNA (RT-PCR) NEGATIVE Assessment and Plan (1) UTI (urinary tract infection): Qualifiers: Hematuria presence: without hematuria Urinary tract infection type: site unspecified Qualified Code(s): N39.0 - Urinary tract infection, site not specified Status: Acute Plan 75-year-old female with a past medical history of HTN, HLD, dm, COPD, chronic respiratory failure-on home oxygen, morbid obesity, ADELITA, breast cancer, 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 Noted to have UTI. Admitted for further management Confusion: Metabolic encephalopathy. Supportive care. Aspiration precautions. Patient mental status improving. Delirium precautions. UTI: Continue ceftriaxone. Follow up cultures. Renal ultrasound. Chronic hypoxic respiratory failure: Patient was noted to be hypoxic initially by the EMS-presumed to be secondary to the tubing concerns from her air compressor. Respiratory status is at her baseline on 2 L of supplemental oxygen. No significant wheezing. DuoNebs p.r.n.. Continue home supplemental oxygen. Diabetes: Insulin sliding scale History of breast cancer: Follows with oncology. Med reconciliation: Resume home medications once med rec is complete by the pharmacy in a.m.. DVT prophylaxis: Lovenox Code status: Full code Quality Stroke Does the patient have a stroke diagnosis?: No VTE Prior VTE?: No VTE Risk Level:: Medical - moderate - high VTE Device Contraindication: Treatment Not Indicated VTE Drug Contraindication: N/A - Med Ordered
[2025-08-21 00:57] LABS: Troponin-I High Sensitivity 42.8 ng/L (<3.5-17.0)
[2025-08-21 04:10] LABS: Hematocrit 31.9 % (37.0-47.0); Hemoglobin 9.6 g/dl (12.0-16.0); Mean Corpuscular HGB Conc 30.1 g/dl (31.0-35.0); Mean Corpuscular Hemoglobin 26.2 pg (27.0-33.0); Mean Corpuscular Volume 87.2 fL (80.0-98.0); NRBC Abs Auto 0.000 X10*3/uL (0.0-0.012); NRBC Pct Auto 0.0 /100WBC (0.0-0.2); Platelet Count 342 X10*3/uL (160-400); Red Blood Count 3.66 X10*6/uL (4.20-5.50); White Blood Count 24.3 X10*3/uL (4.8-10.8)
[2025-08-21 04:26] LABS: Anion Gap 15 (12-20); Blood Urea Nitrogen 12 mg/dL (9-16); Calcium 8.4 mg/dL (8.4-10.2); Carbon Dioxide 25 mmol/L (22-29); Chloride 103 mmol/L (96-108); Creatinine Clr Calc Pharmacy 56.0; Estimated Glomerular Filt Rate 51; Potassium 4.8 mmol/L (3.3-5.1); Sodium 138 mmol/L (135-145)
[2025-08-21 05:38] LABS: Band Neutrophils Percent 12 % (3-5); Lymphocytes Absolute Manual 0.5 X10*3/uL (1.2-4.9); Lymphocytes Percent Manual 2 % (20-40); Monocytes Absolute Manual 0.2 X10*3/uL (0.1-1.2); Monocytes Percent Manual 1 % (2-11); Neutrophils Absolute Manual 23.6 X10*3/uL (2.0-8.3); Neutrophils Percent Manual 85 % (45-73)
[2025-08-21 05:39] LABS: RBC Morphology NORMAL
--- NOTE | 2025-08-21 06:37 | HO.NURTONUR ---
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 Patient's family reported that patient has been noted to be slightly confused than her baseline; concern for possible UTI has similar episode happened in the past. Brought to the hospital for further evaluation. Imaging: CXR showed: No acute findings Labs: UA showed a UTI treated w/ ceftriaxone and Azithromycin Plan: Noted to have UTI. Admitted for further management UTI: Continue ceftriaxone. Follow up cultures. Renal ultrasound. Access: Bilateral 18g IV to both AC's On 2L NC
[2025-08-21 07:14] LABS: Glucose, Whole Blood 207 mg/dL (60-115)
[2025-08-21 09:30] LABS: Glucose, Whole Blood 181 mg/dL (60-115)
--- NOTE | 2025-08-21 09:33 | HO.NURTONUR ---
Pt arrived to ED with rectal temp of 105.8. Has stayed WNL since meds administered. Admitted with UTI. WBC started at 15, jaymie to 24 within a few hours. LActic was 1.4. No insulin given with breakfast. She didn't eat. 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 Patient's family reported that patient has been noted to be slightly confused than her baseline; concern for possible UTI has similar episode happened in the past. Brought to the hospital for further evaluation. Is less confused now. family at bedside.
[2025-08-21] MEDS: Albuterol/Iprat 2.5/0.5MG 3 ML AMPUL.NEB INHALE (10:49)
[2025-08-21 11:33] LABS: Glucose, Whole Blood 210 mg/dL (60-115)
--- NOTE | 2025-08-21 14:45 | PHA.MEDREC ---
Addendum entered by Jesse Ordonez RPh 08/21/25 15:00: MED REC REVIEWED BY [facility] DIRECTOR CHEMISTRY is Sheryl [phone]. Original Note: Pharmacy Consult ? Medication Reconciliation Pharmacy has completed the medication reconciliation. Spoke with pt DIRECTOR CHEMISTRY over the phone and she was able to confirm the pt medications. Pt no longer taking the scalp topicals at this time and is only using Nystatin Powder as needed for rashes and pt takes Mounjaro once a week on Saturdays and confirmed she took it this past Saturday 08/18.
[2025-08-21 16:17] LABS: Glucose, Whole Blood 123 mg/dL (60-115)
[2025-08-21] MEDS: 0.9 % Sodium Chloride Flush 3 ML SYRINGE IVFLUSH ×2 (17:07→20:53)
--- NOTE | 2025-08-21 17:34 | PM.EVENT ---
Event Note Date of Service: 08/21/25 Event Note: Patient seen and examined by hospitalist admission is morning Seen and examined again Denies any new complaints, mental status improving, Rest of physical exam-seems similar to H&P and assessment and plan as per H and P note Time Spent With Patient Time: Total time managing care of this patient today ____ minutes.
[2025-08-21] MEDS: Albuterol Sulfate (0.083%) 2.5 MG/3 ML VIAL.NEB INHALE (20:11)
[2025-08-21 20:56] LABS: Glucose, Whole Blood 145 mg/dL (60-115)
[2025-08-22] VITALS (7 sets, daily range): BP systolic 112–117; BP diastolic 56–59; PULSE 65–80; RESP 16–19; TEMP 36–36.4; O2SAT 84–100
[2025-08-22 07:26] LABS: Hematocrit 30.1 % (37.0-47.0); Hemoglobin 9.0 g/dl (12.0-16.0); Mean Corpuscular HGB Conc 29.9 g/dl (31.0-35.0); Mean Corpuscular Hemoglobin 26.5 pg (27.0-33.0); Mean Corpuscular Volume 88.5 fL (80.0-98.0); NRBC Abs Auto 0.000 X10*3/uL (0.0-0.012); NRBC Pct Auto 0.0 /100WBC (0.0-0.2); Platelet Count 358 X10*3/uL (160-400); Red Blood Count 3.40 X10*6/uL (4.20-5.50); White Blood Count 21.9 X10*3/uL (4.8-10.8)
[2025-08-22 07:42] LABS: Glucose, Whole Blood 111 mg/dL (60-115)
[2025-08-22 07:54] LABS: Anion Gap 12 (12-20); Blood Urea Nitrogen 22 mg/dL (9-16); Calcium 9.0 mg/dL (8.4-10.2); Carbon Dioxide 32 mmol/L (22-29); Chloride 103 mmol/L (96-108); Creatinine Clr Calc Pharmacy 69.8; Estimated Glomerular Filt Rate > 60; Potassium 5.0 mmol/L (3.3-5.1); Sodium 142 mmol/L (135-145)
[2025-08-22] MEDS: Tiotropium Bromide 2.5 mcg 1 PUFF/2.5 MCG MIST.INHAL 2 PUFF INHALE (08:00)
[2025-08-22] MEDS: Venlafaxine HCl ER 75 MG CAP.ER.24H PO (08:09)
--- NOTE | 2025-08-22 09:15 | MHC.CM.PN ---
CM addressed IMM with Patient. Patient lives with a Roommate, in an apartment and she uses a walker. Patient has a [employer], home O2 from [facility] and a Homemaker; homed/resume said services is Patient's goal and CM has initiated and will follow for dc planning. PCP is Dr. Manjula Ross and Patient may need assist with transport at dc.
[2025-08-22 11:04] LABS: Glucose, Whole Blood 96 mg/dL (60-115)
--- NOTE | 2025-08-22 11:58 | HO.PM.IMPN ---
Subjective Subjective Date of Service: 08/22/25 Interval History: improving Physical Exam Exam: Exam: General: AO X 3, no acute distress Resp: CTA bilateral, no accessory muscles used CVS: S1,S2,RRR GI: soft, non tender, non distended Neuro: motor grossly intact, alert Psych: appropriate affect, appropriate insight Vital Signs: Vital Signs: Last Vital Signs Temp 96.9 F 08/22/25 07:35 Pulse 78 08/22/25 08:03 Resp 16 08/22/25 08:03 BP 117/56 L 08/22/25 07:35 Pulse Ox 92 08/22/25 07:35 O2 Del Method Nasal Cannula 08/22/25 07:35 O2 Flow Rate 2 08/22/25 07:35 Oxygen Flow Rate 6 08/20/25 21:50 BMI result Body Mass Index 42.8 Objective Data Active Medications Acetaminophen (Acetaminophen 325 Mg Tablet) 650 mg PO Q6H PRN PRN Reason: Pain, Mild 1-3,fever,headache Albuterol Sulfate (Albuterol Sulfate (0.083%) 2.5 Mg/3 Ml Vial.Neb) 2.5 mg INHALE Q4H PRN PRN Reason: for dyspnea Last Admin: 08/21/25 20:11 Dose: 2.5 mg Documented By: BYRON Albuterol/Ipratropium (Albuterol/Iprat 2.5/0.5mg 3 Ml Ampul.Neb) 3 ml INHALE Q4H PRN PRN Reason: Shortness of Breath/Wheezing Last Admin: 08/21/25 10:49 Dose: 3 ml Documented By: MI Ascorbic Acid (Ascorbic Acid 500 Mg Tablet) 500 mg PO DAILY [facility] Last Admin: 08/22/25 08:09 Dose: 500 mg Documented By: MATTHEW Atorvastatin Calcium (Atorvastatin Calcium 20 Mg Tablet) 20 mg PO DAILY [facility] Last Admin: 08/22/25 08:09 Dose: 20 mg Documented By: MATTHEW Benzonatate (Benzonatate 100 Mg Capsule) 100 mg PO TID PRN PRN Reason: Cough Calcium Carbonate (Calcium Carbonate 750 Mg Tab.Chew) 750 mg PO Q4H PRN PRN Reason: Heartburn Clonazepam (Clonazepam 1 Mg Tablet) 1 mg PO BID PRN PRN Reason: anxiety attack Dextrose (Dextrose 50 % 25 Gm/50 Ml Syringe) 25 gm IVPUSH Q15M PRN; Protocol PRN Reason: per Hypoglycemia Standing Ord. Enoxaparin Sodium (Enoxaparin Sodium 40 Mg/0.4 Ml Syringe) 40 mg SUBCUT Q24H [facility] Last Admin: 08/22/25 08:09 Dose: 40 mg Documented By: MATTHEW Glucose (Glucose Gel 15 Gm Gel..Gram.) 15 gm PO Q15M PRN; Protocol PRN Reason: per Hypoglycemia Standing Ord. Ceftriaxone Sodium 1 gm/ (Sodium Chloride) 50 mls @ 100 mls/hr IV Q24H [facility] Last Infusion: 08/21/25 21:16 Dose: Infused Documented By: SCOTT Insulin Human Lispro (Insulin Lispro 100 Unit/Ml 3 Ml Vial) 0 unit SUBCUT QIDACHS [facility]; Protocol Last Admin: 08/22/25 11:01 Dose: Not Given Documented By: MATTHEW Non-Admin Reason: No Insulin Coverage Loratadine (Loratadine 10 Mg Tablet) 10 mg PO DAILY [facility] Last Admin: 08/22/25 08:09 Dose: 10 mg Documented By: MATTHEW Magnesium Hydroxide (Milk Of Magnesia 30 Ml Oral.Susp) 30 ml PO DAILY PRN PRN Reason: Constipation Melatonin (Melatonin 3 Mg Tablet) 6 mg PO BEDTIME PRN PRN Reason: Insomnia Metformin HCl (Metformin Hcl 500 Mg Tablet) 500 mg PO BEDTIME [facility] Last Admin: 08/21/25 20:45 Dose: 500 mg Documented By: SCOTT Mirtazapine (Mirtazapine 15 Mg Tablet) 15 mg PO BEDTIME [facility] Last Admin: 08/21/25 20:45 Dose: 15 mg Documented By: SCOTT Non-Formulary Medication (Tirzepatide [Mounjaro]) 2.5 mg SUBCUT SA [facility] Nystatin (Nystatin Powder 15 Gm Bottle) 1 appl TOPICAL BID PRN; Protocol PRN Reason: Rash Sodium Chloride (0.9 % Sodium Chloride Flush 3 Ml Syringe) 3 ml IVFLUSH QSHIFT [facility] Last Admin: 08/22/25 08:10 Dose: Not Given Documented By: MATTHEW Non-Admin Reason: Unable to Scan Barcode Tiotropium [place] (Tiotropium [place] 2.5 Mcg 1 Puff/2.5 Mcg Mist.Inhal) 2 puff INHALE RDAILY [facility] Last Admin: 08/22/25 08:00 Dose: 2 puff Documented By: ROBIN Venlafaxine HCl (Venlafaxine Hcl Er 75 Mg Cap.Er.24h) 75 mg PO DAILY [facility] Last Admin: 08/22/25 08:09 Dose: 75 mg Documented By: MATTHEW Labs 08/22/25 06:31 08/22/25 06:31 Labs: Laboratory Results - last 24 hr 08/21/25 08/21/25 08/22/25 16:13 20:50 06:31 MCV 88.5 MCH 26.5 L MCHC 29.9 L RDW 14.3 Plt Count 358 MPV 8.7 L Absolute Nucleated RBC 0.000 Nucleated RBC % (auto) 0.0 Anion Gap 12 Estim Creat Clear Calc 69.8 Estimated GFR > 60 POC Glucose 123 H 145 H Random Glucose 110 Calcium 9.0 D 08/22/25 08/22/25 07:37 10:56 MCV MCH MCHC RDW Plt Count MPV Absolute Nucleated RBC Nucleated RBC % (auto) Anion Gap Estim Creat Clear Calc Estimated GFR POC Glucose 111 96 Random Glucose Calcium Microbiology Microbiology Results: Microbiology 08/21/25 Unknown Urine Culture - Preliminary Urine clean catch - Clean Catch Midstream Culture in progress. 08/20/25 22:12 Blood Culture - Preliminary Blood - Venous No growth after 24 hours. 08/20/25 22:03 Blood Culture - Preliminary Blood - Venous No growth after 24 hours. Assessment and Plan (1) UTI (urinary tract infection): Status: Acute Plan 75F PMH DM, hld, chronic hypoxic respiratory failure due to COPD on 2 L home O2, hypertension, ADELITA, breast cancer, history of necrotizing skin infection of the breast status post debridement June 2024 presented with altered mental status Acute metabolic encephalopathy due to sepsis due to urinary tract infection Mental status improved, follow up urine culture, continue ceftriaxone Chronic hypoxic respiratory failure due to COPD At baseline O2, continue DuoNebs as needed Diabetes Insulin sliding scale History of breast cancer Outpatient follow up with Oncology DVT prophylaxis with Lovenox Full code reason for continued hospitalization:cultures Quality Stroke Does the patient have a stroke diagnosis?: No VTE Prior VTE?: No VTE Risk Level:: Medical - moderate - high VTE Device Contraindication: Treatment Not Indicated VTE Drug Contraindication: N/A - Med Ordered
[2025-08-22 16:21] LABS: Glucose, Whole Blood 110 mg/dL (60-115)
[2025-08-22 20:08] LABS: Glucose, Whole Blood 101 mg/dL (60-115)
[2025-08-22] MEDS: 0.9 % Sodium Chloride Flush 3 ML SYRINGE IVFLUSH (21:35)
[2025-08-22] MEDS: Albuterol Sulfate (0.083%) 2.5 MG/3 ML VIAL.NEB INHALE (21:44)
[2025-08-23 03:02] VITALS: BP 125/57; PULSE 72; RESP 18; TEMP 36.5; O2SAT 97
[2025-08-23 05:55] LABS: Hematocrit 33.7 % (37.0-47.0); Hemoglobin 9.7 g/dl (12.0-16.0); Mean Corpuscular HGB Conc 28.8 g/dl (31.0-35.0); Mean Corpuscular Hemoglobin 26.0 pg (27.0-33.0); Mean Corpuscular Volume 90.3 fL (80.0-98.0); NRBC Abs Auto 0.000 X10*3/uL (0.0-0.012); NRBC Pct Auto 0.0 /100WBC (0.0-0.2); Platelet Count 369 X10*3/uL (160-400); Red Blood Count 3.73 X10*6/uL (4.20-5.50); White Blood Count 11.9 X10*3/uL (4.8-10.8)
[2025-08-23 06:08] LABS: Anion Gap 12 (12-20); Blood Urea Nitrogen 23 mg/dL (9-16); Calcium 8.9 mg/dL (8.4-10.2); Carbon Dioxide 33 mmol/L (22-29); Chloride 102 mmol/L (96-108); Creatinine Clr Calc Pharmacy 69.0; Estimated Glomerular Filt Rate > 60; Magnesium 2.3 mg/dL (1.6-2.6); Potassium 4.7 mmol/L (3.3-5.1); Sodium 142 mmol/L (135-145)
[2025-08-23 07:22] LABS: Glucose, Whole Blood 102 mg/dL (60-115)
[2025-08-23] MEDS: Tiotropium Bromide 2.5 mcg 1 PUFF/2.5 MCG MIST.INHAL 2 PUFF INHALE (07:30)
[2025-08-23 07:36] VITALS: PULSE 82; RESP 16
[2025-08-23 08:00] VITALS: BP 136/62; PULSE 78; RESP 16; TEMP 36.6; O2SAT 97
[2025-08-23] MEDS: Venlafaxine HCl ER 75 MG CAP.ER.24H PO (08:56)
[2025-08-23] MEDS: 0.9 % Sodium Chloride Flush 3 ML SYRINGE IVFLUSH ×2 (08:56→23:56)
[2025-08-23 11:26] LABS: Glucose, Whole Blood 109 mg/dL (60-115)
--- NOTE | 2025-08-23 11:51 | P.PNIM_ITS ---
Subjective Subjective Date of Service: 08/23/25 Interval History: worsening sob Physical Exam 2 Exam: Exam: General: AO X 3, dyspneic Resp: Diminished bilateral, accessory muscles used CVS: S1,S2,RRR GI: soft, non tender, non distended Neuro: motor grossly intact, alert Psych: appropriate affect, appropriate insight Vital Signs: Vital Signs: Last Vital Signs Temp 97.9 F 08/23/25 08:00 Pulse 78 08/23/25 08:00 Resp 16 08/23/25 08:00 BP 136/62 08/23/25 08:00 Pulse Ox 97 08/23/25 08:00 O2 Del Method Nasal Cannula 08/23/25 08:00 O2 Flow Rate 3 08/23/25 03:02 Oxygen Flow Rate 6 08/20/25 21:50 BMI result Body Mass Index 42.8 Objective Data Active Medications Acetaminophen (Acetaminophen 325 Mg Tablet) 650 mg PO Q6H PRN PRN Reason: Pain, Mild 1-3,fever,headache Albuterol Sulfate (Albuterol Sulfate (0.083%) 2.5 Mg/3 Ml Vial.Neb) 2.5 mg INHALE Q4H PRN PRN Reason: for dyspnea Last Admin: 08/22/25 21:44 Dose: 2.5 mg Documented By: LAURA Albuterol/Ipratropium (Albuterol/Iprat 2.5/0.5mg 3 Ml Ampul.Neb) 3 ml INHALE Q4H PRN PRN Reason: Shortness of Breath/Wheezing Last Admin: 08/21/25 10:49 Dose: 3 ml Documented By: MI Ascorbic Acid (Ascorbic Acid 500 Mg Tablet) 500 mg PO DAILY [facility] Last Admin: 08/23/25 08:56 Dose: 500 mg Documented By: JAYSON Atorvastatin Calcium (Atorvastatin Calcium 20 Mg Tablet) 20 mg PO DAILY [facility] Last Admin: 08/23/25 08:56 Dose: 20 mg Documented By: JAYSON Benzonatate (Benzonatate 100 Mg Capsule) 100 mg PO TID PRN PRN Reason: Cough Calcium Carbonate (Calcium Carbonate 750 Mg Tab.Chew) 750 mg PO Q4H PRN PRN Reason: Heartburn Clonazepam (Clonazepam 1 Mg Tablet) 1 mg PO BID PRN PRN Reason: anxiety attack Dextrose (Dextrose 50 % 25 Gm/50 Ml Syringe) 25 gm IVPUSH Q15M PRN; Protocol PRN Reason: per Hypoglycemia Standing Ord. Enoxaparin Sodium (Enoxaparin Sodium 40 Mg/0.4 Ml Syringe) 40 mg SUBCUT Q24H [facility] Last Admin: 08/23/25 08:56 Dose: 40 mg Documented By: JAYSON Glucose (Glucose Gel 15 Gm Gel..Gram.) 15 gm PO Q15M PRN; Protocol PRN Reason: per Hypoglycemia Standing Ord. Ceftriaxone Sodium 1 gm/ (Sodium Chloride) 50 mls @ 100 mls/hr IV Q24H [facility] Last Infusion: 08/22/25 22:13 Dose: Infused Documented By: PHANI Insulin Human Lispro (Insulin Lispro 100 Unit/Ml 3 Ml Vial) 0 unit SUBCUT QIDACHS [facility]; Protocol Last Admin: 08/23/25 08:49 Dose: Not Given Documented By: JAYSON Non-Admin Reason: No Insulin Coverage Loratadine (Loratadine 10 Mg Tablet) 10 mg PO DAILY [facility] Last Admin: 08/23/25 08:56 Dose: 10 mg Documented By: JAYSON Magnesium Hydroxide (Milk Of Magnesia 30 Ml Oral.Susp) 30 ml PO DAILY PRN PRN Reason: Constipation Melatonin (Melatonin 3 Mg Tablet) 6 mg PO BEDTIME PRN PRN Reason: Insomnia Metformin HCl (Metformin Hcl 500 Mg Tablet) 500 mg PO BEDTIME [facility] Last Admin: 08/22/25 21:31 Dose: 500 mg Documented By: PHANI Mirtazapine (Mirtazapine 15 Mg Tablet) 15 mg PO BEDTIME [facility] Last Admin: 08/22/25 21:31 Dose: 15 mg Documented By: PHANI Nystatin (Nystatin Powder 15 Gm Bottle) 1 appl TOPICAL BID PRN; Protocol PRN Reason: Rash Sodium Chloride (0.9 % Sodium Chloride Flush 3 Ml Syringe) 3 ml IVFLUSH QSHIFT [facility] Last Admin: 08/23/25 08:56 Dose: 3 ml Documented By: JAYSON Tiotropium [place] (Tiotropium [place] 2.5 Mcg 1 Puff/2.5 Mcg Mist.Inhal) 2 puff INHALE RDAILY [facility] Last Admin: 08/23/25 07:30 Dose: 2 puff Documented By: ROBIN Venlafaxine HCl (Venlafaxine Hcl Er 75 Mg Cap.Er.24h) 75 mg PO DAILY [facility] Last Admin: 08/23/25 08:56 Dose: 75 mg Documented By: JAYSON Labs 08/23/25 05:44 08/23/25 05:44 Labs: Laboratory Results - last 24 hr 08/22/25 08/22/25 08/23/25 15:57 19:59 05:44 MCV 90.3 MCH 26.0 L MCHC 28.8 L RDW 14.5 Plt Count 369 MPV 8.4 L Absolute Nucleated RBC 0.000 Nucleated RBC % (auto) 0.0 Anion Gap 12 Estim Creat Clear Calc 69.0 Estimated GFR > 60 POC Glucose 110 101 Random Glucose 99 Calcium 8.9 Magnesium 2.3 08/23/25 08/23/25 07:17 11:07 MCV MCH MCHC RDW Plt Count MPV Absolute Nucleated RBC Nucleated RBC % (auto) Anion Gap Estim Creat Clear Calc Estimated GFR POC Glucose 102 109 Random Glucose Calcium Magnesium Microbiology Microbiology Results: Microbiology 08/21/25 Unknown Urine Culture - Final Urine clean catch - Clean Catch Midstream 08/20/25 22:12 Blood Culture - Preliminary Blood - Venous No growth after 48 hours. 08/20/25 22:03 Blood Culture - Preliminary Blood - Venous No growth after 48 hours. Assessment and Plan (1) UTI (urinary tract infection): Status: Acute Plan 75F PMH DM, hld, chronic hypoxic respiratory failure due to COPD on 2 L home O2, hypertension, ADELITA, breast cancer, history of necrotizing skin infection of the breast status post debridement June 2024 presented with altered mental status Acute metabolic encephalopathy due to sepsis due to urinary tract infection Mental status improved, urine culture grew mixed sheba, continue ceftriaxone Chronic hypoxic respiratory failure due to COPD At baseline O2, but worsening tachypnea and dyspnea continue DuoNebs as needed, check chest x-ray Diabetes Insulin sliding scale History of breast cancer Outpatient follow up with Oncology DVT prophylaxis with Lovenox Full code reason for continued hospitalization: Fever, shortness breath Quality Stroke Does the patient have a stroke diagnosis?: No VTE Prior VTE?: No VTE Risk Level:: Medical - moderate - high VTE Device Contraindication: Treatment Not Indicated VTE Drug Contraindication: N/A - Med Ordered
[2025-08-23 15:10] VITALS: BP 111/58; PULSE 79; RESP 18; TEMP 36.7; O2SAT 93
[2025-08-23 16:20] LABS: Glucose, Whole Blood 97 mg/dL (60-115)
[2025-08-23 19:23] VITALS: BP 112/55; PULSE 74; RESP 18; TEMP 36.7; O2SAT 92
--- NOTE | 2025-08-23 21:40 | PC.NURSE ---
At approx 1999, pt was bladder scanned for 483ml. Kyle Fields MD was notified. advised RN to wait a few hours to see if pt voids. At approx 2130, pt voided 300ml tea colored urine via external cath. Plan of care ongoing.
[2025-08-24 00:02] VITALS: BP 115/59; PULSE 70; RESP 18; TEMP 36.2; O2SAT 94
[2025-08-24 02:51] VITALS: BP 149/65; PULSE 92; RESP 24; TEMP 36.2; O2SAT 89
[2025-08-24 06:51] LABS: Hematocrit 32.3 % (37.0-47.0); Hemoglobin 9.6 g/dl (12.0-16.0); Mean Corpuscular HGB Conc 29.7 g/dl (31.0-35.0); Mean Corpuscular Hemoglobin 26.5 pg (27.0-33.0); Mean Corpuscular Volume 89.2 fL (80.0-98.0); NRBC Abs Auto 0.000 X10*3/uL (0.0-0.012); NRBC Pct Auto 0.0 /100WBC (0.0-0.2); Platelet Count 339 X10*3/uL (160-400); Red Blood Count 3.62 X10*6/uL (4.20-5.50); White Blood Count 12.1 X10*3/uL (4.8-10.8)
[2025-08-24 07:17] LABS: NT Pro B Type Natriuretic Pept 548.4 pg/mL (<300)
[2025-08-24 07:37] LABS: Anion Gap 11 (12-20); Blood Urea Nitrogen 16 mg/dL (9-16); Calcium 8.9 mg/dL (8.4-10.2); Carbon Dioxide 34 mmol/L (22-29); Chloride 100 mmol/L (96-108); Creatinine Clr Calc Pharmacy 83.8; Estimated Glomerular Filt Rate > 60; Magnesium 2.2 mg/dL (1.6-2.6); Potassium 4.3 mmol/L (3.3-5.1); Sodium 141 mmol/L (135-145)
[2025-08-24] MEDS: Tiotropium Bromide 2.5 mcg 1 PUFF/2.5 MCG MIST.INHAL 2 PUFF INHALE (07:40)
[2025-08-24 07:41] VITALS: PULSE 92; RESP 16; O2SAT 92
[2025-08-24 07:42] VITALS: BP 138/67; PULSE 80; RESP 18; TEMP 36.2; O2SAT 92
[2025-08-24 07:52] LABS: Glucose, Whole Blood 111 mg/dL (60-115)
[2025-08-24] MEDS: Venlafaxine HCl ER 75 MG CAP.ER.24H PO (08:20)
[2025-08-24] MEDS: 0.9 % Sodium Chloride Flush 3 ML SYRINGE IVFLUSH (08:20)
--- NOTE | 2025-08-24 08:53 | PM.DS ---
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 Patient's family reported that patient has been noted to be slightly confused than her baseline; concern for possible UTI has similar episode happened in the past. Brought to the hospital for further evaluation. Patient is alert and awake; denies any chest pain palpitations. Denies any abdominal pain. Review of all other systems is limited. ER course: Per ER team, patient appears to have perked up; answering questions fairly appropriately; exam grossly nonfocal; urinalysis abnormal consistent with UTI. Given ceftriaxone. EMS also noted that patient was hypoxic at home but noted to have long tubing from her air compressor and not receiving enough oxygen. Patient has no significant wheezing. Chest x-ray showed no acute findings. Patient was placed back on her 2 L of home oxygen with improvement in oxygenation and does not appear to be in any respiratory distress. hospital course: Patient was admitted for acute metabolic encephalopathy due to sepsis due to urinary tract infection. She was treated ceftriaxone and mental status returned to baseline. Sepsis resolved. Urine culture grew mixed sheba, blood culture was negative. On discharge she will continue on 5 more days of cefuroxime. For chronic hypoxic respiratory failure due to COPD remained on baseline O2 briefly had worsening shortness of breath but improved with DuoNebs. For diabetes was continued on insulin sliding scale. For history of breast cancer she will follow up with Oncology as outpatient. Time Attestation Discharge Coordination Time (in mins): 35 Quality: Safe Use of Opioids Does Pt have an Active Cancer Diagnosis on the Problem List?: Yes Opioid Measure Date for [facility] Report: 07/25/25 Opioid Measure Time for [facility] Report: 08:55 Quality: Stroke Does the patient have a stroke diagnosis?: No Physical Exam Vital Signs: Vital Signs: Last Vital Signs Temp 97.2 F 08/24/25 07:42 Pulse 80 08/24/25 07:42 Resp 18 08/24/25 07:42 BP 138/67 08/24/25 07:42 Pulse Ox 92 08/24/25 07:42 O2 Del Method Nasal Cannula 08/24/25 07:42 O2 Flow Rate 3 08/24/25 07:42 Oxygen Flow Rate 6 08/20/25 21:50 BMI result Body Mass Index 42.8 DS: Data Data Completed and Pending Completed studies during hospitalization [Text1]: Procedures Assistance with Respiratory Ventilation, Less than 24 Consecutive Hours, Continuous Positive Airway Pressure (07/10/24) Change Pressure Dressing on Chest Wall (07/10/24) Excision of Chest Subcutaneous Tissue and Fascia, Open Approach (07/10/24) Labs on day of discharge: Laboratory Results - last 24 hr 08/23/25 08/23/25 08/23/25 11:07 16:15 21:24 WBC RBC Hgb Hct MCV MCH MCHC RDW Plt Count MPV Absolute Nucleated RBC Nucleated RBC % (auto) Sodium Potassium Chloride Carbon Dioxide Anion Gap BUN Creatinine Estim Creat Clear Calc Estimated GFR POC Glucose 109 97 98 Random Glucose Calcium Magnesium NT-Pro-B Natriuret Pep 08/24/25 08/24/25 08/24/25 06:34 06:35 07:43 WBC 12.1 H RBC 3.62 L Hgb 9.6 L Hct 32.3 L MCV 89.2 MCH 26.5 L MCHC 29.7 L RDW 14.0 Plt Count 339 MPV 8.5 L Absolute Nucleated RBC 0.000 Nucleated RBC % (auto) 0.0 Sodium 141 Potassium 4.3 Chloride 100 Carbon Dioxide 34 H Anion Gap 11 L BUN 16 Creatinine 0.70 Estim Creat Clear Calc 83.8 Estimated GFR > 60 POC Glucose 111 Random Glucose 102 Calcium 8.9 Magnesium 2.2 NT-Pro-B Natriuret Pep 548.4 H Preliminary micro results at discharge 08/20/25 22:12 Blood Culture - Preliminary Blood - Venous No growth after 48 hours. 08/20/25 22:03 Blood Culture - Preliminary Blood - Venous No growth after 48 hours. Discharge Plan Discharge Anticipated Discharge Date/Time: 08/24/25 08:52 Patient Disposition: Home, Self-Care Discharge Diagnosis: sepsis, uti Referrals: Manjula Ross MD [Primary Care Provider, Internal Medicine] - 1 Week Discharge Medications: New cefuroxime axetil 500 mg tablet 500 mg PO BID Qty: 10 0RF Continued albuterol sulfate 2.5 mg /3 mL (0.083 %) solution for nebulization 2.5 mg inhalation Q4-6H PRN (Reason: for dyspnea) Qty: 150 3RF Incruse Ellipta 62.5 mcg/actuation blister with device 1 inh PO DAILY Qty: 30 0RF Combivent Respimat 20-100 mcg/actuation mist 1 puff PO Q4-6H PRN (Reason: for wheezing) Qty: 4 0RF Mounjaro 2.5 mg/0.5 mL Pen Injector 2.5 mg SUBCUT SA Rx Instructions: for 4 weeks atorvastatin 20 mg Tablet 20 mg PO DAILY cetirizine 10 mg tablet 10 mg PO DAILY nystatin 100,000 unit/gram powder 1 appl topical BID PRN (Reason: Rash) ibuprofen 800 mg tablet 800 mg PO TID PRN (Reason: pain) metformin 500 mg tablet 500 mg PO BEDTIME mirtazapine 15 mg tablet 15 mg PO BEDTIME clonazepam 1 mg tablet 1 mg PO BID PRN (Reason: anxiety attack) venlafaxine [Effexor XR] 75 mg capsule,extended release 24hr 75 mg PO DAILY ascorbate calcium (vitamin C) 500 mg tablet 500 mg PO DAILY Discharge Orders: Discharge Order (Routine); Ordered 08/24/25 Ordered By: Flaco Jones Diet: Advance to usual diet Activity on Discharge: As tolerated Stand Alone Forms: Patient Portal Discharge page Print Language: Iranian Care Plan Goals: recovery Health Concerns: uti Plan of Treatment: 5 more days ceftin Assessment: see above
--- NOTE | 2025-08-24 10:22 | MHC.CM.PN ---
Patient has been medically cleared for dc to home today, self care.
[2025-08-24] MEDS: Albuterol/Iprat 2.5/0.5MG 3 ML AMPUL.NEB INHALE (11:19)
[2025-08-24 11:20] VITALS: PULSE 80; RESP 18; O2SAT 94
== END 2025-08-24 11:42 | disposition home or self-care (01) | DRG 871 ==
LOC: HO.ED 22:31 → HO.EDOVER 08-21 00:31 → HO.IMC 08-21 09:02
PROVIDERS: Internal Medicine; Admitting Provider Hospitalist; Emergency Provider Emergency Medicine; PCP General Practice; Visit Provider Internal Medicine
DX: A41.9 Sepsis, unspecified organism (principal); G93.41 Metabolic encephalopathy; J96.11 Chronic respiratory failure with hypoxia; N39.0 Urinary tract infection, site not specified; Z68.41 Body mass index [BMI] 40.0-44.9, adult; J44.9 Chronic obstructive pulmonary disease, unspecified; G47.33 Obstructive sleep apnea (adult) (pediatric); E66.01 Morbid (severe) obesity due to excess calories; Z71.3 Dietary counseling and surveillance; Z20.822 Contact with and (suspected) exposure to COVID-19; Z99.81 Dependence on supplemental oxygen; Z85.3 Personal history of malignant neoplasm of breast; Z90.2 Acquired absence of lung [part of]; Z79.84 Long term (current) use of oral hypoglycemic drugs; Z79.85 Long-term (current) use of injectable non-insulin antidiabetic drugs; Z79.899 Other long term (current) drug therapy
CPT/HCPCS: 36415; 71045; 76775; 80048; 80076; 81001; 81003; 82803; 82947; 83605; 83735; 83880; 84443; 84484; 85007; 85025; 85027; 87040; 87086; 87637; 93005; 99285; J0456; J0696; J1650; J2919

== ENCOUNTER → 2025-08-20 21:49 | Outpatient (BNV) | payer OTHER, SELFPAY | PROVIDERS: Admitting Provider Hospitalist; Emergency Provider Emergency Medicine; PCP General Practice; Visit Provider Internal Medicine | DX: R00.0 Tachycardia, unspecified (principal); I49.3 Ventricular premature depolarization | CPT/HCPCS: 93010 ==

== ENCOUNTER → 2025-08-20 21:49 | Outpatient (BNV) | payer OTHER, SELFPAY | PROVIDERS: Admitting Provider Hospitalist; Emergency Provider Emergency Medicine; PCP General Practice; Visit Provider Student in an Organized Health Care Education/Training Program | DX: R06.02 Shortness of breath (principal); R50.9 Fever, unspecified | CPT/HCPCS: 71045 ==

== ENCOUNTER 2025-08-21 00:25 | Outpatient (BNV) | payer OTHER, SELFPAY | END 2025-08-21 09:17 | PROVIDERS: Admitting Provider Hospitalist; Emergency Provider Emergency Medicine; PCP General Practice; Visit Provider Radiology Diagnostic Radiology | DX: N39.0 Urinary tract infection, site not specified (principal) | CPT/HCPCS: 76775 ==

== ENCOUNTER 2025-08-21 00:25 | Outpatient (BNV) | payer OTHER, SELFPAY | END 2025-08-23 11:59 | PROVIDERS: Admitting Provider Hospitalist; Emergency Provider Emergency Medicine; PCP General Practice; Visit Provider Radiology Diagnostic Radiology | DX: R06.02 Shortness of breath (principal) | CPT/HCPCS: 71045 ==

== ENCOUNTER → 2025-08-21 00:25 | Outpatient (BNV) | payer OTHER, SELFPAY | PROVIDERS: Admitting Provider Hospitalist; Emergency Provider Emergency Medicine; PCP General Practice; Visit Provider Internal Medicine | DX: N39.0 Urinary tract infection, site not specified (principal) | CPT/HCPCS: 99223; 99233; 99239; 99499 ==